=== PATIENT | male | born 1960 | race Caucasian/White ===

== ENCOUNTER 2017-04-15 12:32 | Emergency (ER) | payer OTHER, SELFPAY ==
[2017-04-15 12:33] VITALS: BP 138/70; PULSE 63; RESP 16; TEMP 36.4; O2SAT 99; BMI 21.3
--- NOTE | 2017-04-15 12:47 | RAD_ITS ---
STUDY: X-RAY - LUMBAR SPINE REASON FOR EXAM: Male, 57 years old. Low back pain following a fall. TECHNIQUE: 3 view(s) of the lumbar spine were obtained. COMPARISON: None FINDINGS: Normal lumbar lordosis. There is no substantial scoliosis. There is a normal alignment of the vertebrae. There is multilevel endplate spondylosis of the lumbar vertebrae. There is multi-level degenerative disc disease with multi-level disc space narrowing. The soft tissue structures are unremarkable. RAD/Lumbar Spine 2 or 3 Views IMPRESSION: Degenerative changes of the spine, as detailed above. Electronically Signed: Mo Corea MD at 13:52 EST Tel [phone], Service support ,
--- NOTE | 2017-04-15 12:48 | ED.DCSUM_ITS ---
- ER Visit Summary Date of Service: 04/15/17 Chief Complaint: Back pain History of Present Illness: The patient is a 57 M who presents with back pain. He fell off a truck at work this morning. He landed directly on his back. No head trauma or LOC. He has pain in the lower part of his back. It is worse with movement. Better with sitting. He took no medications for this. He denies any bowel or bladder incontinence. No numbness or tingling to his legs. No history of back issues Physical Examination: Vital signs reviewed. Heart is regular. Lungs are clear. Abdomen soft. Back is diffusely tender along the lumbar spine area. His neurologic exam is intact and normal. Test Results: Lumbar spine x-ray reveals degenerative changes Emergency Department Course and Treatment: Patient was given naproxen Treatment Plan: Patient will be given naproxen for home. Worker's Compensation forms will be completed Disposition: Discharge Impression: Lumbar contusion This note was generated with [employer] dictation software. It may contain incorrect words, spelling, and punctuation that were not noted in review of the chart prior to signing ED Disposition - Plan for ED Patient: Chief Complaint: Back Referrals: Care Physician,No Primary [Primary Care Provider] -
[2017-04-15] MEDS: Naproxen 500 MG Tablet PO (12:55)
--- NOTE | 2017-04-15 14:08 | ED.DEP ---
ED Disposition - Plan for ED Patient: Disposition: Home or Assisted Living Chief Complaint: Back Instructions: ED Contusion Back Prescriptions: Naproxen [Naprosyn] 500 mg PO BID PRN #20 tab Referrals: Care Physician,No Primary [Primary Care Provider] -
[2017-04-15 14:14] VITALS: BP 121/70; PULSE 58; RESP 16; O2SAT 99
== END 2017-04-15 14:14 | disposition home or self-care (01) ==
PROVIDERS: Emergency Provider Emergency Medicine
DX: S30.0XXA Contusion of lower back and pelvis, initial encounter (principal); Z72.0 Tobacco use; W17.89XA Other fall from one level to another, initial encounter; Y93.89 Activity, other specified; Y92.89 Other specified places as the place of occurrence of the external cause; Y99.0 Civilian activity done for income or pay
CPT/HCPCS: 72100; 99283

== ENCOUNTER 2017-07-23 22:10 | Emergency (ER) | payer SELFPAY ==
[2017-07-23 22:11] VITALS: BP 141/67; PULSE 88; RESP 16; TEMP 36.8; O2SAT 98; BMI 24.4
== END 2017-07-23 22:59 | disposition left against medical advice (07) ==
LOC: ED 22:47
PROVIDERS: Emergency Provider Emergency Medicine
DX: S60.812A Abrasion of left wrist, initial encounter (principal)
CPT/HCPCS: 99282

== ENCOUNTER 2018-06-11 15:42 | Emergency (ER) | payer SELFPAY ==
[2018-06-11 15:42] VITALS: BP 114/75; PULSE 80; RESP 15; TEMP 36.4; O2SAT 97; BMI 21.3
--- NOTE | 2018-06-11 16:10 | RAD_ITS ---
STUDY: X-RAY - UNILATERAL RIBS ( RIGHT ) WITH CHEST REASON FOR EXAM: Male, 58 years old. Fall, right rib pain TECHNIQUE - RIBS: 4 view(s) of the ribs. TECHNIQUE - CHEST: PA COMPARISON: None. FINDINGS - RIBS: Normal visualized ribs without a demonstrated fracture. FINDINGS - CHEST: The lungs are clear and expanded. There is no demonstrated pleural abnormality. Normal size heart. Normal mediastinum and carrie. Normal visualized pulmonary arteries. Normal visualized aortic arch and descending thoracic aorta. Normal visualized thoracic spine. Normal visualized ribs, clavicles, and shoulders. There is no demonstrated abnormality of the visualized soft tissue structures of the upper abdomen. RAD/Ribs Uni Min 3V w/PA Chest IMPRESSION: RIBS: Normal x-ray examination of the ribs. CHEST: Normal x-ray examination of the chest. Electronically Signed: Marcello Melendrez MD at 16:55 EDT , Service support ,
--- NOTE | 2018-06-11 16:10 | CT_ITS ---
STUDY: CT ABDOMEN AND PELVIS WITHOUT CONTRAST REASON FOR EXAM: Male, 58 years old. Fall down 3 steps with pain on the right side RADIATION DOSAGE (If Supplied By Facility): CTDIvol = ( 6.90 ) mGy, DLP = ( 324.01 ) mGycm TECHNIQUE: Transaxial images were obtained from the dome of the diaphragm to the symphysis pubis without oral contrast, and without intravenous contrast. Sagittal and coronal images were reconstructed. Individualized dose optimization techniques were used for this CT. COMPARISON: None. FINDINGS: The visualized lung bases are unremarkable. The visualized portions of the heart are within normal limits. There is decreased attenuation of the liver consistent with steatosis. Normal gallbladder and extrahepatic biliary system. Normal spleen. Normal pancreas. Normal bilateral adrenal glands. Normal right kidney. Normal left kidney. Normal visualized stomach. Normal small intestine. Normal colon. The appendix is visualized and appears normal. Normal abdominal aorta. Normal inferior vena cava. Normal retroperitoneum. Normal urinary bladder. There are prostatic calcifications. Normal abdominal wall. There are diffuse degenerative changes of the visualized lumbar spine. The visualized ribs are grossly intact. No compression fracture. CT/Abdomen/Pelvis without Cont IMPRESSION: 1. No solid organ injury, pneumoperitoneum or free fluid. 2. Hepatic steatosis. 3. No obvious injury/injury of the visualized osseous structures. Electronically Signed: Marcello Melendrez MD at 17:03 EDT , Service support ,
--- NOTE | 2018-06-11 16:13 | ED.VISSUMM ---
- ER Visit Summary Date of Service: 06/11/18 Chief Complaint: Fall History of Present Illness: The patient is a 58 M who reportedly fell down 3 icy steps shortly prior to arrival. He is complaining of pain to his right lower ribs, right side back, and his right forearm. He did not strike his head. There is no loss of consciousness. He has not yet taken anything for pain. He was observed walking to the room with antalgic gait. Physical Examination: Vital signs unremarkable. Patient lying in bed no acute distress. He does smell of alcoholic beverage. Head neck examination was no obvious external sign of trauma. He has no C-spine tenderness on exam. Heart is regular rate and rhythm. Lung sounds are clear. He has reproducible tenderness over the right lateral lower ribs. There is no crepitus. Abdomen is soft and nontender. Back examination reveals slight tenderness in the right flank area with superficial abrasions. There is no midline thoracic or lumbar tenderness. Extremity examination was a small hematoma to the mid right forearm. He has full range of motion with strong distal pulses. Neuro exam is unremarkable. Test Results: Right forearm x-rays revealed no fracture. Rib series with chest x-ray is normal. CT abdomen pelvis shows no solid organ injury. No obvious injury to the osseous structures. Emergency Department Course and Treatment: Patient was given 1 tab of oxycodone for pain. Test results discussed with patient and family at bedside. He will be given a short course of naproxen and Imogene. Treatment Plan: [] Disposition: Discharge Impression: 1. Mechanical fall 2. Right flank contusion This note was generated with [employer] dictation software. It may contain incorrect words, spelling, and punctuation that were not noted in review of the chart prior to signing ED Disposition - Plan for ED Patient: Referrals: Care Physician,No Primary [Primary Care Provider] -
--- NOTE | 2018-06-11 16:29 | RAD_ITS ---
STUDY: X-RAY - RIGHT RADIUS AND ULNA REASON FOR EXAM: Male, 58 years old. Fall, right arm pain TECHNIQUE: 2 view(s) of the forearm. COMPARISON: None. FINDINGS: There is no demonstrated soft tissue swelling. Normal visualized radius. Normal visualized ulna. RAD/Forearm 2 Views IMPRESSION: Normal x-ray examination of the radius and ulna. Electronically Signed: Marcello Melendrez MD at 16:54 EDT , Service support ,
[2018-06-11] MEDS: oxyCODONE 5 MG Tablet PO (16:53)
[2018-06-11 16:55] VITALS: O2SAT 98
--- NOTE | 2018-06-11 17:10 | DCINST.ED_ITS ---
ED Disposition - Plan for ED Patient: Disposition: Home or Assisted Living Instructions: ED Mechanical Fall, ED Contusion Back Prescriptions: Hydrocodone Bitart/Apap 5-325 [[place] 5MG-325MG] 1 tablet PO Q6H PRN PRN 3 Days #10 tablet PRN Reason: Pain Naproxen [Naprosyn] 500 mg PO BID PRN PRN #20 tablet PRN Reason: Pain Referrals: Kim Gallardo DO [STAFF PHYSICIAN] - As Needed
[2018-06-11 17:16] VITALS: BP 140/83; PULSE 73; RESP 18; O2SAT 97
== END 2018-06-11 17:20 | disposition home or self-care (01) ==
PROVIDERS: Emergency Provider Emergency Medicine
DX: S30.1XXA Contusion of abdominal wall, initial encounter (principal); Z72.0 Tobacco use; W10.9XXA Fall (on) (from) unspecified stairs and steps, initial encounter; Y93.01 Activity, walking, marching and hiking; Y92.89 Other specified places as the place of occurrence of the external cause; Y99.8 Other external cause status
CPT/HCPCS: 71101; 73090; 74176; 99283

== ENCOUNTER 2018-12-18 06:43 | Emergency (ER) | payer SELFPAY ==
[2018-12-18 06:46] VITALS: BP 122/61; PULSE 98; RESP 15; TEMP 36.4; O2SAT 95; BMI 21.1
--- NOTE | 2018-12-18 07:15 | CT_ITS ---
STUDY: CT LUMBAR SPINE WITHOUT CONTRAST REASON FOR EXAM: Male, 58 years old. Low back pain after falling off a truck 2 weeks ago. RADIATION DOSAGE (If Supplied By Facility): CTDIvol = ( 13.82 ) mGy, DLP = ( 363.47 ) mGycm TECHNIQUE: The patient was scanned in a multi detector CT scanner. High resolution transaxial imaging was performed. Images were obtained from T12 to sacrum. Sagittal and coronal images were reconstructed. Individualized dose optimization techniques were used for this CT. COMPARISON: CT of the lumbar spine dated June 04, 2016. FINDINGS: Normal lumbar lordosis. There is no substantial scoliosis. The imaged thoracic and lumbar vertebral bodies have normal height and alignment. There is a transitional vertebral segment at L5-S1. L1-2: There is mild annular disk bulge and osteophyte complex. There is mild degenerative arthropathy of the facet joints. Bilateral neuroforamina are narrowed. There is no significant acquired central canal stenosis. L2-3: There is a Schmorl's node at the inferior endplate of L2. There is a small bone fragment located between the articulating facets on the right at this level. This could be the result of previous fracture and probably represents intra-articular loose body measuring up to 5.6 mm in greatest dimension. There is mild annular disk bulge and osteophyte complex. There is mild degenerative arthropathy of the facet joints. Bilateral neuroforamina are narrowed. There is no significant acquired central canal stenosis. L3-4: There is mild annular disk bulge and osteophyte complex. There is mild degenerative arthropathy of the facet joints. Bilateral neuroforamina are narrowed. There is no significant acquired central canal stenosis. L4-5: There is narrowing of this disc space with the mild retrolisthesis at this level. There is mild annular disk bulge and osteophyte complex. There is mild degenerative arthropathy of the facet joints. Bilateral neuroforamina are narrowed. There is no significant acquired central canal stenosis. L5-S1: This has appearance of a transitional vertebral segment with rudimentary disc. The neural foramina are mildly narrowed. There is no significant central acquired canal stenosis. Normal visualized paraspinous soft tissue structures. CT/Spine Lumbar without Contrast IMPRESSION: 1. No CT evidence of acute compression or displaced fracture. 2. There does appear to be a chip fracture arising from the right-sided facet joint at L2-3 with possible small intra-articular loose body. This is unchanged since the previous CT. 3. Transitional vertebral segment with apparent sacralization of L5. 4. Multilevel degenerative disc disease and degenerative arthropathy of the lumbar spine, as described. Electronically Signed: Gail Rooney MD at 8:09 EDT , Service support ,
--- NOTE | 2018-12-18 07:16 | ED.DCSUM_ITS ---
- ER Visit Summary Date of Service: 12/18/18 Chief Complaint: Back pain History of Present Illness: The patient is a 58 M who presents with low back pain. Patient states that 2 weeks ago he fell off a box landing flat on his back. That started some discomfort in the low back. 2 days ago he was unloading wood boxes and states that it progressively got worse and today when he woke he states that he could barely move due to pain in the low back. He notes tingling in his toes and foot. He notes pain radiates down the left leg. He denies any bowel or bladder dysfunction. He denies any loss of muscle strength or loss of sensation. He denies any fevers. Denies any IV drug use. He denies any prior back injuries but states that he has a history of arthritis in his back. He states he is not go to the doctor. He notes daily alcohol and smokes. Physical Examination: Afebrile vital signs are stable Gen: Well-nourished well-developed Head: Normocephalic atraumatic Eyes: Perrl EOMI ENT: TMs clear no rhinorrhea moist mucous membranes Neck: Supple no lymphadenopathy no JVD nontender CVS: Regular rate rhythm no murmurs normal S1-S2 Respiratory: No distress clear to auscultation bilaterally chest nontender Abdomen: Soft nontender nondistended normal bowel sounds no masses Back: Patient is tender to palpation over the lower lumbar paraspinal musculature. There is no erythema or physical evidence of abscess. Patient has painful range of motion. Extremity: Nontender no edema Skin: Normal color no rash Neuro: alert orientated ?3 CN II-XII intact normal strength sensation normal patellar reflex Psych: Normal affect normal mood Test Results: CT of the lumbar spine was obtained. In short no new trauma noted. Please see radiologist read for full details. Emergency Department Course and Treatment: Patient received IM doses of Toradol and morphine and p.o. Valium. Given the CT findings and his physical exam I do not see evidence of acute neurologic deficit. I think is most likely muscular. He will be discharged home with pain medication and Valium. He is to establish primary care. He understands return instructions. Impression: 1. Acute lumbar muscle strain and spasm This note was generated with [employer] software. It may contain incorrect words, spelling, and punctuation that were not noted in review of the chart prior to signing ED Disposition - Plan for ED Patient: Disposition: Home or Assisted Living Instructions: Back Sprain/Strain Prescriptions: Ibuprofen [Motrin] 800 mg PO TID PRN PRN #15 tab PRN Reason: Pain Score 1-10/10 Prescription Printed Hydrocodone Bitart/Apap 5-325 [[place] 5MG-325MG] 1 tab PO Q6H PRN PRN 3 Days #12 tab PRN Reason: Pain Prescription Printed Diazepam [Valium] 5 mg PO Q8 PRN #15 tab PRN Reason: Muscle Spasm Prescription Printed Referrals: Alexsander Garg MD [STAFF PHYSICIAN] - (CALL TO ARRANGE FOLLOW UP )
[2018-12-18] MEDS: diazePAM 5 MG Tablet PO (07:21)
[2018-12-18] MEDS: morphine 10 MG/ML Syringe IM (07:22)
[2018-12-18] MEDS: Ketorolac 60 MG/2 ML Vial IM (07:22)
== END 2018-12-18 08:44 | disposition home or self-care (01) ==
PROVIDERS: Emergency Provider Emergency Medicine
DX: M62.830 Muscle spasm of back (principal); S39.012A Strain of muscle, fascia and tendon of lower back, initial encounter; M19.90 Unspecified osteoarthritis, unspecified site; Z72.0 Tobacco use; X50.0XXA Overexertion from strenuous movement or load, initial encounter; Y93.89 Activity, other specified; Y92.89 Other specified places as the place of occurrence of the external cause; Y99.8 Other external cause status
CPT/HCPCS: 72131; 96372; 99282

== ENCOUNTER 2019-06-03 10:15 | Emergency (ER) | payer SELFPAY ==
[2019-06-03 10:15] VITALS: BP 135/75; PULSE 85; RESP 18; TEMP 36.8; O2SAT 98; BMI 25.7
--- NOTE | 2019-06-03 10:24 | RAD_ITS ---
STUDY: X-RAY CHEST REASON FOR EXAM: Male, 59 years old. COUGH, FEVER, DIARRHEA TECHNIQUE: Single AP portable view of the chest. COMPARISON: 11 June 2018 FINDINGS: The lungs are clear and expanded. There is no demonstrated pleural abnormality. Normal size heart. Normal mediastinum and carrie. Normal visualized pulmonary arteries. Normal visualized aortic arch and descending thoracic aorta. Normal visualized thoracic spine. Normal visualized ribs, clavicles, and shoulders. There is no demonstrated abnormality of the visualized soft tissue structures of the upper abdomen. RAD/Chest 1 View (Portable) IMPRESSION: No evidence of persisting focal airspace disease with overall similar appearance compared to prior. Electronically Signed: Cody Antoine DO at 11:12 EDT , Service support ,
[2019-06-03 10:25] VITALS: BP 135/75; PULSE 85; RESP 16; TEMP 36.8
--- NOTE | 2019-06-03 10:26 | EKG12_ITS ---
Test Reason : SOB Blood Pressure : / mmHG Vent. Rate : 074 BPM Atrial Rate : 074 BPM P-R Int : 118 ms QRS Dur : 088 ms QT Int : 394 ms P-R-T Axes : 076 088 061 degrees QTc Int : 437 ms Normal sinus rhythm Normal ECG Confirmed by JACKIE AGUILAR, ALEM ([id number]), web editor TIM OBANDO ([id number]) on 06/05/2019 8:33:44 AM Referred By: SHANTI Confirmed By:ALEM MEJIA MD
--- NOTE | 2019-06-03 10:28 | ED.VISSUMM ---
- ER Visit Summary Date of Service: 06/03/19 Chief Complaint: Feeling ill History of Present Illness: The patient is a 59 M presenting stating that he has felt ill since . He complains of chills, denies fever. He complains of shortness of breath and nonproductive cough. He denies chest pain. He complains of abdominal pain and diarrhea. He states the abdominal pain was worse yesterday and improved today. He denies nausea or vomiting. He has had 3 episodes of diarrhea per day. Denies blood in stool. He has myalgias. He denies headache. Denies sick contacts. Denies travel. Denies recent antibiotics. He did not receive a flu shot this year. He has tried no medications at home. 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 No other PE/DVT risk factors. Physical Examination: Vitals are stable. Patient is afebrile. Alert no acute distress. Pulse ox 98% on room air. HEENT exam is unremarkable. Neck is supple. No meningismus Lungs are clear and equal bilaterally. Heart is regular rate and rhythm. Abdomen is soft left lower quadrant tenderness with no guarding or rebound Extremities are unremarkable. Skin is warm and dry. No focal neurologic deficit. Remainder of exam is unremarkable. Emergency Department Course and Treatment: EKG is sinus rhythm rate of 74 with no acute ischemic changes. Chest x-ray shows no evidence of persisting focal airspace disease with overall similar appearance compared to prior. CBC, chemistries unremarkable other than glucose 166. ALT 72, AST 52, lipase is normal. Troponin is negative. Urinalysis unremarkable. Influenza and RSV negative. D-dimer elevated at 0.76. Due to elevated d-dimer, CTA chest was obtained and shows Right pulmonary nodules, mild central bronchial wall thickening. No CT evidence of pulmonary embolism. CT abdomen pelvis shows there is an anterior 3.5 cm hypoattenuated area within the right hepatic lobe. Correlation with ultrasound or MRI if needed. Fatty liver. Patient was advised of these CT results and advised to follow up with primary care physician. He is given Dr. Bah store consultant for no doctor for follow-up. Advised return to ED for worsening complaints. Disposition: Discharge home Impression: Viral syndrome This note was generated with [employer] dictation software. It may contain incorrect words, spelling, and punctuation that were not noted in review of the chart prior to signing ED Disposition - Plan for ED Patient: Instructions: VIRAL SYNDROME (Adult) Referrals: Florentino Bah MD [STAFF PHYSICIAN] -
[2019-06-03] MEDS: 0.9% Normal Saline 1,000 ML 1000 ML IV (10:49)
[2019-06-03 10:50] VITALS: O2SAT 96
[2019-06-03 11:02] LABS: Bacteria 0 SEEN /hpf (None Seen); Mucous, Urine 0 SEEN /hpf (<or=2+); Red Blood Cells-Urine 0 SEEN /hpf (0-5); White Blood Cells 0 SEEN /hpf (0-5)
[2019-06-03 11:05] LABS: Color, Urine Yellow (Yellow); Glucose, Dipstick Normal (Normal); Ketone-Dipstick Negative (Negative); Leukocyte Esterase-Dipstick Negative /ul (Negative); Nitrite-Dipstick Negative (Negative); Occult Blood-Urine Negative /ul (Negative); Protein-Dipstick Negative (Negative); Urine Bilirubin Dipstick Negative (Negative); Urine Clarity Clear (Clear); Urine Urobilinogen Normal (Normal)
[2019-06-03 11:05] LABS: Absolute Lymphocyte Count 2.04 X10^3/uL (0.83-4.51); Absolute Neutrophil Count 4.1 X10^3/uL (2.0-7.7); Basophil# 0.03 X10^3/uL; Basophil% 0.4 % (0-1); Eosinophil# 0.05 X10^3/uL; Eosinophils% 0.7 % (0-5); Hematocrit 43.5 % (40-54); Hemoglobin 14.8 g/dL (13.0-16.5); Lymphocyte # 2.04 X10^3/ul (4.0); Lymphocyte % 30.4 % (19-41); Mean Corpuscular Hgb 31.2 pg (27.0-32.0); Mean Corpuscular Volume 91.8 fL (80-94); Mean Platelet Vol. 10.1 fl (6.2-12.0); Monocyte# 0.51 X10^3/uL; Monocyte% 7.6 % (0-10); NRBC Flagged by Analyzer 0 % (0-5); Neutrophil # 4.05 X10^3/uL (2.7-7.7); Neutrophil % 60.5 % (47-70); Platelet Count 170 K/mm3 (150-450); RBC Distribution Width CV 12.9 % (11.6-14.6); RBC Distribution Width SD 43.3 fl (35.1-43.9); Red Blood Count 4.74 M/mm3 (4.6-6.2); White Blood Count 6.7 K/mm3 (4.4-11.0)
[2019-06-03 11:14] LABS: Squamous Epithelial Cells - UA 0-5 SEEN /hpf (0-5)
[2019-06-03 11:18] LABS: D-Dimer Quantitative (DVT/PE) 0.76 FEU/ug/m (0.27-0.49)
[2019-06-03 11:21] LABS: AST(SGOT) 52 U/L (15-37); Alanine Aminotransfer ALT/SGPT 72 U/L (16-61); Albumin, Serum 3.7 g/dL (3.2-5.0); Alkaline Phosphatase 61 U/L (45-117); Anion Gap 11 (5-15); BUN 13 mg/dL (7-18); BUN/Creat Ratio 12.7 RATIO (10-20); Calcium,Total 8.6 mg/dL (8.5-10.1); Chloride 104 mmol/L (98-107); Creatinine, Serum 1.02 mg/dL (0.70-1.30); EST Glomerular Filtration Rate 79 mL/min (>60); Est Glom Filt Rate - Afr Amer 96 mL/min (>60); Estimated Creatinine Clearance 83.05 ml/min; Globulin 3.7 g/dL (2.2-4.2); Glucose 166 mg/dL (74-106); Lipase 126 U/L (73-393); Potassium 3.9 mmol/L (3.5-5.1); Protein, Total 7.4 g/dL (6.4-8.2); Sodium Level 138 mmol/L (136-145)
--- NOTE | 2019-06-03 11:21 | CT_ITS ---
STUDY: CTA CHEST REASON FOR EXAM: Male, 59 years old. ELEVATED D-DIMER RADIATION DOSAGE (If Supplied By Facility): CTDIvol = ( 7.94 ) mGy, DLP = ( 287.87 ) mGycm TECHNIQUE: The examination was performed with the intravenous administration of 100 CC ISOVUE 370. Post-processing of the angiographic images was performed, with multiplanar reformation and 3D reconstruction. Individualized dose optimization techniques were used for this CT. COMPARISON: None. FINDINGS: Normal enhancement of the main pulmonary artery and right and left pulmonary arteries. Normal enhancement of the bilateral peripheral pulmonary arteries. There is no demonstrated pulmonary embolism. Normal thoracic aorta and visualized great vessels. There is no demonstrated aortic dissection. Normal heart and pericardium. Normal mediastinum. Normal hilar regions. Mild bronchial wall thickening in the central airway. The lungs are well expanded. Right lower lobe calcified granuloma. The peripheral blebs are noted in the upper lobes bilaterally. There is a 1.3 cm central nodule in the left lower lobe, image 123 series 2. 4 mm right upper lobe nodule medially, image 201 series 2. Normal chest wall structures. Normal osseous structures. Normal visualized upper abdomen. CT/CTA Chest W/WO Contrast IMPRESSION: Right pulmonary nodules as noted. Mild central bronchial wall thickening.. No CT evidence of pulmonary embolism. Electronically Signed: Antonio Cool DO at 12:37 EDT Tel [phone], Service support ,
--- NOTE | 2019-06-03 11:21 | CT_ITS ---
STUDY: CT ABDOMEN AND PELVIS WITHOUT CONTRAST REASON FOR EXAM: Male, 59 years old. LLQ PAIN, ELEVATED D-DIMER RADIATION DOSAGE (If Supplied By Facility): CTDIvol = ( 9.91 ) mGy, DLP = ( 466.19 ) mGycm TECHNIQUE: Transaxial images were obtained from the dome of the diaphragm to the symphysis pubis without oral contrast, and without intravenous contrast. Sagittal and coronal images were reconstructed. Individualized dose optimization techniques were used for this CT. COMPARISON: June 11, 2018 FINDINGS: The visualized lung bases are unremarkable. The visualized portions of the heart are within normal limits. There is an anterior 3.5 cm hypoattenuated area within the right hepatic lobe. Fatty liver. Normal gallbladder and extrahepatic biliary system. Normal spleen. Normal pancreas. Normal bilateral adrenal glands. Normal right kidney. Normal left kidney. Normal visualized stomach. Normal small intestine. Normal colon. The appendix is visualized and appears normal. Normal abdominal aorta. Normal inferior vena cava. Normal retroperitoneum. Normal urinary bladder. Normal abdominal wall. Mild degenerative vertebral changes. CT/Abdomen/Pelvis W IV Cont ONLY IMPRESSION: There is an anterior 3.5 cm hypoattenuated area within the right hepatic lobe. Correlation with ultrasound or MRI if needed. Fatty liver. Electronically Signed: Antonio Cool DO at 12:48 EDT Tel [phone], Service support ,
--- NOTE | 2019-06-03 12:52 | ED.DEP ---
ED Disposition - Plan for ED Patient: Instructions: VIRAL SYNDROME (Adult) Referrals: Florentino Bah MD [STAFF PHYSICIAN] -
[2019-06-03 13:35] VITALS: BP 142/77; PULSE 66; RESP 17; TEMP 36.8; O2SAT 96
== END 2019-06-03 13:46 | disposition home or self-care (01) ==
PROVIDERS: Emergency Provider Emergency Medicine
DX: B34.9 Viral infection, unspecified (principal); K76.0 Fatty (change of) liver, not elsewhere classified; R91.8 Other nonspecific abnormal finding of lung field; Z72.0 Tobacco use
CPT/HCPCS: 71045; 71275; 74177; 80053; 81001; 83690; 84484; 85025; 85379; 87804; 87807; 93005; 96360; 96361; 99283; J7030; Q9967; A4216

== ENCOUNTER 2020-03-23 19:46 | Emergency (ER) | payer SELFPAY ==
[2020-03-23 19:46] VITALS: BP 126/83; PULSE 66; RESP 18; TEMP 36.1; O2SAT 95; BMI 19.0
--- NOTE | 2020-03-23 19:58 | CT_ITS ---
STUDY: CT BRAIN WITHOUT CONTRAST REASON FOR EXAM: Male, 59 years old. Trauma. RADIATION DOSAGE (If Supplied By Facility): CTDIvol = ( 44.99 ) mGy, DLP = ( 812.98 ) mGycm TECHNIQUE: Transaxial CT imaging of the brain was performed without administration of intravenous contrast material. Individualized dose optimization techniques were used for this CT. COMPARISON: None. FINDINGS: There is no acute bleed or infarct. There are normal white matter tracts. The ventricles are normal in configuration. There is no hydrocephalus. There is mucosal hypertrophy in the maxillary sinuses. The visualized paranasal sinuses are otherwise clear. The mastoid air cells are well aerated. There is no skull fracture. CT/Brain/Head without Contrast IMPRESSION: No acute intracranial abnormality. Maxillary sinusitis. Electronically Signed: Yan Lui, at 20:57 EST Tel , Service support ,
--- NOTE | 2020-03-23 19:59 | ED.DCSUM_ITS ---
- ER Visit Summary Date of Service: 03/23/20 Chief Complaint: Fall History of Present Illness: The patient is a 59 M who presents after a fall that occurred today. Patient stood up from the couch and fell forward. Patient hit his head on the coffee table. Patient denies any loss of consciousness. Belia deluna states he lost his vision since the fall. Patient admits to a left frontal headache. Patient describes it as aching. Patient states nothing makes it worse and nothing makes it better. Patient denies any paresthesias or weakness. Patient denies any nausea or vomiting. Paramedics report the patient drank 12 beers today. Physical Examination: Vital signs are stable. Patient is afebrile. Patient is in no acute distress. Pupils are equal, round, and reactive to light. Patient does blink with threatening movements towards his eyes. Patient was also noted to follow the nurse as she left the room. I also noted the patient was looking around the room during his exam. Oral mucosa is pink and moist. Neck is supple. Trachea is midline. There is no JVD. Heart was regular rate and rhythm. Lungs are clear and equal bilaterally. Abdomen is soft. Bowel sounds are normal. There is no tenderness. Cranial nerves II through XII are grossly intact. There are no focal motor or sensory deficits. Extremities are intact. There is no calf tenderness or edema. Test Results: CBC and comprehensive metabolic profile were obtained and were ess entially within normal limits. Serum alcohol level was elevated at 344. CT scan of the brain was obtained. There is no acute intracranial abnormality. This was interpreted by the radiologist and reviewed by myself. Emergency Department Course and Treatment: Patient was observed here in the emergency department. Patient states his vision has returned. Patient wants to go home. Patient states he called his who will come pick him up and assume responsibility for him. Patient will be discharged with her when she arrives. Disposition: Discharge home Impression: 1. Alcohol intoxication 2. Closed head injury 3. Left forehead abrasion This note was generated with [employer] dictation software. It may contain incorrect words, spelling, and punctuation that were not noted in review of the chart prior to signing ED Disposition - Plan for ED Patient: Disposition: Home or Assisted Living Diagnosis: Alcohol intoxication, Closed head injury, Forehead abrasion Instructions: ED Alcohol Intoxication, ED Head Injury (Adult) Referrals: Care Physician,No Primary [Primary Care Provider] -
[2020-03-23 20:09] LABS: Absolute Neutrophil Count 2.5 X10^3/uL (2.0-7.7); Basophil# 0.04 X10^3/uL; Basophil% 0.6 % (0-1); Eosinophil# 0.14 X10^3/uL; Eosinophils% 2.2 % (0-5); Hematocrit 47.1 % (40-54); Hemoglobin 15.9 g/dL (13.0-16.5); Lymphocyte % 46.9 % (19-41); Mean Corp Hgb Conc 33.8 g/dL (32-36); Mean Corpuscular Hgb 31.4 pg (27.0-32.0); Mean Corpuscular Volume 93.1 fL (80-94); Mean Platelet Vol. 10.1 fl (6.2-12.0); Monocyte# 0.71 X10^3/uL; Monocyte% 11.1 % (0-10); NRBC Flagged by Analyzer 0 % (0-5); Neutrophil # 2.49 X10^3/uL (2.7-7.7); Neutrophil % 38.9 % (47-70); Platelet Count 132 K/mm3 (150-450); RBC Distribution Width CV 13.2 % (11.6-14.6); RBC Distribution Width SD 45.1 fl (35.1-43.9); Red Blood Count 5.06 M/mm3 (4.6-6.2); White Blood Count 6.4 K/mm3 (4.4-11.0)
[2020-03-23] MEDS: Diphth,Pertuss(Acell),Tet Vac 0.5 ML Vial IM (20:14)
[2020-03-23] MEDS: 0.9% Normal Saline 1,000 ML 1000 ML IV (20:14)
[2020-03-23 20:26] LABS: ALB/GLOB Ratio 1.1 RATIO (0.9-2.4); AST(SGOT) 114 U/L (15-37); Alanine Aminotransfer ALT/SGPT 122 U/L (16-61); Alkaline Phosphatase 55 U/L (45-117); Anion Gap 4 (5-15); BUN 8 mg/dL (7-18); BUN/Creat Ratio 11.1 RATIO (10-20); Calcium,Total 8.4 mg/dL (8.5-10.1); Chloride 112 mmol/L (98-107); Creatinine, Serum 0.72 mg/dL (0.70-1.30); EST Glomerular Filtration Rate 119 mL/min (>60); Est Glom Filt Rate - Afr Amer 144 mL/min (>60); Estimated Creatinine Clearance 96.72 ml/min; Globulin 3.8 g/dL (2.2-4.2); Glucose 82 mg/dL (74-106); Protein, Total 7.8 g/dL (6.4-8.2); Sodium Level 144 mmol/L (136-145)
[2020-03-23 20:46] VITALS: RESP 16
== END 2020-03-23 21:14 | disposition home or self-care (01) ==
PROVIDERS: Emergency Provider Emergency Medicine
DX: S00.81XA Abrasion of other part of head, initial encounter (principal); F10.129 Alcohol abuse with intoxication, unspecified; Y90.8 Blood alcohol level of 240 mg/100 ml or more; Z72.0 Tobacco use; W18.30XA Fall on same level, unspecified, initial encounter; Y93.89 Activity, other specified; Y92.009 Unspecified place in unspecified non-institutional (private) residence as the place of occurrence of the external cause; Y99.8 Other external cause status
CPT/HCPCS: 70450; 80053; 82077; 85025; 90715; 96360; 99285; J7030; A4216

== ENCOUNTER 2020-08-24 11:18 | Emergency (ER) | payer SELFPAY ==
[2020-08-24 11:19] VITALS: BP 130/82; PULSE 61; RESP 19; TEMP 36.9; O2SAT 97
--- NOTE | 2020-08-24 11:50 | CT_ITS ---
EXAM: CT HEAD WITHOUT INTRAVENOUS CONTRAST : 1960 CLINICAL INDICATION: Fall, struck head +LOC TECHNIQUE: Multiple axial images were obtained of the head without intravenous contrast. This CT exam was performed using one or more of the following dose reduction techniques: automated exposure control, adjustment of the mA and/or kV according to patient size, and/or use of iterative reconstruction technique. This report was created using Hello Agent report generation technology. COMPARISON: None. FINDINGS: BRAIN AND EXTRA-AXIAL SPACES: Unremarkable. No intra- or extra-axial hemorrhage. No evidence of acute infarct. No intracranial mass or mass effect. There is preservation of the galarza/white matter interface. Posterior fossa structures are unremarkable. Ventricles are appropriate for age. No hydrocephalus. Basal cisterns are patent. BONES/JOINTS: Unremarkable. No discrete lytic or blastic abnormalities. SINUSES: Unremarkable as visualized. Clear. MASTOID AIR CELLS: Unremarkable. Clear. ORBITS: Visualized globes, extraocular muscles, optic nerves and retrobulbar fat appear unremarkable. CT/Brain/Head without Contrast IMPRESSION: Negative head/brain CT without intravenous contrast. Individualized dose optimization techniques were used for this CT. at 1317 Reported and signed by: Asaf Christopher MD Electronically Signed: Asaf Christopher MD at 13:16 EDT Tel , Service support ,
--- NOTE | 2020-08-24 11:52 | EDS_ITS ---
HPI History of Present Illness Chief Complaint: Laceration Informant: patient and spouse/S.O. Narrative Narrative: Patient is a 60-year-old male with no known past medical history who presents to the emergency department after a fall hitting his head. He states that he walked inside and tripped over his dog. He hit his head off of a glass table. The table did not break. Patient was found by his family on the ground unconscious. He does have a forehead laceration. He is not sure when his last tetanus shot was. Patient has no complaints at time of arrival. No headache or vision problems. No neck pain or back pain. No chest pain or shortness of breath. No abdominal pain or nausea/vomiting. He denies any other injury. He is not on any blood thinning medication. [facility] Medical History (Updated 08/24/20 @ 12:[address] Bereket Combs DO) Alcohol abuse Anxiety Back pain Depression Home Medications NK 03/23/20 [History Last Taken Unknown] Allergy/AdvReac Type Severity Reaction Status Date / Time No Known Allergies Allergy Verified 03/23/20 19:49 Social History Smoking Status: Current every day smoker tobacco type: cigarettes alcohol intake: current alcohol intake frequency: a few times a week ROS ROS ED Constitutional Constitutional ED: Denies chills or fever(s) Eyes Eyes: Denies change in vision ENT ENT ED: Denies epistaxis or rhinorrhea Cardiovascular Cardiovascular: Denies chest pain or palpitations Respiratory/Chest Respiratory/Chest: Denies cough, dyspnea or dyspnea on exertion Gastrointestinal Gastrointestinal: Denies abdominal pain, nausea or vomiting Musculoskeletal Musculoskeletal: Denies back pain or neck pain Integumentary Reports laceration Neurologic Neurologic: Denies dizziness, headache(s) or weakness EXAM Physical Exam Const Vital Signs: 08/24/20 11:19 Temperature 98.5 F Temperature Source Oral Pulse Rate 61 Respiratory Rate 19 H Blood Pressure 130/82 H Blood Pressure Mean 98 Pulse Ox 97 Oxygen Delivery Method Room Air Positive well nourished and well developed General Appearance ED: well developed and NAD HEENT Reports normocephalic and moist mucous membranes Eyes PERRL and EOMs intact bilaterally Neck supple General: Negative for tenderness Chest Wall inspection of chest normal Resp normal respiratory effort and clear to auscultation bilaterally Auscultation: Negative for rales, rhonchi or wheezes Cardio regular rate, regular rhythm and no murmurs GI normal to inspection, nondistended, normoactive bowel sounds and non-tender Palpation: soft; Negative for guarding or rebound tenderness present Back/Spine no CVA tenderness Extremity normal to inspection General Extremety ED: Negative for edema or tenderness General Extremity: Negative for edema Neuro CN's II-XII intact bilaterally and no sensory deficits noted Sensorium / Orientation: alert Motor Exam: strength 5/5 throughout Psych mental status grossly normal Skin Skin Narrative: 2 Linear horizontally oriented lacerations over left forehead. No active bleeding. No foreign body appreciated. PROC Procedures Lacerations Forehead: Length: 0.98 in Depth: Skin Shape: Linear Prep: Sterile Conditions and Shure-Clens Laceration repair: Lidocaine with epi Irrigated (ml): 50 Number of Sutures/[place]: 6 Suture Information: Ethilon and Simple Comment: Well approximated. Patient tolerated procedure well. MDM MDM MDM Narrative Medical decision making narrative: Patient presents to the emergency department after a fall causing him to hit his head with no loss of consciousness. He does have a forehead laceration. Patient will be updated on his tetanus vaccination. CT scan of the head is being obtained. No other injury or pain on exam. Patient's laceration was repaired. Patient now telling me that his tetanus was approximately 1 year ago so we will hold off on giving this now. CT scan did not show any evidence of skull fracture or intracranial hemorrhage. This time he will be discharged home in stable condition. Sutures need to be removed in 5 to 7 days. He is to follow-up with his PCP. Return precautions are reviewed. He understands and is agreeable to this plan. All questions answered. Radiography Diagnostic Testing: Radiology Impression Brain CT 08/24/20 11:50 IMPRESSION: Negative head/brain CT without intravenous contrast. Individualized dose optimization techniques were used for this CT. at 1317 Reported and signed by: Asaf Christopher MD Electronically Signed: Asaf Christopher MD at 13:16 EDT Tel , Service support , Discharge Plan Triage Chief Complaint: Laceration ED Provider: Bereket Combs Dx/Rx/DC Orders Clinical Impression: Head injury, Forehead laceration Instructions: ED Head Injury (Adult), ED Laceration: All Closures Prescriptions: No Action NK RF: 0 Primary Care Provider: Care Physician,No Primary Referrals: Care Physician,No Primary [Primary Care Provider] - 7 Days for suture removal Disposition Disposition: Home, self care
[2020-08-24] MEDS: Lidocaine 1% /Epi 1:100 (20ml) 20 ML Vial 5 ML INFILT (12:39)
== END 2020-08-24 13:35 | disposition home or self-care (01) ==
LOC: ED 13:02
PROVIDERS: Emergency Provider Emergency Medicine
DX: S01.81XA Laceration without foreign body of other part of head, initial encounter (principal); F17.210 Nicotine dependence, cigarettes, uncomplicated; W01.110A Fall on same level from slipping, tripping and stumbling with subsequent striking against sharp glass, initial encounter; Y93.01 Activity, walking, marching and hiking; Y92.008 Other place in unspecified non-institutional (private) residence as the place of occurrence of the external cause; Y99.8 Other external cause status
CPT/HCPCS: 12011; 70450; 90715; 99285; A4216

== ENCOUNTER 2020-12-23 19:39 | Emergency (ER) | payer SELFPAY ==
[2020-12-23 19:41] VITALS: BP 149/97; PULSE 65; RESP 18; TEMP 36.1; O2SAT 97; BMI 19.8
[2020-12-23 19:43] VITALS: O2SAT 98
--- NOTE | 2020-12-23 19:57 | CT_ITS ---
HISTORY: Trauma, fall, head injury with posterior scalp laceration TECHNIQUE: Multiple axial images were obtained of the brain without intravenous contrast. A radiation dose optimization technique was used for this scan. IV Contrast dosage and agent: None. COMPARISON: 08/24/20 FINDINGS: # of images incl. paperwork: 242 PARANASAL SINUSES AND MASTOID AIR CELLS: Clear. INTRACRANIAL HEMORRHAGE: None. BRAIN PARENCHYMA: No CT evidence of stroke. No intracranial masses. There is preservation of the galarza/white matter interface. Posterior fossa structures are unremarkable. CSF SPACES: Appropriate for age. There is no hydrocephalus. MASS EFFECT: None. CALVARIUM: Intact. CT/Brain/Head without Contrast IMPRESSION: No acute intracranial findings. Individualized dose optimization techniques were used for this CT. at 2038 Reported and signed by: Godfrey Quiroz MD Electronically Signed: Godfrey Quiroz MD at 20:37 EDT Tel , Service support ,
--- NOTE | 2020-12-23 19:58 | EDS_ITS ---
HPI HPI - Fall History of Present Illness Chief Complaint: Fall Informant: patient and spouse/S.O. Occured/Mechanism Occurred: Today and Hours (1) Mechanism/Context: Yes same level fall Pain/Injury Location: head Worsened by: nothing Relieved by: nothing Associated Symptoms Associated Symptoms: Negative for Parasthesias, Weakness, Loss of function, Inability to ambulate, Loss of consciousness and Amnesia Narrative Narrative: brings patient in saying that he was intoxicated tonight, and fell while he was stumbling, hitting his head on one of their oak tables sust aining a laceration. Patient denies pain anywhere although his states he was complaining of pain where he hit his head earlier. Tetanus Immunization: Unknown [facility] Medical History Alcohol abuse Anxiety Back pain Depression Home Medications NK 03/23/20 [History Last Taken Unknown] Allergy/AdvReac Type Severity Reaction Status Date / Time No Known Allergies Allergy Verified 12/23/20 19:40 Social History Smoking Status: Current every day smoker tobacco type: cigarettes alcohol intake: current alcohol intake frequency: a few times a week ROS ROS ED Constitutional Constitutional ED: Denies chills or fever(s) Eyes Eyes: Denies change in vision or diplopia ENT ENT ED: Denies rhinorrhea or sore throat Cardiovascular Cardiovascular: Denies chest pain or palpitations Respiratory/Chest Respiratory/Chest: Denies cough or dyspnea Gastrointestinal Gastrointestinal: Denies abdominal pain, diarrhea, nausea or vomiting Genitourinary Genitourinary ED: Denies dysuria or hematuria Musculoskeletal Musculoskeletal: Denies back pain or neck pain Integumentary Reports as per HPI and laceration; Denies abscess or rash Neurologic Neurologic: Reports headache(s); Denies paresthesias or weakness Psychiatric Psychiatric: Denies anxiety or suicidal thoughts EXAM Physical Exam Const Vital Signs: 12/23/20 19:41 12/23/20 19:43 Temperature 97.0 F L Temperature Source Temporal Pulse Rate 65 Respiratory Rate 18 Respiratory Effort Normal Non-Labored Respiratory Depth Normal Respiratory Pattern Normal Blood Pressure 149/97 H Blood Pressure Mean 114 Pulse Ox 97 98 Oxygen Delivery Method Room Air Room Air Positive well nourished, well developed and unkempt Constitutional Narrative: Clinically intoxicated. Able to ambulate without difficulty. General Appearance ED: unkempt, well developed and NAD HEENT Reports moist mucous membranes HEENT Narrative: 2 cm full-thickness linear clean appearing laceration to the occipital scalp without crepitance or depression or pulsatile bleeding. No other head or neck injury. No facial tenderness. No hemotympanum, elizondo sign, eye injury. No CSF otorhinorrhea. normocephalic Eyes PERRL and EOMs intact bilaterally Neck full ROM and supple Resp normal respiratory effort and clear to auscultation bilaterally Cardio regular rate, regular rhythm and no murmurs GI non-tender and non-distended Auscultation: normoactive bowel sounds Palpation: soft Back/Spine no CVA tenderness General Back: other FROM Extremity normal to inspection General Extremety ED: Negative for edema, pulses abnormal or tenderness General Extremity: Negative for edema or pulses abnormal Neuro oriented x3, CN's II-XII intact bilaterally and no sensory deficits noted Sensorium / Orientation: awake and alert Motor Exam: strength 5/5 throughout Psych Appearance: unkempt Skin no rashes or lesions noted and no wounds MDM MDM MDM Narrative Medical decision making narrative: Head CT obtained, it shows no sign of intracranial injury. Topical let was placed on the laceration of the scalp, and it was stapled shut with 2 skin stephen. is comfortable taking him home. I do not think he needs any other medical test right now. Radiography Diagnostic Testing: Clinical Impression(s) from Imaging Studies Brain CT 12/23/20 19:57 IMPRESSION: No acute intracranial findings. Individualized dose optimization techniques were used for this CT. at 2038 Reported and signed by: Godfrey Quiroz MD Electronically Signed: Godfrey Quiroz MD at 20:37 EDT Tel , Service support , Procedures Lacerations occipital scalp: Length: 2 cm Depth: Sub Q Shape: Linear Prep: Sterile Conditions and Betadine Laceration repair: Local (topical LET) and Wound explored Number of Sutures/[place]: 2 Suture Information: - (skin stephen) Comment: no complications, tolerated well Discharge Plan Triage Chief Complaint: Fall ED Provider: Willis Estrada Dx/Rx/DC Orders Clinical Impression: Closed head injury without loss of consciousness, Laceration of occipital scalp, Alcohol intoxication Instructions: ED Laceration Scalp Stitches or Stephen Prescriptions: No Action NK RF: 0 Primary Care Provider: Care Physician,No Primary Referrals: Care Physician,No Primary [Primary Care Provider] - Doctor,Your [STAFF PHYSICIAN] - 5 Days for suture removal (or ER/urgent care) Activity Restrictions/Additional Instructions: You declined a tetanus shot today. Follow-up with your doctor to determine when your last one was, you should have one at least every 10 years. Disposition Disposition: Home, Self Care
[2020-12-23] MEDS: Lidocaine/Epi/Tetracaine 50 ML 1 APPLIC TOPICAL (20:12)
== END 2020-12-23 21:54 | disposition home or self-care (01) ==
PROVIDERS: Emergency Provider Emergency Medicine
DX: S01.01XA Laceration without foreign body of scalp, initial encounter (principal); F17.210 Nicotine dependence, cigarettes, uncomplicated; F10.129 Alcohol abuse with intoxication, unspecified; W01.190A Fall on same level from slipping, tripping and stumbling with subsequent striking against furniture, initial encounter; Y93.01 Activity, walking, marching and hiking; Y92.009 Unspecified place in unspecified non-institutional (private) residence as the place of occurrence of the external cause; Y99.8 Other external cause status
CPT/HCPCS: 12001; 70450; 99282

== ENCOUNTER → 2021-08-05 | Outpatient (CLI) | payer MEDICAID, SELFPAY ==
--- NOTE | 2021-08-05 06:49 | CT_ITS ---
STUDY: CT Chest W/O Contrast Injection 08/05/2021 5:43 PM REASON FOR EXAM: Male, 61 years old. CHEST PAIN Individualized dose optimization techniques were used for this CT. TECHNIQUE: Transaxial imaging was performed withoutIV contrast material. COMPARISON: 06.03.19. FINDINGS: There are degenerative changes of the shoulders. There is no pneumothorax. There is no demonstrated pleural abnormality. Emphysema changes noted. Stable nodularities in the right lung. Proximal to this area, there is a 16 mm mass in the right lower lobe bronchus. SE 2 IM: 64. There are calcifications of the coronary arteries. Normal mediastinum. Normal hilar regions. Normal pulmonary arteries. There is atherosclerotic calcification of the aortic arch with tortuosity and elongation of the aortic arch and descending thoracic aorta. There are multi-level degenerative changes of the thoracic spine. There are no acute findings of the upper abdomen. CT/Chest without Contrast IMPRESSION: Stable nodularities in the right lung. Proximal to this area, there is a 16 mm mass in the right lower lobe bronchus. This can be a mucous plug in the right lower lobe bronchus. However, neoplasm should be considered. PET scan can evaluate. Electronically Signed: Tim Perez MD at 17:47 EDT ,
--- NOTE | 2021-08-05 06:58 | EKG12_ITS ---
Test Reason : ROUTINE Blood Pressure : / mmHG Vent. Rate : 080 BPM Atrial Rate : 080 BPM P-R Int : 120 ms QRS Dur : 088 ms QT Int : 406 ms P-R-T Axes : 080 088 057 degrees QTc Int : 468 ms Normal sinus rhythm Right atrial enlargement Borderline ECG Confirmed by JACKIE AGUILAR, ALEM ([id number]), primer expeditor and drier TIM OBANDO ([id number]) on 08/05/2021 1:26:42 PM Referred By: ALAN Confirmed By:ALEM MEJIA MD
[2021-08-05 07:41] LABS: Absolute Lymphocyte Count 1.18 X10^3/uL (0.83-4.51); Absolute Neutrophil Count 2.5 X10^3/uL (2.0-7.7); Basophil# 0.03 X10^3/uL; Basophil% 0.7 % (0-1); Eosinophil# 0.04 X10^3/uL; Eosinophils% 0.9 % (0-5); Hematocrit 45.3 % (40-54); Hemoglobin 15.4 g/dL (13.0-16.5); Lymphocyte # 1.18 X10^3/ul (0.83-4.51); Lymphocyte % 27.6 % (19-41); Mean Corpuscular Hgb 32.3 pg (27.0-32.0); Mean Platelet Vol. 10.1 fl (6.2-12.0); Monocyte% 11.7 % (0-10); NRBC Flagged by Analyzer 0 % (0-5); Neutrophil % 58.6 % (47-70); Platelet Count 149 K/mm3 (150-450); RBC Distribution Width CV 13.2 % (11.6-14.6); RBC Distribution Width SD 46.7 fl (35.1-43.9); Red Blood Count 4.77 M/mm3 (4.6-6.2); White Blood Count 4.3 K/mm3 (4.4-11.0)
[2021-08-05 08:17] LABS: AST(SGOT) 146 U/L (15-37); Alanine Aminotransfer ALT/SGPT 160 U/L (16-61); Albumin, Serum 3.9 g/dL (3.2-5.0); Alkaline Phosphatase 64 U/L (45-117); Anion Gap 4 (5-15); BUN 7 mg/dL (7-18); BUN/Creat Ratio 8.4 RATIO (10-20); Calcium,Total 8.6 mg/dL (8.5-10.1); Chloride 103 mmol/L (98-107); Creatinine, Serum 0.83 mg/dL (0.70-1.30); EST Glomerular Filtration Rate 99 mL/min (>60); Est Glom Filt Rate - Afr Amer 120 mL/min (>60); Globulin 4.1 g/dL (2.2-4.2); Glucose 103 mg/dL (74-106); Potassium 3.6 mmol/L (3.5-5.1); Sodium Level 135 mmol/L (136-145); Thyroid Stim Hormone (TSH) 2.67 uIU/mL (0.358-3.74)
[2021-08-05 08:21] LABS: Hemoglobin A1c 5.6 % (3.8-5.6)
== END | disposition home or self-care (01) ==
PROVIDERS: PCP Nurse Practitioner Adult Health; Visit Provider Nurse Practitioner Adult Health
DX: R07.9 Chest pain, unspecified (principal); R19.7 Diarrhea, unspecified
CPT/HCPCS: 36415; 71250; 80053; 82140; 83036; 84443; 85025; 93005

== ENCOUNTER → 2021-08-15 | Outpatient (CLI) | payer MEDICAID, SELFPAY ==
[2021-08-15 07:28] LABS: Hematocrit 44.6 % (40-54); Hemoglobin 15.2 g/dL (13.0-16.5); Mean Corp Hgb Conc 34.1 g/dL (32-36); Mean Corpuscular Hgb 32.2 pg (27.0-32.0); Mean Corpuscular Volume 94.5 fL (80-94); Mean Platelet Vol. 9.8 fl (6.2-12.0); Platelet Count 156 K/mm3 (150-450); RBC Distribution Width CV 13.2 % (11.6-14.6); RBC Distribution Width SD 46.7 fl (35.1-43.9); Red Blood Count 4.72 M/mm3 (4.6-6.2); White Blood Count 4.2 K/mm3 (4.4-11.0)
[2021-08-15 07:51] LABS: AST(SGOT) 175 U/L (15-37); Alanine Aminotransfer ALT/SGPT 175 U/L (16-61); Albumin, Serum 3.8 g/dL (3.2-5.0); Alkaline Phosphatase 59 U/L (45-117); Anion Gap 4 (5-15); BUN 8 mg/dL (7-18); BUN/Creat Ratio 10.1 RATIO (10-20); Calcium,Total 8.8 mg/dL (8.5-10.1); Chloride 105 mmol/L (98-107); Creatinine, Serum 0.79 mg/dL (0.70-1.30); EST Glomerular Filtration Rate 106 mL/min (>60); Est Glom Filt Rate - Afr Amer 128 mL/min (>60); Globulin 3.9 g/dL (2.2-4.2); Glucose 102 mg/dL (74-106); Potassium 4.2 mmol/L (3.5-5.1); Protein, Total 7.7 g/dL (6.4-8.2); Sodium Level 135 mmol/L (136-145)
== END | disposition home or self-care (01) ==
LOC: LAB 06:59
PROVIDERS: PCP Nurse Practitioner Adult Health; Visit Provider Nurse Practitioner Adult Health
DX: R74.8 Abnormal levels of other serum enzymes (principal)
CPT/HCPCS: 36415; 80053; 85027

== ENCOUNTER → 2021-08-18 | Outpatient (CLI) | payer MEDICAID, SELFPAY ==
[2021-08-18 13:18] LABS: Partial Thromboplast Time 29.4 Seconds (24.1-36.2)
--- NOTE | 2021-08-18 14:50 | PFTCOMP ---
COMPLETE PULMONARY FUNCTION TEST INTERPRETATION Brief HPI: Patient is a 61-year-old male, currently under the care of myself, who presents to [facility] for complete pulmonary function tests secondary to diagnosis of lung mass. Respiratory therapist reports good effort and reproducible results. Interpretation: Forced expiration spirometry shows no large airways obstructive ventilatory defect with an FEV1 of 94% predicted. There is no significant bronchodilator response by strict ATS criteria. Spirograms are of good quality and plateau slowly, indicating slowly emptying areas of the lungs. The respiratory flow volume loop shows decreased expiratory flow rates at high lung volumes consistent with small airways obstruction. Lung volumes by body plethysmography show a normal total lung capacity at 7.39 L, 107% predicted. All other lung volumes are within normal limits. Diffusion capacity by carbon monoxide is normal at 103% predicted. The airway resistance is normal. No previous pulmonary function tests were available for review. Impression: These pulmonary function tests are within normal limits. Patient will tolerate up to a pneumonectomy if needed
== END | disposition home or self-care (01) ==
PROVIDERS: Referring Provider Internal Medicine Critical Care Medicine; Visit Provider Internal Medicine Critical Care Medicine
DX: R91.8 Other nonspecific abnormal finding of lung field (principal)
CPT/HCPCS: 36415; 85610; 85730; 94060; 94726; 94729

== ENCOUNTER → 2021-08-19 | Outpatient (CLI) | payer MEDICAID, SELFPAY ==
--- NOTE | 2021-08-19 17:15 | PET_ITS ---
PROCEDURE: WHOLE BODY PET/CT SCAN, MID SKULL TO MID THIGH REASON FOR EXAM: Right lower lobe pulmonary nodules COMPARISON EXAMINATION: Chest CT 08/05/2021. TECHNIQUE: Following the intravenous administration of 11.1 mCi of F-18 FDG, multiplanar imaging acquisitions of the neck, chest, abdomen/pelvis to the mid thigh, obtained at 1 hour post radiopharmaceutical administration. Interpretation is with co-registeration of similar anatomic distribution of CT. Findings: Normal and physiologic distribution of radioisotope identified in the expected intensity of the hepatic and splenic parenchyma, urinary tract and gastrointestinal structures. There is gross anatomic distribution of the intracranial contents. Diffuse lung segment mild FDG activity (SUV 3.2 throughout the esophagus with mild diffuse esophageal wall thickening. INDEX LESION SIZE SUV INTERPRETATION: 1. Peribronchial micronodules in the right lower lobe as seen on prior CT with a dominant oval-shaped noncalcified nodule (likely arising from or involving the bronchus) measuring 1.4 x 1.5 cm on image 109 of series 2. No abnormal FDG activity (SUV 1.4). CT portion of the exam: There are paraseptal emphysematous blebs of the bilateral lung apices with mild fibrotic changes. Mild bronchiectasis and multiple pulmonary lobes. There is no demonstrated pleural abnormality. Normal heart and pericardium. Normal mediastinum. Normal hilar regions. Normal unenhanced pulmonary arteries. Normal aorta arch and descending thoracic aorta. There is decreased attenuation of the liver consistent with steatosis. Normal gallbladder and extrahepatic biliary system. Normal spleen. Normal pancreas. Normal bilateral adrenal glands. Normal right kidney. Normal left kidney. Normal visualized stomach. Normal small intestine. Normal colon. The appendix is visualized and appears normal. Mild scattered atherosclerosis. Normal inferior vena cava. Urinary bladder is not well-distended but there is relative wall thickening the urinary bladder measuring up to 1.2 cm. No destructive bony process. PET/PET/CT Tumor Base -Thigh Subs IMPRESSION: 1. NEGATIVE EXAMINATION. Right lower lobe nodules do NOT meet criteria for viable neoplasm. The dominant nodule (1.5 cm) is stable since 06/03/2019. Given stability over more than 2 years and negative PET scan, no additional follow-up needed according to FLEISCHNER Society recommendations, unless clinically indicated. 2. Diffuse thoracic esophageal wall thickening with low level FDG activity, probable esophagitis. Correlate clinically. 3. Chronic changes, as detailed above. Electronically Signed: Marcello Melendrez MD ([place]) at 16:45 EDT Reading Location ID and State: [facility] / [place] , Service support ,
== END | disposition home or self-care (01) ==
PROVIDERS: Referring Provider Nurse Practitioner Adult Health; Visit Provider Nurse Practitioner Adult Health
DX: D49.1 Neoplasm of unspecified behavior of respiratory system (principal); R91.8 Other nonspecific abnormal finding of lung field; R06.02 Shortness of breath
CPT/HCPCS: 78815; A9552

== ENCOUNTER → 2021-08-20 | Outpatient (CLI) | payer MEDICAID, SELFPAY ==
[2021-08-20 08:15] VITALS: PULSE 69; PULSE 76; PULSE 80; PULSE 88; PULSE 92; PULSE 98; PULSE 99; O2SAT 96; O2SAT 98; O2SAT 99
--- NOTE | 2021-08-20 15:31 | PCM.PSN.6M ---
PSN 6 Minute Walk Test 6 Minute Walk Test 6 Minute Walk Test: 6 Minute Walk Test PSN:6-Minute Walk Test Start: 08/20/21 08:23 Freq: Status: Active Protocol: [id number] Document 08/20/21 08:15 [facility] (Rec: 08/20/21 08:27 [facility] [id number]) 6 Minute Walk Test Date Performed 08/20/21 Time Performed 08:15 Height 5 ft 11 in Weight: 63.503 kg Weight in Pounds 140.[address]: Dr Renee Assistive device used: None Pre-test Oxygen Delivery Method Room Air Pulse Rate (60-100 beats/min) 99 Dyspnea Dawit Scale (0-10) 64 Exertion Dawit Scale (6-20) 0 Number of Rests Taken 6 1st minute Oxygen Delivery Method Room Air Pulse Rate (60-100 beats/min) 99 Dyspnea Dawit Scale (0-10) 84 2nd minute Oxygen Delivery Method Room Air Pulse Ox (%) 99 Pulse Rate (60-100 beats/min) 88 3rd minute Oxygen Delivery Method Room Air Pulse Ox (%) 98 Pulse Rate (60-100 beats/min) 80 4th minute Oxygen Delivery Method Room Air Pulse Ox (%) 98 Pulse Rate (60-100 beats/min) 76 5th minute Oxygen Delivery Method Room Air Pulse Ox (%) 96 Pulse Rate (60-100 beats/min) 92 6th minute Oxygen Delivery Method Room Air Pulse Rate (60-100 beats/min) 98 Dyspnea Dawit Scale (0-10) 84 Exertion Dawit Scale (6-20) 0 Number of Rests Taken 11 Post-test Oxygen Delivery Method Room Air Pulse Ox (%) 99 Pulse Rate (60-100 beats/min) 69 Full Laps Walked 18 Partial Lap, Number of Tiles Walked 30 Total Distance Walked (ft) 1092 Interpretation Interpretation: The patient was able to ambulate 1092 feet over the course of 6 minutes on room air with no assistive devices or breaks. The patient experienced no significant tachycardia or desaturation during testing. These findings are consistent with a normal walking oximetry. Recommendations Recommendations: No supplemental oxygen is indicated at this time.
== END | disposition home or self-care (01) ==
LOC: PSN 07:59
PROVIDERS: Visit Provider Internal Medicine Critical Care Medicine
DX: R91.8 Other nonspecific abnormal finding of lung field (principal)
CPT/HCPCS: 94618

== ENCOUNTER 2021-09-18 14:25 | Emergency (ER) | payer MEDICAID, SELFPAY ==
[2021-09-18 14:25] VITALS: BP 153/78; PULSE 88; RESP 18; TEMP 36.7; O2SAT 95; BMI 19.9
[2021-09-18 15:07] VITALS: PULSE 68; RESP 18; O2SAT 98
--- NOTE | 2021-09-18 15:22 | EDS_ITS ---
HPI History of Present Illness Chief Complaint: Chest Pain Informant: patient Onset/Context/Timing Onset: Yesterday Activity at onset: gradual Timing: Intermittent and Lasts (Approximately 5 minutes) Quality: Positive for Sharp (Needle sensation) Location: Right Chest and Left Chest Worsened By: - (Sitting) Relieved By: - (Activity) Associated Symptoms: Positive for Dyspnea, Lightheadedness and Acid Reflux; Negative for Nausea, Vomiting, Diaphoresis, Cough, Fever or Palpitations Narrative Narrative: Patient presents with chest pain that began yesterday. Patient states it is intermittent. Patient states it lasts approximately 5 minutes. Patient describes it as a needle sensation across his chest. Patient states it comes on gradually. Patient states it comes on several times throughout the day. Patient states it seems to be worse with sitting. Patient states it seems to be better with activity. Patient states he felt lightheaded this morning when he got up. Patient also admits to some shortness of breath. Patient denies any heartburn or reflux. Patient denies any palpitations. Patient denies any nausea or vomiting. Patient is a smoker. Patient denies any other cardiac or PE risk factors. CVD Risk Factors: Positive for Smoking; Negative for Hypertension, Diabetes, Hypercholesterolemia or Family History 1' </=55 PE Risk Factors: Negative for Recent Travel/Surgery, Recent Immobilization, Prior DVT or PE, Cancer or OCP + Smoking + >/=35 PFSH PFSH Medical History Alcohol abuse Anxiety Back pain COPD (chronic obstructive pulmonary disease) Depression Emphysema of lung Weight loss Home Medications albuterol sulfate 90 mcg/actuation aerosol inhaler (ProAir HFA) 2 puff inhalation .Q6-8H PRN 08/13/21 [History Last Taken Unknown] budesonide 160 mcg-glycopyr 9 mcg-formot 4.8 mcg/actuation HFA inhaler (Breztri Aerosphere) 2 inh inhalation BID 09/09/21 [History Last Taken Unknown] Allergy/AdvReac Type Severity Reaction Status Date / Time No Known Allergies Allergy Verified 09/18/21 14:27 Family History (Updated 09/09/21 @ 09:33 by Zahida De Anda) Father , from cancer Lung cancer Stomach cancer Social History Smoking Status: Heavy Smoker (>10/day) Tobacco: How many years used: 56 Electronic Cigarette Use: not used second hand exposure: Yes alcohol intake: current alcohol intake frequency: a few times a week substance use type: does not use ROS ROS ED Constitutional Constitutional ED: Denies chills or fever(s) Eyes Eyes: Denies blurry vision or change in vision ENT ENT ED: Denies rhinorrhea or sore throat Cardiovascular Cardiovascular: Reports chest pain; Denies palpitations Respiratory/Chest Respiratory/Chest: Reports dyspnea; Denies cough Gastrointestinal Gastrointestinal: Denies abdominal pain, nausea or vomiting Genitourinary Genitourinary ED: Denies dysuria or hematuria Musculoskeletal Musculoskeletal: Denies back pain or neck pain Integumentary Denies abscess or rash Neurologic Neurologic: Denies headache(s) or weakness Allergic/Immunologic Allergic/Immunologic ED: Denies mouth swelling or urticaria EXAM Physical Exam Const Vital Signs: 09/18/21 14:25 09/18/21 15:07 09/18/21 15:30 Temperature 98.1 F Temperature Source Temporal Pulse Rate 88 68 Respiratory Rate 18 18 Blood Pressure 153/78 H Blood Pressure Mean 103 Pulse Ox 95 98 Oxygen Delivery Method Room Air Room Air Room Air 09/18/21 16:00 09/18/21 17:00 Temperature Temperature Source Pulse Rate 67 62 Respiratory Rate 17 17 Blood Pressure Blood Pressure Mean Pulse Ox 99 96 Oxygen Delivery Method Room Air Room Air Positive well nourished and well developed General Appearance ED: well developed and NAD HEENT normocephalic and atraumatic Eyes PERRL and EOMs intact bilaterally Neck supple and no JVD Chest Wall inspection of chest normal and palpation of chest normal Resp normal respiratory effort and clear to auscultation bilaterally Effort and Inspection: Negative for respiratory distress Cardio regular rate, regular rhythm and no murmurs GI normal to inspection, nondistended, normoactive bowel sounds, soft to palpation, non-tender and non-distended Extremity normal to inspection General Extremety ED: Negative for edema or tenderness General Extremity: Negative for edema Neuro oriented x3, CN's II-XII intact bilaterally and no sensory deficits noted Sensorium / Orientation: awake and alert Motor Exam: strength 5/5 throughout Psych mental status grossly normal Heart Score History: Slightly/Non-Suspicious ECG: Normal Age: >45 - <65 years Risk Factors: 1 or 2 Risk Factors Troponin: </= Normal Limit Score: 2 MDM MDM MDM Narrative Medical decision making narrative: Patient was given a aspirin here. The area EKG was obtained. On my interpretation, it showed a normal sinus rhythm with a rate of 87. IL interval, QRS interval, and QTc intervals were all normal. [place] was normal. There are no acute ST or T wave changes. Portable 1 view chest x-ray was obtained. On my interpretation, lung bourgeois are clear. There is normal cardiac silhouette. Bony thorax is normal. There is no acute process noted. Radiologist also interpreted the x-ray and agrees. CBC was within normal limits. Basic metabolic profile was within normal limits. High-sensitivity troponin was normal at 9. I recommended 2-hour repeat high-sensitivity troponin. Patient does not want this done. Patient wants to go home. Patient has a HEART score of 2. Patient was advised that this is low risk for acute cardiac event. Patient was instructed to follow-up with his primary care physician in 3 to 5 days for further evaluation. Patient understood and was agreeable with the plan. All questions were answered. Lab Data Attestation: I reviewed the patient's lab results. Labs: Laboratory Results - last 24 hr 09/18/21 09/18/21 15:05 15:05 WBC 5.1 RBC 4.41 L Hgb 14.3 Hct 41.4 MCV 93.9 MCH 32.4 H MCHC 34.5 RDW Std Deviation 43.3 RDW Coeff of Kp 12.4 Plt Count 94 L MPV 11.0 Immature Gran % (Auto) 0.000 Neut % (Auto) 60.1 Lymph % (Auto) 28.3 [place] % (Auto) 10.6 H Eos % (Auto) 0.6 Baso % (Auto) 0.4 Absolute Neuts (auto) 3.1 Absolute Lymphs (auto) 1.44 Nucleated RBC % 0 Platelet Estimate MOD DEC RBC Morphology N CHROM Anisocytosis RARE Macrocytosis RARE Sodium 135 L Potassium 3.9 Chloride 104 Carbon Dioxide 26.0 Anion Gap 5 BUN 10 Creatinine 0.76 Estim Creat Clear Calc 93.65 Est GFR (MDRD) Af Amer 134 Est GFR (MDRD) Non-Af 111 BUN/Creatinine Ratio 13.2 Glucose 115 H Calcium 9.1 Troponin I High Sens 9 Radiography Chest X-Ray - ED: 1 View, Read by ED Physician, Read by Radiologist and No Acute Disease Diagnostic Testing: Clinical Impression(s) from Imaging Studies Chest X-Ray 09/18/21 15:28 IMPRESSION: No acute cardiopulmonary abnormality. No interval change. Electronically Signed: Mono Tapia MD at 16:01 EDT , EKG Initial EKG: Attestation: I personally reviewed and interpreted this EKG as follows: Interpretation: Sinus Rhythm (87) and No Acute Injury Pattern Prior EKG tracings: available for review Prior: Unchanged (08/05/2021) Discharge Plan Triage Chief Complaint: Chest Pain ED Provider: Alexsander Angel Dx/Rx/DC Orders Clinical Impression: Chest pain of uncertain etiology, Tobacco abuse Instructions: ED Chest Pain, Uncertain Cause Prescriptions: No Action albuterol sulfate [ProAir HFA] 90 mcg/actuation HFA aerosol inhaler 2 puff inhalation .Q6-8H PRN Breztri Aerosphere 160-9-4.8 mcg/actuation HFA aerosol inhaler 2 inh inhalation BID Primary Care Provider: [facility] Clary Fisher Referrals: [facility] Clary Fisher [Primary Care Provider] - 3-5 Days Disposition Disposition: Home, Self Care
--- NOTE | 2021-09-18 15:28 | EKG12_ITS ---
Test Reason : CP Blood Pressure : / mmHG Vent. Rate : 087 BPM Atrial Rate : 087 BPM P-R Int : 114 ms QRS Dur : 090 ms QT Int : 384 ms P-R-T Axes : 071 079 038 degrees QTc Int : 462 ms Normal sinus rhythm Normal ECG Confirmed by JACKIE AGUILAR, ALEM ([id number]), production editor TIM OBANDO ([id number]) on 09/22/2021 8:54:10 AM Referred By: PL Confirmed By:ALEM MEJIA MD
--- NOTE | 2021-09-18 15:28 | RAD_ITS ---
EXAM: XR CHEST, 1 VIEW CLINICAL INDICATION: chest pain TECHNIQUE: Frontal view of the chest. This report was created using [employer] report generation technology. COMPARISON: XR Chest dated june 03 2019 FINDINGS: LUNGS AND PLEURAL SPACES: Unremarkable. No consolidation or edema. No pneumothorax. No effusion. HEART: Unremarkable. Normal heart size. MEDIASTINUM: Central airways and mediastinal contour are unremarkable. BONES/JOINTS: Unremarkable. SOFT TISSUES: Unremarkable. RAD/Chest 1 View (Portable) IMPRESSION: No acute cardiopulmonary abnormality. No interval change. Electronically Signed: Mono Tapia MD at 16:01 EDT ,
[2021-09-18 15:44] LABS: Absolute Lymphocyte Count 1.44 X10^3/uL (0.83-4.51); Absolute Neutrophil Count 3.1 X10^3/uL (2.0-7.7); Basophil# 0.02 X10^3/uL; Basophil% 0.4 % (0-1); Eosinophil# 0.03 X10^3/uL; Eosinophils% 0.6 % (0-5); Hematocrit 41.4 % (40-54); Hemoglobin 14.3 g/dL (13.0-16.5); Lymphocyte # 1.44 X10^3/ul (0.83-4.51); Lymphocyte % 28.3 % (19-41); Mean Corp Hgb Conc 34.5 g/dL (32-36); Mean Corpuscular Hgb 32.4 pg (27.0-32.0); Mean Corpuscular Volume 93.9 fL (80-94); Monocyte# 0.54 X10^3/uL; Monocyte% 10.6 % (0-10); NRBC Flagged by Analyzer 0 % (0-5); Neutrophil # 3.05 X10^3/uL (2.7-7.7); Neutrophil % 60.1 % (47-70); POSITIVE COUNT YES; Platelet Count 94 K/mm3 (150-450); RBC Distribution Width CV 12.4 % (11.6-14.6); RBC Distribution Width SD 43.3 fl (35.1-43.9); Red Blood Count 4.41 M/mm3 (4.6-6.2); White Blood Count 5.1 K/mm3 (4.4-11.0)
[2021-09-18 15:49] LABS: Differential Indicated SCAN CRITERIA MET
[2021-09-18 16:00] VITALS: PULSE 67; RESP 17; O2SAT 99
[2021-09-18 16:00] LABS: Anion Gap 5 (5-15); BUN 10 mg/dL (7-18); BUN/Creat Ratio 13.2 RATIO (10-20); Calcium,Total 9.1 mg/dL (8.5-10.1); Chloride 104 mmol/L (98-107); Creatinine, Serum 0.76 mg/dL (0.70-1.30); EST Glomerular Filtration Rate 111 mL/min (>60); Est Glom Filt Rate - Afr Amer 134 mL/min (>60); Estimated Creatinine Clearance 93.65 ml/min; Glucose 115 mg/dL (74-106); Potassium 3.9 mmol/L (3.5-5.1); Sodium Level 135 mmol/L (136-145); Troponin-I HS (w/2H Reflex) 9 pg/mL (3.0-78.0)
[2021-09-18] MEDS: Aspirin 81 MG TAB.CHEW 324 MG PO (16:04)
[2021-09-18 16:16] LABS: Platelet Estimate MOD DEC (ADEQ)
[2021-09-18 16:17] LABS: Anisocytosis RARE; Macrocytosis RARE; Red Cell Morphology N CHROM NORMAL (NORM C&C)
[2021-09-18 17:00] VITALS: PULSE 62; RESP 17; O2SAT 96
[2021-09-18 17:34] LABS: Reflex Troponin-HS? (from REC) Y
[2021-09-18 18:18] VITALS: PULSE 61; RESP 18
--- NOTE | 2021-09-18 18:18 | ED.RN ---
Patient refusing second troponin. Dr. Angel notified
== END 2021-09-18 18:19 | disposition home or self-care (01) ==
PROVIDERS: Emergency Provider Emergency Medicine; Visit Provider Emergency Medicine
DX: R07.9 Chest pain, unspecified (principal); F17.200 Nicotine dependence, unspecified, uncomplicated
CPT/HCPCS: 71045; 80048; 84484; 85025; 93005; 99285; A4216

== ENCOUNTER → 2021-11-02 | Outpatient (CLI) | payer MEDICAID, SELFPAY ==
--- NOTE | 2021-11-02 13:27 | ECHOCS_ITS ---
Reason For Study: DYSPNEA Procedure This was a 2D Doppler, Color Flow transthoracic echocardiogram. The exam was of adequate technical quality. Exam performed in department. Left Ventricle Normal LV size. Left ventricular systolic function is normal. The estimated ejection fraction is 65 %. No evidence for diastolic dysfunction. No regional wall motion abnormalities noted. Right Ventricle Normal RV size. Normal systolic function. Atria Normal left atrium. Normal right atrium. No doppler evidence for ASD. Mitral Valve There is no mitral annular calcification. Normal mitral valve. Trivial mitral valve insufficiency. Tricuspid Valve Normal tricuspid valve. Trivial tricuspid valve insufficiency. Unable to estimate RV systolic pressure due to insufficient tricuspid regurgitant envelope. Aortic Valve Trisinus/trileaflet aortic valve. Normal aortic valve. Pulmonic Valve The pulmonic valve is not well visualized. Great Vessels Normal sized aortic root. Pericardium/Pleural No pericardial effusion. MMode/2D Measurements & Calculations LVIDd: 4.2 cm IVSd: 1.3 cm Ao root diam: 3.1 cm LVIDs: 2.6 cm LVPWd: 0.90 cm RVDd: 2.9 cm FS: 38.2 % LAV(MOD-bp): 40.8 ml LVAd ap4: 27.8 cm2 SV(MOD-sp4): 48.0 ml LAV(MOD-bp) Indexed: 22.3 ml/m2 LVLd ap4: 8.9 cm LAV(MOD-sp2): 46.8 ml EDV(MOD-sp4): 71.2 ml LAV(MOD-sp4): 35.1 ml EDV(sp4-el): 73.8 ml LVAs ap4: 13.9 cm2 LVLs ap4: 7.1 cm ESV(MOD-sp4): 23.2 ml ESV(sp4-el): 22.8 ml EF(MOD-sp4): 67.5 % EF(sp4-el): 69.1 % SV(sp4-el): 51.0 ml LA A4 area: 15.1 cm2 LA dimension(2D): 3.4 cm RA A4 area: 18.2 cm2 Time Measurements MV dec time: 0.21 sec Doppler Measurements & Calculations MV E max ahmet: 80.7 cm/sec Lat Peak E' Ahmet: 11.7 cm/sec Med Peak E' Ahmet: 9.2 cm/sec MV A max ahmet: 66.7 cm/sec E/E' lat: 6.9 E/E' med: 8.8 MV E/A: 1.2 MV V2 max: 86.6 cm/sec Ao V2 max: 110.4 cm/sec MV max P.0 mmHg MV dec slope: 392.9 cm/sec2 Ao max P.9 mmHg MV V2 mean: 46.3 cm/sec Ao V2 mean: 68.3 cm/sec MV mean P.0 mmHg Ao mean P.2 mmHg MV V2 VTI: 30.3 cm Ao V2 VTI: 26.7 cm LV V1 max: 103.6 cm/sec LV V1 max P.3 mmHg LV V1 mean P.4 mmHg LV V1 mean: 73.0 cm/sec LV V1 VTI: 22.8 cm ECHO/Echo Complete W/ Contrast Interpretation Summary Left ventricular systolic function is normal. The estimated ejection fraction is 65 %. Trivial mitral valve insufficiency. Trivial tricuspid valve insufficiency. Unable to estimate RV systolic pressure due to insufficient tricuspid regurgita nt envelope. No evidence for diastolic dysfunction. Ordering Physician: Irene Zhang Referring Physician: Irene Zhang Performed By: Maddie Hughes RCS
== END | disposition home or self-care (01) ==
LOC: CVS 13:26
PROVIDERS: Referring Provider Nurse Practitioner Acute Care; Visit Provider Nurse Practitioner Acute Care
DX: R06.02 Shortness of breath (principal)
CPT/HCPCS: 93306; C8929

== ENCOUNTER → 2021-11-17 | Outpatient (CLI) | payer MEDICAID, SELFPAY ==
[2021-11-17 12:08] LABS: Erythrocyte Sedimentation Rate 25 mm/hr (0-20)
[2021-11-17 12:56] LABS: CRP < 2.90 mg/L (0.0-3.0); Free T3 2.8 pg/mL (2.18-3.98); Thyroid Stim Hormone (TSH) 4.11 uIU/mL (0.358-3.74)
[2021-11-17 13:10] LABS: HIV - WCH Non-Reactive (Nonreactive); Hemoglobin A1c 5.3 % (3.8-5.6); Vitamin B12 484 pg/mL (211-911)
[2021-11-18 15:08] LABS: Endomysial Antibody IgA Negative (Negative)
[2021-11-19 16:23] LABS: Vitamin D 1,25-Dihydroxy 56.1 pg/mL (24.8-81.5)
[2021-11-19 16:38] LABS: Immunoglobulin A 273 mg/dL (61-437); t-Transglutaminase IgA <2 U/mL (0-3)
[2021-11-21 17:07] LABS: Albumin 4.4 g/dL (2.9-4.4); Alpha-1-Globulins 0.3 g/dL (0.0-0.4); Gamma Globulin 1.4 g/dL (0.4-1.8); HEPATITIS B SURFACE AG Negative (Negative); Hep C Antibodies <0.1 s/co ratio (0.0-0.9); Hepatitis A IgM Antibody Negative (Negative); Hepatitis B Core AB IgM Negative (Negative); Immunoglobulin A 257 mg/dL (61-437); Immunoglobulin G 1247 mg/dL (603-1613); Immunoglobulin M 109 mg/dL (20-172); PROEL- TOTAL PROTEIN 8.1 g/dL (6.0-8.5); QNTFERON TB Mitogen Value > 10.00 IU/mL (.); QNTFERON TB Nil Value 0.03 IU/mL (.); QNTFERON TB1+ Ag Value 0.01 IU/mL (.); QNTFERON TB2+ Ag Value 0.03 IU/mL (.)
[2021-11-22 11:45] LABS: Carbohydrate AG 19-9 22 U/mL (0-35); Carcinoembryonic Antigen 4.8 ng/mL (0.0-4.7); Immunoglobulin E 351 IU/mL (6-495); Perinuclear Ab (P-ANCA) <1:20 titer (Neg:<1:20); QNTIFERON TB Positive Criteria Negative (Negative)
== END | disposition home or self-care (01) ==
PROVIDERS: Referring Provider Internal Medicine Gastroenterology; Visit Provider Internal Medicine Gastroenterology
DX: R63.4 Abnormal weight loss (principal)
CPT/HCPCS: 36415; 80074; 82378; 82607; 82652; 82784; 82785; 83036; 83516; 84165; 84439; 84443; 84481; 85652; 86140; 86255; 86256; 86301; 86334; 86480; 86703

== ENCOUNTER 2022-05-04 10:51 | Day surgery (SDC) | payer MEDICAID, SELFPAY ==
[2022-05-04] VITALS (7 sets, daily range): BP systolic 120–143; BP diastolic 71–83; PULSE 56–61; RESP 16; TEMP 36.3–36.4; O2SAT 99–100; BMI 18.9
--- NOTE | 2022-05-04 | IMM_PTH ---
PATIENT: AIDEE CHAPPELL LOC: EN U#:[id number] AGE/SX: 62/M ROOM: RE05/04/[address]: Dr. Anshul Herrera DO : 1960 BED: DIS: 05/04/2022 SPEC #: [id number] RECD: 05/06/22 11:48 STATUS: CARLOS KRISS #: [id number] SHASHA: 05/04/22 00:[address]: Anshul Herrera DEPT: IMMUNOHISTOCHEMISTRY RECD BY: Autumn Lorenzana ENTERED: 05/06/22 11:49 SP TYPE: IMMUNO OTHR DR: Clary [facility] Tissues: B - Esophagus, NOS Procedures: P53 (initial) KI-67 (add) PHYSICIAN & [place] [id number] SPECIMEN INFORMATION: Tissue Source: B ? Distal esophagus Clinical Info: Weight loss Specimen Number: [id number] CPT code: 32231, 89601 METHODOLOGY: Deparaffinized sections of prefer/formalin-fixed tissue or PAP/DQ stained slides are incubated with monoclonal/polyclonal antibodies/oligonucleotide probes. Localization is made via biotin free immunoperoxidase method. Appropriate controls are performed and reacted as expected. Results on target cell population are indicated in the following table: RESULTS: ANTIBODY / CLONE RESULT Block B P53 (DO-7) negative Ki-67 (30-9) positive, very low These tests were developed and their performance characteristics determined by [facility]. They may not have been cleared or approved by the U.S. Food and Drug Administration. The FDA has determined that such clearance or approval is not necessary. The above immunohistochemical/dualISH markers are ordered and reviewed by the Pathologist. INTERPRETATION: B. Distal esophagus, biopsy: Negative for dysplasia. LIV:lavelle 05/07/2022
[2022-05-04] MEDS: Lactated Ringers 1,000 ML 15 ML IV (11:28)
--- NOTE | 2022-05-04 12:30 | COLBX_PTH ---
PATIENT: AIDEE CHAPPELL LOC: EN U#:[id number] AGE/SX: 62/M ROOM: RE05/04/[address]: Dr. Anshul Herrera DO : 1960 BED: DIS: 05/04/2022 SPEC #: [id number] RECD: 05/04/22 14:34 STATUS: CARLOS KRISS #: [id number] SHASHA: 05/04/22 12:[address]: Anshul Herrera DEPT: SURGICAL PATHOLOGY RECD BY: Jermain Galan ENTERED: 05/05/22 07:05 SP TYPE: COLON BX OTHR DR: Clary [facility] Tissues: A - Duodenum, NOS B - Esophagus, NOS C - COLON BIOPSY D - COLON BIOPSY Procedures: Special Stain Group II Surgery Specimen Level IV Alcian Blue/PAS (control) HEADER OPERATION: Colonoscopy with biopsy, EGD with biopsy ([facility] [place] [place]) PRE-OP DIAGNOSIS: Weight loss TISSUE SUBMITTED: A ? Duodenum biopsy, B ? Distal esophagus biopsy, C ? Hepatic flexure ulcer biopsy, D ? Random colon biopsy MICROSCOPIC DIAGNOSIS A. Duodenum, biopsy: Fragments of duodenal mucosa with acute and chronic inflammation and Arin gland hyperplasia. B. Distal esophagus, biopsy: Fragments of gastroesophageal mucosa with rare cells with intestinal metaplasia (goblet cell metaplasia), suspicious for Peacock's esophagus. Moderate chronic inflammation and minimal acute inflammation. Negative for dysplasia. See comment. C. Hepatic flexure ulcer, biopsy: A fragment of colonic mucosa with focal superficial erosion and associated acute inflammation. D. Colon, random biopsy: Fragments of colonic mucosa, no pathologic diagnosis. SJ:lavelle 05/06/2022 COMMENT B. Alcian blue/PAS stain with matched control is used in the evaluation of the specimen. Immunohistochemistry ([id number]) for P53 and Ki-67 will be performed and results will be reported separately. MICROSCOPIC DESCRIPTION Slides are reviewed. GROSS DESCRIPTION A - Received in fixative is one container labeled with the patient's name and designated duodenum biopsy. The specimen consists of multiple irregular fragments of light barragan soft tissue that in aggregate measure 1.3 x 0.3 x 0.1 cm. The specimen is totally submitted in one cassette. B - Received in fixative is one container labeled with the patient's name and designated distal esophagus biopsy. The specimen consists of multiple irregular fragments of light barragan soft tissue that in aggregate measure 1.0 x 0.3 x 0.1 cm. The specimen is totally submitted in one cassette. C - Received in fixative is one container labeled with the patient's name and designated hepatic flexure ulcer biopsy. The specimen consists of one irregular fragment of light barragan soft tissue that measures 0.6 x 0.3 x 0.1 cm. The specimen is totally submitted in one cassette. D - Received in fixative is one container labeled with the patient's name and designated random colon biopsy. The specimen consists of multiple irregular fragments of light barragan soft tissue that in aggregate measure 1.5 x 0.5 x 0.1 cm. The specimen is totally submitted in one cassette. / SJ:rg 05/05/2022 TC:2 CPT: 49443 x4, 39751
--- NOTE | 2022-05-04 12:43 | HP.PCM_ITS ---
History and Physical Date of Admission: 05/04/22 61 M who presents to the office today for Initial consult. Pepe established with this clinic 11.17.21 with referral from PCP with unintentional weight loss of 40lbs in approximately a year with a long-term use of heavy tobacco (3-6 PPD) and alcohol use (6 pack beer/day). No abdominal pain, change in stools, reflux. Presented to outside facility with chest pain with CT performed and diagnosed with pneumonia. Lung cancer screening has been done with recommendation to repeat in 12m [facility] to monitor R lung mass. FH father stomach cancer. Biochemical workup AST H175/ALT H175/alk phos WNL59, platelet WNL 156 though previously L 149 CT abd/pel 06.03.19 for LLQ pain with hepatic hypoattenuated area, fatty liver. PET CT lung nodule 08.19.21 thoracic esophageal wall thickening likely esophagitis; hepatic steatosis; lung mass does not meet neoplasm criteria. CT abd/pel 10.10. low attenuation of the liver possible fatty infiltration; wall thickening in splenic flexure; thick walled stomach; small bowel and colon with liquid stool; small hiatal hernia Weights ?Height 5?11? 185lbs BMI 25.8 06.15. 141lbs BMI 19.7 .09.02 142lbs ROS Const Constitutional: No anorexia, fatigue, fever(s), weight change or sleep problems Eyes Eyes: No change in vision ENT ENT: No abnormal hearing, difficulty swallowing, mouth lesions, tongue swelling or throat swelling Resp Respiratory: No cough or shortness of breath Cardio Cardiology: No chest pain at rest, chest pain with exertion, shortness of breath or dyspnea on exertion Gastro GI: No difficulty swallowing Genitourinary Male: No difficulty urinating or burning urination Musc Musculoskeletal: No joint pain, joint swelling, muscle weakness or decreased muscle mass Skin Skin: No hair loss in leg, yellowing of the eye, itchy eyes, rash, skin ulcer or skin swelling Neuro Neurology: No abnormal hearing, abnormal movements, confusion, unsteady gait/balance or memory loss Psych Psychiatric: No anxiety, No confusion and No memory loss Endo Endocrine: No fatigue or weight change Aller/Imm Allergy/Immunologic: No itchy eyes, throat swelling or tongue swelling Chase/Lymp Hematologic/Lymphatic: No easy bleeding, easy bruising or enlarged lymph nodes Exam Const General: cooperative and comfortable Nutritional Appearance: average body habitus and well nourished [facility] Head: normal to inspection Ears: hearing grossly normal bilaterally Nose: external nose normal Face and sinus: normal facial exam Mouth: oral mucosae normal Throat: posterior oropharynx normal Eyes General: appearance normal, both eyes and all related structures Neck Neck: normal visual inspection Chest Chest palpation & inspection: normal inspection of the chest and normal palpation of entire chest wall Resp Effort & Inspection: normal respiratory effort Auscultation: Bilateral: Clear to Auscultation Cardio Palpation: normal PMI Rate: regular rate Rhythm: regular rhythm GI Inspection: normal to inspection Auscultation: normal bowel sounds Percussion: normal to percussion Palpation: no hepatosplenomegaly Skin General: no rashes or lesions noted Neuro General: patient alert Extrem General: normal to inspection Psych Affect: normal affect Quality Reporting Tobacco Screening ([facility] 138) Smoking Status: Heavy Smoker (>10/day) Assessment and Plan Assessment and Plan (1) Weight loss: ?Status:?Chronic ?Plan: Differential diagnosis for his weight loss include COPD, underlying malignancy, malabsorptive disorder.? He will undergo EGD and colonoscopy and also biochemical testing for celiac disease, or immunodeficiency, vitamin deficiency, diabetes mellitus, endocrinopathy.? He was explained alternatives, risk, benefits and infection, sepsis, perforation, need for discharge or .? He will have an ASA of 3. ? ? ? Orders: Orders CRP Today R63.4 - Abnormal weight loss ? Erythrocyte Sed Rate Today R63.4 - Abnormal weight loss ? ANCA Today R63.4 - Abnormal weight loss ? Celiac Disease Profile Today R63.4 - Abnormal weight loss ? Immunoglobulin A Today R63.4 - Abnormal weight loss ? Immunoglobulin E Today R63.4 - Abnormal weight loss ? Immunoglobulin G Today R63.4 - Abnormal weight loss ? Immunoglobulin M Today R63.4 - Abnormal weight loss ? Vitamin B12 Today R63.4 - Abnormal weight loss ? Free T3 Today R63.4 - Abnormal weight loss ? T4 Free Direct Today R63.4 - Abnormal weight loss ? Thyroid Stim Hormone (TSH) Today R63.4 - Abnormal weight loss ? Vitamin D 1,25-Dihydroxy Today R63.4 - Abnormal weight loss ? Carbohydrate AG 19-9 Today R63.4 - Abnormal weight loss ? Carcinoembryonic Antigen Today R63.4 - Abnormal weight loss ? KATARINA + Protein Elect, Serum Today R63.4 - Abnormal weight loss ? Hemoglobin A1c Today R63.4 - Abnormal weight loss ? Hepatitis Panel Acute Today R63.4 - Abnormal weight loss ? Quantiferon TB-Gold+ Today R63.4 - Abnormal weight loss ? HIV - [facility] Today R63.4 - Abnormal weight loss ? I have examined the patient and the H&P has been reviewed. There are no clinical changes since date of exam.
--- NOTE | 2022-05-04 13:29 | OP.CCLET_ITS ---
05/04/2022 Clary Hodge [facility] Re : [facility] This procedure was performed on Wednesday, May 04, 2022. 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 Biopsied. - Erythematous mucosa in the stomach. - Duodenitis. Biopsied. Recommendations : - Discharge patient to home. - Resume previous diet. - Continue present medications. - Await pathology results. My findings are described in the full procedure note, which is enclosed. If I can be of further assistance, please feel free to contact me at . Sincerely, Anshul Herrera, 05/04/2022 1:28:44 PM This report has been signed electronically.
--- NOTE | 2022-05-04 13:29 | OP.EGD_ITS ---
Patient Name: Pepe Cook Procedure Date: 05/04/2022 12:45 PM Date of : 1960 Age: 62 Procedure: Upper GI endoscopy Indications: Epigastric abdominal pain, Weight loss Providers: Anshul Herrera DO Referring MD: Anshul Herrera DO Medicines: Monitored Anesthesia Care Patient Profile: This is a 62 year old male. Refer to note in patient chart for documentation of history and physical. Patient has symptoms. Complications: No immediate complications. Procedure: Pre-Anesthesia Assessment: - Prior to the procedure, a History and Physical was performed, and patient medications and allergies were reviewed. The risks and benefits of the procedure and the sedation options and risks were discussed with the patient. All questions were answered and informed consent was obtained. Patient identification and proposed procedure were verified by the physician in the pre-procedure area. Mental Status Examination: alert and oriented. Airway Examination: normal oropharyngeal airway and neck mobility. Prophylactic Antibiotics: The patient does not require prophylactic antibiotics. Prior Anticoagulants: The patient has taken no previous anticoagulant or antiplatelet agents. After reviewing the risks and benefits, the patient was deemed in satisfactory condition to undergo the procedure. The anesthesia plan was to use monitored anesthesia care (MAC). Immediately prior to administration of medications, the patient was re-assessed for adequacy to receive sedatives. The heart rate, respiratory rate, oxygen saturations, blood pressure, adequacy of pulmonary ventilation, and response to care were monitored throughout the procedure. The physical status of the patient was re-assessed after the procedure. After obtaining informed consent, the endoscope was passed under direct vision. Throughout the procedure, the patient's blood pressure, pulse, and oxygen saturations were monitored continuously. The pediatric colonoscope was introduced through the mouth, and advanced to the second part of duodenum. The upper GI endoscopy was accomplished without difficulty. The patient tolerated the procedure well. Scope In: 12:55:39 PM Scope Out: 1:01:16 PM Total Procedure Duration Time 0 hours 5 minutes 37 seconds Findings: There were esophageal mucosal changes consistent with short-segment Peacock's esophagus present in the lower third of the esophagus. The maximum longitudinal extent of these mucosal changes was 1 cm in length. Mucosa was biopsied with a cold forceps for histology in a targeted manner at intervals of 1 cm in the lower third of the esophagus. One specimen bottle was sent to pathology. Verification of patient identification for the specimen was done. Estimated blood loss was minimal. Patchy mildly erythematous mucosa without bleeding was found in the stomach. Localized moderate inflammation characterized by congestion (edema), erosions and erythema was found in the duodenal bulb, in the first portion of the duodenum and in the second portion of the duodenum. Biopsies were taken with a cold forceps for histology. Verification of patient identification for the specimen was done. Estimated blood loss was minimal. 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 Biopsied. - Erythematous mucosa in the stomach. - Duodenitis. Biopsied. Recommendation: - Discharge patient to home. - Resume previous diet. - Continue present medications. - Await pathology results. Procedure Code(s): --- Professional --- 34774, Esophagogastroduodenoscopy, flexible, transoral; with biopsy, single or multiple CPT copyright 2017 [employer]. All rights reserved. The codes documented in this report are preliminary and upon flight test mechanic review may be revised to meet current compliance requirements. Anshul Herrera DO 05/04/2022 1:28:44 PM This report has been signed electronically. Number of Addenda: 0 Note Initiated On: 05/04/2022 12:45 PM
--- NOTE | 2022-05-04 13:33 | OP.CCLET_ITS ---
05/04/2022 Clary Hodge [facility] Re : [facility] This procedure was performed on Wednesday, May 04, 2022. My impressions and recommendations are as follows: Impressions : - A single (solitary) ulcer at the hepatic flexure. Biopsied. - Congested mucosa in the recto-sigmoid colon, in the sigmoid colon, in the descending colon, at the splenic flexure, at the hepatic flexure and in the ascending colon. Biopsied. Recommendations : - Discharge patient to home. - Resume previous diet. - Continue present medications. - Await pathology results. - Repeat colonoscopy in 5 years for surveillance. My findings are described in the full procedure note, which is enclosed. If I can be of further assistance, please feel free to contact me at . Sincerely, Anshul Herrera, 05/04/2022 1:33:11 PM This report has been signed electronically.
--- NOTE | 2022-05-04 13:33 | OP.COLON_ITS ---
Patient Name: Pepe Cook Procedure Date: 05/04/2022 1:02 PM Date of : 1960 Age: 62 Procedure: Colonoscopy Indications: Weight loss, Incidental diarrhea noted Providers: Anshul Herrera DO Referring MD: Anshul Herrera DO Medicines: Monitored Anesthesia Care Patient Profile: This is a 62 year old male. Refer to note in patient chart for documentation of history and physical. Patient has symptoms. Last Colonoscopy: date unknown. Unable to locate last colonoscopy report. Complications: No immediate complications. Procedure: Pre-Anesthesia Assessment: - Prior to the procedure, a History and Physical was performed, and patient medications and allergies were reviewed. The risks and benefits of the procedure and the sedation options and risks were discussed with the patient. All questions were answered and informed consent was obtained. Patient identification and proposed procedure were verified by the physician in the pre-procedure area. Mental Status Examination: alert and oriented. Airway Examination: normal oropharyngeal airway and neck mobility. Prophylactic Antibiotics: The patient does not require prophylactic antibiotics. Prior Anticoagulants: The patient has taken no previous anticoagulant or antiplatelet agents. After reviewing the risks and benefits, the patient was deemed in satisfactory condition to undergo the procedure. The anesthesia plan was to use monitored anesthesia care (MAC). Immediately prior to administration of medications, the patient was re-assessed for adequacy to receive sedatives. The heart rate, respiratory rate, oxygen saturations, blood pressure, adequacy of pulmonary ventilation, and response to care were monitored throughout the procedure. The physical status of the patient was re-assessed after the procedure. After I obtained informed consent, the scope was passed under direct vision. Throughout the procedure, the patient's blood pressure, pulse, and oxygen saturations were monitored continuously. The adult colonoscope was introduced through the anus and advanced to the terminal ileum. The colonoscopy was performed without difficulty. The patient tolerated the procedure well. The quality of the bowel preparation was good. Scope In: 1:03:56 PM Scope Withdrawal Time 0 hours 12 minutes 45 seconds Scope Out: 1:19:43 PM Total Procedure Duration Time 0 hours 15 minutes 47 seconds Findings: The perianal and digital rectal examinations were normal. A single (solitary) four mm ulcer was found at the hepatic flexure. No bleeding was present. No stigmata of recent bleeding were seen. Biopsies were taken with a cold forceps for histology. Verification of patient identification for the specimen was done. Estimated blood loss was minimal. An area of mildly congested mucosa was found in the recto-sigmoid colon, in the sigmoid colon, in the descending colon, at the splenic flexure, at the hepatic flexure and in the ascending colon. Biopsies were taken with a cold forceps for histology. Verification of patient identification for the specimen was done. Estimated blood loss was minimal. Impression: - A single (solitary) ulcer at the hepatic flexure. Biopsied. - Congested mucosa in the recto-sigmoid colon, in the sigmoid colon, in the descending colon, at the splenic flexure, at the hepatic flexure and in the ascending colon. Biopsied. Recommendation: - Discharge patient to home. - Resume previous diet. - Continue present medications. - Await pathology results. - Repeat colonoscopy in 5 years for surveillance. Procedure Code(s): --- Professional --- 98763, Colonoscopy, flexible; with biopsy, single or multiple CPT copyright 2017 [employer]. All rights reserved. The codes documented in this report are preliminary and upon production engine repairer review may be revised to meet current compliance requirements. Anshul Herrera DO 05/04/2022 1:33:11 PM This report has been signed electronically. Number of Addenda: 0 Note Initiated On: 05/04/2022 1:02 PM
== END 2022-05-04 13:55 | disposition home or self-care (01) ==
LOC: EN 10:55 → AC 10:57
PROVIDERS: Referring Provider Internal Medicine Gastroenterology; Visit Provider Internal Medicine Gastroenterology
PROC: 0DJD8ZZ Inspection of Lower Intestinal Tract, Via Natural or Artificial Opening Endoscopic (ICD-10-PCS; CPT 45378; principal; 2022-05-04 12:25)
DX: K29.80 Duodenitis without bleeding (principal); J43.9 Emphysema, unspecified; F17.210 Nicotine dependence, cigarettes, uncomplicated; R63.4 Abnormal weight loss; K63.3 Ulcer of intestine; K22.70 Barrett's esophagus without dysplasia
CPT/HCPCS: 45380; 43239; 88305; 88313; 88341; 88342; J7120; J2405

== ENCOUNTER 2022-06-19 14:58 | Emergency (ER) | payer MEDICAID, SELFPAY ==
[2022-06-19 14:59] VITALS: BP 145/72; PULSE 88; RESP 16; TEMP 36.2; O2SAT 98; BMI 19.1
--- NOTE | 2022-06-19 15:20 | EX.ED.VIS.PS ---
HPI <Dr. Edilberto Alvarez DO - Last Filed: 06/19/22 15:33> HPI - Psych History of Present Illness Chief Complaint: Depression Informant: patient Narrative Narrative: Patient brought in by police for evaluation. Patient appeared to have increasing depression per police. They were contacted by patient's spouse. Patient reports increasing stress the last 2 months he is suspecting infidelity from his spouse he confronted her a month ago. There has been no confirmed events. This is stressed to him over the couple months. There is argument today. He drinks alcohol daily at least 4 beers a day today had 6. He denies any recreational drug use. She reports history of Peacock's esophagus states 2 PM and handful of pantoprazole in his hands which he put in his mouth however he states he spit it out. No other medications. He states his did not see him take these. He states he had thoughts of harming himself at that time. Currently denies this. He states 5 years ago that he told police similar infidelity concerns for which have thoughts of jumping off a bridge and was on a bridge then. He did not get evaluated. Denies any psychiatric history or diagnosis. He states he suspects this more because his has not been sleeping with him as much in different rooms, also stating she has not been giving it to me. Clarification with sexual intercourse. PFSH <Dr. Edilberto Alvarez DO - Last Filed: 06/19/22 15:33> PFSH Medical History Alcohol abuse Arthritis Back pain Blindness of left eye History of echocardiogram History of edema History of pain when walking Leg cramps Shortness of breath on exertion Smoker Home Medications pantoprazole 40 mg tablet,delayed release 40 mg PO DAILY #90 tabs 05/26/22 [Rx Last Taken Unknown] Allergy/AdvReac Type Severity Reaction Status Date / Time No Known Allergies Allergy Verified 06/19/22 15:01 Family History Father , from cancer Lung cancer Stomach cancer Surgical History Hx of right cataract extraction Social History Smoking Status: Heavy Smoker (>10/day) Tobacco: How many years used: 56 Electronic Cigarette Use: not used second hand exposure: Yes alcohol intake: current alcohol intake frequency: a few times a week substance use type: does not use ROS <Dr. Edilberto Alvarez, - Last Filed: 06/19/22 15:33> ROS ED Constitutional Constitutional ED: Denies chills, fever(s) or sweats Eyes Eyes: Denies change in vision ENT ENT ED: Denies dysphagia or sore throat Cardiovascular Cardiovascular: Denies chest pain, leg edema, palpitations or racing heartbeat Respiratory/Chest Respiratory/Chest: Denies cough, dyspnea or dyspnea on exertion Gastrointestinal Gastrointestinal: Denies abdominal pain, diarrhea, nausea or vomiting Genitourinary Genitourinary ED: Denies dysuria, hematuria or urinary frequency Musculoskeletal Musculoskeletal: Denies back pain, extremity pain or neck pain Integumentary Denies rash or wounds Neurologic Neurologic: Denies headache(s), paresthesias or weakness Psychiatric Psychiatric: Reports depression and suicidal ideation EXAM <Dr. Edilberto Alvarez, - Last Filed: 06/19/22 15:33> Physical Exam Const Vital Signs: 06/19/22 14:59 06/19/22 16:00 06/19/22 17:00 Temperature 97.1 F L Temperature Source Temporal Pulse Rate 88 Respiratory Rate 16 16 18 Blood Pressure 145/72 H Blood Pressure Mean 96 Pulse Ox 98 Oxygen Delivery Method Room Air 06/19/22 18:00 Temperature Temperature Source Pulse Rate Respiratory Rate 14 Blood Pressure Blood Pressure Mean Pulse Ox Oxygen Delivery Method Positive well nourished and well developed Constitutional Narrative: Initial tearful on exam cooperative. Nontoxic. General Appearance ED: well developed and NAD HEENT Reports moist mucous membranes normocephalic and atraumatic Eyes PERRL, EOMs intact bilaterally and conjunctivae normal General Eye ED: Yes normal appearance of both eyes Neck no lymphadenopathy and supple General: Negative for tenderness Chest Wall Chest: Negative for tenderness Resp normal respiratory effort and normal air movement Effort and Inspection: symmetric chest movement; Negative for respiratory distress Cardio regular rate, regular rhythm and no murmurs Peripheral Pulses: pulses 2+ throughout GI normal to inspection, nondistended, normoactive bowel sounds and non-tender Palpation: Negative for guarding or rebound tenderness present Back/Spine no CVA tenderness and no thoracic nor lumbar tenderness Extremity normal to inspection General Extremety ED: Negative for edema or tenderness General Extremity: Negative for edema Neuro oriented x3 and no sensory deficits noted Sensorium / Orientation: awake and alert Psych Psych Narrative: Tearful, cooperative flat affect, denies any current suicidal ideations. Skin no rashes or lesions noted and no wounds <Dr. Verena Buck MD - Last Filed: 06/20/22 02:03> Physical Exam Const Vital Signs: 06/19/22 14:59 06/19/22 16:00 06/19/22 17:00 Temperature 97.1 F L Temperature Source Temporal Pulse Rate 88 Respiratory Rate 16 16 18 Blood Pressure 145/72 H Blood Pressure Mean 96 Pulse Ox 98 Oxygen Delivery Method Room Air 06/19/22 18:00 Temperature Temperature Source Pulse Rate Respiratory Rate 14 Blood Pressure Blood Pressure Mean Pulse Ox Oxygen Delivery Method MDM <Dr. Edilberto Alvarez DO - Last Filed: 06/19/22 15:33> MDM MDM Narrative Medical decision making narrative: Interventions / MDM: Differential diagnosis: Depression, suicidal ideation, intentional ingestion Diagnosis considered but do not suspect: N/A My EKG interpretation: Sinus rate of 77, no ST or T wave changes QTc 434. Imaging independently reviewed and interpreted by myself: N/A External documents reviewed: N/A Test considered but not ordered:N/A ED course: Patient currently denies suicidal thoughts. Acute stressful event with concerns for infidelity. Admitting to suicidal ideations with intentional ingestion, albeit, stated he spit the pills out. Will check EKG and medical clearance labs. We will plan to have crisis evaluation to help with disposition. Re-evaluation: Patient be signed out to oncoming physician. Disposition discussed with patient/family/significant other: Case discussed with consulting clinician: N/A Lab Data Labs: Laboratory Results - last 24 hr 06/19/22 06/19/22 06/19/22 15:30 15:30 15:30 WBC 8.4 RBC 4.68 Hgb 15.0 Hct 43.8 MCV 93.6 MCH 32.1 H MCHC 34.2 RDW Std Deviation 44.4 H RDW Coeff of Kp 13.0 Plt Count 105 L MPV 9.7 Immature Gran % (Auto) 0.200 Neut % (Auto) 67.4 Lymph % (Auto) 19.8 [place] % (Auto) 11.3 H Eos % (Auto) 0.8 Baso % (Auto) 0.5 Absolute Neuts (auto) 5.6 Absolute Lymphs (auto) 1.65 Nucleated RBC % 0 Sodium 138 Potassium 3.5 Chloride 108 H Carbon Dioxide 26.0 Anion Gap 4 L BUN 6 L Creatinine 0.57 L Estim Creat Clear Calc 118.45 Est GFR (MDRD) Af Amer 186 Est GFR (MDRD) Non-Af 154 BUN/Creatinine Ratio 10.5 Glucose 96 Calcium 8.6 Salicylates 6.3 Urine Opiates Screen Urine Methadone Screen Acetaminophen < 2.0 L Ur Barbiturates Screen Ur Phencyclidine Scrn Ur Amphetamines Screen MDMA (Ecstasy) Screen U Benzodiazepines Scrn Urine Cocaine Screen U Cannabinoids Screen Ur Drug Screen Comment Ethyl Alcohol 305.0 H* 06/19/22 06/19/22 15:30 23:40 WBC RBC Hgb Hct MCV MCH MCHC RDW Std Deviation RDW Coeff of Kp Plt Count MPV Immature Gran % (Auto) Neut % (Auto) Lymph % (Auto) [place] % (Auto) Eos % (Auto) Baso % (Auto) Absolute Neuts (auto) Absolute Lymphs (auto) Nucleated RBC % Sodium Potassium Chloride Carbon Dioxide Anion Gap BUN Creatinine Estim Creat Clear Calc Est GFR (MDRD) Af Amer Est GFR (MDRD) Non-Af BUN/Creatinine Ratio Glucose Calcium Salicylates Urine Opiates Screen NEGATIVE Urine Methadone Screen NEGATIVE Acetaminophen Ur Barbiturates Screen NEGATIVE Ur Phencyclidine Scrn NEGATIVE Ur Amphetamines Screen NEGATIVE MDMA (Ecstasy) Screen NEGATIVE U Benzodiazepines Scrn NEGATIVE Urine Cocaine Screen NEGATIVE U Cannabinoids Screen NEGATIVE Ur Drug Screen Comment Ethyl Alcohol 74.0 <Dr. Verena Buck MD - Last Filed: 06/20/22 02:03> [facility] Lab Data Labs: Laboratory Results - last 24 hr 06/19/22 06/19/22 06/19/22 15:30 15:30 15:30 WBC 8.4 RBC 4.68 Hgb 15.0 Hct 43.8 MCV 93.6 MCH 32.1 H MCHC 34.2 RDW Std Deviation 44.4 H RDW Coeff of Kp 13.0 Plt Count 105 L MPV 9.7 Immature Gran % (Auto) 0.200 Neut % (Auto) 67.4 Lymph % (Auto) 19.8 [place] % (Auto) 11.3 H Eos % (Auto) 0.8 Baso % (Auto) 0.5 Absolute Neuts (auto) 5.6 Absolute Lymphs (auto) 1.65 Nucleated RBC % 0 Sodium 138 Potassium 3.5 Chloride 108 H Carbon Dioxide 26.0 Anion Gap 4 L BUN 6 L Creatinine 0.57 L Estim Creat Clear Calc 118.45 Est GFR (MDRD) Af Amer 186 Est GFR (MDRD) Non-Af 154 BUN/Creatinine Ratio 10.5 Glucose 96 Calcium 8.6 Salicylates 6.3 Urine Opiates Screen Urine Methadone Screen Acetaminophen < 2.0 L Ur Barbiturates Screen Ur Phencyclidine Scrn Ur Amphetamines Screen MDMA (Ecstasy) Screen U Benzodiazepines Scrn Urine Cocaine Screen U Cannabinoids Screen Ur Drug Screen Comment Ethyl Alcohol 305.0 H* 06/19/22 06/19/22 15:30 23:40 WBC RBC Hgb Hct MCV MCH MCHC RDW Std Deviation RDW Coeff of Kp Plt Count MPV Immature Gran % (Auto) Neut % (Auto) Lymph % (Auto) [place] % (Auto) Eos % (Auto) Baso % (Auto) Absolute Neuts (auto) Absolute Lymphs (auto) Nucleated RBC % Sodium Potassium Chloride Carbon Dioxide Anion Gap BUN Creatinine Estim Creat Clear Calc Est GFR (MDRD) Af Amer Est GFR (MDRD) Non-Af BUN/Creatinine Ratio Glucose Calcium Salicylates Urine Opiates Screen NEGATIVE Urine Methadone Screen NEGATIVE Acetaminophen Ur Barbiturates Screen NEGATIVE Ur Phencyclidine Scrn NEGATIVE Ur Amphetamines Screen NEGATIVE MDMA (Ecstasy) Screen NEGATIVE U Benzodiazepines Scrn NEGATIVE Urine Cocaine Screen NEGATIVE U Cannabinoids Screen NEGATIVE Ur Drug Screen Comment Ethyl Alcohol 74.0 Treatment and Re-Evaluation Narrative: Patient signed out to me pending evaluation by crisis. Repeat alcohol level is under 100. location worker spoke with the patient. She initially was thinking about safety plan and the patient, however I also asked her to speak with the patient's to ensure we had all the information. After speaking with the decision is to place the patient in a psychiatric facility for further treatment. [place] slip and transfer sheet of already been filled out by Dr. Alvarez. We are awaiting placement at this time. Discharge Plan Triage Chief Complaint: Depression ED Provider: Edilberto Alvarez Dx/Rx/DC Orders Clinical Impression: Drug ingestion, Depression, Stress reaction, Suicidal ideations, Alcohol dependence Prescriptions: No Action pantoprazole 40 mg tablet,delayed release (DR/EC) 40 mg PO DAILY Qty: 90 3RF Primary Care Provider: [facility] Clary Fisher Referrals: [facility],Clary Hodge [Primary Care Provider] - Disposition Disposition: Psychiatric Hospital or Unit
[2022-06-19 16:00] VITALS: RESP 16
[2022-06-19 16:00] LABS: Absolute Lymphocyte Count 1.65 X10^3/uL (0.83-4.51); Absolute Neutrophil Count 5.6 X10^3/uL (2.0-7.7); Basophil# 0.04 X10^3/uL; Basophil% 0.5 % (0-1); Eosinophil# 0.07 X10^3/uL; Eosinophils% 0.8 % (0-5); Hematocrit 43.8 % (40-54); Lymphocyte # 1.65 X10^3/ul (0.83-4.51); Lymphocyte % 19.8 % (19-41); Mean Corp Hgb Conc 34.2 g/dL (32-36); Mean Corpuscular Hgb 32.1 pg (27.0-32.0); Mean Corpuscular Volume 93.6 fL (80-94); Mean Platelet Vol. 9.7 fl (6.2-12.0); Monocyte# 0.94 X10^3/uL; Monocyte% 11.3 % (0-10); NRBC Flagged by Analyzer 0 % (0-5); Neutrophil # 5.63 X10^3/uL (2.7-7.7); Neutrophil % 67.4 % (47-70); Platelet Count 105 K/mm3 (150-450); RBC Distribution Width SD 44.4 fl (35.1-43.9); Red Blood Count 4.68 M/mm3 (4.6-6.2); White Blood Count 8.4 K/mm3 (4.4-11.0)
[2022-06-19 16:13] LABS: Amphetamine Urine VISTA NEGATIVE (<1000 ng/mL); Barbiturate Urine VISTA NEGATIVE (< 200 ng/mL); Benzodiazepine Urine VISTA NEGATIVE (< 200 ng/mL); Cocaine Urine VISTA NEGATIVE (< 300 ng/mL); Ecstacy Urine VISTA NEGATIVE (< 500 ng/mL); Methadone Urine VISTA NEGATIVE (< 300 ng/mL); PCP Urine VISTA NEGATIVE (< 25 ng/mL); THC Urine VISTA NEGATIVE (< 50 ng/mL); Vista UDS pH Range 4
[2022-06-19 16:17] LABS: Anion Gap 4 (5-15); BUN 6 mg/dL (7-18); BUN/Creat Ratio 10.5 RATIO (10-20); Calcium,Total 8.6 mg/dL (8.5-10.1); Chloride 108 mmol/L (98-107); Creatinine, Serum 0.57 mg/dL (0.70-1.30); EST Glomerular Filtration Rate 154 mL/min (>60); Est Glom Filt Rate - Afr Amer 186 mL/min (>60); Estimated Creatinine Clearance 118.45 ml/min; Glucose 96 mg/dL (74-106); Potassium 3.5 mmol/L (3.5-5.1); Sodium Level 138 mmol/L (136-145)
[2022-06-19 16:20] LABS: Acetaminophen (Tylenol) Level < 2.0 ug/mL (10.0-30.0); Salicylate 6.3 mg/dL (2.8-20.0)
[2022-06-19 17:00] VITALS: RESP 18
[2022-06-19 18:00] VITALS: RESP 14
[2022-06-20] VITALS (7 sets, daily range): BP systolic 131–156; BP diastolic 60–87; PULSE 63–81; RESP 14–18; TEMP 36.4; O2SAT 97–98
--- NOTE | 2022-06-20 07:08 | NURSING ---
[facility] CALLED. PATIENT ACCEPTED, JUST NEED INSURANCE VERIFIED
--- NOTE | 2022-06-20 13:51 | NURSING ---
RAMONE, [facility]ISIS, CALLED BACK. SHE IS STILL WAITING ON INSURANCE VERIFICATION. CAN'T TRY ANOTHER HOSPITAL UNTIL THEN
--- NOTE | 2022-06-20 15:47 | NURSING ---
FAXED INSURANCE CONFIRMATION TO [facility]
--- NOTE | 2022-06-20 15:59 | ED.RN ---
Addendum entered by Maggie Capps 06/20/22 16:04: [facility] CALLED THIS RN AND STATES THEY NEED TO VERIFY PT'S [employer] INSURANCE AND TO HOLD OFF ON TRANSPORT AT THIS TIME. Original Note: THIS RN RECEIVES ACCEPTING INFORMATION FROM [facility]. DR. PARSON IS THE ACCEPTING PHYSICIAN. PT WILL GO TO ADULT BEHAVIORAL UNIT THEN WILL BE MOVED TO A DUEL UNIT TOMORROW. ROOM NUMBER TBD AT THIS TIME. NURSE TO NURSE REPORT GIVEN.
--- NOTE | 2022-06-20 16:22 | NURSING ---
CALLED [facility], ETA IS 1 HR
== END 2022-06-20 17:55 ==
PROVIDERS: Emergency Medicine; Emergency Provider Emergency Medicine; Visit Provider Emergency Medicine
DX: R45.851 Suicidal ideations (principal); F10.20 Alcohol dependence, uncomplicated; F32.A Depression, unspecified; F17.200 Nicotine dependence, unspecified, uncomplicated; F43.9 Reaction to severe stress, unspecified; Z20.822 Contact with and (suspected) exposure to COVID-19
CPT/HCPCS: 36415; 80048; 80307; 80329; 82077; 85025; 87811; 93005; 99281; 99283; G0480

== ENCOUNTER → 2022-08-13 | Outpatient (CLI) | payer MEDICAID, SELFPAY ==
--- NOTE | 2022-08-13 18:41 | CT_ITS ---
ACR Level 3 findings have been noted. An addendum which confirms receipt of the report will follow. INDICATION: smoker and gt; 40 pack years EXAMINATION: CT CHEST WITHOUT CONTRAST - CT Low Dose CT Chest for Lung Cancer Screening TECHNIQUE: Helically acquired images were obtained of the chest with sagittal and coronal reconstructed images. Low-dose technique was utilized. Individualized dose optimization techniques were used for this CT. COMPARISON: 08/08/2021 CT FINDINGS: LUNGS, PLEURA AND LARGE AIRWAYS: 6.0 x 3.5 x 4.9 cm spiculated mass in the right lower lobe. This is new as compared to the prior CT. No other mass or pulmonary nodule bilaterally. No pulmonary nodule. No pleural effusion. No pneumothorax. Biapical blebs. THYROID: Unremarkable. HEART AND PERICARDIUM: Coronary artery calcifications are present. No pericardial effusion. MEDIASTINUM AND MILADY: Prominent mediastinal lymph nodes with the largest in the subcarinal region measuring 1.0 cm in short axis diameter. Stable diffuse thickening of the esophagus. No hiatal hernia. VESSELS: No thoracic aortic aneurysm. UPPER ABDOMEN: The visualized upper abdomen is unremarkable. BONES: No focal osseous abnormality. CT/Low Dose CT Lung Screening IMPRESSION: 1. 6.0 cm spiculated mass in the right lower lobe highly suspicious for lung cancer. Recommend tissue sampling and/or PET/CT. 2. Prominent mediastinal lymph nodes. 3. Stable diffuse thickening of the esophagus likely representing chronic esophagitis. NSC 3 was initiated at the time of dictation. Electronically Signed: Bean Asif DO at 5:19 EDT ,
== END | disposition home or self-care (01) ==
LOC: CT 18:39
PROVIDERS: Referring Provider Nurse Practitioner Acute Care; Visit Provider Nurse Practitioner Acute Care
DX: F17.200 Nicotine dependence, unspecified, uncomplicated (principal); R06.02 Shortness of breath
CPT/HCPCS: 71271

== ENCOUNTER → 2022-08-18 | Outpatient (CLI) | payer MEDICAID, SELFPAY ==
[2022-08-18 09:59] LABS: Platelet Count 151 K/mm3 (150-450)
[2022-08-18 10:46] LABS: Partial Thromboplast Time 31.8 Seconds (24.1-36.2)
== END | disposition home or self-care (01) ==
LOC: LAB 09:16
PROVIDERS: Referring Provider Nurse Practitioner Acute Care; Visit Provider Nurse Practitioner Acute Care
DX: I48.91 Unspecified atrial fibrillation (principal); R06.02 Shortness of breath
CPT/HCPCS: 36415; 85049; 85610; 85730

== ENCOUNTER 2022-09-06 07:26 | Outpatient (CLI) | payer MEDICAID, SELFPAY ==
[2022-09-06] VITALS (11 sets, daily range): BP systolic 123–181; BP diastolic 69–96; PULSE 60–83; RESP 12–22; TEMP 36.8; O2SAT 96–99; BMI 19.9
--- NOTE | 2022-09-06 | IMM_PTH ---
PATIENT: AIDEE CHAPPELL LOC: CT U#:[id number] AGE/SX: 62/M ROOM: RE09/06/[address]: DIPAK Green : 1960 BED: DIS: 09/06/2022 SPEC #: [id number] RECD: 09/07/22 10:09 STATUS: CARLOS RETimmy #: [id number] SHASHA: 09/06/22 00:[address]: Irene Zhang NP DEPT: IMMUNOHISTOCHEMISTRY RECD BY: Autumn Lorenzana ENTERED: 09/07/22 10:11 SP TYPE: IMMUNO OTHR DR: [facility] Tissues: Right lower lobe of lung, NOS Procedures: CK8 (initial) NAPSIN A (add) CD138 (add) CD20 (add) CD3 (add) CD45 (add) CD5 (add) CD79A (add) KAPPA (add) KI-67 (add) LAMBDA (add) TTF1 (add) PHYSICIAN & [address] [address] SPECIMEN INFORMATION: Tissue Source: Right lower lobe of lung Clinical Info: Right lower lobe lung mass Specimen Number: [id number] CPT code: 59169, 65498 x11 METHODOLOGY: Deparaffinized sections of prefer/formalin-fixed tissue or PAP/DQ stained slides are incubated with monoclonal/polyclonal antibodies/oligonucleotide probes. Localization is made via biotin free immunoperoxidase method. Appropriate controls are performed and reacted as expected. Results on target cell population are indicated in the following table: RESULTS: ANTIBODY / CLONE RESULT CK8 ([id number]) negative (positive in epithelial cells) CD3 (PS1) positive CD5 (SP10) positive CD20 (L26) positive CD45 (RP2/18) positive CD79a (11E3) positive CD138 (B-A38) positive [place] (polyclonal) positive Lambda (polyclonal) positive TTF-1 (8G7G3/1) positive (positive in epithelial cells) Napsin A (Rabbit Polyclonal) positive (positive in epithelial cells) Ki-67 (30-9) positive, low These tests were developed and their performance characteristics determined by [facility]. They may not have been cleared or approved by the U.[place]. Food and Drug Administration. The FDA has determined that such clearance or approval is not necessary. The above immunohistochemical/dualISH markers are ordered and reviewed by the Pathologist. INTERPRETATION: Right lower lobe of lung, CT-guided biopsy: Compatible with reactive lymphoplasmacytic infiltrate. See comment. SJ:lavelle 09/16/2022 Comment: Immunohistochemistry performed at [facility] shows IGG4/IGG<40%. The specimen is sent to [facility] for expert opinion, reviewed by Dr. Mace and the above diagnosis is rendered. The complete report is viewable in the patient's EMR. Case has been reviewed in consultation with Dr. Cross who concurs with the above diagnosis. IDC:[id number]
--- NOTE | 2022-09-06 07:33 | CT_ITS ---
PROCEDURE: CT GUIDED CORE NEEDLE BIOPSY OF A right lower lobe LUNG LESION INDICATION: Male, 62 years old. Right lower lobe mass PHYSICIAN: Dr. Anmol Naranjo CONSENT: Written informed consent was obtained having explained the risks, benefits and alternatives in detail with the patient who accepted the risks and agreed to proceed. Laboratory review and clinical assessment was performed. CONSCIOUS SEDATION PROTOCOL: The Drugs used were: 2 mg Versed, IV., and 50 mcg Fentanyl, IV. The sedation time was: 20 minutes. Conscious sedation was started at 8:57 AM and terminated at 9:17 AM. The conscious sedation protocol was independently monitored. RADIATION DOSAGE (If Supplied By Facility): CTDIvol = ( 14.5 ) mGy, DLP = ( 245.83 ) mGycm Individualized dose optimization techniques were used for this CT. TECHNIQUE: The patient was placed in the prone position. A noncontrast CT was performed to localize the lesion in the right lower lobe . The skin surface was prepped and draped in a sterile fashion. 1% lidocaine was used for local anesthesia. Using CT guidance, a 20-gauge coaxial biopsy device was advanced to the periphery of the lesion. A total of 5 core specimens were obtained. The specimens were placed in a formalin solution. A post procedure CT demonstrated no adverse sequelae or pneumothorax. The patient tolerated the procedure well without adverse event. A negative biopsy does not exclude malignancy. Further imaging or clinical followup based on patient condition and degree of clinical suspicion for malignancy. Suggest rebiopsy, if biopsy results do not match with clinical scenario. CT/Biopsy/Inj or Needle Placement IMPRESSION: 1. CT directed core needle biopsy of the right lower lobe mass using CT image guidance with image documentation as described. Pathology results are pending. 2. Conscious Sedation protocol utilized with independent monitoring. Electronically Signed: Mo Corea MD at 9:36 EDT ,
[2022-09-06 07:43] LABS: Platelet Count 142 K/mm3 (150-450)
[2022-09-06] MEDS: 0.9% Saline Lock 10 ML Syringe IV (08:04)
[2022-09-06 08:14] LABS: Prothrombin Time (Protime)PT. 13.6 SECONDS (11.7-14.9)
[2022-09-06 08:15] LABS: Partial Thromboplast Time 28.1 Seconds (24.1-36.2)
[2022-09-06] MEDS: Midazolam 2 MG/2 ML Syringe IV (08:57)
[2022-09-06] MEDS: fentaNYL 100 MCG/2 ML Ampul IV (08:58)
--- NOTE | 2022-09-06 09:00 | ASPIGT_PTH ---
PATIENT: AIDEE CHAPPELL LOC: CT U#:[id number] AGE/SX: 62/M ROOM: RE09/06/[address]: DIPAK Green : 1960 BED: DIS: 09/06/2022 SPEC #: [id number] RECD: 09/06/22 09:25 STATUS: CARLOS KRISS #: [id number] SHASHA: 09/06/22 09:[address]: Irene Zhang NP DEPT: SURGICAL PATHOLOGY RECD BY: Alberta Olivia ENTERED: 09/06/22 09:39 SP TYPE: ASP RAD OTHR DR: Clary [facility] Tissues: Lung, NOS Procedures: FNA Specimen Adequacy Gen Path Consultation (on slides) Special Stain Group II Surgery Specimen Level IV Imprint (control) HEADER OPERATION: CT-guided lung biopsy PRE-OP DIAGNOSIS: RLL mass TISSUE SUBMITTED: RLL lung 20-gauge core biopsy x5 MICROSCOPIC DIAGNOSIS RLL lung, CT-guided core biopsy: Compatible with reactive lymphoplasmacytic infiltrate. IGG4/IGG<40%. See comment. LIV:lavelle 09/16/2022 COMMENT The specimen is evaluated at the time of biopsy by Dr. Pinto. Immediate Evaluation = Mildly atypical cells noted. The specimen is sent to [facility] for expert opinion, reviewed by Dr. Mace and the above diagnosis is rendered. Immunohistochemistry ([id number]) and additional stains performed at [facility] supports the above diagnosis. The complete report is viewable in the patient's EMR. Correlation with clinical, radiologic findings and appropriate follow-up are necessary. This case has been reviewed in consultation with Dr. Cross who concurs with the above diagnosis. MICROSCOPIC DESCRIPTION Slides are reviewed. GROSS DESCRIPTION Received in fixative is one container labeled with the patient's name and designated lung. The specimen consists of multiple elongated fragments of barragan soft tissue that in aggregate measure 1.5 x 0.2 x 0.1 cm. The specimen is totally submitted in one cassette. Two touch imprints are prepared at the time of core biopsy. / LIV:lavelle 09/07/2022 TC:3 CPT: 19413, 92360
[2022-09-06] MEDS: Lidocaine 2% (20 ml mdv) 20 ML Vial INFILT (09:07)
--- NOTE | 2022-09-06 09:30 | RAD_ITS ---
STUDY: X-RAY CHEST REASON FOR EXAM: Male, 62 years old. Post lung biopsy -- Immediately post lung biopsy TECHNIQUE: AP inspiration and expiration views. COMPARISON: Comparison is made with prior study dated September 18, 2021. FINDINGS: No evidence of pneumothorax on the immediate post right lung biopsy radiographs. RAD/Chest Insp/Exp 2 View IMPRESSION: No evidence of pneumothorax on the immediate post right lung biopsy radiographs. Electronically Signed: Mo Corea MD at 14:25 EDT ,
--- NOTE | 2022-09-06 11:21 | RAD_ITS ---
STUDY: X-RAY CHEST REASON FOR EXAM: Male, 62 years old. 2 hr post lung biopsy -- 2 hours post lung biopsy TECHNIQUE: AP inspiration and expiration views. COMPARISON: Comparison is made with prior study done earlier in the day. FINDINGS: No evidence of pneumothorax on the 2 hour post right lung biopsy radiographs. RAD/Chest Insp/Exp 2 View IMPRESSION: No evidence of pneumothorax on the 2 hour post right lung biopsy radiographs. Electronically Signed: Mo Corea MD at 11:16 EDT ,
== END 2022-09-06 23:59 | disposition home or self-care (01) ==
PROVIDERS: Radiology Diagnostic Radiology; Referring Provider Nurse Practitioner Acute Care; Visit Provider Nurse Practitioner Acute Care
DX: R91.8 Other nonspecific abnormal finding of lung field (principal)
CPT/HCPCS: 32408; 36415; 71046; 77012; 85049; 85610; 85730; 88172; 88305; 88313; 88325; 88341; 88342; 99156; J7050; A4216; C2613

== ENCOUNTER → 2022-10-05 | Outpatient (CLI) | payer MEDICAID, SELFPAY ==
--- NOTE | 2022-10-05 14:15 | CT_ITS ---
INDICATION: follow lung mass EXAMINATION: CT CHEST WITHOUT CONTRAST - CT Chest W/O Contrast Injection TECHNIQUE: Helically acquired images were obtained of the chest. Coronal and sagittal reformats obtained. A radiation dose optimization technique was used for this scan. IV Contrast dosage and agent: None. COMPARISON: CT biopsy September 06, 2022. CT August 13, 2022 and August 06, 2021. PET/CT August 19 2021. FINDINGS: LUNGS, PLEURA AND LARGE AIRWAYS: Persistent bronchiectasis in the right lower lobe with decreased peribronchial thickening and nodular opacity compared to prior biopsy and prebiopsy CT. No new or enlarging mass. Mild bilateral apical scarring and paraseptal emphysematous change. Mild underlying diffuse bilateral peribronchial thickening. No pleural effusion or thickening. No pneumothorax. THYROID: No thyroid lesions. HEART AND PERICARDIUM: Heart size is normal. No pericardial effusion. Mild multivessel coronary atherosclerosis. VESSELS: Mild aortic atherosclerosis without ectasia. No main pulmonary arterial enlargement.. MEDIASTINUM AND MILADY: Decreased size and conspicuity of mediastinal lymph nodes compared to August 13, 2022. No mediastinal adenopathy by size criteria. No bulky hilar adenopathy. Esophagus is unremarkable. No hiatal hernia. UPPER ABDOMEN: Hepatic steatosis. Unremarkable adrenals.. BONES: No suspicious lytic or blastic abnormality. CT/Chest without Contrast IMPRESSION: Right lower lobe bronchiectasis with peribronchial thickening, decreased nodularity compared to prior biopsy CT and prebiopsy CT suggestive of infectious or inflammatory process. Correlate with biopsy result. Continued CT follow-up is recommended to ensure resolution. Mild underlying diffuse peribronchial thickening as can be seen with bronchitis/bronchiolitis. No new or enlarging pulmonary nodule or airspace disease. Interval decrease in size and conspicuity of mediastinal lymph nodes. No current adenopathy by size criteria. Hepatic steatosis. Electronically Signed: Trevor Mckeon MD at 9:41 EDT ,
== END | disposition home or self-care (01) ==
LOC: CT 14:02
PROVIDERS: Referring Provider Nurse Practitioner Acute Care; Visit Provider Nurse Practitioner Acute Care
DX: R91.8 Other nonspecific abnormal finding of lung field (principal)
CPT/HCPCS: 71250

== ENCOUNTER → 2022-10-12 | Outpatient (CLI) | payer MEDICAID, SELFPAY ==
[2022-10-12] VITALS (12 sets, daily range): BP systolic 141–180; BP diastolic 52–104; PULSE 70–90; RESP 10–20; TEMP 37.1; O2SAT 98–100
--- NOTE | 2022-10-12 07:41 | CT_ITS ---
PROCEDURE: CT GUIDED CORE NEEDLE BIOPSY OF A right lower lobe LUNG LESION INDICATION: Male, 62 years old. RE BIOPSY LUNG NODULE PHYSICIAN: Dr. Anmol Naranjo CONSENT: Written informed consent was obtained having explained the risks, benefits and alternatives in detail with the patient who accepted the risks and agreed to proceed. Laboratory review and clinical assessment was performed. CONSCIOUS SEDATION PROTOCOL: The Drugs used were: 2 mg Versed, IV., and 50 mcg Fentanyl, IV. The sedation time was: 24 minutes. Conscious sedation was started at 9:06 AM and terminated at 9:30 AM The conscious sedation protocol was independently monitored. RADIATION DOSAGE (If Supplied By Facility): CTDIvol = ( 21 ) mGy, DLP = ( 315.55 ) mGycm Individualized dose optimization techniques were used for this CT. TECHNIQUE: The patient was placed in the prone position. A noncontrast CT was performed to localize the lesion in the peripheral aspect of the right lower lobe . The skin surface was prepped and draped in a sterile fashion. 1% lidocaine was used for local anesthesia. Using CT guidance, a 20-gauge coaxial biopsy device was advanced to the periphery of the lesion. A total of 7 core specimens were obtained. The specimens were placed in a formalin solution. A post procedure CT demonstrated no adverse sequelae or pneumothorax. The patient tolerated the procedure well without adverse event. A negative biopsy does not exclude malignancy. Further imaging or clinical followup based on patient condition and degree of clinical suspicion for malignancy. Suggest rebiopsy, if biopsy results do not match with clinical scenario. CT/Biopsy/Inj or Needle Placement IMPRESSION: 1. CT directed core needle biopsy of the pleural-based right lower lobe nodule using CT image guidance with image documentation as described. Pathology results are pending. 2. Conscious Sedation protocol utilized with independent monitoring. Electronically Signed: Mo Corea MD at 10:34 EDT ,
[2022-10-12 07:49] LABS: Absolute Lymphocyte Count 1.26 X10^3/uL (0.83-4.51); Absolute Neutrophil Count 1.9 X10^3/uL (2.0-7.7); Basophil# 0.04 X10^3/uL; Eosinophil# 0.04 X10^3/uL; Hematocrit 46.7 % (40-54); Hemoglobin 15.7 g/dL (13.0-16.5); Lymphocyte # 1.26 X10^3/ul (0.83-4.51); Lymphocyte % 32.8 % (19-41); Mean Corp Hgb Conc 33.6 g/dL (32-36); Mean Corpuscular Hgb 31.5 pg (27.0-32.0); Mean Corpuscular Volume 93.8 fL (80-94); Mean Platelet Vol. 9.4 fl (6.2-12.0); Monocyte# 0.57 X10^3/uL; Monocyte% 14.8 % (0-10); NRBC Flagged by Analyzer 0 % (0-5); Neutrophil # 1.92 X10^3/uL (2.7-7.7); Neutrophil % 50.1 % (47-70); Platelet Count 160 K/mm3 (150-450); RBC Distribution Width CV 13.4 % (11.6-14.6); RBC Distribution Width SD 46.5 fl (35.1-43.9); Red Blood Count 4.98 M/mm3 (4.6-6.2); White Blood Count 3.8 K/mm3 (4.4-11.0)
[2022-10-12 08:10] LABS: Partial Thromboplast Time 28.7 Seconds (24.1-36.2); Prothrombin Time (Protime)PT. 12.8 SECONDS (11.7-14.9)
[2022-10-12] MEDS: Midazolam 2 MG/2 ML Syringe IV (09:06)
[2022-10-12] MEDS: fentaNYL 100 MCG/2 ML Ampul IV (09:11)
[2022-10-12] MEDS: Lidocaine 2% (20 ml mdv) 20 ML Vial INFILT (09:24)
--- NOTE | 2022-10-12 09:25 | ASPIGT_PTH ---
PATIENT: AIDEE CHAPPELL LOC: CT U#:[id number] AGE/SX: 62/M ROOM: RE10/12/[address]: Dr. Maury Jones MD : 1960 BED: DIS: 10/12/2022 SPEC #: [id number] RECD: 10/12/22 09:54 STATUS: CARLOS KRISS #: [id number] SHASHA: 10/12/22 09:[address]: Maury Jones DEPT: SURGICAL PATHOLOGY RECD BY: Alberta Olivia ENTERED: 10/12/22 09:55 SP TYPE: ASP RAD OTHR DR: Clary [facility] Tissues: Lung, NOS Procedures: FNA Specimen Adequacy Special Stain Group II Special Stain Group I Surgery Specimen Level IV AFB Stain (control) GMS Stain (control) Imprint (control) HEADER OPERATION: CT-guided right lung biopsy PRE-OP DIAGNOSIS: Right lung mass TISSUE SUBMITTED: Right posterior lower lobe lung mass 20-gauge core x6 MICROSCOPIC DIAGNOSIS Right posterior lower lobe lung mass, CT-guided core biopsy: Fragments of lung parenchymal and bronchial mucosal tissue with extensive fibrosis and moderate to marked chronic inflammation. Negative for malignancy. See comment. SJ:lavelle 10/13/2022 COMMENT The specimen is evaluated at the time of biopsy by Dr. Cross. Immediate Evaluation = Negative for malignant cells. Reactive pneumocytes, macrophages and lymphocytes are noted. Inflammatory cell infiltrates predominantly consist of lymphocytes, a few plasma cells and foreign body giant cells. Special stains for acid fast bacilli and fungi are negative for organisms; matched controls are appropriate. Correlation with clinical, radiologic findings and appropriate follow up are necessary. Please make reference to previous specimen ([id number]), RLL lung, CT-guided core biopsy with diagnosis of compatible with reactive lymphoplasmacytic infiltrate and IGG4 / IGG<40%. Case has been reviewed in consultation with Dr. Cross who concurs with the above diagnosis. IDC:AM MICROSCOPIC DESCRIPTION Slides are reviewed. GROSS DESCRIPTION Received in fixative is one container labeled with the patient's name and designated right lung. The specimen consists of multiple irregular fragments of light barragan soft tissue that in aggregate measure 1.0 x 0.3 x 0.1 cm. The specimen is totally submitted in one cassette. Three touch imprints are prepared at the time of core biopsy. / LIV:lavelle 10/12/2022 TC:3 CPT: 29855, 77445, 09132 x2
--- NOTE | 2022-10-12 09:30 | RAD_ITS ---
STUDY: X-RAY CHEST REASON FOR EXAM: Male, 62 years old. Post biopsy -- Immediately post lung biopsy TECHNIQUE: AP inspiration and expiration views. COMPARISON: Comparison is made with prior study dated September 06, 2022. FINDINGS: There is a 5% right apical pneumothorax on the immediate post right lung biopsy radiographs. The patient is asymptomatic. RAD/Chest Insp/Exp 2 View IMPRESSION: 5% right apical pneumothorax on the immediate post right lung biopsy radiographs. The patient is asymptomatic. Electronically Signed: Mo Corea MD at 9:52 EDT ,
--- NOTE | 2022-10-12 11:30 | RAD_ITS ---
STUDY: X-RAY CHEST REASON FOR EXAM: Male, 62 years old. 2 hr post biopsy -- 2 hours post lung biopsy TECHNIQUE: AP inspiration and expiration views. COMPARISON: Comparison is made with prior study done earlier today. FINDINGS: Stable small right apical pneumothorax. The patient is asymptomatic. RAD/Chest Insp/Exp 2 View IMPRESSION: Stable examination. Electronically Signed: Mo Corea MD at 8:23 EDT ,
== END | disposition home or self-care (01) ==
PROVIDERS: Referring Provider Internal Medicine Hematology & Oncology; Visit Provider Internal Medicine Hematology & Oncology
DX: R91.8 Other nonspecific abnormal finding of lung field (principal); J93.9 Pneumothorax, unspecified; Z01.812 Encounter for preprocedural laboratory examination
CPT/HCPCS: 32408; 36415; 71046; 77012; 85025; 85610; 85730; 88172; 88305; 88312; 88313; 99156; J7050; A4216; C2613

== ENCOUNTER 2022-10-13 09:58 | Emergency (ER) | payer MEDICAID, SELFPAY ==
[2022-10-13 09:59] VITALS: BP 99/82; PULSE 105; RESP 16; TEMP 36.2; O2SAT 95
--- NOTE | 2022-10-13 10:37 | CT_ITS ---
STUDY: CTA CHEST REASON FOR EXAM: Male, 62 years old. Right-sided chest pain. Recent right lung biopsy. RADIATION DOSAGE (If Supplied By Facility): CTDIvol = ( 5.64 ) mGy, DLP = ( 195.57 ) mGycm TECHNIQUE: The examination was performed with the intravenous administration of IV 100mL Isovue-370. Post-processing of the angiographic images was performed, with multiplanar reformation and 3D reconstruction. Individualized dose optimization techniques were used for this CT. COMPARISON: None. FINDINGS: Normal enhancement of the main pulmonary artery and right and left pulmonary arteries. Normal enhancement of the bilateral peripheral pulmonary arteries. There is no demonstrated pulmonary embolism. Normal thoracic aorta and visualized great vessels. There is no demonstrated aortic dissection. Normal heart and pericardium. Normal mediastinum. Normal hilar regions. Normal visualized trachea and bronchi. Minimal right apical pneumothorax with basilar atelectasis in the posterior aspect of the right upper lobe. Bullous changes worse in the right upper lobe. Stable focal irregular area of bronchiectasis and soft tissue density in the posterior aspect of the right lower lobe. This is the area of recent biopsy. Normal pleura. Normal chest wall structures. Normal osseous structures. Fatty infiltration of the liver. CT/CTA Chest W/WO Contrast IMPRESSION: No evidence of pulmonary embolism. Minimal right apical pneumothorax. Irregular density in the proximal aspect of the right lower lobe but there is a pocket this is. This is the area that was biopsied on October 12, 2022. Fatty infiltration of the liver. Electronically Signed: Mo oCrea MD at 12:08 EDT ,
--- NOTE | 2022-10-13 10:37 | EKG12_ITS ---
Test Reason : Blood Pressure : / mmHG Vent. Rate : 069 BPM Atrial Rate : 069 BPM P-R Int : 132 ms QRS Dur : 084 ms QT Int : 412 ms P-R-T Axes : 066 073 045 degrees QTc Int : 441 ms Normal sinus rhythm Normal ECG Confirmed by SHANTE AGUILAR, SUNSHINE ([id number]), map editor TIM OBANDO ([id number]) on 10/15/2022 1:08:25 PM Referred By: ARLEEN Confirmed By:MARTINE FREY MD
[2022-10-13] MEDS: Aspirin 81 MG TAB.CHEW 324 MG PO (10:48)
[2022-10-13 10:59] LABS: Absolute Lymphocyte Count 1.18 X10^3/uL (0.83-4.51); Absolute Neutrophil Count 3.6 X10^3/uL (2.0-7.7); Basophil# 0.03 X10^3/uL; Basophil% 0.6 % (0-1); Eosinophil# 0.02 X10^3/uL; Eosinophils% 0.4 % (0-5); Hematocrit 41.1 % (40-54); Hemoglobin 14.1 g/dL (13.0-16.5); Lymphocyte # 1.18 X10^3/ul (0.83-4.51); Mean Corp Hgb Conc 34.3 g/dL (32-36); Mean Corpuscular Hgb 31.7 pg (27.0-32.0); Mean Corpuscular Volume 92.4 fL (80-94); Mean Platelet Vol. 9.5 fl (6.2-12.0); Monocyte# 0.53 X10^3/uL; Monocyte% 9.9 % (0-10); NRBC Flagged by Analyzer 0 % (0-5); Neutrophil # 3.59 X10^3/uL (2.7-7.7); Neutrophil % 66.9 % (47-70); Platelet Count 136 K/mm3 (150-450); Prothrombin Time (Protime)PT. 12.7 SECONDS (11.7-14.9); RBC Distribution Width CV 13.1 % (11.6-14.6); RBC Distribution Width SD 44.5 fl (35.1-43.9); Red Blood Count 4.45 M/mm3 (4.6-6.2); White Blood Count 5.4 K/mm3 (4.4-11.0)
[2022-10-13 11:00] LABS: Partial Thromboplast Time 29.3 Seconds (24.1-36.2)
--- NOTE | 2022-10-13 11:01 | ED.VIS.CHEST ---
HPI History of Present Illness Chief Complaint: Chest Pain Informant: patient Onset/Context/Timing Onset: Today and Hours (1.5) Activity at onset: sudden and rest Timing: Continuous Quality: Positive for Aching Location: Substernal, Right Parasternal, Left Parasternal, Right Chest and Left Chest Worsened By: Coughing Relieved By: Nothing Associated Symptoms: Positive for Cough and Lightheadedness; Negative for Nausea, Vomiting, Diaphoresis, Dyspnea, Fever, Acid Reflux or Palpitations Narrative Narrative: Patient presents with chest pain that began today. Patient states he was sitting watching TV when his pain began. Patient states the pain is diffuse across his entire chest. Patient states he had a lung biopsy performed yesterday. Patient states he had no pain after the procedure yesterday. Patient admits to a cough but denies any sputum production. Patient states his pain is worse with coughing. Patient admits to some lightheadedness. Patient denies any nausea or vomiting. Patient denies any shortness of breath or diaphoresis. PFSH PFSH Medical History Alcohol abuse Arthritis Back pain Blindness of left eye COPD (chronic obstructive pulmonary disease) Crohn disease Emphysema lung History of echocardiogram History of edema History of pain when walking Leg cramps Shortness of breath on exertion Smoker Home Medications pantoprazole 40 mg tablet,delayed release 40 mg PO DAILY #90 tabs 05/26/22 [Rx Last Taken Unknown] albuterol sulfate 90 mcg/actuation aerosol inhaler 2 puff inhalation Q4H PRN shortness of breah 08/18/22 [History Last Taken Unknown] Allergy/AdvReac Type Severity Reaction Status Date / Time No Known Allergies Allergy Verified 10/13/22 10:00 Family History (Updated 09/23/22 @ 10:53 by Ladonna Mojica) Father , from cancer Lung cancer Stomach cancer Brother Cancer unknown what type Sister Diabetes Mother Heart disease Myocardial infarction Brother Diabetes Heart disease Surgical History Hx of right cataract extraction Social History (Updated 10/13/22 @ 11:[address] Alexsander Angel, DO) Smoking Status: Current every day smoker tobacco type: cigarettes Tobacco: How many years used: 56 Electronic Cigarette Use: not used second hand exposure: Yes alcohol intake: current alcohol intake frequency: 3 or more drinks per day substance use type: does not use ROS ROS ED Constitutional Constitutional ED: Denies chills or fever(s) Eyes Eyes: Denies blurry vision or change in vision ENT ENT ED: Denies rhinorrhea or sore throat Cardiovascular Cardiovascular: Reports chest pain; Denies palpitations Respiratory/Chest Respiratory/Chest: Reports cough; Denies dyspnea Gastrointestinal Gastrointestinal: Denies nausea or vomiting Genitourinary Genitourinary ED: Denies dysuria or hematuria Musculoskeletal Musculoskeletal: Denies back pain or neck pain Integumentary Denies abscess or rash Neurologic Neurologic: Denies headache(s) or weakness Allergic/Immunologic Allergic/Immunologic ED: Denies mouth swelling or urticaria EXAM Physical Exam Const Vital Signs: 10/13/22 09:59 10/13/22 10:09 10/13/22 10:45 Temperature 97.1 F L Temperature Source Temporal Pulse Rate 105 H Respiratory Rate 16 Respiratory Pattern Tachypnea Blood Pressure 99/82 H Blood Pressure Mean 87 Pulse Ox 95 Oxygen Delivery Method Room Air Room Air 10/13/22 12:30 10/13/22 13:38 Temperature Temperature Source Pulse Rate 74 70 Respiratory Rate 11 L 16 Respiratory Pattern Blood Pressure 147/117 H 137/74 H Blood Pressure Mean 127 95 Pulse Ox 99 98 Oxygen Delivery Method Room Air Room Air Positive well nourished and well developed General Appearance ED: well developed and NAD HEENT Reports moist mucous membranes Neck supple and no JVD Resp normal respiratory effort and clear to auscultation bilaterally Cardio regular rate and regular rhythm GI normal to inspection, nondistended, normoactive bowel sounds, soft to palpation and non-tender Extremity normal to inspection General Extremety ED: Negative for edema or tenderness General Extremity: Negative for edema Neuro oriented x3, CN's II-XII intact bilaterally and no sensory deficits noted Sensorium / Orientation: alert Motor Exam: strength 5/5 throughout Psych mental status grossly normal Skin no rashes or lesions noted Heart Score History: Slightly/Non-Suspicious ECG: Normal Age: >45 - <65 years Risk Factors: 1 or 2 Risk Factors Troponin: </= Normal Limit Score: 2 MDM MDM MDM Narrative Medical decision making narrative: Differential diagnosis includes cardiac dysrhythmia, cardiac ischemia, pulmonary embolism, pneumothorax, pneumonia, lung cancer, gastroesophageal reflux disease, anxiety, musculoskeletal pain. EKG will be obtained to assess for cardiac dysrhythmia and cardiac ischemia. CTA of the chest will be obtained to assess for pulmonary embolism. CBC will be obtained to assess for leukocytosis or anemia. PT with INR and PTT will be obtained to assess for coagulopathy. Basic metabolic profile will be obtained to assess for electrolyte abnormality and renal function. Lab Data Attestation: I reviewed the patient's lab results. Lab results narrative: CBC was reviewed and was essentially within normal limits. PT with INR and PTT were reviewed and were normal. Basic metabolic profile was reviewed and was within normal limits. High-sensitivity troponin was reviewed and was normal at 5. 2-hour repeat high-sensitivity troponin was reviewed and was normal at 7. Labs: Laboratory Results - last 24 hr 10/13/22 10/13/22 10:40 12:55 WBC 5.4 RBC 4.45 L Hgb 14.1 Hct 41.1 MCV 92.4 MCH 31.7 MCHC 34.3 RDW Std Deviation 44.5 H RDW Coeff of Kp 13.1 Plt Count 136 L MPV 9.5 Immature Gran % (Auto) 0.200 Neut % (Auto) 66.9 Lymph % (Auto) 22.0 [place] % (Auto) 9.9 Eos % (Auto) 0.4 Baso % (Auto) 0.6 Absolute Neuts (auto) 3.6 Absolute Lymphs (auto) 1.18 Nucleated RBC % 0 PT 12.7 INR 1.0 APTT 29.3 Sodium 134 L Potassium 4.5 Chloride 103 Carbon Dioxide 29.0 Anion Gap 2 L BUN 8 Creatinine 0.75 Estim Creat Clear Calc 94.35 Est GFR (MDRD) Af Amer 136 Est GFR (MDRD) Non-Af 112 BUN/Creatinine Ratio 10.7 Glucose 113 H Calcium 8.9 Troponin I High Sens 5 7 Radiography Diagnostic Testing: Clinical Impression(s) from Imaging Studies Chest CTA 10/13/22 10:37 IMPRESSION: No evidence of pulmonary embolism. Minimal right apical pneumothorax. Irregular density in the proximal aspect of the right lower lobe but there is a pocket this is. This is the area that was biopsied on October 12, 2022. Fatty infiltration of the liver. Electronically Signed: Mo Corea MD at 12:08 EDT , CTA of the chest was obtained. There is no evidence of pulmonary embolism. There is a minimal right apical pneumothorax. This is likely from the biopsy yesterday. This was interpreted by the radiologist and was also independently reviewed by myself. EKG Initial EKG: Attestation: I personally reviewed and interpreted this EKG as follows: Interpretation: Sinus Rhythm (69) and No Acute Injury Pattern Comments: EKG was obtained. On my independent interpretation, it showed a normal sinus rhythm with a rate of 69. WI interval, QRS interval, and QTc intervals were all normal. Struthers was normal. There are no acute ST or T wave changes. Prior EKG tracings: available for review Prior: Unchanged (06/19/2022) Treatment and Re-Evaluation :: Patient was given aspirin. Patient was placed on oxygen. Patient is feeling better on reevaluation. Patient was advised of his findings. Patient has a HEART score of 2. Patient was advised that this is low risk for acute cardiac event. Smoking cessation was discussed. Patient was instructed to continue to monitor his breathing. Patient was instructed return if his breathing is worse in any way as this would indicate worsening of his small pneumothorax. Patient states he has an appointment to see oncology next week. Patient instructed to continue with this appointment. Patient and spouse understand and are agreeable with the plan. All questions were answered. Discharge Plan Triage Chief Complaint: Chest Pain ED Provider: Alexsander Angel Dx/Rx/DC Orders Clinical Impression: Chest pain, Right lower lobe lung mass, Smoking greater than 30 pack years, Pneumothorax Instructions: Pneumothorax (Collapsed Lung) Prescriptions: No Action pantoprazole 40 mg tablet,delayed release (DR/EC) 40 mg PO DAILY Qty: 90 3RF albuterol sulfate 90 mcg/actuation HFA aerosol inhaler 2 puff inhalation Q4H PRN (Reason: shortness of breah) Stand Alone Forms: Work / School Excuse Primary Care Provider: [facility] Clary Fisher Referrals: [facility] Clary Fisher [Primary Care Provider] - Activity Restrictions/Additional Instructions: Continue to watch for any worsening breathing. Return if there is any worsening of your breathing. Stop smoking as this may make your pneumothorax worse. Follow-up with your oncology appointment as scheduled. Disposition Disposition: Home, Self Care
[2022-10-13 11:06] LABS: Anion Gap 2 (5-15); BUN 8 mg/dL (7-18); BUN/Creat Ratio 10.7 RATIO (10-20); Calcium,Total 8.9 mg/dL (8.5-10.1); Chloride 103 mmol/L (98-107); Creatinine, Serum 0.75 mg/dL (0.70-1.30); EST Glomerular Filtration Rate 112 mL/min (>60); Est Glom Filt Rate - Afr Amer 136 mL/min (>60); Estimated Creatinine Clearance 94.35 ml/min; Glucose 113 mg/dL (74-106); Potassium 4.5 mmol/L (3.5-5.1); Sodium Level 134 mmol/L (136-145); Troponin-I HS (w/2H Reflex) 5 pg/mL (3.0-78.0)
[2022-10-13 12:30] VITALS: BP 147/117; PULSE 74; RESP 11; O2SAT 99
[2022-10-13 12:46] LABS: Reflex Troponin-HS? (from REC) Y
[2022-10-13 13:25] LABS: Troponin-I HS 7 pg/mL (3.0-78.0)
[2022-10-13 13:38] VITALS: BP 137/74; PULSE 70; RESP 16; O2SAT 98
== END 2022-10-13 14:42 | disposition home or self-care (01) ==
PROVIDERS: Emergency Provider Emergency Medicine; Visit Provider Emergency Medicine
DX: R07.9 Chest pain, unspecified (principal); J44.9 Chronic obstructive pulmonary disease, unspecified; Z80.1 Family history of malignant neoplasm of trachea, bronchus and lung; F17.210 Nicotine dependence, cigarettes, uncomplicated; R91.8 Other nonspecific abnormal finding of lung field
CPT/HCPCS: 71275; 80048; 84484; 85025; 85610; 85730; 93005; 99284; Q9967; A4216

== ENCOUNTER → 2022-11-08 | Outpatient (CLI) | payer MEDICAID, SELFPAY ==
--- NOTE | 2022-11-09 14:45 | PFTCOMP ---
COMPLETE PULMONARY FUNCTION TEST INTERPRETATION Brief HPI: Patient is a 62-year-old male, currently under the care of Irene Zhang, who presents to [facility] for complete pulmonary function tests secondary to diagnosis of tobacco use. Respiratory therapist reports good effort and reproducible results. Interpretation: Forced expiration spirometry shows no large airways obstructive ventilatory defect with an FEV1 of 102% predicted. There is no significant bronchodilator response by strict ATS criteria. Spirograms are of poor quality and and show only 2 to 3 seconds of exhalation, likely underestimating FVC. The respiratory flow volume loop shows decreased expiratory flow rates at high lung volumes consistent with small airways obstruction. Lung volumes by body plethysmography show a normal total lung capacity at 6.74 L, 92% predicted. All other lung volumes are within normal limits. Diffusion capacity by carbon monoxide is normal at 84% predicted. The airway resistance is normal. No previous pulmonary function tests were available for review. Impression: These pulmonary function tests are grossly within normal limits with some subtle stigmata of small airways disease
== END | disposition home or self-care (01) ==
LOC: PSN 08:59
PROVIDERS: Referring Provider Nurse Practitioner Acute Care; Visit Provider Nurse Practitioner Acute Care
DX: Z72.0 Tobacco use (principal)
CPT/HCPCS: 94060; 94726; 94729

== ENCOUNTER 2022-11-12 09:39 | Emergency (ER) | payer MEDICAID, SELFPAY ==
[2022-11-12 09:40] VITALS: BP 159/94; PULSE 95; RESP 18; TEMP 36.3; O2SAT 96; BMI 20.3
--- NOTE | 2022-11-12 10:29 | ED.VIS.CHEST ---
HPI History of Present Illness Chief Complaint: Chest Pain Informant: patient and spouse/S.O. Narrative Narrative: Here evaluation of spouse chest pain started yesterday evening. Able to sleep woke up with very minimal symptoms. This morning mild productive cough no wheezing. Mild dyspnea. This is resolved. 2 pack/day smoker. 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 No cardiac history. Reports had a lung mass with biopsy last month he had very small pneumothorax he was not hospitalized there is no intervention. He did not follow-up with this yet. Currently asymptomatic. CVD Risk Factors: Positive for Smoking; Negative for Hypertension, Diabetes or Hypercholesterolemia PFSH PFSH Medical History Alcohol abuse Arthritis Back pain Blindness of left eye COPD (chronic obstructive pulmonary disease) Crohn disease Emphysema lung History of echocardiogram History of edema History of pain when walking Leg cramps Shortness of breath on exertion Smoker Home Medications pantoprazole 40 mg tablet,delayed release 40 mg PO DAILY #90 tabs 05/26/22 [Rx Last Taken Unknown] albuterol sulfate 90 mcg/actuation aerosol inhaler 2 puff inhalation Q4H PRN shortness of breah 08/18/22 [History Last Taken Unknown] azithromycin 250 mg tablet (Zithromax Z-Jayme) See Rx Instructions PO .COMPLEX #6 tabs 11/12/22 [Rx Last Taken Unknown] Allergy/AdvReac Type Severity Reaction Status Date / Time No Known Allergies Allergy Verified 11/12/22 09:42 Family History Father , from cancer Lung cancer Stomach cancer Brother Cancer unknown what type Sister Diabetes Mother Heart disease Myocardial infarction Brother Diabetes Heart disease Surgical History Hx of right cataract extraction Social History Smoking Status: Current every day smoker tobacco type: cigarettes Tobacco: How many years used: 56 Electronic Cigarette Use: not used second hand exposure: Yes alcohol intake: current alcohol intake frequency: 3 or more drinks per day substance use type: does not use ROS ROS ED Constitutional Constitutional ED: Denies chills, fever(s) or sweats Eyes Eyes: Denies change in vision ENT ENT ED: Denies dysphagia or sore throat Cardiovascular Cardiovascular: Reports chest pain; Denies leg edema, palpitations or racing heartbeat Respiratory/Chest Respiratory/Chest: Reports cough; Denies dyspnea or dyspnea on exertion Gastrointestinal Gastrointestinal: Denies abdominal pain, diarrhea, nausea or vomiting Genitourinary Genitourinary ED: Denies dysuria, hematuria or urinary frequency Musculoskeletal Musculoskeletal: Denies back pain, extremity pain or neck pain Integumentary Denies rash or wounds Neurologic Neurologic: Denies headache(s), paresthesias or weakness EXAM Physical Exam Const Vital Signs: 11/12/22 09:40 11/12/22 10:33 11/12/22 13:23 Temperature 97.3 F L Temperature Source Temporal Pulse Rate 95 64 Respiratory Rate 18 Blood Pressure 159/94 H 135/102 H Blood Pressure Mean 115 Pulse Ox 96 95 Oxygen Delivery Method Room Air Room Air Positive well nourished and well developed General Appearance ED: well developed and NAD HEENT Reports moist mucous membranes normocephalic and atraumatic Eyes PERRL, EOMs intact bilaterally and conjunctivae normal General Eye ED: Yes normal appearance of both eyes Neck no lymphadenopathy and supple General: Negative for tenderness Chest Wall Chest: Negative for tenderness Resp normal respiratory effort and normal air movement Resp Narrative: Symmetric breath sounds Effort and Inspection: symmetric chest movement; Negative for respiratory distress Cardio regular rate, regular rhythm and no murmurs Peripheral Pulses: pulses 2+ throughout GI normal to inspection, nondistended, normoactive bowel sounds and non-tender Palpation: Negative for guarding or rebound tenderness present Back/Spine no CVA tenderness and no thoracic nor lumbar tenderness Extremity normal to inspection General Extremety ED: Negative for edema or tenderness General Extremity: Negative for edema Neuro oriented x3 and no sensory deficits noted Sensorium / Orientation: awake and alert Skin no rashes or lesions noted and no wounds MDM MDM MDM Narrative Medical decision making narrative: Interventions / MDM: Differential diagnosis: COPD exacerbation. Bronchitis. Atypical chest pain. Diagnosis considered but do not suspect: Pneumonia however negative x-ray. ACS however negative cardiac work-up. My EKG interpretation: EKG: Sinus rate of 82, no ST or T wave changes PVC noted. Imaging independently reviewed and interpreted by myself: 2 view chest x-ray: No acute process. External documents reviewed: N/A Test considered but not ordered:N/A ED course: Patient without pain in his chest during my examination and cardiac work-up initiated. History of COPD. Chest x-ray ordered. Cardiac work-up negative chest x-ray negative. No wheezing. New cough from baseline with COPD. He started on antibiotics. No wheezing there is no indication for steroids at this time. Tobacco cessation. Outpatient follow-up with return precautions. All questions were answered. Re-evaluation: stable Disposition discussed with patient/family/significant other: Patient and significant other Case discussed with consulting clinician: N/A This note was generated with [employer] dictation software. It may contain incorrect words, spelling, and punctuation that were not noted in checking the note before signing. Lab Data Attestation: I reviewed the patient's lab results. Labs: Laboratory Results - last 24 hr 11/12/22 11/12/22 10:00 12:10 WBC 6.7 RBC 4.66 Hgb 15.0 Hct 43.6 MCV 93.6 MCH 32.2 H MCHC 34.4 RDW Std Deviation 43.4 RDW Coeff of Kp 12.6 Plt Count 133 L MPV 9.8 Immature Gran % (Auto) 0.100 Neut % (Auto) 68.6 Lymph % (Auto) 20.7 [place] % (Auto) 9.6 Eos % (Auto) 0.6 Baso % (Auto) 0.4 Absolute Neuts (auto) 4.6 Absolute Lymphs (auto) 1.38 Nucleated RBC % 0 Sodium 135 L Potassium 4.3 Chloride 104 Carbon Dioxide 26.0 Anion Gap 5 BUN 7 Creatinine 0.70 Estim Creat Clear Calc 102.49 Est GFR (MDRD) Af Amer 148 Est GFR (MDRD) Non-Af 122 BUN/Creatinine Ratio 10.1 Glucose 123 H Calcium 9.1 Troponin I High Sens 6 6 Radiography Diagnostic Testing: Clinical Impression(s) from Imaging Studies Chest X-Ray 11/12/22 10:35 IMPRESSION: No acute process of the chest. Electronically Signed: Suray Yeboah MD at 10:50 EDT , Discharge Plan Triage Chief Complaint: Chest Pain ED Provider: Edilberto Alvarez Dx/Rx/DC Orders Clinical Impression: Smoking greater than 30 pack years, COPD (chronic obstructive pulmonary disease), Bronchitis, Chest pain Instructions: COPD Quit Smoking, Chest Pain [facility] Prescriptions: New azithromycin [Zithromax Z-Jayme] 250 mg tablet See Rx Instructions .ROUTE .COMPLEX Qty: 6 0RF Rx Instructions: For 250 mg dose pack: take 500 mg today (day 1), then 250 mg for 4 days (days 2-5) No Action pantoprazole 40 mg tablet,delayed release (DR/EC) 40 mg PO DAILY Qty: 90 3RF albuterol sulfate 90 mcg/actuation HFA aerosol inhaler 2 puff inhalation Q4H PRN (Reason: shortness of breah) [facility] Care [facility] - 3-5 Days Activity Restrictions/Additional Instructions: Cardiac work-up negative chest x-ray negative. Your COPD history and cough, start antibiotic as prescribed. Follow-up with your doctors for further testing for your chest pains. Return if worsening symptoms. Disposition Disposition: Home, Self Care Discharge Date/Time: 11/12/22 13:28
[2022-11-12 10:33] VITALS: O2SAT 95
--- NOTE | 2022-11-12 10:35 | RAD_ITS ---
STUDY: X-RAY CHEST REASON FOR EXAM: Male, 62 years old. chest pain TECHNIQUE: PA and lateral views of the chest. COMPARISON: October 12, 2022. CT of the chest dated October 13, 2022 FINDINGS: Redemonstration of postbiopsy scarring in the right lower lobe. Remaining visualized lung bourgeois are clear. The lungs are clear and expanded. There is no demonstrated pleural abnormality. Normal size heart. Normal mediastinum and carrie. Normal visualized pulmonary arteries. There is atherosclerotic calcification of the aortic arch with tortuosity. There are diffuse degenerative changes of the visualized thoracic spine. Normal visualized ribs, clavicles, and shoulders. There is no demonstrated abnormality of the visualized soft tissue structures of the upper abdomen. RAD/Chest PA and Lateral IMPRESSION: No acute process of the chest. Electronically Signed: Surya Yeboah MD at 10:50 EDT ,
[2022-11-12 10:36] LABS: Absolute Lymphocyte Count 1.38 X10^3/uL (0.83-4.51); Absolute Neutrophil Count 4.6 X10^3/uL (2.0-7.7); Basophil# 0.03 X10^3/uL; Basophil% 0.4 % (0-1); Eosinophil# 0.04 X10^3/uL; Eosinophils% 0.6 % (0-5); Hematocrit 43.6 % (40-54); Lymphocyte # 1.38 X10^3/ul (0.83-4.51); Lymphocyte % 20.7 % (19-41); Mean Corp Hgb Conc 34.4 g/dL (32-36); Mean Corpuscular Hgb 32.2 pg (27.0-32.0); Mean Corpuscular Volume 93.6 fL (80-94); Mean Platelet Vol. 9.8 fl (6.2-12.0); Monocyte# 0.64 X10^3/uL; Monocyte% 9.6 % (0-10); NRBC Flagged by Analyzer 0 % (0-5); Neutrophil # 4.57 X10^3/uL (2.7-7.7); Neutrophil % 68.6 % (47-70); Platelet Count 133 K/mm3 (150-450); RBC Distribution Width CV 12.6 % (11.6-14.6); RBC Distribution Width SD 43.4 fl (35.1-43.9); Red Blood Count 4.66 M/mm3 (4.6-6.2); White Blood Count 6.7 K/mm3 (4.4-11.0)
[2022-11-12 10:58] LABS: Anion Gap 5 (5-15); BUN 7 mg/dL (7-18); BUN/Creat Ratio 10.1 RATIO (10-20); Calcium,Total 9.1 mg/dL (8.5-10.1); Chloride 104 mmol/L (98-107); EST Glomerular Filtration Rate 122 mL/min (>60); Est Glom Filt Rate - Afr Amer 148 mL/min (>60); Estimated Creatinine Clearance 102.49 ml/min; Glucose 123 mg/dL (74-106); Potassium 4.3 mmol/L (3.5-5.1); Sodium Level 135 mmol/L (136-145); Troponin-I HS (w/2H Reflex) 6 pg/mL (3.0-78.0)
[2022-11-12 12:31] LABS: Reflex Troponin-HS? (from REC) Y
[2022-11-12 12:53] LABS: Troponin-I HS 6 pg/mL (3.0-78.0)
[2022-11-12 13:23] VITALS: BP 135/102; PULSE 64
== END 2022-11-12 13:28 | disposition home or self-care (01) ==
PROVIDERS: Emergency Provider Emergency Medicine; Visit Provider Emergency Medicine
DX: J40 Bronchitis, not specified as acute or chronic (principal); J43.9 Emphysema, unspecified; F17.210 Nicotine dependence, cigarettes, uncomplicated; Z79.899 Other long term (current) drug therapy
CPT/HCPCS: 71046; 80048; 84484; 85025; 93005; 99284

== ENCOUNTER → 2023-01-10 | Outpatient (CLI) | payer MEDICAID, SELFPAY ==
--- NOTE | 2023-01-10 07:54 | CT_ITS ---
STUDY: CT CHEST WITH CONTRAST REASON FOR EXAM: Male, 62 years old. F/U RLL NODULE NEGATIVE BIOPSY X 2 -- IV CONTRAST ONLY RADIATION DOSAGE (If Supplied By Facility): CTDIvol = ( 10.98 ) mGy, DLP = ( 268.07 ) mGycm TECHNIQUE: Transaxial imaging was performed following intravenous administration of IV 100mL Isovue-300. Multiplanar coronal and sagittal images were reformatted. Individualized dose optimization techniques were used for this CT. COMPARISON: Comparison is made with prior study October 13, 2022. FINDINGS: CHEST Hyperinflation. Bullous changes in the medial aspect of the right upper lobe. Persistent scarring and/or bronchiectasis in the right lower lobe. The soft tissue density component has improved. No definite ulnar nodule is seen. There are mild calcifications of the coronary arteries. There are small lymph nodes within the mediastinum, which are normal in size and morphology most compatible with reactive lymph hyperplasia. Normal hilar regions. Normal unenhanced pulmonary arteries. Normal aorta arch and descending thoracic aorta. There are degenerative changes of the thoracic spine. Fatty infiltration of the liver. CT/Chest WITH Contrast IMPRESSION: Persistent bronchiectasis and scarring at the right lower lobe. This has improved as compared to prior study. Electronically Signed: Mo Corea MD at 14:54 EDT ,
== END | disposition home or self-care (01) ==
LOC: CT 07:54
PROVIDERS: Referring Provider Internal Medicine Hematology & Oncology; Visit Provider Internal Medicine Hematology & Oncology
DX: R91.8 Other nonspecific abnormal finding of lung field (principal)
CPT/HCPCS: 71260; Q9967

== ENCOUNTER 2023-03-11 10:40 | Inpatient (IN) | payer MEDICAID, SELFPAY ==
[2023-03-11] VITALS (16 sets, daily range): BP systolic 115–128; BP diastolic 63–75; PULSE 74–98; RESP 18–32; TEMP 36.1–37.1; O2SAT 91–100; BMI 19.5; BMI 19.3
--- NOTE | 2023-03-11 11:00 | EKG12_ITS ---
Test Reason : SOB Blood Pressure : / mmHG Vent. Rate : 092 BPM Atrial Rate : 092 BPM P-R Int : 122 ms QRS Dur : 094 ms QT Int : 366 ms P-R-T Axes : 075 088 050 degrees QTc Int : 452 ms Normal sinus rhythm Right atrial enlargement Borderline ECG Confirmed by JACKIE AGUILAR, ALEM ([id number]), editor magazine REJI SUE ([id number]) on 03/15/2023 8:23:54 AM Referred By: Confirmed By:ALEM MEJIA MD
--- NOTE | 2023-03-11 11:04 | EX.ED.DYSGE1 ---
HPI History of Present Illness Chief Complaint: Shortness of Breath Informant: patient and spouse/S.O. Narrative Narrative: Patient presents with primary complaint of dyspnea. History is from patient and much of the history is through his . It takes quite a bit of questioning to get the details. It sounds like he started getting sick about 10 days ago. It sounds like he got some coughing shortness of breath muscle aches. He was seen at a clinic where they did negative COVID testing. I do not know what other testing was done. He went home. He has had some diarrhea. He has had loss of appetite but no nausea vomiting. He is not really eating and drinking but that is due to loss of interest not inability to eat or drink. He is coughing but not bringing up sputum. He has discomfort in both lower chest varma. He states it sore when he coughs or takes a deep breath. No hemoptysis. No history of DVT or PE. He does have a history of a lesion in his lungs. He states it was biopsied and negative for cancer. He is a smoker and still smoking. He also has gotten very weak. His states the last 2 or 3 days she has had to help him walk around just due to generalized weakness. Only meds he takes are albuterol and Trelegy. No other medical problems. PFSH PFSH Medical History Alcohol abuse Arthritis Peacock's esophagus Blindness of left eye COPD (chronic obstructive pulmonary disease) Crohn disease Emphysema lung History of echocardiogram History of pain when walking Right lower lobe lung mass Shortness of breath on exertion Smoker Home Medications albuterol sulfate 90 mcg/actuation aerosol inhaler 2 puff inhalation Q4H PRN shortness of breah 08/18/22 [History Last Taken Unknown] fluticasone fur. 100 mcg-umeclid 62.5 mcg-vilant 25 mcg inhalat.powder (Trelegy Ellipta) 1 inh inhalation DAILY #60 ea 11/18/22 [Rx Last Taken Unknown] Allergy/AdvReac Type Severity Reaction Status Date / Time No Known Allergies Allergy Verified 02/23/23 14:11 Family History Father , from cancer Lung cancer Stomach cancer Brother Cancer unknown what type Sister Diabetes Mother Heart disease Myocardial infarction Brother Diabetes Heart disease Surgical History Hx of right cataract extraction Social History (Updated 03/11/23 @ 13:[address] Ana Corrales MD) household members: spouse Smoking Status: Current every day smoker tobacco type: cigarettes Tobacco: How many years used: 56 Electronic Cigarette Use: not used second hand exposure: Yes alcohol intake: current alcohol intake frequency: 3 or more drinks per day substance use type: does not use ROS ROS ED ROS Narrative A complete review of systems was performed and is negative except as documented in the history of present illness. Some specific details below. Constitutional: Subjective fevers but none measured. Positive chills. EYE: No discharge or visual changes. ENT: No difficulty swallowing. No swelling. No pain. No reflux symptoms. He does have a dry mouth and would like something to drink. CV: See history of present illness. Respiratory: See history of present illness. GI: No abdominal pain. No nausea or vomiting but he has had some watery diarrhea. Denies black or blood. : No frequency dysuria or hematuria. He states his urine is normal in normal amounts. Musculoskeletal: No recent trauma. He does have some diffuse myalgias.. No swelling. Skin: No rash. Nondiaphoretic. Neuro: No weakness or numbness. Endocrine: No polyuria or polydipsia. EXAM Physical Exam Narrative Exam Narrative: CONSTITUTIONAL: The patient is quite thin. He looks tired and worn out. But he is not lethargic or sleepy. He does look ill. HEENT: No notable trauma. Mucous membranes are dry and he has diffusely poor dentition. EYES: No conjunctival injection. No notable pallor. NECK:No JVD. No stridor. CARDIOVASCULAR: Regular rate. Regular rhythm. No notable murmur. No JVD. RESPIRATORY: He is not in distress but he does have increased effort of breathing. When he talks his saturations at 89% even though he is on 3 L of oxygen. He is not on home oxygen. He has minimal expiratory wheezing. He sounds like he is moving air. But he has got crackles at both bases. No coughing while I am in the room. GASTROINTESTINAL: Not distended. Bowel sounds are normal. No tenderness. No guarding. No rebound. No palpable mass. No bruit is heard. GENITOURINARY: No tenderness over the bladder. No CVA tenderness. MUSCULOSKELETAL: Atraumatic. Extremities are very thin without edema. NEUROLOGICAL: Patient is alert and appropriate. No focal deficit noted. SKIN: No noted rashes. No diaphoresis. PSYCHIATRIC: Patient is calm. Mood is appropriate. Const Vital Signs: 03/11/23 10:44 03/11/23 10:47 03/11/23 10:47 Temperature 96.9 F L 96.9 F L 96.9 F L Temperature Source Temporal Temporal Temporal Pulse Rate 92 92 98 Respiratory Rate 32 H 28 H 32 H Respiratory Effort Respiratory Depth Respiratory Pattern Blood Pressure 116/75 116/75 116/75 Blood Pressure Mean 88 88 88 Pulse Ox 91 91 91 Oxygen Delivery Method Nasal Cannula Nasal Cannula Nasal Cannula Oxygen Flow Rate (L/min) 3 3 3 03/11/23 10:48 03/11/23 11:18 03/11/23 11:15 Temperature Temperature Source Pulse Rate 93 Respiratory Rate 28 H Respiratory Effort Short of Breath Labored Respiratory Depth Shallow Respiratory Pattern Tachypnea Blood Pressure Blood Pressure Mean Pulse Ox Oxygen Delivery Method Nasal Cannula Room Air Oxygen Flow Rate (L/min) 3 03/11/23 12:00 03/11/23 12:41 03/11/23 13:34 Temperature 97.7 F L 98.3 F Temperature Source Oral Pulse Rate 86 85 78 Respiratory Rate 31 H 29 H 20 H Respiratory Effort Respiratory Depth Respiratory Pattern Blood Pressure 119/72 119/72 126/69 H Blood Pressure Mean 87 87 88 Pulse Ox 94 93 96 Oxygen Delivery Method Nasal Cannula Nasal Cannula Oxygen Flow Rate (L/min) 2 2 03/11/23 13:36 Temperature 98.3 F Temperature Source Temporal Pulse Rate 78 Respiratory Rate 20 H Respiratory Effort Respiratory Depth Respiratory Pattern Blood Pressure 126/69 H Blood Pressure Mean 88 Pulse Ox 96 Oxygen Delivery Method Nasal Cannula Oxygen Flow Rate (L/min) 2 MDM MDM MDM Narrative Medical decision making narrative: My independent or potation of his chest x-ray shows bilateral infiltrates little worse on the left. Final reading is similar. My independent interpretation of the CTA of the chest does not show definitive PE. There are bilateral infiltrates again seen. Final reading was reviewed. Patient CBC shows high hemoglobin likely due to dehydration. White count is actually normal. Platelets are a bit low. D-dimer was high which is why we went further and did the CTA of the chest. Patient's troponin was normal. Patient's BNP was normal. Patient's magnesium was slightly high. Patient's electrolytes showed some mildly low potassium and elevated BUN and creatinine. He was given IV fluids here. Sodium was also found to be a bit low at 126. Patient's state is high, he felt a little bit warm and may have had fevers at home, he has felt rate and source of infection. He is treated as sepsis. He was given IV fluids at just over 30 cc/kg. We will give him steroids. He received antibiotics. Blood cultures are pending. He also came back as flu A. But since his symptoms started 10 days ago it is hard to treat with Tamiflu at this time. I discussed case with the hospitalist. This patient is borderline hypoxic even on oxygen when he does not normally wear oxygen and he is not appropriate for home therapy. Lab Data Attestation: I reviewed the patient's lab results. Labs: Laboratory Results - last 24 hr 03/11/23 03/11/23 11:00 11:09 WBC 9.0 RBC 5.44 Hgb 17.1 H Hct 47.2 MCV 86.8 MCH 31.4 MCHC 36.2 H RDW Std Deviation 40.9 RDW Coeff of Kp 13.0 Plt Count 104 L MPV 11.3 Immature Gran % (Auto) 1.700 H Neut % (Auto) 81.2 H Lymph % (Auto) 9.9 L [place] % (Auto) 7.1 Eos % (Auto) 0.0 Baso % (Auto) 0.1 Absolute Neuts (auto) 7.3 Absolute Lymphs (auto) 0.89 Nucleated RBC % 0 D-Dimer Quant (PE/DVT) 1.87 H* Sodium 126 L Potassium 3.1 L Chloride 89 L Carbon Dioxide 25.0 Anion Gap 12 BUN 48 H Creatinine 1.41 H Est GFR (MDRD) Af Amer 65 Est GFR (MDRD) Non-Af 54 L BUN/Creatinine Ratio 34.0 H Glucose 139 H Lactic Acid 2.5 H* Calcium 9.6 Magnesium 3.5 H Troponin I High Sens 16 B-Natriuretic Peptide 51.1 Radiography Diagnostic Testing: Clinical Impression(s) from Imaging Studies Chest X-Ray 03/11/23 11:50 IMPRESSION: Bilateral patchy opacities, may reflect multifocal pneumonia. Electronically Signed: Caitlin Garza MD at 13:00 EST , Chest CTA 03/11/23 11:58 IMPRESSION: Limited examination of the pulmonary arteries secondary to suboptimal opacification and motion with no gross pulmonary emboli identified; consider repeat examination. Left lower lobe patchy opacities associated with bilateral groundglass and tree-in-bud opacities which may be secondary to an infectious process. Right lower lobe consolidation. Emphysema. Atherosclerosis. Fatty infiltration of the liver. Electronically Signed: Caitlin Garza MD at 13:12 EST , Management Discussion w/another healthcare provider: Hospitalist Discharge Plan Triage Chief Complaint: Shortness of Breath ED Provider: Osman Vizcarra Dx/Rx/DC Orders Clinical Impression: Hypoxia, Bilateral pneumonia, Influenza, Dehydration, Acidosis, lactic Prescriptions: No Action albuterol sulfate 90 mcg/actuation HFA aerosol inhaler 2 puff inhalation Q4H PRN (Reason: shortness of breah) Trelegy Ellipta 100-62.5-25 mcg blister with device 1 inh inhalation DAILY Qty: 60 5RF Primary Care Provider: Clary Covarrubias Referrals: [facility] Clary Fisher [Primary Care Provider] - Disposition Disposition: Acute Care Hospital [facility]
[2023-03-11] MEDS: Ipratropium/Albuterol Sulfate 3 ML AMPUL.NEB INHALATION ×2 (11:17→18:46)
[2023-03-11 11:27] LABS: Absolute Lymphocyte Count 0.89 X10^3/uL (0.83-4.51); Absolute Neutrophil Count 7.3 X10^3/uL (2.0-7.7); Basophil# 0.01 X10^3/uL; Basophil% 0.1 % (0-1); Hematocrit 47.2 % (40-54); Hemoglobin 17.1 g/dL (13.0-16.5); Lymphocyte # 0.89 X10^3/ul (0.83-4.51); Lymphocyte % 9.9 % (19-41); Mean Corp Hgb Conc 36.2 g/dL (32-36); Mean Corpuscular Hgb 31.4 pg (27.0-32.0); Mean Corpuscular Volume 86.8 fL (80-94); Mean Platelet Vol. 11.3 fl (6.2-12.0); Monocyte# 0.64 X10^3/uL; Monocyte% 7.1 % (0-10); NRBC Flagged by Analyzer 0 % (0-5); Neutrophil # 7.34 X10^3/uL (2.7-7.7); Neutrophil % 81.2 % (47-70); POSITIVE MORPHOLOGY YES; Platelet Count 104 K/mm3 (150-450); RBC Distribution Width SD 40.9 fl (35.1-43.9); Red Blood Count 5.44 M/mm3 (4.6-6.2)
[2023-03-11 11:29] LABS: Differential Indicated SCAN CRITERIA MET
--- OUTSIDE RECORDS SUMMARY | 2023-03-11 11:32 | XMS RPT_ITS | CCD ---
Author Name Unknown Address [address] [place] [address] Organization [facility] Care Team Providers Care Pulmonology Technician Name Role Phone PHYSICIAN, NONE Primary Care Physician [facility], Clary Hodge Primary Care Provider Un available ALISSA VENTURA Primary Care Unavailable Medications Current Medications Medication Drug Class(es) Dates Sig (Normalized) Sig (Original) acetaminophen 325 mg / HYDROcodone bitartrate 5 mg oral tablet (1 source) Opioid Agonist Start: 10-04-2021 End: 10-07-2021 take 1 tablet by mouth every six hours as needed for pain [place] 325- 5 mg oral tablet Dose = 1 tab(s), Oral, q6h, PRN for pain, X 3 day(s), # 12 tab(s), 0 Refill(s), Acute low back pain, 65 Start Date: 10/04/21 Stop Date: 10/07/21 Status: Ordered amoxicillin 875 mg / clavulanate 125 mg oral tablet (1 source) Penicillin-class Antibacterial Start: 10-10-2021 End: 10-17-2021 take 1 tablet by mouth every twelve hours amoxicillin-clav ulanate 875 mg-125 mg oral tablet 1 tab(s), Oral, q12h, X 7 day(s), # 14 tab(s), 0 Refill(s), 10/17/21 13:25:00 EDT, Pneumonia, 65 Start Date: 10/10/21 Stop Date: 10/17/21 Status: Ordered etodolac 400 mg oral tablet (1 source) Nonsteroidal Anti-inflammatory Drug Start: 10-10-2021 End: 10-17-2021 etodolac 400 mg oral tablet Dose : 400 mg = 1 tab(s), Oral, BID, # 14 tab(s), 0 Refill(s), Pneumonia Start Date: 10/10/21 Stop Date: 10/17/21 Status: Ordered Completed/Discontinued Medications Medication Drug Class(es) Dates Sig (Normalized) Sig (Original) [id number] 200 actuat albuterol 0.09 mg/actuat metered dose inhaler (1 source) beta2-Adrenergic Agonist Start: 08-13-2021 albuterol HFA (PROVENTIL HFA, VENTOLIN HFA) 90 mcg/actuation inhaler Inhale as instructed. 0 08/13/2021 Active Problems Problem Classification Problem Date Documented Da te Episodic/Chronic Nonspecific chest pain (1 source) Chest pain; Translations: [Chest pain, unspecified] 11-12-2022 Episodic Other male genital disorders (2 sources) Pain in male genitalia 01-24-2020 Episodic Pneumonia (except that caused by tuberculosis or sexually transmitted disease) (2 sources) Pneumonia; Translations: [Pneumonia, unspecified organism] Onset: 10-10-2021 Episodic Spondylosis; intervertebral disc disorders; other back problems (2 sources) Low back pain; Translations: [Low back pain, unspecified] Onset: 10-04-2021 Episodic Results Test Name Value Interpretation Reference Range Facil ity Vital Signs Date Time Vital Sign Value Performing Clinician Facility 11-12-2022 09:24-0400 Body temperature 97.81 [degF] Bean Arevalo APRN.WRAPPER AND PRESERVER Work Phone: [facility] 11-12-2022 09:24-0400 Body weight 66.5 kg Bean Arevalo APRN.WRAPPER AND PRESERVER Work Phone: [facility] 11-12-2022 09:24-0400 Diastolic blood pressure 90 mm[Hg] Bean Arevalo APRN.WRAPPER AND PRESERVER Work Phone: [facility] 11-12-2022 09:24-0400 Heart rate 95 /min Bean Arevalo APRN.WRAPPER AND PRESERVER Work Phone: [facility] 11-12-2022 09:24-0400 Respiratory rate 22 /min Bean Arevalo APRN.WRAPPER AND PRESERVER Work Phone: [facility] 11-12-2022 09:24-0400 SaO2% (BldA) [Mass fraction] 97 % Bean Turpinkelsey LEAD MAN OVER ALL DIES IN PATTERN SHOP.WRAPPER AND PRESERVER Work Phone: [facility] 11-12-2022 09:24-0400 Systolic blood pressure 150 mm[Hg] Bean Arevalo LEAD MAN OVER ALL DIES IN PATTERN SHOP.WRAPPER AND PRESERVER Work Phone: [facility] 10-10-2021 13:42-0400 Diastolic blood pressure 75 mm[Hg] PUNEET MORALES DO [facility] 10-10-2021 13:42-0400 Heart rate 75 /min PUNEET MORALES DO [facility] 10-10-2021 13:42-0400 Respiratory rate 18 /min PUNEET MORALES DO [facility] 10-10-2021 13:42-0400 Systolic blood pressure 155 mm[Hg] PUNEET MORALES DO [facility] 10-10-2021 09:18-0400 Body temperature 98.06 [degF] PUNEET MORALES DO [facility] 10-10-2021 09:18-0400 Diastolic blood pressure 78 mm[Hg] PUNEET MORALES DO [facility] 10-10-2021 09:18-0400 Heart rate 72 /min PUNEET MORALES DO [facility] 10-10-2021 09:18-0400 Respiratory rate 18 /min PUNEET MORALES DO [facility] 10-10-2021 09:18-0400 Systolic blood pressure 130 mm[Hg] PUNEET MORALES DO [facility] 10-04-2021 11:31-0400 Body temperature 99.32 [degF] DARRIUS KAPADIAT DO [facility] 10-04-2021 11:31-0400 Diastolic blood pressure 55 mm[Hg] DARRIUS HAJI DO [facility] 10-04-2021 11:31-0400 Heart rate 66 /min DARRIUS HAJI DO [facility] 10-04-2021 11:31-0400 Respiratory rate 18 /min DARRIUS HAJI DO [facility] 10-04-2021 11:31-0400 Systolic blood pressure 116 mm[Hg] DARRIUS HAJI DO [facility] Encounters Encounter Date Encounter Type Care Provider Facility Start: 11-12-2022 End: 11-12-2022 ambulatory ALISSA LORENZO Facility:[facility] Start: 11-12-2022 End: 11-12-2022 Patient encounter procedure Bean Arevalo APRN.WRAPPER AND PRESERVER Work Phone: [facility] Procedures Date Procedure Procedure Detail Performing Clinician Esophagogastroduoden oscopy gastric outlet reduction DARRIUS HAJI DO Plan of Treatment Date Care Activity Detail Author Start: 11-12-2022 Influenza vaccination INFLUENZA (#1) [facility] Start: 03-14-2022 DEPRESSION ASSESSMENT DEPRESSION ASS ESSMENT [facility] Start: 2015 PROSTATE CANCER SCRE ENING DISCUSSION PROSTATE CANCER SCREENING DISCUSSION [facility] Start: 2010 Influenza vaccination LUNG CANCER SC REENING [facility] Start: 2010 SHINGRIX VACCINE (1 of 2) SHINGRIX V ACCINE (1 of 2) [facility] Start: 2005 COLOGUARD (FIT-DNA) COLOGUARD (FIT-D NA) [facility] Start: 2005 Colonoscopy COLONOSCOPY [facility] Start: 2005 COLORECTAL CANCER SCREENING COLORECTAL CANCER SCREENING [facility] Start: [address] COLONOGRAPHY [facility] Start: 2005 DIABETES SCREEN DIABETES SCREEN [facility] Start: 2005 FECAL OCCULT BLOOD FECAL OCCULT BLOO D [facility] Start: 2005 SIGMOIDOSCOPY SIGMOIDOSCOPY [facility] Start: 1995 LIPID SCREEN LIPID SCREEN [facility] Start: 1979 Urine microalbumin profile DTAP,TDAP ,TD (1 - Tdap) [facility] Start: 1978 HEPATITIS C SCREENING HEPATITIS C SC REENING [facility] Start: 1978 HIV SCREENING HIV SCREENING [facility] Start: 1966 PNEUMOCOCCAL (1 - PCV) PNEUMOCOCCAL (1 - PCV) [facility] Start: 1960 COVID-19 VACCINE (#1) COVID-19 VACCI NE (#1) [facility] Immunizations Immunization Date Immunization Notes Care Provider Stacie snow 07-19-2013 tetanus toxoid, redu tracy diphtheria toxoid, and acellular pertussis vaccine, adsorbed DARRIUS WENCESLAOTONI DO [facility] Payers Date Payer Category Payer [facility] [id number] 2022-Present [phone] [place] [address] Medicaid [id number] 2022 Unknown [id number] Social History Date Type Detail Facility Start: 08-19-2020 Tobacco smoking status Heavy t obacco smoker (finding) [facility] Tobacco smoking status Never [facility] Sex Assigned At Sex [facility] Start: 11-12-2022 [facility] tobacco daily [facility] History of tobacco use [facility] Start: 11-12-2022 Cigarettes smoked cu rrent (pack per day) - Reported 2 [facility] Start: 11-12-2022 Tobacco use and exposure Smoke less tobacco non-user [facility] Start: 11-12-2022 Alcohol intake Current drinke r of alcohol (finding) [facility] Start: 11-12-2022 Tobacco use panel [facility] Start: 1960 Sex Assigned At Not on file C [facility] Functional Status Date Assessment Result Facility 10-10-2021 Functional Status Independent [facility] 10-10-2021 Functional Status Standard Safet y ID band on, Call device within reach, Bed in low position, Wheels locked, Upper/Half-Length side-rails up, Phone within reach, personal items within reach, Assistive devices within reach, Toileting device within reach, Bedside Cart Locked, Visitor at bedside [facility] 10-04-2021 Functional Status ID band on, Call device within reach, Bed in low position, Wheels locked, Upper/Half-Length side-rails up, Phone within reach, personal items within reach, Assistive devices within reach, Toileting device within reach, Bedside Cart Locked, Visitor at bedside, Safety level maintained [facility] Mental Status Date Assessment Result Facility 10-10-2021 Mental Status Orientation Oriented x 4 [facility] 10-10-2021 Mental Status [facility] 10-04-2021 Mental Status Oriented x 4 [facility] Clinical Notes 10-04-2021 to 11-12-2022 Bean Arevalo APRN.WRAPPER AND PRESERVER - 11/12/2022 9:26 AM EDT Note Date & Type Note Facility 11-12-2022 Note HNO ID: [id number] Author: Bean Arevalo APRN.WRAPPER AND PRESERVER Service: ? Author Type: Nurse Practitioner Type: Progress Notes Filed: 11/12/2022 9:39 AM Note Text: Subjective HPI Nontoxic-appearing male presents urgent care chief complaint cough shortness of breath chest pain back pain. Duration of symptom 1 day. Associated symptoms listed above. States shortness of breath is getting worse. Has increased chest pain this morning. Rates pain 5 out of 10. Back pain 8 out of 10. States he may have cancer . Does have COPD. History of pneumothorax. Presents today to ensure he does not have collapsed lung or an infection. Denies any other concerns. .Patient presents with: Cough: Chest congestion x 1 day No past medical history on file. No past surgical history on file. ALLERGIES Patient has no known allergies. MEDICATIONS pantoprazole DR (PROTONIX) 40 mg tablet Take by mouth. albuterol HFA (PROVENTIL HFA, VENTOLIN HFA) 90 mcg/actuation inhaler Inhale as instructed. FAMILY HISTORY Problem Relation Age of Onset Cancer Father Coronary Artery Disease Mother Heart Mother Stroke Brother Heart Sister Cancer Paternal Grandfather Social History Tobacco Use Smoking status: Every Day Packs/day: 2.00 Years: 33.00 Additional pack years: 0.00 Total pack years: 66.00 Types: Cigarettes Smokeless tobacco: Never Substance Use Topics Alcohol use: Yes Drug use: No BP 150/90 Pulse 95 Temp 36.6 ?C (97.8 ?F) Resp 22 Wt 66.5 kg (146 lb 9.6 oz) SpO2 97% Review of Systems Constitutional: Negative for chills, fever and malaise/fatigue. HENT: Negative for congestion, ear discharge, ear pain, sinus pain and sore throat. Eyes: Negative for blurred vision, pain, discharge and redness. Respiratory: Positive for cough, shortness of breath and wheezing. Negative for hemoptysis, sputum production and stridor. Cardiovascular: Negative for chest pain. Gastrointestinal: Negative for abdominal pain, diarrhea, nausea and vomiting. Musculoskeletal: Negative for myalgias. Skin: Negative for itching and rash. Neurological: Negative for dizziness and headaches. Objective Physical Exam Constitutional: General: He is not in acute distress. Appearance: He is not toxic-appearing. HENT: Head: Normocephalic. Nose: Nose normal. Eyes: Pupils: Pupils are equal, round, and reactive to light. Cardiovascular: Rate and Rhythm: Normal rate. Pulmonary: Effort: Pulmonary effort is normal. No respiratory distress. Breath sounds: No stridor. Wheezing present. No rhonchi or rales. Musculoskeletal: Cervical back: Normal range of motion. Skin: General: Skin is warm and dry. Neurological: General: No focal deficit present. Mental Status: He is alert. ASSESSMENT/PLAN: 1. Chest pain, unspecified type - ICD9: 786.50, ICD10: R07.9 Patient nontoxic-appearing. However with patient's presenting symptoms I recommended be seen in ED for further evaluation care. Significant other will transport patient to ED. Patient verbalized understanding agrees with plan of care. Bean Arevalo APRN.[facility] 11-12-2022 History of Present illness Narrative Subjective HPI Nontoxic-appearing male presents urgent care chief complaint cough shortness of breath chest pain back pain. Duration of symptom 1 day. Associated symptoms listed above. States shortness of breath is getting worse. Has increased chest pain this morning. Rates pain 5 out of 10. Back pain 8 out of 10. States he may have cancer . Does have COPD. History of pneumothorax. Presents today to ensure he does not have collapsed lung or an infection. Denies any other concerns. .Patient presents with: Cough: Chest congestion x 1 day No past medical history on file. No past surgical history on file. ALLERGIES Patient has no known allergies. MEDICATIONS pantoprazole DR (PROTONIX) 40 mg tablet Take by mouth. albuterol HFA (PROVENTIL HFA, VENTOLIN HFA) 90 mcg/actuation inhaler Inhale as instructed. FAMILY HISTORY Problem Relation Age of Onset Cancer Father Coronary Artery Disease Mother Heart Mother Stroke Brother Heart Sister Cancer Paternal Grandfather Social History Tobacco Use Smoking status: Every Day Packs/day: 2.00 Years: 33.00 Additional pack years: 0.00 Total pack years: 66.00 Types: Cigarettes Smokeless tobacco: Never Substance Use Topics Alcohol use: Yes Drug use: No BP 150/90 Pulse 95 Temp 36.6 C (97.8 F) Resp 22 Wt 66.5 kg (146 lb 9.6 oz) SpO2 97% Review of Systems Constitutional: Negative for chills, fever and malaise/fatigue. HENT: Negative for congestion, ear discharge, ear pain, sinus pain and sore throat. Eyes: Negative for blurred vision, pain, discharge and redness. Respiratory: Positive for cough, shortness of breath and wheezing. Negative for hemoptysis, sputum production and stridor. Cardiovascular: Negative for chest pain. Gastrointestinal: Negative for abdominal pain, diarrhea, nausea and vomiting. Musculoskeletal: Negative for myalgias. Skin: Negative for itching and rash. Neurological: Negative for dizziness and headaches. Objective Physical Exam Constitutional: General: He is not in acute distress. Appearance: He is not toxic-appearing. HENT: Head: Normocephalic. Nose: Nose normal. Eyes: Pupils: Pupils are equal, round, and reactive to light. Cardiovascular: Rate and Rhythm: Normal rate. Pulmonary: Effort: Pulmonary effort is normal. No respiratory distress. Breath sounds: No stridor. Wheezing present. No rhonchi or rales. Musculoskeletal: Cervical back: Normal range of motion. Skin: General: Skin is warm and dry. Neurological: General: No focal deficit present. Mental Status: He is alert. ASSESSMENT/PLAN: 1. Chest pain, unspecified type - ICD9: 786.50, ICD10: R07.9 Patient nontoxic-appearing. However with patient's presenting symptoms I recommended be seen in ED for further evaluation care. Significant other will transport patient to ED. Patient verbalized understanding agrees with plan of care. Bean Arevalo APRN.SHARON documented in this encounter [facility] 08-19-2022 Note HNO ID: [id number] Author: Mar Lee APRN.SHARON Service: ? Author Type: Nurse Practitioner Type: Progress Notes Filed: 08/19/2022 7:24 PM Note Text: This note was created using [employer]. Subjective Aidee Cook is a 62 year old male. 62 year old male with PMH COPD, lung CA (currently undergoing workup still) presents for complaints of eye. Acute onset today Left eye +redness +drainage +discharge. Endorses he was [place] the [place] and dust in eye. 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 Denies feelings of FB or grittiness. Denies corrective lens. Denies contact. Denies nose, throat or ear complaints. The history is provided by the patient. No educational speech language clinician was used. Eye Problem This is a new problem. The current episode started today. The problem occurs constantly. The problem has been unchanged. Pertinent negatives include no abdominal pain, anorexia, arthralgias, change in bowel habit, chest pain, chills, congestion, coughing, diaphoresis, fatigue, fever, headaches, joint swelling, myalgias, nausea, neck pain, numbness, rash, sore throat, swollen glands, urinary symptoms, vertigo, visual change, vomiting or weakness. Nothing aggravates the symptoms. He has tried nothing for the symptoms. The treatment provided no relief. No past medical history on file. No past surgical history on file. ALLERGIES Patient has no known allergies. MEDICATIONS No prescriptions on file. FAMILY HISTORY Problem Relation Age of Onset Cancer Father Coronary Artery Disease Mother Heart Mother Stroke Brother Heart Sister Cancer Paternal Grandfather Social History Tobacco Use Smoking status: Every Day Packs/day: 2.00 Years: 33.00 Pack years: 66.00 Types: Cigarettes Smokeless tobacco: Never Substance Use Topics Alcohol use: Yes Drug use: No Review of Systems Constitutional: Negative for chills, diaphoresis, fatigue and fever. HENT: Negative for congestion and sore throat. Eyes: Positive for discharge, redness and itching. Negative for photophobia and pain. Respiratory: Negative for apnea, cough and chest tightness. Cardiovascular: Negative for chest pain, palpitations and leg swelling. Gastrointestinal: Negative for abdominal pain, anorexia, change in bowel habit, nausea and vomiting. Musculoskeletal: Negative for arthralgias, joint swelling, myalgias and neck pain. Skin: Negative for rash. Allergic/Immunologic: Negative for environmental allergies, food allergies and immunocompromised state. Neurological: Negative for vertigo, weakness, numbness and headaches. Psychiatric/Behavioral: Negative for agitation and behavioral problems. Objective BP 126/78 Pulse 67 Temp 37.3 ?C (99.2 ?F) (Tympanic) Resp 18 Wt 65.3 kg (144 lb) SpO2 97% Physical Exam Vitals and nursing note reviewed. Constitutional: General: He is not in acute distress. Appearance: Normal appearance. He is not ill-appearing, toxic-appearing or diaphoretic. HENT: Head: Normocephalic and atraumatic. Right Ear: External ear normal. Left Ear: External ear normal. Nose: Nose normal. No congestion or rhinorrhea. Mouth/Throat: Mouth: Mucous membranes are moist. Pharynx: Oropharynx is clear. No oropharyngeal exudate or posterior oropharyngeal erythema. Eyes: General: Right eye: No discharge. Left eye: Discharge present. Extraocular Movements: Extraocular movements intact. Conjunctiva/sclera: Conjunctivae normal. Comments: OS with no fluorescin uptake No visible FB Marginal eyelid debris Pupils (history of glaucoma) Cardiovascular: Rate and Rhythm: Normal rate and regular rhythm. Pulses: Normal pulses. Heart sounds: Normal heart sounds. No murmur heard. No friction rub. No gallop. Pulmonary: Effort: Pulmonary effort is normal. No respiratory distress. Breath sounds: Normal breath sounds. No stridor. No wheezing, rhonchi or rales. Chest: Chest wall: No tenderness. Abdominal: General: Abdomen is flat. There is no distension. Palpations: Abdomen is soft. There is no mass. Tenderness: There is no abdominal tenderness. There is no guarding or rebound. Hernia: No hernia is present. Musculoskeletal: General: No swelling, tenderness, deformity or signs of injury. Normal range of motion. Cervical back: Normal range of motion and neck supple. No rigidity or tenderness. Right lower leg: No edema. Left lower leg: No edema. Lymphadenopathy: Cervical: No cervical adenopathy. Skin: General: Skin is warm and dry. Capillary Refill: Capillary refill takes less than 2 seconds. Coloration: Skin is not jaundiced or pale. Findings: No bruising, lesion or rash. Neurological: General: No focal deficit present. Mental Status: He is alert and oriented to person, place, and time. Cranial Nerves: No cranial nerve deficit. Sensory: No sensory deficit. Motor: No weakness. Coord (more content not included)... [facility] 10-10-2021 Hospital Discharge instructions Patient Education 10/10/2021 13:26:27 Planning to Quit Smoking Planning to Quit Smoking Your healthcare provider may have told you that you need to give up tobacco. Only you can decide if and when you are ready to quit. Quitting is hard to do. But the benefits will be worth it. When you decide to quit, come up with a plan that s right for you. Discuss your plan with your healthcare provider. And talk with your provider about medicines to help you quit. Line up support To quit smoking, you ll need a plan and some help. Pick a date in the next 2 to 4 weeks to quit. Use the time between now and that date to arrange for support. Classes and counselors. Quit-smoking classes head wrestling coach people like you through the process. Get to know others in a class. And support each other beyond the class. Phone counseling also helps you keep on track. Ask your healthcare provider, local hospital, or public health department to put you in touch with a class and a phone counselor. Family and friends. Tell your family and friends about your quit date. Ask them to support your change. If they smoke, only see them in smoke-free places. Don't allow smoking in your home and car. Be careful with these products Finding something to replace cigarettes may be hard to do. Some things may be as harmful as cigarettes. These include: Smokeless (chewing) tobacco. This is just as harmful as regular tobacco. Tobacco should not be used as a substitute for cigarettes. Herbal medicines or teas. These may affect how your body handles nicotine. Talk with your healthcare provider before using these products. E-cigarettes. These have less toxins than the smoke from a regular cigarette. But the FDA says that these devices may still have substances that can cause cancer. E-cigarettes are not well regulated. They have not been studied enough to know if they are a good aid to help you stop smoking. Talk with your healthcare provider before using these products. Quit-smoking products Many products can help you quit smoking. Some are prescription medicines that help curb your cravings and withdrawal symptoms. Other products slowly lessen the level of nicotine your body absorbs. Nicotine is the highly addictive substance found in cigarettes, cigars, and chewing tobacco. Nicotine replacement products can help get your body used to slowly decreasing amounts of nicotine after you quit smoking. These products include a nicotine patch, gum, lozenge, nasal spray, and inhaler. Always follow the directions for your medicine or product carefully. Your healthcare provider may tell you to start taking the prescription medicine a week before you plan to quit. Don't smoke while you use nicotine products. Doing so can harm your health. For more information National [employer] [place] Smoking Quitline, smokefree.gov/gzrxg-gb-fu-expert, 742-77N-LUMB (796-680-5037) 5240-3176 [employer]. [address] [place] [address]. All rights reserved. This information is not intended as a substitute for professional medical care. Always follow your healthcare professional's instructions. 10/10/2021 13:26:18 Pneumonia (Adult) Pneumonia (Adult) Pneumonia is an infection deep within the lungs. It is in the small air sacs (alveoli). Pneumonia may be caused by a virus or bacteria. Pneumonia caused by bacteria is usually treated with an antibiotic. Severe cases may need to be treated in the hospital. Milder cases can be treated at home. Symptoms usually start to get better during the first 2 days of treatment. Home care Follow these guidelines when caring for yourself at home: Rest at home for the first 2 to 3 days, or until you feel stronger. Don t let yourself get overly tired when you go back to your activities. Stay away from cigarette smoke yours or other people s. You may use acetaminophen or ibuprofen to control fever or pain, unless another medicine was prescribed. If you have chronic liver or kidney disease, talk with your healthcare provider before using these medicines. Also talk with your provider if you ve had a stomach ulcer or gastrointestinal bleeding. Don t give aspirin to anyone younger than 18 years of age who is ill with a fever. It may cause severe liver damage. Your appetite may be poor, so a light diet is fine. Drink 6 to 8 glasses of fluids every day to make sure you are getting enough fluids. Beverages can include water, sport drinks, sodas without caffeine, juices, tea, or soup. Fluids will help loosen secretions in the lung. This will make it easier for you to cough up the phlegm (sputum). If you also have heart or kidney disease, check with your healthcare provider before you drink extra fluids. Take antibiotic medicine prescribed until it is all gone, even if you are feeling better after a few days. Follow-up care Follow up with your healthcare provider in the next 2 to 3 days, or as advised. This is to be sure the medicine is helping you get better. If you are 65 or older, you should get a pneumococcal vaccine and a yearly flu (influenza) shot. You should also get these vaccines if you have chronic lung disease like asthma, emphysema, or COPD. Recently, a second type of pneumonia vaccine has become available for everyone over 65 years old. This is in addition to the previous vaccine. Ask your provider about this. When to seek medical advice Call your healthcare provider right away if any of these occur: You don t get better within the first 48 hours of treatment Shortness of breath gets worse Rapid breathing (more than 25 breaths per minute) Coughing up blood Chest pain gets worse with breathing Fever of 100.4 F (38 C) or higher that doesn t get better with fever medicine Weakness, dizziness, or fainting that gets worse Thirst or dry mouth that gets worse Sinus pain, headache, or a stiff neck Chest pain not caused by coughing [id number] [employer]. [address] [place] [address], [place] [id number]. All rights reserved. This information is not intended as a substitute for professional medical care. Always follow your healthcare professional's instructions. Follow Up Care 10/10/2021 09:13:12 With:REMEDIOS ALEXANDRE Address: [address] [place] [id number] [facility] (1) When:2-4 days With:Call Physician Referral Address:Unknown When:2-4 days With:Follow up with primary care provider Address:Unknown When:2-4 days With:CHAD SMITH MD Address: [address] [facility] [address] [place], [place] [id number]- [phone] When:2-4 days [facility] 10-10-2021 Emergency department Discharge summary Discharge Instructions Thank you for allowing [facility] to assist you with your healthcare needs. The following is important discharge information regarding your hospital visit. Diagnosis from Today's Visit Pneumonia Back pain What to Do Next Instructions from Your Care Team No qualifying data available. Post Acute Orders No qualifying data available. You Need to Schedule the Following Appointments Follow Up with REMEDIOS ALEXANDRE When Within 2-4 days Where: [address] [place] [id number] [facility] (1) Follow Up with Call Physician Referral When Within 2-4 days Follow Up with Follow up with primary care provider When Within 2-4 days Follow Up with CHAD SMITH MD When Within 2-4 days Where: [address] [place] [address] [address] [place] [address]- [phone] Allergies NKA Medications Please ask your primary doctor or pharmacist before taking any other medication not listed, including over the counter drugs, herbal medications, vitamins and or supplements as they may interact with your home medications. What How Much When Why Instructions Last Dose New amoxicillin-clavulanate (amoxicillin-clavulanate 875 mg-125 mg oral tablet) 1 tab(s) by mouth Every 12 hours Pneumonia Duration: 7 Days Printed Prescription New etodolac (etodolac 400 mg oral tablet) 1 tab(s) by mouth Two (2) times a day Pneumonia Duration: 7 Days Printed Prescription Please take this list to your next doctor s visit. Bring all medications you take, including over the counter medications, herbals and other supplements with you to your doctor s visit. Patients and families are reminded to discard old lists and to update any records with all medication providers or retail pharmacies. Education Materials Planning to Quit Smoking Your healthcare provider may have told you that you need to give up tobacco. Only you can decide if and when you are ready to quit. Quitting is hard to do. But the benefits will be worth it. When you decide to quit, come up with a plan that s right for you. Discuss your plan with your healthcare provider. And talk with your provider about medicines to help you quit. Line up support To quit smoking, you ll need a plan and some help. Pick a date in the next 2 to 4 weeks to quit. Use the time between now and that date to arrange for support. Classes and counselors. Quit-smoking classes head wrestling coach people like you through the process. Get to know others in a class. And support each other beyond the class. Phone counseling also helps you keep on track. Ask your healthcare provider, local hospital, or public health department to put you in touch with a class and a phone counselor. Family and friends. Tell your family and friends about your quit date. Ask them to support your change. If they smoke, only see them in smoke-free places. Don't allow smoking in your home and car. Be careful with these products Finding something to replace cigarettes may be hard to do. Some things may be as harmful as cigarettes. These include: Smokeless (chewing) tobacco. This is just as harmful as regular tobacco. Tobacco should not be used as a substitute for cigarettes. Herbal medicines or teas. These may affect how your body handles nicotine. Talk with your healthcare provider before using these products. E-cigarettes. These have less toxins than the smoke from a regular cigarette. But the FDA says that these devices may still have substances that can cause cancer. E-cigarettes are not well regulated. They have not been studied enough to know if they are a good aid to help you stop smoking. Talk with your healthcare provider before using these products. Quit-smoking products Many products can help you quit smoking. Some are prescription medicines that help curb your cravings and withdrawal symptoms. Other products slowly lessen the level of nicotine your body absorbs. Nicotine is the highly addictive substance found in cigarettes, cigars, and chewing tobacco. Nicotine replacement products can help get your body used to slowly decreasing amounts of nicotine after you quit smoking. These products include a nicotine patch, gum, lozenge, nasal spray, and inhaler. Always follow the directions for your medicine or product carefully. Your healthcare provider may tell you to start taking the prescription medicine a week before you plan to quit. Don't smoke while you use nicotine products. Doing so can harm your health. For more information National [employer] [place] Smoking Quitline, smokefree.gov/vxuif-gm-mk-expert, 414-68S-IAWX (705-266-5212) [phone] [employer]. [address] [place] [address]. All rights reserved. This information is not intended as a substitute for professional medical care. Always follow your healthcare professional's instructions. Pneumonia (Adult) Pneumonia is an infection deep within the lungs. It is in the small air sacs (alveoli). Pneumonia may be caused by a virus or bacteria. Pneumonia caused by bacteria is usually treated with an antibiotic. Severe cases may need to be treated in the hospital. Milder cases can be treated at home. Symptoms usually start to get better during the first 2 days of treatment. Home care Follow these guidelines when caring for yourself at home: Rest at home for the first 2 to 3 days, or until you feel stronger. Don t let yourself get overly tired when you go back to your activities. Stay away from cigarette smoke yours or other people s. You may use acetaminophen or ibuprofen to control fever or pain, unless another medicine was prescribed. If you have chronic liver or kidney disease, talk with your healthcare provider before using these medicines. Also talk with your provider if you ve had a stomach ulcer or gastrointestinal bleeding. Don t give aspirin to anyone younger than 18 years of age who is ill with a fever. It may cause severe liver damage. Your appetite may be poor, so a light diet is fine. Drink 6 to 8 glasses of fluids every day to make sure you are getting enough fluids. Beverages can include water, sport drinks, sodas without caffeine, juices, tea, or soup. Fluids will help loosen secretions in the lung. This will make it easier for you to cough up the phlegm (sputum). If you also have heart or kidney disease, check with your healthcare provider before you drink extra fluids. Take antibiotic medicine prescribed until it is all gone, even if you are feeling better after a few days. Follow-up care Follow up with your healthcare provider in the next 2 to 3 days, or as advised. This is to be sure the medicine is helping you get better. If you are 65 or older, you should get a pneumococcal vaccine and a yearly flu (influenza) shot. You should also get these vaccines if you have chronic lung disease like asthma, emphysema, or COPD. Recently, a second type of pneumonia vaccine has become available for everyone over 65 years old. This is in addition to the previous vaccine. Ask your provider about this. When to seek medical advice Call your healthcare provider right away if any of these occur: You don t get better within the first 48 hours of treatment Shortness of breath gets worse Rapid breathing (more than 25 breaths per minute) Coughing up blood Chest pain gets worse with breathing Fever of 100.4 F (38 C) or higher that doesn t get better with fever medicine Weakness, dizziness, or fainting that gets worse Thirst or dry mouth that gets worse Sinus pain, headache, or a stiff neck Chest pain not caused by coughing [id number] [employer]. [address] [place] [address]. All rights reserved. This information is not intended as a substitute for professional medical care. Always follow your healthcare professional's instructions. Additional Information VACCINATE! IT SAVES LIVES! Members of the community who have not yet received the COVID-19 vaccine and would like to receive it can visit one of [facility] vaccine clinics. There are many vaccine clinic locations within the [facility]. For locations and available times, please visit [email or web address]. It is important to note that some COVID mobile vaccine clinics are held outdoors and may be canceled in rainy or stormy conditions. To learn more about pediatric vaccinations (ages 5-11), we invite you to visit the [facility] webpage. [email or web address] [email or web address] To learn more about the COVID-19 vaccine, we invite you to visit the [employer] website for a list of frequently asked questions. [email or web address] [email or web address] [facility] Patient Portal Access Instructions: Stay connected with your healthcare team and access your personal medical information anytime with the [facility] Patient Portal. If you would like a full copy of your medical records please contact the [facility] Medical Records Department Tuesday through Tuesday between 8a.m. and 4:30p.m. Please follow the directions below to access the portal: 1.Access the email account you provided upon registration to the [facility].2.Look for an invitation email from [facility].3.Open the email and access the invitation link: Accept Invitation to [facility]4.Fill in the required bourgeois to create your account. Sign into [email or web address] with your username and password that you created in the above steps to stay up to date. You can then view a summary of results, a summary of your visits, and the ability to download your summaries to your computer or send the information securely to a physician. Remember that your healthcare information is confidential, so carefully consider who you will allow to register on the [facility] Patient Portal for access to your information. You can also access the [facility] Patient Portal on the deltamethod vicki. Simply click on Health Records under Health Data and then click on the [facility] logo. HOW TO SAFELY DISPOSE OF PRESCRIPTION MEDICATIONS Please use one of the following methods to safely dispose of your unused medications. 1.Use a drug disposal kit: the drug disposal pouch allows you to safely discard your old and unused drugs. Ask your nurse to give you one when you are discharged.2.Visit a local take-back location: Many local pharmacies and police departments have programs that collect old and unwanted prescription drugs. Call your local pharmacy or go to http://bit.UserEvents/3S5Dm3z to find one close to you.3.Make use of household items: Use cat litter or old coffee grounds to dispose medications if other options are not available. Mix your drugs with these household products, seal them in an airtight container and throw it into the garbage. Call [facility]: [phone] to be sure your drugs can be disposed of in this way. Some medicines may require a different approach.4.Never flush your medications down the toilet. IF YOU HAVE BEEN PRESCRIBED AN OPIOIDS FOR PAIN If you have been prescribed an opioid (such as hydrocodone, oxycodone or morphine), it is critical to understand the possible side effects and risks of opioid pain medications. Even when taken as directed, opioids can have several side effects including: Tolerance, meaning you might need to take more of a medication for the same pain relief. Nausea, vomiting and/or constipation. Sleepiness, dizziness, dry mouth, confusion, depression or itching. Physical dependence, meaning you have withdrawal symptoms when a medication is stopped ? this can develop within a few days. KNOW YOUR RESPONSIBILITIES It is important to know exactly how much and how often to take the opioid pain medications you are prescribed. Never take opioids in higher amounts or more often than prescribed. Do not combine opioids with alcohol or other drugs that cause drowsiness, such as benzodiazepines, also known as benzos, including diazepam and alprazolam, muscle relaxants or sleep aids. Never sell or share prescription opioids. This is illegal. Store opioids in a secure place and out of reach of others (including children, family, friends and visitors). The last page(s) of this document has been signed and retained as a CHART COPY Signatures Patient Education Materials Planning to Quit Smoking Pneumonia (Adult) Medication Leaflets My discharge plan and instructions have been reviewed and explained to me and I,AIDEE COOK SR understand my current condition and have read and understand these discharge instructions. I have received a written copy of the plan/instructions. If I have questions, I am aware that I should contact my doctor. Patient/Service Mechanic Signature: Date/Time: Relationship to Patient: ____ Witness Name/Signature: Date/Time: [facility] 10-10-2021 Note ORIGINAL EXAMINATION: CT OF THE ABDOMEN AND PELVIS WITH CONTRAST 10/10/2021 12:19 pm TECHNIQUE: CT of the abdomen and pelvis was performed with the administration of intravenous contrast. Multiplanar reformatted images are provided for review. Automated exposure control, iterative reconstruction, and/or weight based adjustment of the mA/kV was utilized to reduce the radiation dose to as low as reasonably achievable. COMPARISON: CT abdomen and pelvis February 01, 2020 HISTORY: ORDERING SYSTEM PROVIDED HISTORY: Reason for Exam: pain FINDINGS: There is bronchiectasis. Consolidative changes are seen within the right lower lobe. There are additional patchy areas of ground-glass opacity within the remaining visualized lobes. There is diffusely low attenuation of the liver which may be related to fatty infiltration. The spleen is unremarkable. Appearance of the pancreatic head is relatively stable. Adrenal glands are stable in appearance. The gallbladder is present and collapsed. No intrahepatic or extrahepatic biliary ductal dilation. The kidneys are symmetric. No hydronephrosis or suspicious renal masses. The colon and small bowel are normal in caliber. There is wall thickening in the region of the splenic flexure. The appendix is unremarkable. The stomach appears thick walled. The small bowel and colon contain liquid stool. There appears to be a short segment enhancing loop of small bowel within the right lower quadrant. There is a tiny hiatal hernia. No gross free air or pathologically enlarged lymph nodes. There is trace free pelvic fluid. The aorta is atherosclerotic without aneurysmal dilation. The prostate is prominent and contains coarse calcifications. There is diffuse bladder wall thickening. There is a tiny fat containing umbilical hernia. No acute osseous abnormality. Degenerative changes are seen within the spine. IMPRESSION: 1. Increased enhancement of a loop of small bowel within the right lower quadrant, as well as a thickened segment colon at the splenic flexure in liquid stool throughout the small bowel and colon, may be reflective of an enterocolitis. 2. Wall thickening of the stomach may be related to under distension. 3. Trace free pelvic fluid. 4. Circumferential bladder wall thickening which may be related to under distension versus cystitis. Correlate with urinalysis. 5. Consolidative changes within the right lower lobe with additional scattered areas of ground-glass opacity within the remaining lobes of the lungs bilaterally, likely reflective of pneumonia. Continued follow-up is recommended. Interpreted by: Lucy Maciel MD Preliminary Report By: Lucy Maciel MD Electronically signed By Lucy Maciel MD Dictated Date: 10/10/2021 12:43:02 PM Prelim Date: 10/10/2021 12:55:13 PM Sign Date: 10/10/2021 12:55:13 PM Ordering Provider: [facility] 10-10-2021 Note ORIGINAL EXAMINATION: TWO XRAY VIEWS OF THE CHEST 10/10/2021 12:18 pm COMPARISON: Chest radiograph August 19, 2020 HISTORY: ORDERING SYSTEM PROVIDED HISTORY: Reason for Exam: Altered mental status FINDINGS: The cardiomediastinal silhouette is relatively stable. Dense consolidative changes are seen within the right lower lung. No overt central vascular congestion, large pleural effusion or significant appreciable pneumothorax. Patchy airspace opacities are also suspect within the left lung. No acute osseous abnormality. Degenerative changes are seen within the spine. IMPRESSION: Dense consolidative changes within the right over lobe and suspected additional patchy airspace opacities within the left lung, likely consistent with pneumonia. Continued follow-up to document improvement/resolution is recommended. Interpreted by: Lucy Maciel MD Preliminary Report By: Lucy Maciel MD Electronically signed By Lucy Maciel MD Dictated Date: 10/10/2021 12:30:15 PM Prelim Date: 10/10/2021 12:33:06 PM Sign Date: 10/10/2021 12:33:06 PM Ordering Provider: [facility] 10-10-2021 Note ORIGINAL EXAMINATION: CT OF THE HEAD WITHOUT CONTRAST 10/10/2021 12:19 pm TECHNIQUE: CT of the head was performed without the administration of intravenous contrast. Automated exposure control, iterative reconstruction, and/or weight based adjustment of the mA/kV was utilized to reduce the radiation dose to as low as reasonably achievable. COMPARISON: None. HISTORY: ORDERING SYSTEM PROVIDED HISTORY: Reason for Exam: Altered mental status FINDINGS: BRAIN/VENTRICLES: There is no acute intracranial hemorrhage, mass effect or midline shift. No abnormal extra-axial fluid collection. The galarza-white differentiation is maintained without evidence of an acute infarct. There is no evidence of hydrocephalus. ORBITS: The visualized portion of the orbits demonstrate no acute abnormality. SINUSES: The visualized paranasal sinuses and mastoid air cells demonstrate no acute abnormality. SOFT TISSUES/SKULL: No acute abnormality of the visualized skull or soft tissues. IMPRESSION: No acute intracranial abnormality. Interpreted by: Eduardo Salgado MD Preliminary Report By: Eduardo Salgado MD Electronically signed By Eduardo Salgado MD Dictated Date: 10/10/2021 12:21:57 PM Prelim Date: 10/10/2021 12:23:15 PM Sign Date: 10/10/2021 12:23:15 PM [facility] Note ORIGINAL EXAMINATION: CT OF THE ABDOMEN AND PELVIS WITH CONTRAST 10/10/2021 12:19 pm TECHNIQUE: CT of the abdomen and pelvis was performed with the administration of intravenous contrast. Multiplanar reformatted images are provided for review. Automated exposure control, iterative reconstruction, and/or weight based adjustment of the mA/kV was utilized to reduce the radiation dose to as low as reasonably achievable. COMPARISON: CT abdomen and pelvis February 01, 2020 HISTORY: ORDERING SYSTEM PROVIDED HISTORY: Reason for Exam: pain FINDINGS: There is bronchiectasis. Consolidative changes are seen within the right lower lobe. There are additional patchy areas of ground-glass opacity within the remaining visualized lobes. There is diffusely low attenuation of the liver which may be related to fatty infiltration. The spleen is unremarkable. Appearance of the pancreatic head is relatively stable. Adrenal glands are stable in appearance. The gallbladder is present and collapsed. No intrahepatic or extrahepatic biliary ductal dilation. The kidneys are symmetric. No hydronephrosis or suspicious renal masses. The colon and small bowel are normal in caliber. There is wall thickening in the region of the splenic flexure. The appendix is unremarkable. The stomach appears thick walled. The small bowel and colon contain liquid stool. There appears to be a short segment enhancing loop of small bowel within the right lower quadrant. There is a tiny hiatal hernia. No gross free air or pathologically enlarged lymph nodes. There is trace free pelvic fluid. The aorta is atherosclerotic without aneurysmal dilation. The prostate is prominent and contains coarse calcifications. There is diffuse bladder wall thickening. There is a tiny fat containing umbilical hernia. No acute osseous abnormality. Degenerative changes are seen within the spine. IMPRESSION: 1. Increased enhancement of a loop of small bowel within the right lower quadrant, as well as a thickened segment colon at the splenic flexure in liquid stool throughout the small bowel and colon, may be reflective of an enterocolitis. 2. Wall thickening of the stomach may be related to under distension. 3. Trace free pelvic fluid. 4. Circumferential bladder wall thickening which may be related to under distension versus cystitis. Correlate with urinalysis. 5. Consolidative changes within the right lower lobe with additional scattered areas of ground-glass opacity within the remaining lobes of the lungs bilaterally, likely reflective of pneumonia. Continued follow-up is recommended. Interpreted by: Lucy Maciel MD Preliminary Report By: Lucy Maciel MD Electronically signed By Lucy Maciel MD Dictated Date: 10/10/2021 12:43:02 PM Prelim Date: 10/10/2021 12:55:13 PM Sign Date: 10/10/2021 12:55:13 PM Ordering Provider: [facility] 10-10-2021 Note ORIGINAL EXAMINATION: CT OF THE HEAD WITHOUT CONTRAST 10/10/2021 12:19 pm TECHNIQUE: CT of the head was performed without the administration of intravenous contrast. Automated exposure control, iterative reconstruction, and/or weight based adjustment of the mA/kV was utilized to reduce the radiation dose to as low as reasonably achievable. COMPARISON: None. HISTORY: ORDERING SYSTEM PROVIDED HISTORY: Reason for Exam: Altered mental status FINDINGS: BRAIN/VENTRICLES: There is no acute intracranial hemorrhage, mass effect or midline shift. No abnormal extra-axial fluid collection. The galarza-white differentiation is maintained without evidence of an acute infarct. There is no evidence of hydrocephalus. ORBITS: The visualized portion of the orbits demonstrate no acute abnormality. SINUSES: The visualized paranasal sinuses and mastoid air cells demonstrate no acute abnormality. SOFT TISSUES/SKULL: No acute abnormality of the visualized skull or soft tissues. IMPRESSION: No acute intracranial abnormality. Interpreted by: Eduardo Salgado MD Preliminary Report By: Eduardo Salgado MD Electronically signed By Eduardo Salgado MD Dictated Date: 10/10/2021 12:21:57 PM Prelim Date: 10/10/2021 12:23:15 PM Sign Date: 10/10/2021 12:23:15 PM Ordering Provider: [facility] 10-10-2021 Note ORIGINAL EXAMINATION: TWO XRAY VIEWS OF THE CHEST 10/10/2021 12:18 pm COMPARISON: Chest radiograph August 19, 2020 HISTORY: ORDERING SYSTEM PROVIDED HISTORY: Reason for Exam: Altered mental status FINDINGS: The cardiomediastinal silhouette is relatively stable. Dense consolidative changes are seen within the right lower lung. No overt central vascular congestion, large pleural effusion or significant appreciable pneumothorax. Patchy airspace opacities are also suspect within the left lung. No acute osseous abnormality. Degenerative changes are seen within the spine. IMPRESSION: Dense consolidative changes within the right over lobe and suspected additional patchy airspace opacities within the left lung, likely consistent with pneumonia. Continued follow-up to document improvement/resolution is recommended. Interpreted by: Lucy Maciel MD Preliminary Report By: Lucy Maciel MD Electronically signed By Lucy Maciel MD Dictated Date: 10/10/2021 12:30:15 PM Prelim Date: 10/10/2021 12:33:06 PM Sign Date: 10/10/2021 12:33:06 PM Ordering Provider: [facility] 10-04-2021 Hospital Discharge instructions Patient Education 10/04/2021 11:51:17 Back Care Tips Back Care Tips Caring for your back These are things you can do to prevent a recurrence of acute back pain and to reduce symptoms from chronic back pain: Maintain a healthy weight. If you are overweight, losing weight will help most types of back pain. Exercise is an important part of recovery from most types of back pain. The muscles behind and in front of the spine support the back. This means strengthening both the back muscles and the abdominal muscles will provide better support for your spine. Swimming and brisk walking are good overall exercises to improve your fitness level. Practice safe lifting methods (below). Practice good posture when sitting, standing and walking. Avoid prolonged sitting. This puts more stress on the lower back than standing or walking. Wear quality shoes with sufficient arch support. Foot and ankle alignment can affect back symptoms. Women should avoid wearing high heels. Therapeutic massage can help relax the back muscles without stretching them. During the first 24 to 72 hours after an acute injury or flare-up of chronic back pain, apply an ice pack to the painful area for 20 minutes and then remove it for 20 minutes, over a period of 60 to 90 minutes, or several times a day. As a safety precaution, do not use a heating pad at bedtime. Sleeping on a heating pad can lead to skin avilez or tissue damage. You can alternate ice and heat therapies. Medicines Talk to your healthcare provider before using medicines, especially if you have other medical problems or are taking other medicines. You may use acetaminophen or ibuprofen to control pain, unless your healthcare provider prescribed other pain medicine. If you have chronic conditions like diabetes, liver or kidney disease, stomach ulcers, or gastrointestinal bleeding, or are taking blood thinners, talk with your healthcare provider before taking any medicines. Be careful if you are given prescription pain medicines, narcotics, or medicine for muscle spasm. They can cause drowsiness, affect your coordination, reflexes, and judgment. Do not drive or operate heavy machinery while taking these types of medicines. Take prescription pain medicine only as prescribed by your healthcare provider. Lumbar stretch Here is a simple stretching exercise that will help relax muscle spasm and keep your back more limber. If exercise makes your back pain worse, don t do it. Lie on your back with your knees bent and both feet on the ground. Slowly raise your left knee to your chest as you flatten your lower back against the floor. Hold for 5 seconds. Relax and repeat the exercise with your right knee. Do 10 of these exercises for each leg. Safe lifting method Don t bend over at the waist to lift an object off the floor. Instead, bend your knees and hips in a squat. Keep your back and head upright Hold the object close to your body, directly in front of you. Straighten your legs to lift the object. Lower the object to the floor in the reverse fashion. If you must slide something across the floor, push it. Posture tips Sitting Sit in chairs with straight backs or low-back support. Keep your knees lower than your hips, with your feet flat on the floor. When driving, sit up straight. Adjust the seat forward so you are not leaning toward the steering wheel. A small pillow or rolled towel behind your lower back may help if you are driving long distances. Standing When standing for long periods, shift most of your weight to one leg at a time. Alternate legs every few minutes. Sleeping The best way to sleep is on your side with your knees bent. Put a low pillow under your head to support your neck in a neutral spine position. Avoid thick pillows that bend your neck to one side. Put a pillow between your legs to further relax your lower back. If you sleep on your back, put pillows under your knees to support your legs in a slightly flexed position. Use a firm mattress. If your mattress sags, replace it, or use a 1/2-inch plywood board under the mattress to add support. Follow-up care Follow up with your healthcare provider, or as advised. If X-rays, a CT scan or an MRI scan were taken, they will be reviewed by a radiologist. You will be notified of any new findings that may affect your care. Call 911 Call 911 if any of the following occur: Trouble breathing Confusion Very drowsy Fainting or loss of consciousness Rapid or very slow heart rate Loss of bowel or bladder control When to seek medical advice Call your healthcare provider right away if any of the following occur: Pain becomes worse or spreads to your arms or legs Weakness or numbness in one or both arms or legs Numbness in the groin area [id number] [employer]. [address] [place] [address], [place] [address]. All rights reserved. This information is not intended as a substitute for professional medical care. Always follow your healthcare professional's instructions. Follow Up Care 10/04/2021 11:26:41 With:Call Physician Referral Address:Unknown When:2-4 days With:Go to emergency room if symptoms worsen Address:Unknown When:2-4 days [facility] 10-04-2021 Note Discharge Instructions Thank you for allowing [facility] to assist you with your healthcare needs. The following is important discharge information regarding your hospital visit. Diagnosis from Today's Visit Low back pain, Acute low back pain Coccyx injury What to Do Next Instructions from Your Care Team No qualifying data available. Post Acute Orders No qualifying data available. You Need to Schedule the Following Appointments Follow Up with Call Physician Referral When Within 2-4 days Follow Up with Go to emergency room if symptoms worsen When Within 2-4 days Allergies NKA Medications Please ask your primary doctor or pharmacist before taking any other medication not listed, including over the counter drugs, herbal medications, vitamins and or supplements as they may interact with your home medications. What How Much When Why Instructions Last Dose New acetaminophen-hydrocodone ([place] 325- 5 mg oral tablet) 1 tab(s) by mouth Every 6 hours as needed for for pain Acute low back pain Duration: 3 Days Printed Prescription Please take this list to your next doctor s visit. Bring all medications you take, including over the counter medications, herbals and other supplements with you to your doctor s visit. Patients and families are reminded to discard old lists and to update any records with all medication providers or retail pharmacies. Education Materials Back Care Tips Caring for your back These are things you can do to prevent a recurrence of acute back pain and to reduce symptoms from chronic back pain: Maintain a healthy weight. If you are overweight, losing weight will help most types of back pain. Exercise is an important part of recovery from most types of back pain. The muscles behind and in front of the spine support the back. This means strengthening both the back muscles and the abdominal muscles will provide better support for your spine. Swimming and brisk walking are good overall exercises to improve your fitness level. Practice safe lifting methods (below). Practice good posture when sitting, standing and walking. Avoid prolonged sitting. This puts more stress on the lower back than standing or walking. Wear quality shoes with sufficient arch support. Foot and ankle alignment can affect back symptoms. Women should avoid wearing high heels. Therapeutic massage can help relax the back muscles without stretching them. During the first 24 to 72 hours after an acute injury or flare-up of chronic back pain, apply an ice pack to the painful area for 20 minutes and then remove it for 20 minutes, over a period of 60 to 90 minutes, or several times a day. As a safety precaution, do not use a heating pad at bedtime. Sleeping on a heating pad can lead to skin avilez or tissue damage. You can alternate ice and heat therapies. Medicines Talk to your healthcare provider before using medicines, especially if you have other medical problems or are taking other medicines. You may use acetaminophen or ibuprofen to control pain, unless your healthcare provider prescribed other pain medicine. If you have chronic conditions like diabetes, liver or kidney disease, stomach ulcers, or gastrointestinal bleeding, or are taking blood thinners, talk with your healthcare provider before taking any medicines. Be careful if you are given prescription pain medicines, narcotics, or medicine for muscle spasm. They can cause drowsiness, affect your coordination, reflexes, and judgment. Do not drive or operate heavy machinery while taking these types of medicines. Take prescription pain medicine only as prescribed by your healthcare provider. Lumbar stretch Here is a simple stretching exercise that will help relax muscle spasm and keep your back more limber. If exercise makes your back pain worse, don t do it. Lie on your back with your knees bent and both feet on the ground. Slowly raise your left knee to your chest as you flatten your lower back against the floor. Hold for 5 seconds. Relax and repeat the exercise with your right knee. Do 10 of these exercises for each leg. Safe lifting method Don t bend over at the waist to lift an object off the floor. Instead, bend your knees and hips in a squat. Keep your back and head upright Hold the object close to your body, directly in front of you. Straighten your legs to lift the object. Lower the object to the floor in the reverse fashion. If you must slide something across the floor, push it. Posture tips Sitting Sit in chairs with straight backs or low-back support. Keep your knees lower than your hips, with your feet flat on the floor. When driving, sit up straight. Adjust the seat forward so you are not leaning toward the steering wheel. A small pillow or rolled towel behind your lower back may help if you are driving long distances. Standing When standing for long periods, shift most of your weight to one leg at a time. Alternate legs every few minutes. Sleeping The best way to sleep is on your side with your knees bent. Put a low pillow under your head to support your neck in a neutral spine position. Avoid thick pillows that bend your neck to one side. Put a pillow between your legs to further relax your lower back. If you sleep on your back, put pillows under your knees to support your legs in a slightly flexed position. Use a firm mattress. If your mattress sags, replace it, or use a 1/2-inch plywood board under the mattress to add support. Follow-up care Follow up with your healthcare provider, or as advised. If X-rays, a CT scan or an MRI scan were taken, they will be reviewed by a radiologist. You will be notified of any new findings that may affect your care. Call 911 Call 911 if any of the following occur: Trouble breathing Confusion Very drowsy Fainting or loss of consciousness Rapid or very slow heart rate Loss of bowel or bladder control When to seek medical advice Call your healthcare provider right away if any of the following occur: Pain becomes worse or spreads to your arms or legs Weakness or numbness in one or both arms or legs Numbness in the groin area [id number] [employer]. [address] [place] [address]. All rights reserved. This information is not intended as a substitute for professional medical care. Always follow your healthcare professional's instructions. Additional Information VACCINATE! IT SAVES LIVES! Members of the community who have not yet received the COVID-19 vaccine and would like to receive it can visit one of [facility] vaccine clinics. There are many vaccine clinic locations within the [facility]. For locations and available times, please visit [email or web address]. It is important to note that some COVID mobile vaccine clinics are held outdoors and may be canceled in rainy or stormy conditions. To learn more about pediatric vaccinations (ages 5-11), we invite you to visit the [facility] webpage. [email or web address] To learn more about the COVID-19 vaccine, we invite you to visit the [facility] website for a list of frequently asked questions. [email or web address] [facility] Patient Portal Access Instructions: Stay connected with your healthcare team and access your personal medical information anytime with the [facility] Patient Portal. If you would like a full copy of your medical records please contact the [facility] Medical Records Department Tuesday through Tuesday between 8a.m. and 4:30p.m. Please follow the directions below to access the portal: 1.Access the email account you provided upon registration to the hospital.2.Look for an invitation email from [facility].3.Open the email and access the invitation link: Accept Invitation to [facility]4.Fill in the required bourgeois to create your account. Sign into [email or web address] with your username and password that you created in the above steps to stay up to date. You can then view a summary of results, a summary of your visits, and the ability to download your summaries to your computer or send the information securely to a physician. Remember that your healthcare information is confidential, so carefully consider who you will allow to register on the [facility] Patient Portal for access to your information. You can also access the [facility] Patient Portal on the deltamethod vicki. Simply click on Health Records under Health Data and then click on the [employer] logo. HOW TO SAFELY DISPOSE OF PRESCRIPTION MEDICATIONS Please use one of the following methods to safely dispose of your unused medications. 1.Use a drug disposal kit: the drug disposal pouch allows you to safely discard your old and unused drugs. Ask your nurse to give you one when you are discharged.2.Visit a local take-back location: Many local pharmacies and police departments have programs that collect old and unwanted prescription drugs. Call your local pharmacy or go to http://Red Swoosh.UserEvents/5N4Hh0s to find one close to you.3.Make use of household items: Use cat litter or old coffee grounds to dispose medications if other options are not available. Mix your drugs with these household products, seal them in an airtight container and throw it into the garbage. Call [facility]: [phone] to be sure your drugs can be disposed of in this way. Some medicines may require a different approach.4.Never flush your medications down the toilet. IF YOU HAVE BEEN PRESCRIBED AN OPIOIDS FOR PAIN If you have been prescribed an opioid (such as hydrocodone, oxycodone or morphine), it is critical to understand the possible side effects and risks of opioid pain medications. Even when taken as directed, opioids can have several side effects including: Tolerance, meaning you might need to take more of a medication for the same pain relief. Nausea, vomiting and/or constipation. Sleepiness, dizziness, dry mouth, confusion, depression or itching. Physical dependence, meaning you have withdrawal symptoms when a medication is stopped ? this can develop within a few days. KNOW YOUR RESPONSIBILITIES It is important to know exactly how much and how often to take the opioid pain medications you are prescribed. Never take opioids in higher amounts or more often than prescribed. Do not combine opioids with alcohol or other drugs that cause drowsiness, such as benzodiazepines, also known as benzos, including diazepam and alprazolam, muscle relaxants or sleep aids. Never sell or share prescription opioids. This is illegal. Store opioids in a secure place and out of reach of others (including children, family, friends and visitors). The last page(s) of this document has been signed and retained as a CHART COPY Signatures Patient Education Materials Back Care Tips Medication Leaflets My discharge plan and instructions have been reviewed and explained to me and I,MISTI BURR, AIDEE Truong understand my current condition and have read and understand these discharge instructions. I have received a written copy of the plan/instructions. If I have questions, I am aware that I should contact my doctor. Patient/Service Mechanic Signature: Date/Time: Relationship to Patient: ____ Witness Name/Signature: Date/Time: [facility] Evaluation + Plan note No data available for this section [facility] documented in this encounter [facility] MOR[facility] DO: SIGN, VERIFY Event Display: EKG [ED AOH] - CV Authored Date: [facility] Summary Purpose Family History No Family History Records FoundNo Family History Records Found Advance Directives No Advanced Directives Records FoundNo Advanced Directives Records Found Additional Source Comments Care Team (unrecognized sect ion and content) Care Team Personnel Name: PHYSICIAN, NONE Position: Physician Member Role: Primary Care Physician Care Team Related Persons Name: RITESH COOK Care Team Personnel Name: PHYSICIAN, NONE Position: Physician Member Role: Primary Care Physician Care Team Related Persons Name: RITESH COOK (unrecognized sect ion and content) No Status Records FoundNo Status Records Found INFORMATION SOURCE (unrecogn ized section and content) DATE CREATED AUTHOR AUTHOR'S ORGANIZ ATION 11/13/2022 [facility] Source Comments (unrecognize d section and content) In the event this informatio n is protected by the Federal Confidentiality of Alcohol and Drug Abuse Patient Records regulations: The Federal rules restrict any use of the information to criminally investigate or prosecute any alcohol or drug abuse patient.[facility] Reason for Visit (unrecogniz ed section and content) Care Teams (unrecognized sec tion and content) FOR RECORDS PERTAINING TO PATIENTS WHO ARE OR HAVE BEEN ENROLLED IN A CHEMICAL DEPENDENCY/SUBSTANCEABUSE PROGRAM, SOME INFORMATION MAY BE OMITTED. This clinical summary was aggregated from multiple sources. Caution should be exercised in using it in the provision of clinical care. This summary normalizes information from multiple sources, and as a consequence, information in this document may materially change the coding, format and clinical context of patient data. In addition, data may be omitted in some cases. CLINICAL DECISIONS SHOULD BE BASED ON THE PRIMARY CLINICAL RECORDS. [facility] [employer] [facility]. provides no warranty or guarantee of the accuracy or completeness of information in this document.
[2023-03-11 11:35] LABS: D-Dimer Quantitative (DVT/PE) 1.87 FEU/ug/m (0.27-0.49)
[2023-03-11 11:48] LABS: Anion Gap 12 (5-15); BUN 48 mg/dL (7-18); Calcium,Total 9.6 mg/dL (8.5-10.1); Chloride 89 mmol/L (98-107); Creatinine, Serum 1.41 mg/dL (0.70-1.30); EST Glomerular Filtration Rate 54 mL/min (>60); Est Glom Filt Rate - Afr Amer 65 mL/min (>60); Glucose 139 mg/dL (74-106); Magnesium 3.5 mg/dL (1.6-2.6); Potassium 3.1 mmol/L (3.5-5.1); Sodium Level 126 mmol/L (136-145); Troponin-I HS 16 pg/mL (3.0-78.0)
--- NOTE | 2023-03-11 11:50 | RAD_ITS ---
INDICATION: cough EXAMINATION/TECHNIQUE: X-RAY - XR Chest 1 View COMPARISON: November 12, 2022 FINDINGS: LINES/DEVICES: None. LUNGS: There are patchy opacities throughout the left mid and bilateral lower lungs. No pneumothorax. MEDIASTINUM AND CARDIOVASCULAR STRUCTURES: Cardiac silhouette not enlarged. Central airways and mediastinal contour are unremarkable. BONES AND SOFT TISSUES: Unremarkable. RAD/Chest 1 View (Portable) IMPRESSION: Bilateral patchy opacities, may reflect multifocal pneumonia. Electronically Signed: Caitlin Garza MD at 13:00 EST ,
[2023-03-11 11:51] LABS: BNP,B-Type NATRIURETIC PEPTIDE 51.1 pg/mL (0-100)
[2023-03-11 11:58] LABS: Lactic Acid 2.5 mmol/L (0.4-1.9)
--- NOTE | 2023-03-11 11:58 | CT_ITS ---
STUDY: CTA CHEST REASON FOR EXAM: Male, 62 years old. SOB RADIATION DOSAGE (If Supplied By Facility): CTDIvol = ( 7.06 ) mGy, DLP = ( 200.39 ) mGycm TECHNIQUE: The examination was performed with the intravenous administration of IV 75mL Isovue-370. Post-processing of the angiographic images was performed, with multiplanar reformation and 3D reconstruction. Individualized dose optimization techniques were used for this CT. COMPARISON: January 10, 2023 FINDINGS: Motion artifact degrades anatomic detail. There are bilateral tree-in-bud opacities associated with bilateral groundglass opacities. In addition there are left lower lobe patchy opacities. There is focal consolidation within the right lower lobe which may be partially secondary to atelectasis and/or scarring. There are bilateral emphysematous changes. Normal enhancement of the main pulmonary artery and right and left pulmonary arteries. There is suboptimal enhancement of the bilateral peripheral pulmonary arteries. There is no demonstrated gross pulmonary embolism. Normal thoracic aorta and visualized great vessels. There is no demonstrated aortic dissection. There are calcifications of the coronary arteries. There are prominent mediastinal lymph nodes, likely reactive. Normal hilar regions. Normal visualized trachea and bronchi. Normal chest wall structures. Normal osseous structures. The limited images of the upper abdomen demonstrate a diffusely low in attenuation liver consistent with fatty infiltration. CT/CTA Chest W/WO Contrast IMPRESSION: Limited examination of the pulmonary arteries secondary to suboptimal opacification and motion with no gross pulmonary emboli identified; consider repeat examination. Left lower lobe patchy opacities associated with bilateral groundglass and tree-in-bud opacities which may be secondary to an infectious process. Right lower lobe consolidation. Emphysema. Atherosclerosis. Fatty infiltration of the liver. Electronically Signed: Caitlin Garza MD at 13:12 EST ,
[2023-03-11] MEDS: 0.9% Normal Saline (1000mL) 1,000 ML 999 ML IV ×2 (12:17→13:34)
[2023-03-11] MEDS: Piperacil/Tazobactam 4.5 GM in 0.9% Normal Saline (100mL MB+) 100 ML IV (12:17)
--- NOTE | 2023-03-11 13:37 | NURSING ---
DR CACERES FOR DR NOEL
--- NOTE | 2023-03-11 13:46 | PCM.HP.STD ---
HPI - General General Date of Admission: 03/11/23 Date of Service: 03/11/23 Chief Complaint: Dyspnea, cough, fatigue, malaise, decreased oral intake, loose stools. HPI Narrative The patient is a 62 y/o M w/ PMHx: EtOH abuse, COPD/emphysema/bronchiectasis with no sputum cultures noted in [employer] system, Crohn's disease, Tobacco use, GERD w/ Peacock's esophagus who presents to the [facility] ED on 03/11/23 with history of upper respiratory infection starting approximately 10 days prior with coughing, dyspnea, muscle aches as well as fatigue and malaise with evaluation early on with negative COVID testing with then onset of mild loose stools but no nausea or emesis but significant decreased appetite with poor oral intake including liquids as well as solids with no markedly productive sputum but worsening debility and worsening dyspnea prompting eventual ED evaluation. Workup in the ED included T96.9, heart rate 92, BP 116/75, respiratory rate 32, initially noted to be 91% on 3 L currently respiratory rate 29, 93% on 2 L, CBC with WBC 9.0, hemoglobin 17.1, platelet 104 with increased immature granulocytes, D-dimer 1.87, BMP with sodium 126, potassium 3.1, chloride 89, BUN/creatinine 48/1.41, glucose 139, lactic acid 2.5, magnesium 3.5, troponin 16, BNP 51.1, chest x-ray with bilateral patchy opacities possibly multifocal pneumonia, CTPA with limited examination of the pulmonary artery secondary to suboptimal opacification and motion with no gross pulmonary emboli identified, left lower lobe patchy opacities associate with bilateral groundglass and tree-in-bud opacities possibly secondary to infectious process, right lower lobe consolidation, emphysema, atherosclerosis, fatty infiltration of the liver, blood culture x 2 pending per ED, rapid SARS COVID/influenza/RSV with noted influenza A positive status. In the ED patient administered 2 L normal saline as well as DuoNeb therapy and IV Zosyn. [facility] Medical History Alcohol abuse Arthritis Peacock's esophagus Blindness of left eye COPD (chronic obstructive pulmonary disease) Crohn disease Emphysema lung History of echocardiogram History of pain when walking Right lower lobe lung mass Shortness of breath on exertion Smoker Home Medications albuterol sulfate 90 mcg/actuation aerosol inhaler 2 puff inhalation Q4H PRN shortness of breah 08/18/22 [History Last Taken Unknown] fluticasone fur. 100 mcg-umeclid 62.5 mcg-vilant 25 mcg inhalat.powder (Trelegy Ellipta) 1 inh inhalation DAILY #60 ea 11/18/22 [Rx Last Taken Unknown] Allergy/AdvReac Type Severity Reaction Status Date / Time No Known Allergies Allergy Verified 02/23/23 14:11 Family History Father , from cancer Lung cancer Stomach cancer Brother Cancer unknown what type Sister Diabetes Mother Heart disease Myocardial infarction Brother Diabetes Heart disease Surgical History Hx of right cataract extraction Social History (Updated 03/11/23 @ 14:[address] Ana Corrales MD) household members: spouse Smoking Status: Current every day smoker tobacco type: cigarettes Smoking packs per day: 2 Smoking cigarettes per day: 40.0 Tobacco: How many years used: 56 Electronic Cigarette Use: not used second hand exposure: Yes alcohol intake: current alcohol intake frequency: 3 or more drinks per day details: 3-6, 24 ounce beers daily. substance use type: does not use ROS ROS Narrative Admission Review of Systems: CONSTITUTIONAL: No weight loss, + fever, chills, weakness or fatigue. HEENT: + Mild congestion/rhinorrhea, improved, occasional sore throat. Eyes: No visual loss, blurred vision, double vision or yellow sclerae. + Chronic decreased vision L eye. Ears, Nose, Throat: No hearing loss. SKIN: No rash or itching, lesions, wounds. CARDIOVASCULAR: No chest pain, chest pressure or chest discomfort, palpitations, edema, orthopnea, syncopal events. RESPIRATORY: + Shortness of breath, cough without marked sputum, occasional wheezing. No hemoptysis. GASTROINTESTINAL: + anorexia, loose stools. No nausea, vomiting, abdominal pain, melena, BRBPR. GENITOURINARY: + Decreased UOP. No dysuria, frequency, urgency or retention. NEUROLOGICAL: No headache, dizziness, syncope, paralysis, ataxia, numbness or tingling in the extremities, focal weakness, change in bowel or bladder control, seizure. MUSCULOSKELETAL: + muscle, back pain, joint pain or stiffness. HEMATOLOGIC: No anemia. + Easy bleeding/bruising. LYMPHATICS: No enlarged nodes. No history of splenectomy. PSYCHIATRIC: No history of depression or anxiety. ENDOCRINOLOGIC: No reports of sweating, cold or heat intolerance. No polyuria or polydipsia. ALLERGIES: No history of asthma, hives, eczema or rhinitis. Vital Signs Vital Signs Vital Signs: 03/11/23 10:44 03/11/23 10:47 03/11/23 10:47 Temperature 96.9 F L 96.9 F L 96.9 F L Temperature Source Temporal Temporal Temporal Pulse Rate 92 92 98 Respiratory Rate 32 H 28 H 32 H Respiratory Effort Respiratory Depth Respiratory Pattern Blood Pressure 116/75 116/75 116/75 Blood Pressure Mean 88 88 88 Pulse Ox 91 91 91 Oxygen Delivery Method Nasal Cannula Nasal Cannula Nasal Cannula Oxygen Flow Rate (L/min) 3 3 3 03/11/23 10:48 03/11/23 11:18 03/11/23 11:15 Temperature Temperature Source Pulse Rate 93 Respiratory Rate 28 H Respiratory Effort Short of Breath Labored Respiratory Depth Shallow Respiratory Pattern Tachypnea Blood Pressure Blood Pressure Mean Pulse Ox Oxygen Delivery Method Nasal Cannula Room Air Oxygen Flow Rate (L/min) 3 03/11/23 12:00 03/11/23 12:41 03/11/23 13:34 Temperature 97.7 F L 98.3 F Temperature Source Oral Pulse Rate 86 85 78 Respiratory Rate 31 H 29 H 20 H Respiratory Effort Respiratory Depth Respiratory Pattern Blood Pressure 119/72 119/72 126/69 H Blood Pressure Mean 87 87 88 Pulse Ox 94 93 96 Oxygen Delivery Method Nasal Cannula Nasal Cannula Oxygen Flow Rate (L/min) 2 2 03/11/23 13:36 Temperature 98.3 F Temperature Source Temporal Pulse Rate 78 Respiratory Rate 20 H Respiratory Effort Respiratory Depth Respiratory Pattern Blood Pressure 126/69 H Blood Pressure Mean 88 Pulse Ox 96 Oxygen Delivery Method Nasal Cannula Oxygen Flow Rate (L/min) 2 Weight Weight: 140 lb Body Mass Index (BMI) 19.5 Physical Exam Narrative Physical Examination: General: Awake, alert, oriented x 3 and cooperative, seated upright in the ED bed in no apparent distress, fatigued and ill-appearing. Skin: Normal color, normal turgor, no icterus, no cyanosis except for very staged ecchymoses, abrasions. HEENT: AT/NC, EOMI, L pupil ~ 4 mm, mildly increased from R, decreased chronic vision status L eye, dry MM, extremely poor dentition, no carotid bruits or JVD noted. Lungs: Diffusely diminished, greater right base, mildly coarse, occasional distant expiratory wheeze, mildly increased respiratory rate but no distress, no marked rales. Heart: Regular rate and rhythm; no gallop, rub audible. Abdomen: Soft, thin habitus, NTTP, ND, hyperactive BS, appreciated HM. Extremities: No cyanosis, clubbing, or edema, evidence of muscle loss. Neurological: Patient awake, alert, oriented as noted, cognitive function intact; pupils equally reactive to light and accommodation, cranial nerves grossly normal aside from R eye vision changes, moving all 4 extremities, no focal deficits, strength moderately to severely globally decreased secondary to acute presentation. Psychiatric: Affect appears flat, fatigued, ill-appearing, no acute evidence of depressive or anxiety feelings. Results Lab / Micro Data 03/11/23 11:00 03/11/23 11:00 Labs: Laboratory Results - last 24 hr 03/11/23 11:00: WBC 9.0, RBC 5.44, Hgb 17.1 H, Hct 47.2, MCV 86.8, MCH 31.4, MCHC 36.2 H, RDW Std Deviation 40.9, RDW Coeff of Kp 13.0, Plt Count 104 L, MPV 11.3, Immature Gran % (Auto) 1.700 H, Neut % (Auto) 81.2 H, Lymph % (Auto) 9.9 L, Coke % (Auto) 7.1, Eos % (Auto) 0.0, Baso % (Auto) 0.1, Absolute Neuts (auto) 7.3, Absolute Lymphs (auto) 0.89, Nucleated RBC % 0, D-Dimer Quant (PE/DVT) 1.87 H*, Sodium 126 L, Potassium 3.1 L, Chloride 89 L, Carbon Dioxide 25.0, Anion Gap 12, BUN 48 H, Creatinine 1.41 H, Est GFR (MDRD) Af Amer 65, Est GFR (MDRD) Non-Af 54 L, BUN/Creatinine Ratio 34.0 H, Glucose 139 H, Calcium 9.6, Magnesium 3.5 H, Troponin I High Sens 16, B-Natriuretic Peptide 51.1 03/11/23 11:09: Lactic Acid 2.5 H* Micro: Microbiology 12/29/23 11:00 Mucosa - Nose SARS-CoV-2, Influenza & RSV (PCR) - Final Influenzae A Imagaing Radiology Impression Chest X-Ray 03/11/23 11:50 IMPRESSION: Bilateral patchy opacities, may reflect multifocal pneumonia. Electronically Signed: Caitlin Garza MD at 13:00 EST , Chest CTA 03/11/23 11:58 IMPRESSION: Limited examination of the pulmonary arteries secondary to suboptimal opacification and motion with no gross pulmonary emboli identified; consider repeat examination. Left lower lobe patchy opacities associated with bilateral groundglass and tree-in-bud opacities which may be secondary to an infectious process. Right lower lobe consolidation. Emphysema. Atherosclerosis. Fatty infiltration of the liver. Electronically Signed: Caitlin Garza MD at 13:12 EST , Assessment & Plan Assessment/Plan (1) Bilateral pneumonia: PLAN: Plan The patient is a 62 y/o M w/ PMHx: EtOH abuse, COPD/emphysema/bronchiectasis with no sputum cultures noted in [employer] system, Crohn's disease, Tobacco use, GERD w/ Peacock's esophagus who presents to the [facility] ED on 03/11/23 with history of upper respiratory infection starting approximately 10 days prior with coughing, dyspnea, muscle aches as well as fatigue and malaise with evaluation early on with negative COVID testing with then onset of mild loose stools but no nausea or emesis but significant decreased appetite with poor oral intake including liquids as well as solids with no markedly productive sputum but worsening debility and worsening dyspnea prompting eventual ED evaluation. #1. Acute Hypoxia secondary to Acute on Chronic COPD/emphysema/bronchiectasis exacerbation secondary to Acute Influenza A Viral Syndrome with BL Pneumonia, Possibly concurrent superimposed Bacterial Pneumonia with known chart history of RLL Lung Mass of unclear significance as noted #6 with associated #2-#4: Will admit to [facility], maintain on oxygen with wean as tolerated, continue ATC duonebs, PRN albuterol, VEST, maintain on IV solumedrol, maintain on IV zosyn given bronchiectasis history and concern for superimposed bacterial infection/pneumonia, MRSA screen pending, will obtain full respiratory viral panel to be cautious to assure no additional viral illnesses, procalcitonin requested, HOB, IS parameters w/ pending sputum cultures and urine antigens. Bld cx x 2 obtained in the ED. PT/OT/CM consultation for discharge planning. #2. Acute kidney injury: Secondary to acute illness as noted with GI losses. Admission BUN/Cr 48/1.41, prior baseline creatinine noted to be 0.7 primarily. Will hydrate, hold nephrotoxic medications and repeat chemistry in AM. If no improvement would plan FeNa assessment. #3. Acute hyponatremia, hypochloremia, hypokalemia: Secondary to acute illness as noted above, admission sodium 126, chloride 89, continue judicious hydration, repeat CMP in AM. #4. Hypokalemia: Admission K+ 3.1, magnesium level already obtained per ED as noted 3.5, supplementation given, repeat level in AM. #5. Severe protein calorie malnutrition: History of significant weight loss although this does appear to level out but patient has evident muscle and fat loss, nutrition consulted for input on supplements and further recommendations. #6. Known right lower lobe lung mass: Patient following with oncology Dr. Jones and Pulmonary medicine, most recent evaluations 01/17/2023 and 02/23/2023 with negative biopsies as well as negative PET scan previously with patient electing watchful expectancy rather than thoracic surgery evaluation with repeat imaging 12/2022 with no progressive change and some improvement suggestive of possibly inflammatory changes with plan continued watchful serial CT scans. He notes his next CT scan is in April. #7. EtOH Abuse: Patient notes routine consumption of at least 3 drinks per day. Will maintain on CIWA protocol, MVI, thiamine and folic acid. Magnesium noted 3.5 however will also obtain phosphorus level. If necessary may certainly consider addition of tapering protocol. Case management consulted for substance abuse. #8. Tobacco Abuse: Encouraged cessation, inpatient consultation per RT, NR if desired. #9. DVT prophylaxis: Heparin. #10. CODE status: Patient HCPOA and living will are not in place but he notes his would be his decision maker. Discussed CODE status at length including difference between FULL code, DNR-CCA and DNR-CC status. Following discussions about the differences in these status, requested DNR-CCA, no intubation. He notes he does not use PAP therapy baseline. Advanced Care Planning Face to Face Time: 16 minutes. Charges/Coding Visit Charges Inpatient E&M: 19765 Init Hosp L3 Procedures Hospitalists Procedures: 63079 Advncd Care Plan 30 Min
--- NOTE | 2023-03-11 13:47 | NURSING ---
MED SURG WHITE PNEUMONIA, INFLUENZA, HYPOXIA, COPD, BRONCHIECTASIS
[2023-03-11] MEDS: MethylPREDNISolone 125 MG/2 ML Vial IV (13:52)
--- OUTSIDE RECORDS SUMMARY | 2023-03-11 14:18 | XMS RPT_ITS | CCD ---
Author Name Unknown Address [address] [place] [address] Organization [facility] Care Team Providers Care Bacteriology Research Assistant Name Role Phone PHYSICIAN, NONE Primary Care Physician [facility], Clary Hodge Primary Care Provider Un available ALISSA VENTURA Primary Care Unavailable Medications Current Medications Medication Drug Class(es) Dates Sig (Normalized) Sig (Original) acetaminophen 325 mg / HYDROcodone bitartrate 5 mg oral tablet (1 source) Opioid Agonist Start: 10-04-2021 End: 10-07-2021 take 1 tablet by mouth every six hours as needed for pain Bronaugh 325- 5 mg oral tablet Dose = [...] Drug Class(es) Dates Sig (Normalized) Sig (Original) [id number] 200 actuat albuterol 0.09 mg/actuat metered dose [...] 09:24-0400 Body temperature 97.81 [degF] Bean Arevalo APRN.MODULAR HOME [employer] MEMBER Work Phone: [facility] 11-12-2022 09:24-0400 Body weight 66.5 kg Bean Arevalo APRN.MODULAR HOME [employer] MEMBER Work Phone: [facility] 11-12-2022 09:24-0400 Diastolic blood pressure 90 mm[Hg] Bean Arevalo APRN.MODULAR HOME CRE[employer] MEMBER Work Phone: [facility] 11-12-2022 09:24-0400 Heart rate 95 /min Bean Arevalo APRN.MODULAR HOME CREW MEMBER Work Phone: [facility] 11-12-2022 09:24-0400 Respiratory rate 22 /min Bean Arevalo APRN.MODULAR HOME [employer]W MEMBER Work Phone: [facility] 11-12-2022 09:24-0400 SaO2% (BldA) [Mass fraction] 97 % Bean Turpinkelsey PSYCHOLOGICAL ASSISTANT.MODULAR HOME CREW MEMBER Work Phone: [facility] 11-12-2022 09:24-0400 Systolic blood pressure 150 mm[Hg] Bean Arevalo PSYCHOLOGICAL ASSISTANT.MODULAR HOME CREW MEMBER Work Phone: [facility] 10-10-2021 13:42-0400 Diastolic blood pressure 75 mm[Hg] PUNEET MORALES DO [facility] 10-10-2021 13:42-0400 Heart rate 75 /min PUNEET MORALES DO [facility] 10-10-2021 13:42-0400 Respiratory rate 18 /min PUNEET MORALES DO [facility] 10-10-2021 13:42-0400 Systolic blood pressure 155 mm[Hg] PUNEET MORALES DO [facility] 10-10-2021 09:18-0400 Body temperature 98.06 [degF] PUNEET MORALES DO [facility] 10-10-2021 09:18-0400 Diastolic blood pressure 78 mm[Hg] PUNEET MORALES DO [facility] 10-10-2021 09:18-0400 Heart rate 72 /min PUNEET MORALES DO [facility] 10-10-2021 09:18-0400 Respiratory rate 18 /min PUNEET MORALES DO [facility] 10-10-2021 09:18-0400 Systolic blood pressure 130 mm[Hg] PUNEET MORALES DO [facility] 10-04-2021 11:31-0400 Body temperature 99.32 [degF] DARRIUS KAPADIAT DO [facility] 10-04-2021 11:31-0400 Diastolic blood pressure 55 mm[Hg] DARRIUS HAJI DO [facility] 10-04-2021 11:31-0400 Heart rate 66 /min DARRIUS HAJI DO [facility] 10-04-2021 11:31-0400 Respiratory rate 18 /min DARRIUS HAJI DO [facility] 10-04-2021 11:31-0400 Systolic blood pressure 116 mm[Hg] DARRIUS HAJI DO [facility] Encounters Encounter Date Encounter Type Care Provider Facility Start: 11-12-2022 End: 11-12-2022 ambulatory ALISSA LORENZO Facility:[facility] Start: 11-12-2022 End: 11-12-2022 Patient encounter procedure Bean Arevalo APRN.MODULAR HOME [employer] MEMBER Work Phone: [facility] Procedures Date Procedure Procedure Detail Performing Clinician Esophagogastroduoden oscopy gastric outlet reduction DARRIUS HAJI DO Plan of Treatment Date Care Activity Detail Author Start: 11-12-2022 Influenza vaccination INFLUENZA (#1) [facility] Start: 03-14-2022 DEPRESSION ASSESSMENT DEPRESSION ASS ESSMENT [facility] Start: 2015 PROSTATE CANCER SCRE ENING DISCUSSION PROSTATE CANCER SCREENING DISCUSSION [facility] Start: 2010 Influenza vaccination LUNG CANCER SC REENING [facility] Start: 2010 SHINGRIX VACCINE (1 of 2) SHINGRIX V ACCINE (1 of 2) [facility] Start: 2005 COLOGUARD (FIT-DNA) COLOGUARD (FIT-D NA) [facility] Start: 2005 Colonoscopy COLONOSCOPY [facility] Start: 2005 COLORECTAL CANCER SCREENING COLORECTAL CANCER SCREENING [facility] Start: [address] COLONOGRAPHY [facility] Start: 2005 DIABETES SCREEN DIABETES SCREEN [facility] Start: 2005 FECAL OCCULT BLOOD FECAL OCCULT BLOO D [facility] Start: 2005 SIGMOIDOSCOPY SIGMOIDOSCOPY [facility] Start: 1995 LIPID SCREEN LIPID SCREEN [facility] Start: 1979 Urine microalbumin profile DTAP,TDAP ,TD (1 - Tdap) [facility] Start: 1978 HEPATITIS C SCREENING HEPATITIS C SC REENING [facility] Start: 1978 HIV SCREENING HIV SCREENING [facility] Start: 1966 PNEUMOCOCCAL (1 - PCV) PNEUMOCOCCAL (1 - PCV) [facility] Start: 1960 COVID-19 VACCINE (#1) COVID-19 VACCI NE (#1) [facility] Immunizations Immunization Date Immunization Notes Care Provider Stacie snow 07-19-2013 tetanus toxoid, redu tracy diphtheria toxoid, and acellular pertussis vaccine, adsorbed DARRIUS WENCESLAOTONI DO [facility] Payers Date Payer Category Payer Medicaid [facility] [id number] 2022-Present [phone] [place] [address] Medicaid [id number] 2022 Unknown [id number] Social History Date Type Detail Facility Start: 08-19-2020 Tobacco smoking status Heavy t obacco smoker (finding) [facility] Tobacco smoking status Never [facility] Sex Assigned At Sex [facility] Start: 11-12-2022 [facility] History of tobacco use [facility] Start: 11-12-2022 Cigarettes smoked cu rrent (pack per day) - Reported 2 [facility] Start: 11-12-2022 Tobacco use and exposure Smoke less tobacco non-user [facility] Start: 11-12-2022 Alcohol intake Current drinke r of alcohol (finding) [facility] Start: 11-12-[address] [facility] Start: 1960 Sex Assigned At Not on file [facility] Functional Status Date Assessment Result Facility 10-10-2021 Functional Status Independent [facility] 10-10-2021 Functional Status Standard Safet y ID band on, Call device within reach, Bed in low position, Wheels locked, Upper/Half-Length side-rails up, Phone within reach, personal items within reach, Assistive devices within reach, Toileting device within reach, Bedside Cart Locked, Visitor at bedside [facility] 10-04-2021 Functional Status ID band on, Call device within reach, Bed in low position, Wheels locked, Upper/Half-Length side-rails up, Phone within reach, personal items within reach, Assistive devices within reach, Toileting device within reach, Bedside Cart Locked, Visitor at bedside, Safety level maintained [facility] Mental Status Date Assessment Result Facility 10-10-2021 Mental Status Orientation Oriented x 4 [facility] 10-10-2021 Mental Status [facility] 10-04-2021 Mental Status Oriented x 4 [facility] Clinical Notes 10-04-2021 to 11-12-2022 Bean Arevalo APRN.MODULAR HOME CREW MEMBER - 11/12/2022 9:26 AM EDT Note Date & Type Note Facility 11-12-2022 Note HNO ID: [id number] Author: Bean Arevalo APRN.MODULAR HOME CREW MEMBER Service: ? Author Type: Nurse Practitioner Type: [...] agrees with plan of care. Bean Arevalo APRN.[facility] 11-12-2022 History of Present illness Narrative [...] Bean Arevalo APRN.SHARON documented in this encounter [facility] 08-19-2022 Note HNO ID: [id number] Author: Mar Lee APRN.SHARON Service: ? Author Type: Nurse Practitioner Type: Progress Notes Filed: 08/19/2022 7:24 PM Note Text: This note was created using [employer]. Subjective Aidee Cook is a 62 year [...] history is provided by the patient. No golf club weigher was used. Eye Problem This is a [...] No weakness. Coord (more content not included)... [facility] 10-10-2021 Hospital Discharge instructions Patient Education 10/10/2021 [...] for support. Classes and counselors. Quit-smoking classes softball coach people like you through the process. [...] your health. For more information National Cancer [place] Smoking Quitline, smokefree.gov/oqmvg-fa-hy-expert, 643-93K-QHNH (435-290-5673) 7026-3168 [employer]. [address] [place] [address]. All rights reserved. This information is not [...] neck Chest pain not caused by coughing 7544-1835 [employer]. [address] [place] [address], [place] [id number]. All rights reserved. This information is not intended as a substitute for professional medical care. Always follow your healthcare professional's instructions. Follow Up Care 10/10/2021 09:13:12 With:REMEDIOS ALEXANDRE Address: [address] [place] [address] [facility] (1) When:2-4 days With:Call Physician Referral Address:Unknown When:2-4 days With:Follow up with primary care provider Address:Unknown When:2-4 days With:CHAD SMITH MD Address: [address] [facility] [address] [place], [place] [phone] [phone] When:2-4 days [facility] 10-10-2021 Emergency department Discharge summary Discharge Instructions Thank you for allowing [facility] to assist you with your healthcare needs. The following is important discharge information regarding your hospital visit. Diagnosis from Today's Visit Pneumonia Back pain What to Do Next Instructions from Your Care Team No qualifying data available. Post Acute Orders No qualifying data available. You Need to Schedule the Following Appointments Follow Up with REMEDIOS ALEXANDRE When Within 2-4 days Where: [address] [place] [address] [facility] (1) Follow Up with Call Physician Referral When Within 2-4 days Follow Up with Follow up with primary care provider When Within 2-4 days Follow Up with CHAD SMITH MD When Within 2-4 days Where: [address] [place] [address] [address] [place] [address]- [phone] Allergies NKA Medications Please ask your primary [...] for support. Classes and counselors. Quit-smoking classes softball coach people like you through the process. [...] your health. For more information National Cancer [place] Smoking Quitline, smokefree.gov/yqdcs-co-xk-expert, 359-10W-FBKN (446-742-5154) 3494-[address] [employer] [place] [address]. All rights reserved. This information is not [...] neck Chest pain not caused by coughing 2430-1496 [employer]. [address] [place] [address]. All rights reserved. This information is not intended as a substitute for professional medical care. Always follow your healthcare professional's instructions. Additional Information VACCINATE! IT SAVES LIVES! Members of the community who have not yet received the COVID-19 vaccine and would like to receive it can visit one of [facility] vaccine clinics. There are many vaccine clinic locations within the [facility]. For locations and available times, please visit [email or web address] rg. It is important to note that some COVID mobile vaccine clinics are held outdoors and may be canceled in rainy or stormy conditions. To learn more about pediatric vaccinations (ages 5-11), we invite you to visit the [facility] webpage. https://www.[email or web address]/pa reva/6386-Qjlyb-Lhadopoplwb-Freque vrqq-Fxbzo-Kibeidzpx.html To learn more about the COVID-19 vaccine, we invite you to visit the [facility] website for a list of frequently asked questions. [email or web address]/assets/[email or web address] [email or web address]/[email or web address]-[email or web address]-Sun quently_Asked-Questions.pdf [facility] Patient Portal Access Instructions: Stay connected with your healthcare team and access your personal medical information anytime with the [facility] Patient Portal. If you would like a full copy of your medical records please contact the [facility] Medical Records Department Tuesday through Tuesday between 8a.m. and 4:30p.m. Please follow the directions below to access the portal: 1.Access the email account you provided upon registration to the [facility].2.Look for an invitation email from [facility].3.Open the email and access the invitation link: Accept Invitation to [facility].Fill in the required bourgeois to create your account. Sign into www.[email or web address] with your username and password that you [...] you will allow to register on the [facility] Patient Portal for access to your information. You can also access the [facility] Patient Portal on the Sincerely vicki. Simply click on Health Records under [...] Call your local pharmacy or go to http://bit.Isis [employer]opolymer/1O1Yi5c to find one close to you.3.Make use of household items: Use cat litter or old coffee grounds to dispose medications if other options are not available. Mix your drugs with these household products, seal them in an airtight container and throw it into the garbage. Call [facility]: [phone] to be sure your drugs can be [...] aware that I should contact my doctor. Patient/Case Loader Operator Signature: Date/Time: Relationship to Patient: ____ Witness Name/Signature: Date/Time: [facility] 10-10-2021 Note ORIGINAL EXAMINATION: CT OF THE [...] Sign Date: 10/10/2021 12:55:13 PM Ordering Provider: [facility] 10-10-2021 Note ORIGINAL EXAMINATION: TWO XRAY VIEWS [...] Sign Date: 10/10/2021 12:33:06 PM Ordering Provider: [facility] 10-10-2021 Note ORIGINAL EXAMINATION: CT OF THE [...] 10/10/2021 12:23:15 PM [facility] Note ORIGINAL EXAMINATION: CT OF THE [...] Sign Date: 10/10/2021 12:55:13 PM Ordering Provider: [facility] 10-10-2021 Note ORIGINAL EXAMINATION: CT OF THE [...] Sign Date: 10/10/2021 12:23:15 PM Ordering Provider: [facility] 10-10-2021 Note ORIGINAL EXAMINATION: TWO XRAY VIEWS [...] 10/10/2021 12:33:06 PM Ordering Provider: PUNEET [facility] 10-04-2021 Hospital Discharge instructions Patient [...] or legs Numbness in the groin area [phone] [employer]. [address] [place] [address], [place] [address]. All rights reserved. This information is not intended as a substitute for professional medical care. Always follow your healthcare professional's instructions. Follow Up Care 10/04/2021 11:26:41 With:Call Physician Referral Address:Unknown When:2-4 days With:Go to emergency room if symptoms worsen Address:Unknown When:2-4 days [facility] 10-04-2021 Note Discharge Instructions Thank you for allowing [facility] to assist you with your healthcare needs. [...] When Why Instructions Last Dose New acetaminophen-hydrocodone (Bronaugh 325- 5 mg oral tablet) 1 tab(s) [...] or legs Numbness in the groin area [phone] [employer]. [address] [place] [address]. All rights reserved. This information is not intended as a substitute for professional medical care. Always follow your healthcare professional's instructions. Additional Information VACCINATE! IT SAVES LIVES! Members of the community who have not yet received the COVID-19 vaccine and would like to receive it can visit one of [facility] vaccine clinics. There are many vaccine clinic locations within the [facility]. For locations and available times, please visit [email or web address] rg. It is important to note that some COVID mobile vaccine clinics are held outdoors and may be canceled in rainy or stormy conditions. To learn more about pediatric vaccinations (ages 5-11), we invite you to visit the [facility] webpage. https://[email or web address]/pa ges/1727-Pvaep-Soqenbgejeg-Freque juqk-Puuyo-Rhsplxndw.html To learn more about the COVID-19 vaccine, we invite you to visit the [facility] website for a list of frequently asked questions. [email or web address]://[email or web address]/assets/[email or web address] kb-[email or web address]/[email or web address]-[email or web address]-Fvh quently_Asked-Questions.pdf [facility] Patient Portal Access Instructions: Stay connected with your healthcare team and access your personal medical information anytime with the [facility] Patient Portal. If you would like a full copy of your medical records please contact the [facility] Medical Records Department Tuesday through Tuesday between 8a.m. and 4:30p.m. Please follow the directions below to access the portal: 1.Access the email account you provided upon registration to the hospital.2.Look for an invitation email from [facility].3.Open the email and access the invitation link: Accept Invitation to [facility]4.Fill in the required bourgeois to create your account. Sign into www.[employer] with your username and password that you [...] you will allow to register on the [facility] Patient Portal for access to your information. You can also access the [facility] Patient Portal on the Sincerely vicki. Simply click on Health Records under Health Data and then click on the [facility] logo. HOW TO SAFELY DISPOSE OF PRESCRIPTION [...] Call your local pharmacy or go to http://[employer].Isis [employer]opolymer/4U1Os8i to find one close to you.3.Make use of household items: Use cat litter or old coffee grounds to dispose medications if other options are not available. Mix your drugs with these household products, seal them in an airtight container and throw it into the garbage. Call [facility]: [phone] to be sure your drugs can be [...] aware that I should contact my doctor. Patient/Case Loader Operator Signature: Date/Time: Relationship to Patient: ____ Witness Name/Signature: Date/Time: [facility] Evaluation + Plan note No data available for this section [facility] documented [facility] encounter [facility] P[facility]EET MORALES DO: SIGN, VERIFY Event Display: EKG [ED AOH] - CV Authored Date: [facility] Summary Purpose Family History No Family History [...] DATE CREATED AUTHOR AUTHOR'S ORGANIZ ATION 11/13/2022 [facility] Source Comments (unrecognize d section and content) In the event this informatio n is protected by the Federal Confidentiality of Alcohol and Drug Abuse Patient Records regulations: The Federal rules restrict any use of the information to criminally investigate or prosecute any alcohol or drug abuse patient.[facility] Reason for Visit (unrecogniz ed section and [...] BE BASED ON THE PRIMARY CLINICAL RECORDS. [facility]. provides no warranty or guarantee of the accuracy or completeness of information in this document.
[2023-03-11] MEDS: 0.9% Normal Saline (1000mL) 1,000 ML 100 ML IV (15:14)
[2023-03-11] MEDS: Potassium Chloride Oral Tablet 20 MEQ 40 MEQ PO (15:17)
[2023-03-11 15:19] LABS: Reflex Lactate? Y
[2023-03-11 16:49] LABS: Lactic Acid 1.8 mmol/L (0.4-1.9)
[2023-03-11] MEDS: Ensure Plus High Protein 120 ML LIQUID PO (17:55)
[2023-03-11 18:08] LABS: Procalcitonin 3.43 ng/mL (0.00-0.09)
[2023-03-11] MEDS: guaiFENesin 1,200 MG Tablet 1200 MG PO (21:56)
[2023-03-11] MEDS: Heparin Injection (Vial) 5,000 UNIT/ML VIAL 5000 UNIT SC (21:56)
[2023-03-11] MEDS: Piperacil/Tazobactam 3.375 GM in 0.9% Normal Saline (50mL MB+) 50 ML IV (22:05)
[2023-03-11] MEDS: Acetaminophen 325 MG Tablet 650 MG PO (22:13)
--- NOTE | 2023-03-11 22:13 | NURSING ---
pt called in and and pt does not want any information to be given to son lida contreras. helga dodd
--- NOTE | 2023-03-11 22:16 | NURSING ---
registration notified and a note was added to chart
[2023-03-12] VITALS (7 sets, daily range): BP systolic 105–130; BP diastolic 55–71; PULSE 71–97; RESP 16–22; TEMP 36.3–37.2; O2SAT 85–97; BMI 19.3
[2023-03-12] MEDS: 0.9% Normal Saline (1000mL) 1,000 ML 100 ML IV (01:31)
[2023-03-12] MEDS: Piperacil/Tazobactam 3.375 GM in 0.9% Normal Saline (50mL MB+) 50 ML IV ×3 (04:46→20:42)
[2023-03-12 06:32] LABS: M R Staph aureus DNA By PCR Negative (Negative)
[2023-03-12 06:33] LABS: Probe Check PASS; Specimen Processing Control PASS
[2023-03-12 06:55] LABS: Absolute Neutrophil Count 6.4 X10^3/uL (2.0-7.7); Basophil# 0.01 X10^3/uL; Basophil% 0.1 % (0-1); Hematocrit 39.1 % (40-54); Hemoglobin 13.8 g/dL (13.0-16.5); Lymphocyte % 8.1 % (19-41); Mean Corp Hgb Conc 35.3 g/dL (32-36); Mean Corpuscular Volume 87.9 fL (80-94); Mean Platelet Vol. 11.3 fl (6.2-12.0); Monocyte# 0.38 X10^3/uL; Monocyte% 5.1 % (0-10); NRBC Flagged by Analyzer 0 % (0-5); Neutrophil # 6.41 X10^3/uL (2.7-7.7); POSITIVE DIFFERENTIAL YES; POSITIVE MORPHOLOGY YES; Platelet Count 106 K/mm3 (150-450); RBC Distribution Width CV 13.2 % (11.6-14.6); RBC Distribution Width SD 42.5 fl (35.1-43.9); Red Blood Count 4.45 M/mm3 (4.6-6.2); White Blood Count 7.5 K/mm3 (4.4-11.0)
[2023-03-12 07:21] LABS: ALB/GLOB Ratio 0.5 RATIO (0.9-2.4); AST(SGOT) 65 U/L (15-37); Alanine Aminotransfer ALT/SGPT 70 U/L (16-61); Albumin, Serum 2.3 g/dL (3.2-5.0); Alkaline Phosphatase 44 U/L (45-117); Anion Gap 5 (5-15); BUN 23 mg/dL (7-18); BUN/Creat Ratio 29.8 RATIO (10-20); Calcium,Total 8.3 mg/dL (8.5-10.1); Chloride 105 mmol/L (98-107); Creatinine, Serum 0.77 mg/dL (0.70-1.30); EST Glomerular Filtration Rate 108 mL/min (>60); Est Glom Filt Rate - Afr Amer 131 mL/min (>60); Globulin 4.3 g/dL (2.2-4.2); Glucose 172 mg/dL (74-106); Potassium 2.9 mmol/L (3.5-5.1); Protein, Total 6.6 g/dL (6.4-8.2); Sodium Level 134 mmol/L (136-145)
[2023-03-12] MEDS: Thiamine Hydrochloride 100 MG Tablet PO (07:57)
[2023-03-12] MEDS: Multivitamins,Ther W-Minerals Tablet 1 TABLET PO (07:57)
[2023-03-12] MEDS: guaiFENesin 1,200 MG Tablet 1200 MG PO ×2 (07:57→20:38)
[2023-03-12] MEDS: Folic Acid 1 MG Tablet PO (07:58)
[2023-03-12] MEDS: Heparin Injection (Vial) 5,000 UNIT/ML VIAL 5000 UNIT SC ×2 (07:58→20:36)
[2023-03-12 08:02] LABS: Differential Indicated SCAN CRITERIA MET
[2023-03-12 09:15] LABS: Differential Comment SCANNED; Reactive Lymphocyte 1+
[2023-03-12] MEDS: Ensure Plus High Protein 120 ML LIQUID PO (09:23)
--- NOTE | 2023-03-12 12:55 | CASEMGMT ---
RN CM Face to Face with patient for initial transition planning/care coordination assessment. RN CM introduced self and role at [facility]. Patient lying in bed, alert and oriented. Patient willing to participate in assessment and is able to answer all questions appropriately. Care providers, pharmacy, and demographics verified. Patient wishes to discharge home, denies need for home health at this time. Patient states he has no further needs or concerns at this time. CM to follow for discharge planning needs that may arise. PCP: Clary Hodge Specialists: Tahmina bottling line attendant Preferred Pharmacy: [facility] Insurance: [employer] Prescription Benefit: yes Living Will/HPOA: yes, Valeria Cook LNOK: Living Arrangements: Patient lives with in a 2 story home. Patient is independent and able to ambulate stairs. Transportation: self, DME/HHC: Patient has shower chair, raised toilet, walker at home. Will monitor for home oxygen, prefers [employer]. No previous HHC or SNF Disposition Plan: Patient to discharge home with family support and follow-up plans in place. Samantha PHILIP, RN, CM
--- NOTE | 2023-03-12 14:01 | PN_ITS ---
Subjective Subjective Patient seen and examined. He was comfortably sitting in a chair. He had no active complaints. He denied any cough, chest pain, palpitations, dizziness, nausea vomiting or any other symptoms. Review of systems otherwise negative. Objective Data Objective Data Vital Signs: Vital Signs Temp Pulse Resp BP Pulse Ox O2 Del Method O2 Flow Rate 99 F 80 18 105/55 L 97 Room Air 2 03/12/23 11:25 03/12/23 11:25 03/12/23 11:25 03/12/23 11:25 03/12/23 11:25 03/12/23 13:07 03/12/23 07:40 Oxygen Flow Rate (L/min) 2 Oxygen Delivery Method Room Air Weight: 138 lb 10.732 oz Body Mass Index (BMI) 19.3 Intake & Output: Intake and Output for Last 24 Hours 03/10/23 03/11/23 03/12/23 23:59 23:59 23:59 Intake Total 2900 / 2900 Balance 2900 / 2900 Medical Nutrition Assessment Dietitian: Malnutrition Criteria Met Start: 03/11/23 15:49 Freq: Status: Active Protocol: Document 03/11/23 15:49 SLA (Rec: 03/11/23 15:49 SLA Desktop) Nutrition Malnutrition Evidence of Malnutrition Exists Yes Malnutrition (severe): Acute Illness/Injury Evidenced By Suboptimal Energy Intake ( Severe),Weight Loss (Severe), Physical Changes (Moderate) Clinical Problem Acute Disease or Injury Related Malnutrition Etiology related to acute illness and inadequate oral intake Signs/Symptoms as evidenced by <75% of est nutritional needs and ~ 6% wt loss of median UBW in past 10 days; BMI 19.3 and fat/muscle loss throughout body. Status Active Problem Recommendation Dietitian Recommendations/Changes Continue liberal regular diet d/t signs and symptoms of malnutrition Provide magic cup w/ lunch and dinner and give fortified foods w/ meals tid as able Rec consider appetite stimulant if poor po intake continues. Lab / Micro Data 03/12/23 06:27 03/12/23 06:27 Labs: Laboratory Results - last 24 hr 03/11/23 11:00: Phosphorus 3.0 03/11/23 15:45: Lactic Acid 1.8, Procalcitonin 3.43 H 03/12/23 05:00: MRSA (PCR) Negative 03/12/23 06:27: WBC 7.5, RBC 4.45 L, Hgb 13.8, Hct 39.1 L, MCV 87.9, MCH 31.0, MCHC 35.3, RDW Std Deviation 42.5, RDW Coeff of Kp 13.2, Plt Count 106 L, MPV 11.3, Immature Gran % (Auto) 0.700, Neut % (Auto) 86.0 H, Lymph % (Auto) 8.1 L, [place] % (Auto) 5.1, Eos % (Auto) 0.0, Baso % (Auto) 0.1, Absolute Neuts (auto) 6.4, Absolute Lymphs (auto) 0.60 L, Nucleated RBC % 0, Differential Comment SCANNED, Reactive Lymphocytes 1+, Sodium 134 L, Potassium 2.9 L, Chloride 105, Carbon Dioxide 24.0, Anion Gap 5, BUN 23 H, Creatinine 0.77, Estim Creat Clear Calc 88.50, Est GFR (MDRD) Af Amer 131, Est GFR (MDRD) Non-Af 108, BUN/Creatinine Ratio 29.8 H, Glucose 172 H, Calcium 8.3 L, Total Bilirubin 0.60, AST 65 H, ALT 70 H, Alkaline Phosphatase 44 L, Total Protein 6.6, Albumin 2.3 L, Globulin 4.3 H, Albumin/Globulin Ratio 0.5 L Micro: Microbiology 03/11/23 15:24 Mucosa - Nasopharyngeal Respiratory Panel (PCR) - Final Influenza A (Subtype H1) 03/11/23 15:54 Urine, Clean Catch Legionella Antigen - Final 03/11/23 15:54 Urine, Clean Catch Streptococcus pneumoniae Antigen (M - Final 03/11/23 11:00 Mucosa - Nose SARS-CoV-2, Influenza & RSV (PCR) - Final Influenzae A Physical Exam Const alert, oriented x3 and no apparent distress Constitutional Narrative: frail General Appearance: cooperative HEENT normocephalic, head/scalp atraumatic, moist oral mucous membranes and oropharynx normal Eyes PERRL and EOMs intact bilaterally Neck no lymphadenopathy and supple Lymph Lymphatic: no lymphadenopathy noted and no lymphedema noted Resp Resp Narrative: mildly diminished breath sounds bibasally, no wheezes or crackles. On room air. Cardio regular rate, regular rhythm, S1 normal heart sound, S2 normal heart sound and no murmurs GI normal to inspection, nondistended, normoactive bowel sounds, soft to palpation and non-tender Extremity normal capillary refill, no clubbing, cyanosis or edema and no calf tenderness General Extremity: no tenderness to palpation of joints or extremities Skin General Skin Exam: no breakdown Neuro CN's II-XII intact bilaterally and no focal motor deficits Motor Exam: strength 5/5 throughout and general weakness Psych thought process normal, cooperative and affect normal Appearance: appropriate Assessment & Plan Assessment/Plan (1) Influenza: (2) Dehydration: (3) Bilateral pneumonia: PLAN: Plan #Hypoxia due to COPD exacerbation and influenza A infection with superimposed pneumonia * Now on room air. Feels better. On IV Solu-Medrol as well as IV Zosyn. * Breathing treatments bronchodilators. Titrate oxygen to maintain saturation above 90%. * sputum cultures and blood cultures pending. Urine for strep and legionella pending * #DA: resolved. Cr trending down with IVF # Electrolyte abnormalities: Has hyponatremia hypochloremia and hypokalemia. These have now resolved. #Severe protein calorie malnutrition: Nutrition consulted. BMI is 19.3. #Right lower lobe lung mass: * Has a known mass and follows with oncology and pulmonology. * Has had negative biopsies and negative PET scans. * Currently having watchful waiting. To follow up with oncology and pulmonology on outpatient basis * #Nicotine dependence: counseled to quit. Nicotine patch 21mg daily DVT prophylaxis: heparin Code status: DNRCCA no intubation Charges/Coding Visit Charges Inpatient E&M: 82081 Subs Hosp L2
--- NOTE | 2023-03-12 16:00 | NURSING ---
son lida in to see pt. requesting information. explained that nursing us unable to give any information to him. that is he wants to ask pt, pt can tell him any information the pt wants to tell him.
[2023-03-12] MEDS: BENZOCAINE/MENTHOL 1 LOZENGE MUCOUS MEM (17:53)
--- NOTE | 2023-03-12 19:05 | CPS ---
Pt refusing vest therapy and aerosol txs.
[2023-03-12] MEDS: Ondansetron 4 MG/2 ML Vial IV (20:33)
[2023-03-12] MEDS: Potassium Chloride Oral Tablet 20 MEQ 40 MEQ PO (20:38)
[2023-03-13 03:26] VITALS: BP 124/54; PULSE 51; RESP 20; TEMP 36.7; O2SAT 95
[2023-03-13 05:44] VITALS: BMI 19.8
[2023-03-13 06:24] LABS: Absolute Lymphocyte Count 1.22 X10^3/uL (0.83-4.51); Absolute Neutrophil Count 7.1 X10^3/uL (2.0-7.7); Basophil# 0.01 X10^3/uL; Basophil% 0.1 % (0-1); Hematocrit 35.9 % (40-54); Hemoglobin 12.7 g/dL (13.0-16.5); Lymphocyte # 1.22 X10^3/ul (0.83-4.51); Lymphocyte % 13.6 % (19-41); Mean Corp Hgb Conc 35.4 g/dL (32-36); Mean Corpuscular Hgb 31.3 pg (27.0-32.0); Mean Corpuscular Volume 88.4 fL (80-94); Mean Platelet Vol. 11.5 fl (6.2-12.0); Monocyte# 0.61 X10^3/uL; Monocyte% 6.8 % (0-10); NRBC Flagged by Analyzer 0 % (0-5); Neutrophil # 7.07 X10^3/uL (2.7-7.7); Neutrophil % 78.8 % (47-70); POSITIVE MORPHOLOGY YES; Platelet Count 141 K/mm3 (150-450); RBC Distribution Width CV 13.5 % (11.6-14.6); RBC Distribution Width SD 44.1 fl (35.1-43.9); Red Blood Count 4.06 M/mm3 (4.6-6.2)
[2023-03-13 06:31] LABS: Differential Indicated SCAN CRITERIA MET
[2023-03-13] MEDS: Piperacil/Tazobactam 3.375 GM in 0.9% Normal Saline (50mL MB+) 50 ML IV (06:35)
[2023-03-13] MEDS: 0.9% Saline Lock 10 ML Syringe IV (06:35)
[2023-03-13 06:49] LABS: Anion Gap 6 (5-15); BUN 23 mg/dL (7-18); BUN/Creat Ratio 31.6 RATIO (10-20); Calcium,Total 8.6 mg/dL (8.5-10.1); Chloride 105 mmol/L (98-107); Creatinine, Serum 0.73 mg/dL (0.70-1.30); EST Glomerular Filtration Rate 116 mL/min (>60); Est Glom Filt Rate - Afr Amer 140 mL/min (>60); Estimated Creatinine Clearance 95.42 ml/min; Glucose 170 mg/dL (74-106); Potassium 3.4 mmol/L (3.5-5.1); Sodium Level 134 mmol/L (136-145)
[2023-03-13] MEDS: guaiFENesin 1,200 MG Tablet 1200 MG PO (07:33)
[2023-03-13] MEDS: Heparin Injection (Vial) 5,000 UNIT/ML VIAL 5000 UNIT SC (07:33)
[2023-03-13] MEDS: Multivitamins,Ther W-Minerals Tablet 1 TABLET PO (07:33)
[2023-03-13] MEDS: Folic Acid 1 MG Tablet PO (07:34)
[2023-03-13] MEDS: Thiamine Hydrochloride 100 MG Tablet PO (07:34)
[2023-03-13] MEDS: Acetaminophen 325 MG Tablet 650 MG PO (07:38)
[2023-03-13 08:00] VITALS: O2SAT 96
[2023-03-13 08:30] VITALS: BP 146/67; PULSE 53; RESP 18; TEMP 36.9; O2SAT 95
[2023-03-13 08:51] LABS: Differential Comment SCANNED; Reactive Lymphocyte 1+
[2023-03-13 11:12] VITALS: BP 134/71; PULSE 50; RESP 18; TEMP 36.6; O2SAT 95
--- NOTE | 2023-03-13 12:38 | DCINST_ITS ---
Discharge Instructions Diet Discharge Diet: Low fat / Low cholesterol Activity Discharge Activity: Return to Normal Activity Weight Bearing Status: Weight bearing as tolerated Dressing / Incision Call your doctor if you observe: Fever of 101 or Higher, Shortness of breath, Dizziness, Swelling in the ankles and Chest pain Follow Up Care Test Results: Test results from this visit will be discussed in further detail at your follow- up appointment, if applicable. Discharge Plan Admission Admit Date/Time: 03/11/23 13:49 Primary Reason for Your Visit: influenza Attending Provider: Ban Bermudez Primary Care Provider: [facility] Clary Fisher Consulting Providers: Ana Corrales Instructions Patient Instructions: Adult Self-Care for Colds, ED Influenza (Adult) Discharge Orders/Prescriptions Prescriptions: New prednisone 20 mg tablet 40 mg PO DAILY Qty: 10 0RF levofloxacin 750 mg tablet 750 mg PO DAILY Qty: 7 0RF Continued albuterol sulfate 90 mcg/actuation HFA aerosol inhaler 2 puff inhalation Q4H PRN (Reason: shortness of breah) Trelegy Ellipta 100-62.5-25 mcg blister with device 1 inh inhalation DAILY Qty: 60 5RF [facility] - Disposition Disposition (needs filled in before D/C Order can be placed): Home, Self Care
--- NOTE | 2023-03-13 12:40 | PCM.DC.SUM ---
Providers Date of Admission: 03/11/23 Date of Discharge: 03/13/23 Primary Care Physician: Clary [facility] Reason For Visit: HYPOXIA / INFLUENZA / PNA / DA Diagnosis Discharge Diagnosis (1) Influenza: Status: Acute Code(s): J11.1 - Influenza due to unidentified influenza virus with other respiratory manifestations (2) Dehydration: Status: Acute Code(s): E86.0 - Dehydration (3) Bilateral pneumonia: Status: Acute Code(s): J18.9 - Pneumonia, unspecified organism Plan #Hypoxia due to COPD exacerbation and influenza A infection with superimposed pneumonia Now on room air. Feels better. On IV Solu-Medrol as well as IV Zosyn. Breathing treatments bronchodilators. Titrate oxygen to maintain saturation above 90%. sputum cultures and blood cultures pending. Urine for strep and legionella pending #DA: resolved. Cr trending down with IVF # Electrolyte abnormalities: Has hyponatremia hypochloremia and hypokalemia. These have now resolved. #Severe protein calorie malnutrition: Nutrition consulted. BMI is 19.3. #Right lower lobe lung mass: Has a known mass and follows with oncology and pulmonology. Has had negative biopsies and negative PET scans. Currently having watchful waiting. To follow up with oncology and pulmonology on outpatient basis #Nicotine dependence: counseled to quit. Nicotine patch 21mg daily DVT prophylaxis: heparin Code status: DNRCCA no intubation Medications at Discharge Home Medications albuterol sulfate 90 mcg/actuation aerosol inhaler 2 puff inhalation Q4H PRN shortness of breah 08/18/22 fluticasone fur. 100 mcg-umeclid 62.5 mcg-vilant 25 mcg inhalat.powder (Trelegy Ellipta) 1 inh inhalation DAILY #60 ea 11/18/22 levofloxacin 750 mg tablet 750 mg PO DAILY #7 tabs 03/13/23 prednisone 20 mg tablet 40 mg (2 x 20 mg) PO DAILY #10 tabs 03/13/23 Hospital Course Operations None Procedures None Summary of Care Provided Minutes Spent on Discharge: 47 Hospital Course: Patient is a 62-year-old male with an extensive past medical history as outlined who was admitted through the ED on 03/11/2023 with a complaint of generalized malaise with fatigue and shortness of breath as well as cough and muscle aches which have been going on for about 10 days prior to admission. His symptoms worsened so he came into the ED. He also had decreased appetite with poor oral intake. On admission he was tachypneic and was saturating at 91% on 3 L of oxygen. WBC was 9 and D-dimer was 1.87. CT of the chest done was negative for any evidence of PE. Troponins were also not elevated. CT of the chest was negative for PE but showed a left lower lobe patchy opacity with bilateral groundglass and tree-in-bud opacities due to probable pneumonia and a right lower lobe consolidation as well. COVID test was negative but influenza test was positive. He was admitted and managed for hypoxia due to influenza A infection and superimposed bacterial pneumonia. Patient was not started on Tamiflu as his symptoms are started 10 days prior to admission. He was started on broad-spectrum antibiotics. His shortness of breath improved and he felt better. He was weaned off of oxygen. Patient had an uncomplicated hospital stay and was discharged home on 03/13/2023 on p.o. Levaquin for 5-day course. He is follow-up with his primary care doctor within 1 to 2 weeks. It was also recommended that patient have home PT OT 5 times a week to help with his weakness. Patient seen and examined prior to discharge. He felt much better and had no active complaints. He had an uneventful night. Review of systems otherwise negative. Labs and vitals reviewed. Home medication reviewed and reconciled. Physical Exam Const alert, oriented x3 and no apparent distress Constitutional Narrative: frail General Appearance: cooperative and comfortable Exam Limitations: no limitations HEENT normocephalic, head/scalp atraumatic, hearing grossly normal bilaterally, moist oral mucous membranes and oropharynx normal Mouth: oral and palatal mucosa normal Eyes PERRL and EOMs intact bilaterally Neck no lymphadenopathy and supple Lymph Lymphatic: no lymphadenopathy noted and no lymphedema noted Resp Resp Narrative: mildly diminished breath sounds bibasally, no wheezes or crackles. On room air. Cardio regular rate, regular rhythm, S1 normal heart sound, S2 normal heart sound and no murmurs GI normal to inspection, nondistended, normoactive bowel sounds, soft to palpation and non-tender Extremity normal to inspection, full ROM, normal capillary refill, no clubbing, cyanosis or edema and no calf tenderness General Extremity: no tenderness to palpation of joints or extremities Skin General Skin Exam: no breakdown Neuro oriented x3, CN's II-XII intact bilaterally, moves all extremities and no focal motor deficits Sensorium / Orientation: awake and alert Motor Exam: strength 5/5 throughout and general weakness Psych thought process normal, cooperative and affect normal Appearance: appropriate Medical Records Data Medical Nutrition Assessment Dietitian: Malnutrition Criteria Met Start: 03/11/23 15:49 Freq: Status: Active Protocol: Document 03/11/23 15:49 SLA (Rec: 03/11/23 15:49 SLA Desktop) Nutrition Malnutrition Evidence of Malnutrition Exists Yes Malnutrition (severe): Acute Illness/Injury Evidenced By Suboptimal Energy Intake ( Severe),Weight Loss (Severe), Physical Changes (Moderate) Clinical Problem Acute Disease or Injury Related Malnutrition Etiology related to acute illness and inadequate oral intake Signs/Symptoms as evidenced by <75% of est nutritional needs and ~ 6% wt loss of median UBW in past 10 days; BMI 19.3 and fat/muscle loss throughout body. Status Active Problem Recommendation Dietitian Recommendations/Changes Continue liberal regular diet d/t signs and symptoms of malnutrition Provide magic cup w/ lunch and dinner and give fortified foods w/ meals tid as able Rec consider appetite stimulant if poor po intake continues. Weight / BMI Weight Weight: 141 lb 12.116 oz Body Mass Index (BMI) 19.8 ABG / Lab / Microbiology Data 03/13/23 05:57 03/13/23 05:57 Laboratory: Laboratory Results - last 24 hr 03/13/23 05:57: WBC 9.0, RBC 4.06 L, Hgb 12.7 L, Hct 35.9 L, MCV 88.4, MCH 31.3, MCHC 35.4, RDW Std Deviation 44.1 H, RDW Coeff of Kp 13.5, Plt Count 141 L, MPV 11.5, Immature Gran % (Auto) 0.700, Neut % (Auto) 78.8 H, Lymph % (Auto) 13.6 L, [place] % (Auto) 6.8, Eos % (Auto) 0.0, Baso % (Auto) 0.1, Absolute Neuts (auto) 7.1, Absolute Lymphs (auto) 1.22, Nucleated RBC % 0, Differential Comment SCANNED, Reactive Lymphocytes 1+, Sodium 134 L, Potassium 3.4 L, Chloride 105, Carbon Dioxide 23.0, Anion Gap 6, BUN 23 H, Creatinine 0.73, Estim Creat Clear Calc 95.42, Est GFR (MDRD) Af Amer 140, Est GFR (MDRD) Non-Af 116, BUN/Creatinine Ratio 31.6 H, Glucose 170 H, Calcium 8.6 Microbiology: Microbiology 03/11/23 15:24 Mucosa - Nasopharyngeal Respiratory Panel (PCR) - Final Influenza A (Subtype H1) 03/11/23 15:54 Urine, Clean Catch Legionella Antigen - Final 03/11/23 15:54 Urine, Clean Catch Streptococcus pneumoniae Antigen (M - Final 03/11/23 11:00 Mucosa - Nose SARS-CoV-2, Influenza & RSV (PCR) - Final Influenzae A D/C Instructions Discharge Diet: Low fat / Low cholesterol Discharge Activity: Return to Normal Activity Weight Bearing Status: Weight bearing as tolerated Call your doctor if you observe: Fever of 101 or Higher, Shortness of breath, Dizziness, Swelling in the ankles and Chest pain Meaningful Use Info Meaningful Use Diagnoses (Choose all that apply): None applicable Discharge Plan Admission Admit Date/Time: 03/11/23 13:49 Primary Reason for Your Visit: influenza Attending Provider: Ban Bermudez Primary Care Provider: [facility] Clary Fisher Consulting Providers: Ana Corrales Instructions Patient Instructions: Adult Self-Care for Colds, ED Influenza (Adult) Discharge Orders/Prescriptions Prescriptions: New prednisone 20 mg tablet 40 mg PO DAILY Qty: 10 0RF levofloxacin 750 mg tablet 750 mg PO DAILY Qty: 7 0RF Continued albuterol sulfate 90 mcg/actuation HFA aerosol inhaler 2 puff inhalation Q4H PRN (Reason: shortness of breah) Trelegy Ellipta 100-62.5-25 mcg blister with device 1 inh inhalation DAILY Qty: 60 5RF [facility] - Disposition Disposition (needs filled in before D/C Order can be placed): Home, Self Care Charges/Coding Visit Charges Inpatient E&M: 01098 Disch Hosp >30min
== END 2023-03-13 12:51 | disposition home or self-care (01) | DRG 139 ==
LOC: ED 13:54 → MS3 13:59
PROVIDERS: Admitting Provider Family Medicine; Emergency Provider Emergency Medicine; Visit Provider Student in an Organized Health Care Education/Training Program
DX: J10.08 Influenza due to other identified influenza virus with other specified pneumonia (principal); E43 Unspecified severe protein-calorie malnutrition; E87.20 Acidosis, unspecified; E87.1 Hypo-osmolality and hyponatremia; N17.9 Acute kidney failure, unspecified; J47.0 Bronchiectasis with acute lower respiratory infection; J47.1 Bronchiectasis with (acute) exacerbation; J43.9 Emphysema, unspecified; F10.10 Alcohol abuse, uncomplicated; J15.9 Unspecified bacterial pneumonia; E87.8 Other disorders of electrolyte and fluid balance, not elsewhere classified; E87.6 Hypokalemia; E86.0 Dehydration; F17.210 Nicotine dependence, cigarettes, uncomplicated; Z68.1 Body mass index [BMI] 19.9 or less, adult; R09.02 Hypoxemia; R53.81 Other malaise; Z11.52 Encounter for screening for COVID-19; Z79.51 Long term (current) use of inhaled steroids; Z66 Do not resuscitate; Z79.899 Other long term (current) drug therapy
CPT/HCPCS: 36415; 71045; 71275; 80048; 80053; 83605; 83735; 83880; 84100; 84145; 84484; 85025; 85379; 87040; 87070; 87205; 87449; 87631; 87633; 87641; 93005; 94640; 94667; 94668; 94762; 97116; 97162; 97166; 97530; 97802; 99252; 99285; 99406; J7030; Q9967; A4216; G0463; J2405

== ENCOUNTER → 2023-04-14 | Outpatient (CLI) | payer MEDICAID, SELFPAY ==
--- NOTE | 2023-04-14 14:45 | CT_ITS ---
INDICATION: F/U RLL NODULE /MASS -- IV CONTRAST ONLY EXAMINATION: CT CHEST WITH CONTRAST - CT Chest W/ Contrast Injection TECHNIQUE: Helically acquired images were obtained of the chest following IV contrast. A radiation dose optimization technique was used for this scan. IV Contrast dosage and agent: 100 mL [id number] Radiation Dose (provided by facility) CTDIvol (9.94 ) mGy, DLP ( 251.96) mGy-cm COMPARISON: CTA of 03/11/2023. CT of 01/10/2023. FINDINGS: LUNGS, PLEURA AND LARGE AIRWAYS: 1. There is an area of pleural and parenchymal scar at the RIGHT lung base, which is residua within the area of ovoid density on prior exam. There is a small noncalcified nodule in the periphery of the area of scar measuring approximately 7 x 7 mm (series 4: Image 76.) 2. Areas of groundglass infiltrate in the LEFT lung base and in the periphery LEFT upper lobe. No lobar consolidation. Scattered areas of irregular pleural thickening noted bilaterally without change. THYROID: No thyroid lesions. HEART AND PERICARDIUM: Heart size is normal. No pericardial effusion. Scattered coronary vascular calcifications are present. VESSELS: Thoracic aorta is not dilated. No aortic dissection. No obvious central pulmonary embolism although this study was not performed with the pulmonary embolism protocol. MEDIASTINUM AND MILADY: Scattered lymph nodes are present in the mediastinum and hilar regions, largest is a subcarinal node measuring approximately 1.7 x 1.3 cm. Esophagus is unremarkable. No hiatal hernia. UPPER ABDOMEN: No acute pathology. BONES: No suspicious lytic or blastic abnormality. CT/Chest WITH Contrast IMPRESSION: 1. Residual area of pleural-parenchymal scar at the RIGHT lung base with a small peripheral nodule measuring approximately 7 x 7 mm. This likely represents an area of residual opacified bronchiectasis. 2. Diffuse interstitial and groundglass infiltrate in the periphery of the LEFT upper lobe and LEFT lower lobe. No airspace consolidation. 3. No pleural effusion. 4. Coronary vascular calcifications are present. No pericardial effusion. Electronically Signed: Norberto Anthony MD at 22:22 EST ,
[2023-04-14 15:26] LABS: CREATININE FINGERSTICK 1.1 mg/dL (0.70-1.30); EGFR FINGERSTICK > 60.0000 mL/min (>60)
--- OUTSIDE RECORDS SUMMARY | 2023-04-14 18:43 | XMS RPT_ITS | CCD ---
Author Name Unknown Address [address] [place] [address] Organization [facility] Care Team Providers Care Engraver Lettering Name Role Phone PHYSICIAN, NONE Primary Care Physician [facility], Clary Hodge Primary Care Provider Un available ALISSA VENTURA Primary Care Unavailable Medications Current Medications Medication Drug Class(es) Dates Sig (Normalized) Sig (Original) acetaminophen 325 mg / HYDROcodone bitartrate 5 mg oral tablet (1 source) Opioid Agonist Start: 10-04-2021 End: 10-07-2021 take 1 tablet by mouth every six hours as needed for pain Hurt 325- 5 mg oral tablet Dose = [...] Drug Class(es) Dates Sig (Normalized) Sig (Original) [id number] 200 actuat albuterol 0.09 mg/actuat metered dose [...] 09:24-0400 Body temperature 97.81 [degF] Bean Arevalo APRN.WALL CRANE OPERATOR Work Phone: [facility] 11-12-2022 09:24-0400 Body weight 66.5 kg Bean Arevalo APRN.WALL CRANE OPERATOR Work Phone: [facility] 11-12-2022 09:24-0400 Diastolic blood pressure 90 mm[Hg] Bean Arevalo APRN.WALL CRANE OPERATOR Work Phone: [facility] 11-12-2022 09:24-0400 Heart rate 95 /min Bean Arevalo APRN.WALL CRANE OPERATOR Work Phone: [facility] 11-12-2022 09:24-0400 Respiratory rate 22 /min Bean Arevalo APRN.WALL CRANE OPERATOR Work Phone: [facility] 11-12-2022 09:24-0400 SaO2% (BldA) [Mass fraction] 97 % Bean Turpinkelsey CLERK GENERAL.WALL CRANE OPERATOR Work Phone: [facility] 11-12-2022 09:24-0400 Systolic blood pressure 150 mm[Hg] Bean Arevalo CLERK GENERAL.WALL CRANE OPERATOR Work Phone: [facility] 10-10-2021 13:42-0400 Diastolic blood pressure 75 mm[Hg] PUNEET MORALES DO [facility] 10-10-2021 13:42-0400 Heart rate 75 /min PUNEET MORALES DO [facility] 10-10-2021 13:42-0400 Respiratory rate 18 /min PUNEET MORALES DO [facility] 10-10-2021 13:42-0400 Systolic blood pressure 155 mm[Hg] PUNEET MORALES DO [facility] 10-10-2021 09:18-0400 Body temperature 98.06 [degF] PUNEET MORALES DO [facility] 10-10-2021 09:18-0400 Diastolic blood pressure 78 mm[Hg] PUNEET MORALES DO [facility] 10-10-2021 09:18-0400 Heart rate 72 /min PUNEET MORALES DO [facility] 10-10-2021 09:18-0400 Respiratory rate 18 /min PUNEET MORALES DO [facility] 10-10-2021 09:18-0400 Systolic blood pressure 130 mm[Hg] PUNEET MORALES DO [facility] 10-04-2021 11:31-0400 Body temperature 99.32 [degF] DARRIUS KAPADIAT DO [facility] 10-04-2021 11:31-0400 Diastolic blood pressure 55 mm[Hg] DARRIUS HAJI DO [facility] 10-04-2021 11:31-0400 Heart rate 66 /min DARRIUS HAJI DO [facility] 10-04-2021 11:31-0400 Respiratory rate 18 /min DARRIUS HAJI DO [facility] 10-04-2021 11:31-0400 Systolic blood pressure 116 mm[Hg] DARRIUS HAJI DO [facility] Encounters Encounter Date Encounter Type Care Provider Facility Start: 11-12-2022 End: 11-12-2022 ambulatory ALISSA LORENZO Facility:[facility] Start: 11-12-2022 End: 11-12-2022 Patient encounter procedure Bean Arevalo APRN.WALL CRANE OPERATOR Work Phone: [facility] Procedures Date Procedure Procedure Detail Performing Clinician Esophagogastroduoden oscopy gastric outlet reduction DARRIUS HAJI DO Plan of Treatment Date Care Activity Detail Author Start: 11-12-2022 Influenza vaccination INFLUENZA (#1) [facility] Start: 03-14-2022 DEPRESSION ASSESSMENT DEPRESSION ASS ESSMENT [facility] Start: 2015 PROSTATE CANCER SCRE ENING DISCUSSION PROSTATE CANCER SCREENING DISCUSSION [facility] Start: 2010 Influenza vaccination LUNG CANCER SC REENING [facility] Start: 2010 SHINGRIX VACCINE (1 of 2) SHINGRIX V ACCINE (1 of 2) [facility] Start: 2005 COLOGUARD (FIT-DNA) COLOGUARD (FIT-D NA) [facility] Start: 2005 Colonoscopy COLONOSCOPY [facility] Start: 2005 COLORECTAL CANCER SCREENING COLORECTAL CANCER SCREENING [facility] Start: [address] COLONOGRAPHY [facility] Start: 2005 DIABETES SCREEN DIABETES SCREEN [facility] Start: 2005 FECAL OCCULT BLOOD FECAL OCCULT BLOO D [facility] Start: 2005 SIGMOIDOSCOPY SIGMOIDOSCOPY [facility] Start: 1995 LIPID SCREEN LIPID SCREEN [facility] Start: 1979 Urine microalbumin profile DTAP,TDAP ,TD (1 - Tdap) [facility] Start: 1978 HEPATITIS C SCREENING HEPATITIS C SC REENING [facility] Start: 1978 HIV SCREENING HIV SCREENING [facility] Start: 1966 PNEUMOCOCCAL (1 - PCV) PNEUMOCOCCAL (1 - PCV) [facility] Start: 1960 COVID-19 VACCINE (#1) COVID-19 VACCI NE (#1) [facility] Immunizations Immunization Date Immunization Notes Care Provider Stacie snow 07-19-2013 tetanus toxoid, redu tracy diphtheria toxoid, and acellular pertussis vaccine, adsorbed DARRIUS WENCESLAOTONI DO [facility] Payers Date Payer Category Payer Medicaid [facility] [id number] 2022-Present [phone] [place] [address] Medicaid [id number] 2022 Unknown [id number] Social History Date Type Detail Facility Start: 08-19-2020 Tobacco smoking status Heavy t obacco smoker (finding) [facility] Tobacco smoking status Never [facility] Sex Assigned At Sex [facility] Start: 11-12-2022 [facility] History of tobacco use Cigarette [facility] Start: 11-12-2022 Cigarettes smoked cu rrent (pack per day) - Reported 2 [facility] Start: 11-12-2022 Tobacco use and exposure Smoke less tobacco non-user [facility] Start: 11-12-2022 Alcohol intake Current drinke r of alcohol (finding) [facility] Start: 11-12-2022 Tobacco use panel [facility] Start: 1960 Sex Assigned At Not on file [facility] Functional Status Date Assessment Result Facility 10-10-2021 Functional Status Independent [facility] 10-10-2021 Functional Status Standard Safet y ID band on, Call device within reach, Bed in low position, Wheels locked, Upper/Half-Length side-rails up, Phone within reach, personal items within reach, Assistive devices within reach, Toileting device within reach, Bedside Cart Locked, Visitor at bedside [facility] 10-04-2021 Functional Status ID band on, Call device within reach, Bed in low position, Wheels locked, Upper/Half-Length side-rails up, Phone within reach, personal items within reach, Assistive devices within reach, Toileting device within reach, Bedside Cart Locked, Visitor at bedside, Safety level maintained [facility] Mental Status Date Assessment Result Facility 10-10-2021 Mental Status Orientation Oriented x 4 [facility] 10-10-2021 Mental Status [facility] 10-04-2021 Mental Status Oriented x 4 [facility] Clinical Notes 10-04-2021 to 11-12-2022 Bean Arevalo APRN.WALL CRANE OPERATOR - 11/12/2022 9:26 AM EDT Note Date & Type Note Facility 11-12-2022 Note HNO ID: [id number] Author: Bean Arevalo APRN.WALL CRANE OPERATOR Service: ? Author Type: Nurse Practitioner Type: [...] agrees with plan of care. Bean Arevalo APRN.[facility] 11-12-2022 History of Present illness Narrative [...] Bean Arevalo APRN.SHARON documented in this encounter [facility] 08-19-2022 Note HNO ID: [id number] Author: Mar Lee APRN.SHARON Service: ? Author Type: Nurse Practitioner Type: Progress Notes Filed: 08/19/2022 7:24 PM Note Text: This note was created using Helical IT Solutionsriter. Subjective Aidee Cook is a 62 year [...] history is provided by the patient. No salesforce business analyst was used. Eye Problem This is a [...] No weakness. Coord (more content not included)... [facility] 10-10-2021 Hospital Discharge instructions Patient Education 10/10/2021 [...] for support. Classes and counselors. Quit-smoking classes agile scrum coach people like you through the process. [...] your health. For more information National Cancer [place] Smoking Quitline, smokefree.gov/xiufz-fm-lv-expert, 298-68Z-QOGL (407-346-4496) 7816-8784 [employer]. [address] [place] [address]. All rights reserved. This information is not [...] neck Chest pain not caused by coughing [id number] [employer]. [address] [place] [address], [place] [id number]. All rights reserved. This information is not intended as a substitute for professional medical care. Always follow your healthcare professional's instructions. Follow Up Care 10/10/2021 09:13:12 With:REMEDIOS ALEXANDRE Address: [address] [place] [id number] [facility] (1) When:2-4 days With:Call Physician Referral Address:Unknown When:2-4 days With:Follow up with primary care provider Address:Unknown When:2-4 days With:CHAD SMITH MD Address: [address] [facility] [address] [place], [place] [id number]- [phone] When:2-4 days [facility] 10-10-2021 Emergency department Discharge summary Discharge Instructions Thank you for allowing [facility] to assist you with your healthcare needs. The following is important discharge information regarding your hospital visit. Diagnosis from Today's Visit Pneumonia Back pain What to Do Next Instructions from Your Care Team No qualifying data available. Post Acute Orders No qualifying data available. You Need to Schedule the Following Appointments Follow Up with REMEDIOS ALEXANDRE When Within 2-4 days Where: [address] [place] [address] [facility] (1) Follow Up with Call Physician Referral When Within 2-4 days Follow Up with Follow up with primary care provider When Within 2-4 days Follow Up with CHAD SMITH MD When Within 2-4 days Where: [address] [place] [address] [address] [place] [phone] Allergies NKA Medications Please ask your primary [...] for support. Classes and counselors. Quit-smoking classes agile scrum coach people like you through the process. [...] your health. For more information National Cancer [employer] [place] Smoking Quitline, smokefree.gov/nuyzb-lw-yn-expert, 032-87U-MUDJ (494-842-9524) 1783-[address] [employer] [place] [address]. All rights reserved. This information is not [...] neck Chest pain not caused by coughing [phone] [employer]. [address] [place] [address]. All rights reserved. This information is not intended as a substitute for professional medical care. Always follow your healthcare professional's instructions. Additional Information VACCINATE! IT SAVES LIVES! Members of the community who have not yet received the COVID-19 vaccine and would like to receive it can visit one of [facility] vaccine clinics. There are many vaccine clinic locations within the [facility]. For locations and available times, please visit [email or web address] rg. It is important to note that some COVID mobile vaccine clinics are held outdoors and may be canceled in rainy or stormy conditions. To learn more about pediatric vaccinations (ages 5-11), we invite you to visit the [facility] webpage. https://www.[facility].org/pa reva/5644-Rlnev-Nwsnxmdyhkd-Freque cdmg-Btsyy-Fxljmvfbf.html To learn more about the COVID-19 vaccine, we invite you to visit the [employer] website for a list of frequently asked questions. https://[employer]/assets/Belia uf-zos-Lvijeusw/bbdgu-Lfxeytt-Zyg quently_Asked-Questions.pdf [facility] Patient Portal Access Instructions: Stay connected with your healthcare team and access your personal medical information anytime with the [facility] Patient Portal. If you would like a full copy of your medical records please contact the [facility] Medical Records Department Tuesday through Tuesday between 8a.m. and 4:30p.m. Please follow the directions below to access the portal: 1.Access the email account you provided upon registration to the [facility].2.Look for an invitation email from [facility].3.Open the email and access the invitation link: Accept Invitation to [facility]4.Fill in the required bourgeois to create your account. Sign into [email or web address] with your username and password that you [...] you will allow to register on the [facility] Patient Portal for access to your information. You can also access the [facility] Patient Portal on the [employer] vicki. Simply click on Health Records under [...] Call your local pharmacy or go to http://bit.[employer]/9D4Yy3i to find one close to you.3.Make use of household items: Use cat litter or old coffee grounds to dispose medications if other options are not available. Mix your drugs with these household products, seal them in an airtight container and throw it into the garbage. Call [facility]: [phone] to be sure your drugs can be [...] aware that I should contact my doctor. Patient/It Technician Signature: Date/Time: Relationship to Patient: ____ Witness Name/Signature: Date/Time: [facility] 10-10-2021 Note ORIGINAL EXAMINATION: CT OF THE [...] Sign Date: 10/10/2021 12:55:13 PM [place]ing Provider[place] [facility] [place] Note ORIGINAL EXAMINATION: [...] Sign Date: 10/10/2021 12:33:06 PM Ordering Provider[place] [facility] [place]10-2021 Note ORIGINAL EXAMINATION: [...] 10/10/2021 12:23:15 PM [facility]ing [facility] Note ORIGINAL EXAMINATION: CT OF THE [...] Sign Date: 10/10/2021 12:55:13 PM [place]ing Provider[place] [facility] [place]-2021 Note ORIGINAL EXAMINATION: [...] Sign Date: 10/10/2021 12:23:15 PM Ordering Provider[place] [facility] [place]10-2021 Note ORIGINAL EXAMINATION: [...] Date: 10/10/2021 12:33:06 PM Ordering Provider: PUNEET [facility] 10-04-2021 Hospital Discharge instructions Patient [...] or legs Numbness in the groin area [phone] [employer]. [address] [place] [address], [place] [address]. All rights reserved. This information is not intended as a substitute for professional medical care. Always follow your healthcare professional's instructions. Follow Up Care 10/04/2021 11:26:41 With:Call Physician Referral Address:Unknown When:2-4 days With:Go to emergency room if symptoms worsen Address:Unknown When:2-4 days [facility] 10-04-2021 Note Discharge Instructions Thank you for allowing [facility] to assist you with your healthcare needs. [...] When Why Instructions Last Dose New acetaminophen-hydrocodone (Hurt 325- 5 mg oral tablet) 1 tab(s) [...] or legs Numbness in the groin area [phone] [employer]. [address] [place] [address]. All rights reserved. This information is not intended as a substitute for professional medical care. Always follow your healthcare professional's instructions. Additional Information VACCINATE! IT SAVES LIVES! Members of the community who have not yet received the COVID-19 vaccine and would like to receive it can visit one of [facility] vaccine clinics. There are many vaccine clinic locations within the [facility]. For locations and available times, please visit www.[email or web address] rg. It is important to note that some COVID mobile vaccine clinics are held outdoors and may be canceled in rainy or stormy conditions. To learn more about pediatric vaccinations (ages 5-11), we invite you to visit the [facility] webpage. https://www.Fieldw[employer].org/pa ges/5219-Oncho-Bwmeeusyxvm-Freque vsmv-Eorsl-Dhseqgigh.html To learn more about the COVID-19 vaccine, we invite you to visit the [facility] website for a list of frequently asked questions. https://[employer]/assets/Belia fv-yyw-Tqlqfxzb/qfrqj-Kyfjunh-Ipp quently_Asked-Questions.pdf [employer] Patient Portal Access Instructions: Stay connected with your healthcare team and access your personal medical information anytime with the [employer] Patient Portal. If you would like a full copy of your medical records please contact the [facility] Medical Records Department Tuesday through Tuesday between 8a.m. and 4:30p.m. Please follow the directions below to access the portal: 1.Access the email account you provided upon registration to the hospital.2.Look for an invitation email from [facility].3.Open the email and access the invitation link: Accept Invitation to [facility]4.Fill in the required bourgeois to create your account. Sign into www.[employer] with your username and password that you [...] you will allow to register on the [facility] Patient Portal for access to your information. You can also access the [facility] Patient Portal on the [employer] vicki. Simply click on Health Records under Health Data and then click on the [employer] logo. HOW TO SAFELY DISPOSE OF PRESCRIPTION [...] Call your local pharmacy or go to http://Graitec.[employer]/0Q2Mz1p to find one close to you.3.Make use of household items: Use cat litter or old coffee grounds to dispose medications if other options are not available. Mix your drugs with these household products, seal them in an airtight container and throw it into the garbage. Call [facility]: [phone] to be sure your drugs can be [...] aware that I should contact my doctor. Patient/It Technician Signature: Date/Time: Relationship to Patient: ____ Witness Name/Signature: Date/Time: [facility] Evaluation + Plan note No data available for this section [facility] documented in this encounter [facility] PUNEET MORALES DO: SIGN, VERIFY Event Display: EKG [ED AOH] - CV Authored Date: [facility] Summary Purpose Family History No Family History [...] content) DATE CREATED AUTHOR AUTHOR'S ORGANIZ ATION 04/01/2023 [facility] Source Comments (unrecognize d section and content) In the event this informatio n is protected by the Federal Confidentiality of Alcohol and Drug Abuse Patient Records regulations: The Federal rules restrict any use of the information to criminally investigate or prosecute any alcohol or drug abuse patient.[facility] Reason for Visit (unrecogniz ed [...] BE BASED ON THE PRIMARY CLINICAL RECORDS. [facility]. provides no warranty or guarantee of the accuracy or completeness of information in this document.
== END | disposition home or self-care (01) ==
LOC: CT 14:43
PROVIDERS: Referring Provider Internal Medicine Hematology & Oncology; Visit Provider Internal Medicine Hematology & Oncology
DX: R91.8 Other nonspecific abnormal finding of lung field (principal)
CPT/HCPCS: 71260; Q9967; A4216

== ENCOUNTER 2023-05-20 12:57 | Emergency (ER) | payer MEDICAID, SELFPAY ==
[2023-05-20 12:58] VITALS: BP 169/85; PULSE 105; RESP 18; TEMP 36.6; O2SAT 97
--- NOTE | 2023-05-20 13:02 | EKG12_ITS ---
Test Reason : Blood Pressure : / mmHG Vent. Rate : 103 BPM Atrial Rate : 103 BPM P-R Int : 128 ms QRS Dur : 082 ms QT Int : 374 ms P-R-T Axes : 078 082 066 degrees QTc Int : 489 ms Sinus tachycardia Otherwise normal ECG Confirmed by Eduardo Beckwith ([id number]), field map editor REJI SUE ([id number]) on 05/24/2023 7:04:22 AM Referred By: Confirmed By:Eduardo Beckwith
--- NOTE | 2023-05-20 13:02 | RAD_ITS ---
INDICATION: chest pain EXAMINATION/TECHNIQUE: X-RAY - XR Chest 1 View COMPARISON: CT scan of the chest of 04/14/2023. FINDINGS: LINES/DEVICES: None. LUNGS: The right lobe opacity corresponding to right lower lung parenchymal stranding seen on the previous CT scan. No new infiltrate is seen. No evidence of pleural effusions. MEDIASTINUM AND CARDIOVASCULAR STRUCTURES: Cardiac silhouette not enlarged. Central airways and mediastinal contour are unremarkable. BONES AND SOFT TISSUES: Unremarkable. RAD/Chest 1 View (Portable) IMPRESSION: Residual right lower lung opacity corresponding to CT findings. Otherwise no active pulmonary disease. Electronically Signed: Angel Luis Barajas MD at 14:27 EST ,
[2023-05-20 14:15] VITALS: BP 159/91; PULSE 84; RESP 14; O2SAT 97
[2023-05-20 14:32] LABS: Hematocrit 43.2 % (40-54); Hemoglobin 14.7 g/dL (13.0-16.5); Mean Corpuscular Hgb 31.2 pg (27.0-32.0); Mean Corpuscular Volume 91.7 fL (80-94); Mean Platelet Vol. 9.7 fl (6.2-12.0); POSITIVE COUNT YES; POSITIVE MORPHOLOGY YES; Platelet Count 92 K/mm3 (150-450); RBC Distribution Width SD 47.8 fl (35.1-43.9); Red Blood Count 4.71 M/mm3 (4.6-6.2); White Blood Count 7.4 K/mm3 (4.4-11.0)
[2023-05-20 14:35] LABS: Prothrombin Time (Protime)PT. 12.9 SECONDS (11.7-14.9)
--- NOTE | 2023-05-20 14:36 | ED.VIS.CHEST ---
HPI <GIRISH Robertson - Last Filed: 05/20/23 18:53> History of Present Illness Chief Complaint: Chest Pain Narrative Narrative: Patient presenting due to left-sided chest pain that started around 10:30 AM this morning. He reports that the pain is intermittent. He did have nausea and vomiting this morning and the chest pain seem to start afterwards. He reports that he did have generalized abdominal pain this morning which seems to have gone away. He reports that he always has a level of shortness of breath due to his history of COPD, he does not feel more short of breath than usual. He denies any cardiac history. He reports that he does have a brother who has had an [place] in the past. PMH includes COPD and Crohn's disease. PE Risk Factors: Negative for Recent Travel/Surgery, Recent Immobilization or Prior DVT or PE PFSH <GIRISH Robertson - Last Filed: 05/20/23 18:53> PFSH Medical History Alcohol abuse Arthritis Peacock's esophagus Blindness of left eye COPD (chronic obstructive pulmonary disease) Crohn disease Emphysema lung History of echocardiogram History of pain when walking Hypoxia Influenza Irregular heart beat Right lower lobe lung mass Shortness of breath on exertion Smoker Home Medications albuterol sulfate 90 mcg/actuation aerosol inhaler 2 puff inhalation Q4H PRN shortness of breah 08/18/22 [History Last Taken Unknown] fluticasone fur. 100 mcg-umeclid 62.5 mcg-vilant 25 mcg inhalat.powder (Trelegy Ellipta) 1 inh inhalation DAILY #60 ea 11/18/22 [Rx Last Taken Unknown] Allergy/AdvReac Type Severity Reaction Status Date / Time No Known Allergies Allergy Verified 05/20/23 12:59 Family History Father , from cancer Lung cancer Stomach cancer Brother Cancer unknown what type Sister Diabetes Mother Heart disease Myocardial infarction Brother Diabetes Heart disease Surgical History Hx of right cataract extraction Social History household members: spouse Smoking Status: Current every day smoker tobacco type: cigarettes Tobacco: How many years used: 56 Electronic Cigarette Use: not used second hand exposure: Yes alcohol intake: current alcohol intake frequency: 3 or more drinks per day details: 3-6, 24 ounce beers daily. substance use type: does not use ROS <GIRISH Robertson - Last Filed: 05/20/23 18:53> ROS ED Constitutional Constitutional ED: Denies chills or fever(s) Cardiovascular Cardiovascular: Reports chest pain; Denies palpitations Respiratory/Chest Respiratory/Chest: Denies cough or dyspnea Gastrointestinal Gastrointestinal: Reports abdominal pain, nausea and vomiting; Denies constipation or diarrhea Genitourinary Genitourinary ED: Denies dysuria, hematuria or urinary frequency Musculoskeletal Musculoskeletal: Denies arthralgias or myalgias Integumentary Denies rash Neurologic Neurologic: Denies weakness EXAM <GIRISH Robertson - Last Filed: 05/20/23 18:53> Physical Exam Const Vital Signs: 05/20/23 12:58 05/20/23 14:43 05/20/23 14:15 Temperature 98 F Temperature Source Temporal Pulse Rate 105 H 82 84 Respiratory Rate 18 14 Respiratory Effort Blood Pressure 169/85 H 160/90 H 159/91 H Blood Pressure Mean 113 113 Pulse Ox 97 97 Oxygen Delivery Method Room Air Room Air 05/20/23 14:15 05/20/23 14:15 05/20/23 15:00 Temperature Temperature Source Pulse Rate 69 Respiratory Rate 14 Respiratory Effort Normal Non-Labored Blood Pressure 148/91 H Blood Pressure Mean 110 Pulse Ox 97 100 Oxygen Delivery Method Room Air Room Air 05/20/23 16:00 05/20/23 16:45 Temperature 97.9 F Temperature Source Pulse Rate 66 66 Respiratory Rate 17 14 Respiratory Effort Blood Pressure 139/77 H 145/79 H Blood Pressure Mean 97 101 Pulse Ox 99 100 Oxygen Delivery Method Room Air Positive well nourished, well developed and no apparent distress General Appearance ED: well developed HEENT Reports normocephalic and head/scalp atraumatic Mouth ED: Yes moist mucous membranes normal Eyes PERRL and EOMs intact bilaterally Neck full ROM and supple Chest Wall inspection of chest normal Resp normal respiratory effort and clear to auscultation bilaterally Cardio regular rate and regular rhythm GI soft to palpation, non-tender, non-distended and no masses Back/Spine normal ROM and normal to inspection Extremity normal to inspection and full ROM Neuro oriented x3, CN's II-XII intact bilaterally, moves all extremities, no focal motor deficits and no sensory deficits noted Sensorium / Orientation: awake and alert Psych mental status grossly normal and thought process normal Skin no rashes or lesions noted and no wounds <Dr. Edilberto Alvarez DO - Last Filed: 05/20/23 21:58> Physical Exam Const Vital Signs: 05/20/23 12:58 05/20/23 14:43 05/20/23 14:15 Temperature 98 F Temperature Source Temporal Pulse Rate 105 H 82 84 Respiratory Rate 18 14 Respiratory Effort Blood Pressure 169/85 H 160/90 H 159/91 H Blood Pressure Mean 113 113 Pulse Ox 97 97 Oxygen Delivery Method Room Air Room Air 05/20/23 14:15 05/20/23 14:15 05/20/23 15:00 Temperature Temperature Source Pulse Rate 69 Respiratory Rate 14 Respiratory Effort Normal Non-Labored Blood Pressure 148/91 H Blood Pressure Mean 110 Pulse Ox 97 100 Oxygen Delivery Method Room Air Room Air 05/20/23 16:00 05/20/23 16:45 Temperature 97.9 F Temperature Source Pulse Rate 66 66 Respiratory Rate 17 14 Respiratory Effort Blood Pressure 139/77 H 145/79 H Blood Pressure Mean 97 101 Pulse Ox 99 100 Oxygen Delivery Method Room Air <GIRISH Robertson - Last Filed: 05/20/23 18:53> Heart Score History: Moderately Suspicious ECG: Normal Age: >45 - <65 years Risk Factors: 1 or 2 Risk Factors Troponin: </= Normal Limit Score: 3 <Dr. Edilberto Alvarez DO - Last Filed: 05/20/23 21:58> Heart Score Score: 3 MDM <GIRISH Robertson - Last Filed: 05/20/23 18:53> [facility] MDM Narrative Medical decision making narrative: Patient presenting due to chest pain that started this morning. He is well-appearing and in no acute distress. He does not have a cardiac history. Labs will be obtained to rule out ACS. He has a low Wells score, low suspicion for PE. He will be given aspirin and nitroglycerin. Chest x-ray will be obtained to rule out cardiopulmonary abnormality. He did have abdominal pain this morning, he reports this did seem to go away, abdomen is soft and nontender on exam. Nonsignificant delta troponin, labs overall are unremarkable. Chest x-ray negative for any acute findings. On reexamination he reports improvement of his symptoms. Patient has a heart score of 3, I did recommend cardiac testing and he would like to have this performed as an outpatient. He has not had a cardiac stress test performed, I did recommend that he call his PCP Tuesday to have this scheduled. I have given strict return instructions and he will be discharged home in stable condition. He is comfortable with plan. Lab Data Attestation: I reviewed the patient's lab results. Lab results narrative: Initial troponin 13, repeat troponin 11 Labs: Laboratory Results - last 24 hr 05/20/23 05/20/23 05/20/23 14:00 14:00 14:20 WBC Cancelled 7.4 Corrected WBC Cancelled RBC Cancelled 4.71 Hgb Cancelled 14.7 Hct Cancelled 43.2 MCV Cancelled 91.7 MCH Cancelled 31.2 MCHC Cancelled 34.0 RDW Std Deviation Cancelled 47.8 H RDW Coeff of Kp Cancelled 14.0 Plt Count Cancelled 92 L MPV Cancelled 9.7 Immature Gran % (Auto) Cancelled Neut % (Auto) Cancelled Not Reportable Lymph % (Auto) Cancelled Tucker % (Auto) Cancelled Eos % (Auto) Cancelled Baso % (Auto) Cancelled Absolute Neuts (auto) Cancelled 5.7 Absolute Lymphs (auto) Cancelled 1.48 Total Counted Cancelled 100 Neutrophils % (Manual) Cancelled 77 H Band Neutrophils % Cancelled Lymphocytes % (Manual) Cancelled 20 Monocytes % (Manual) Cancelled 3 Eosinophils % (Manual) Cancelled Basophils % (Manual) Cancelled Metamyelocytes % Cancelled Myelocytes % Cancelled Promyelocytes % Cancelled Blast Cells % Cancelled Plasma Cell % (Manual) Cancelled Other Cells % Cancelled Nucleated RBC % Cancelled Nucleated RBCs/100 WBC Cancelled Differential Comment Cancelled Diff Path Review Cancelled Hypersegmented Neuts Cancelled Atypical Lymphocytes Cancelled Reactive Lymphocytes Cancelled Smudge Cells Cancelled Toxic Granulation Cancelled Toxic Vacuolation Cancelled Dohle Bodies Cancelled Ruth Rods Cancelled Platelet Estimate Cancelled SLT DEC Plt Morphology Comment Cancelled RBC Morphology Cancelled Cancelled NORM C+C Polychromasia Cancelled Hypochromasia Cancelled Basophilic Stippling Cancelled Anisocytosis Cancelled Microcytosis Cancelled Macrocytosis Cancelled Spherocytes Cancelled Sickle Cells Cancelled Target Cells Cancelled Tear Drop Cells Cancelled Ovalocytes Cancelled Stomatocytes Cancelled [place] Bodies Cancelled [place] Cells Cancelled Bite Cells Cancelled Crenated Cell Cancelled Acanthocytes (Spur) Cancelled Rouleaux Cancelled Schistocytes Cancelled PT Cancelled 12.9 INR Cancelled 1.0 Sodium Cancelled 137 Potassium Cancelled 3.6 Chloride Cancelled 102 Carbon Dioxide Cancelled 27.0 Anion Gap Cancelled 8 BUN Cancelled 6 L Creatinine Cancelled 0.66 L Estim Creat Clear Calc Cancelled Est GFR (MDRD) Af Amer Cancelled 157 Est GFR (MDRD) Non-Af Cancelled 130 BUN/Creatinine Ratio Cancelled 9.1 L Glucose Cancelled 133 H Calcium Cancelled 9.5 Troponin I High Sens Cancelled 13 05/20/23 16:20 WBC Corrected WBC RBC Hgb Hct MCV MCH MCHC RDW Std Deviation RDW Coeff of Kp Plt Count MPV Immature Gran % (Auto) Neut % (Auto) Lymph % (Auto) Tucker % (Auto) Eos % (Auto) Baso % (Auto) Absolute Neuts (auto) Absolute Lymphs (auto) Total Counted Neutrophils % (Manual) Band Neutrophils % Lymphocytes % (Manual) Monocytes % (Manual) Eosinophils % (Manual) Basophils % (Manual) Metamyelocytes % Myelocytes % Promyelocytes % Blast Cells % Plasma Cell % (Manual) Other Cells % Nucleated RBC % Nucleated RBCs/100 WBC Differential Comment Diff Path Review Hypersegmented Neuts Atypical Lymphocytes Reactive Lymphocytes Smudge Cells Toxic Granulation Toxic Vacuolation Dohle Bodies Ruth Rods Platelet Estimate Plt Morphology Comment RBC Morphology Polychromasia Hypochromasia Basophilic Stippling Anisocytosis Microcytosis Macrocytosis Spherocytes Sickle Cells Target Cells Tear Drop Cells Ovalocytes Stomatocytes [place] Bodies [place] Cells Bite Cells Crenated Cell Acanthocytes (Spur) Rouleaux Schistocytes PT INR Sodium Potassium Chloride Carbon Dioxide Anion Gap BUN Creatinine Estim Creat Clear Calc Est GFR (MDRD) Af Amer Est GFR (MDRD) Non-Af BUN/Creatinine Ratio Glucose Calcium Troponin I High Sens 11 Radiography X-Ray: Read by ED Physician and Read by Radiologist Diagnostic Testing: Clinical Impression(s) from Imaging Studies Chest X-Ray 05/20/23 13:02 IMPRESSION: Residual right lower lung opacity corresponding to CT findings. Otherwise no active pulmonary disease. Electronically Signed: Angel Luis Barajas MD at 14:27 EST , EKG Initial EKG: Comments: 103 bpm, sinus tachycardia, no ST elevation, reviewed and interpreted by attending ED physician <Dr. Edilberto Alvarez, DO - Last Filed: 05/20/23 21:58> [facility] Narrative Medical decision making narrative: Patient presenting due to chest pain that started this morning. He is well-appearing and in no acute distress. He does not have a cardiac history. Labs will be obtained to rule out ACS. He has a low Wells score, low suspicion for PE. He will be given aspirin and nitroglycerin. Chest x-ray will be obtained to rule out cardiopulmonary abnormality. He did have abdominal pain this morning, he reports this did seem to go away, abdomen is soft and nontender on exam. Nonsignificant delta troponin, labs overall are unremarkable. Chest x-ray negative for any acute findings. On reexamination he reports improvement of his symptoms. Patient has a heart score of 3, I did recommend cardiac testing and he would like to have this performed as an outpatient. He has not had a cardiac stress test performed, I did recommend that he call his PCP Tuesday to have this scheduled. I have given strict return instructions and he will be discharged home in stable condition. He is comfortable with plan. Attending note: Patient seen and evaluated with domestic technician. I perform my own [id number] evaluation. I agree with the plan of work-up. Chest pains with pressure a few hours prior to arrival. No radicular symptoms. States tobacco history. Mother with [place] in the 60s. No hypertension diabetes hyperlipidemia. COPD and Crohn's history. Denies recent travel or surgeries. No history of PE or DVT. EKG sinus rhythm with no acute changes. Patient given aspirin and nitro. Symptoms improved with this. Cardiac workup troponin negative x 2. Patient heart score 3. Discussed considered admission with the patient, shared decision was made. Like to follow-up as an outpatient for testing. Will call his PCP for follow-up. Return precaution discussed. Lab Data Labs: Laboratory Results - last 24 hr 05/20/23 05/20/23 05/20/23 14:00 14:00 14:20 WBC Cancelled 7.4 Corrected WBC Cancelled RBC Cancelled 4.71 Hgb Cancelled 14.7 Hct Cancelled 43.2 MCV Cancelled 91.7 MCH Cancelled 31.2 MCHC Cancelled 34.0 RDW Std Deviation Cancelled 47.8 H RDW Coeff of Kp Cancelled 14.0 Plt Count Cancelled 92 L MPV Cancelled 9.7 Immature Gran % (Auto) Cancelled Neut % (Auto) Cancelled Not Reportable Lymph % (Auto) Cancelled Tucker % (Auto) Cancelled Eos % (Auto) Cancelled Baso % (Auto) Cancelled Absolute Neuts (auto) Cancelled 5.7 Absolute Lymphs (auto) Cancelled 1.48 Total Counted Cancelled 100 Neutrophils % (Manual) Cancelled 77 H Band Neutrophils % Cancelled Lymphocytes % (Manual) Cancelled 20 Monocytes % (Manual) Cancelled 3 Eosinophils % (Manual) Cancelled Basophils % (Manual) Cancelled Metamyelocytes % Cancelled Myelocytes % Cancelled Promyelocytes % Cancelled Blast Cells % Cancelled Plasma Cell % (Manual) Cancelled Other Cells % Cancelled Nucleated RBC % Cancelled Nucleated RBCs/100 WBC Cancelled Differential Comment Cancelled Diff Path Review Cancelled Hypersegmented Neuts Cancelled Atypical Lymphocytes Cancelled Reactive Lymphocytes Cancelled Smudge Cells Cancelled Toxic Granulation Cancelled Toxic Vacuolation Cancelled Dohle Bodies Cancelled Ruth Rods Cancelled Platelet Estimate Cancelled SLT DEC Plt Morphology Comment Cancelled RBC Morphology Cancelled Cancelled NORM C+C Polychromasia Cancelled Hypochromasia Cancelled Basophilic Stippling Cancelled Anisocytosis Cancelled Microcytosis Cancelled Macrocytosis Cancelled Spherocytes Cancelled Sickle Cells Cancelled Target Cells Cancelled Tear Drop Cells Cancelled Ovalocytes Cancelled Stomatocytes Cancelled [place] Bodies Cancelled Lety Cells Cancelled Bite Cells Cancelled Crenated Cell Cancelled Acanthocytes (Spur) Cancelled Rouleaux Cancelled Schistocytes Cancelled PT Cancelled 12.9 INR Cancelled 1.0 Sodium Cancelled 137 Potassium Cancelled 3.6 Chloride Cancelled 102 Carbon Dioxide Cancelled 27.0 Anion Gap Cancelled 8 BUN Cancelled 6 L Creatinine Cancelled 0.66 L Estim Creat Clear Calc Cancelled Est GFR (MDRD) Af Amer Cancelled 157 Est GFR (MDRD) Non-Af Cancelled 130 BUN/Creatinine Ratio Cancelled 9.1 L Glucose Cancelled 133 H Calcium Cancelled 9.5 Troponin I High Sens Cancelled 13 05/20/23 16:20 WBC Corrected WBC RBC Hgb Hct MCV MCH MCHC RDW Std Deviation RDW Coeff of Kp Plt Count MPV Immature Gran % (Auto) Neut % (Auto) Lymph % (Auto) Tucker % (Auto) Eos % (Auto) Baso % (Auto) Absolute Neuts (auto) Absolute Lymphs (auto) Total Counted Neutrophils % (Manual) Band Neutrophils % Lymphocytes % (Manual) Monocytes % (Manual) Eosinophils % (Manual) Basophils % (Manual) Metamyelocytes % Myelocytes % Promyelocytes % Blast Cells % Plasma Cell % (Manual) Other Cells % Nucleated RBC % Nucleated RBCs/100 WBC Differential Comment Diff Path Review Hypersegmented Neuts Atypical Lymphocytes Reactive Lymphocytes Smudge Cells Toxic Granulation Toxic Vacuolation Dohle Bodies Ruth Rods Platelet Estimate Plt Morphology Comment RBC Morphology Polychromasia Hypochromasia Basophilic Stippling Anisocytosis Microcytosis Macrocytosis Spherocytes Sickle Cells Target Cells Tear Drop Cells Ovalocytes Stomatocytes [place] Bodies [place] Cells Bite Cells Crenated Cell Acanthocytes (Spur) Rouleaux Schistocytes PT INR Sodium Potassium Chloride Carbon Dioxide Anion Gap BUN Creatinine Estim Creat Clear Calc Est GFR (MDRD) Af Amer Est GFR (MDRD) Non-Af BUN/Creatinine Ratio Glucose Calcium Troponin I High Sens 11 Radiography Diagnostic Testing: Clinical Impression(s) from Imaging Studies Chest X-Ray 05/20/23 13:02 IMPRESSION: Residual right lower lung opacity corresponding to CT findings. Otherwise no active pulmonary disease. Electronically Signed: Angel Luis Barajas MD at 14:27 EST , Discharge Plan Triage Chief Complaint: Chest Pain ED Midlevel Provider: Joceline Shah ED Provider: Edilberto Alvarez Dx/Rx/DC Orders Clinical Impression: History of COPD, Chest pain Instructions: ED Chest Pain, Uncertain Cause Prescriptions: No Action albuterol sulfate 90 mcg/actuation HFA aerosol inhaler 2 puff inhalation Q4H PRN (Reason: shortness of breah) Trelegy Ellipta 100-62.5-25 mcg blister with device 1 inh inhalation DAILY Qty: 60 5RF Primary Care Provider: Clary Covarrubias Referrals: [facility] Clary Fisher [Primary Care Provider] - 3-5 Days Activity Restrictions/Additional Instructions: Please follow-up with PCP, you should schedule a cardiac stress test. Return for any worsening of your symptoms. Disposition Disposition: Home, Self Care Discharge Date/Time: 05/20/23 17:00
[2023-05-20 14:43] VITALS: BP 160/90; PULSE 82
[2023-05-20] MEDS: Nitroglycerin SL (ED/IMG/CATH) 0.4 MG TABLET 0.400000000000000022 MG SL (14:43)
[2023-05-20] MEDS: Aspirin 81 MG TAB.CHEW 324 MG PO (14:43)
[2023-05-20 14:46] LABS: Anion Gap 8 (5-15); BUN 6 mg/dL (7-18); BUN/Creat Ratio 9.1 RATIO (10-20); Calcium,Total 9.5 mg/dL (8.5-10.1); Chloride 102 mmol/L (98-107); Creatinine, Serum 0.66 mg/dL (0.70-1.30); EST Glomerular Filtration Rate 130 mL/min (>60); Est Glom Filt Rate - Afr Amer 157 mL/min (>60); Glucose 133 mg/dL (74-106); Potassium 3.6 mmol/L (3.5-5.1); Sodium Level 137 mmol/L (136-145); Troponin-I HS (w/2H Reflex) 13 pg/mL (3.0-78.0)
[2023-05-20 14:54] LABS: Differential Indicated MANUAL DIFF
[2023-05-20 14:57] LABS: Lymphocyte 20 % (19-41); Monocyte 3 % (0-10); Neutrophil-Segmented 77 % (47-70); Total Cells Counted 100 (MANUAL DIFF)
[2023-05-20 14:58] LABS: Platelet Estimate SLT DEC (ADEQ); Red Cell Morphology NORM C+C NORMAL (NORM C&C)
[2023-05-20 15:00] VITALS: BP 148/91; PULSE 69; RESP 14; O2SAT 100
[2023-05-20 15:00] LABS: Absolute Lymphocyte Count 1.48 X10^3/uL (0.83-4.51); Absolute Neutrophil Count 5.7 X10^3/uL (2.0-7.7)
--- OUTSIDE RECORDS SUMMARY | 2023-05-20 15:37 | XMS RPT_ITS | CCD ---
Author Name Unknown Address [address] [place] [address] Organization [facility] Care Team Providers [facility] Controls Engineer Name Role Phone PHYSICIAN, NONE Primary Care Physician [facility], Clary Hodge Primary Care Provider Un available ALISSA VENTURA Primary Care Unavailable Medications Current Medications Medication Drug Class(es) Dates Sig (Normalized) Sig (Original) acetaminophen 325 mg / HYDROcodone bitartrate 5 mg oral tablet (1 source) Opioid Agonist Start: 10-04-2021 End: 10-07-2021 take 1 tablet by mouth every six hours as needed for pain [place] 325- 5 mg oral tablet Dose = [...] Drug Class(es) Dates Sig (Normalized) Sig (Original) [id number] 200 actuat albuterol 0.09 mg/actuat metered dose [...] 09:24-0400 Body temperature 97.81 [degF] Bean Arevalo APRN.[employer]ST [employer] Work Phone: [facility] 11-12-2022 09:24-0400 Body weight 66.5 kg Bean Arevalo APRN.CHEMIST PHYSICAL Work Phone: [facility] 11-12-2022 09:24-0400 Diastolic blood pressure 90 mm[Hg] Bean Arevalo APRN.CHEMIST PHYSICAL Work Phone: [facility] 11-12-2022 09:24-0400 Heart rate 95 /min Bean Arevalo APRN.CHEMIST PHYSICAL Work Phone: [facility] 11-12-2022 09:24-0400 Respiratory rate 22 /min Bean Arevalo APRN.CHEMIST PHYSICAL Work Phone: [facility] 11-12-2022 09:24-0400 SaO2% (BldA) [Mass fraction] 97 % Bean Turpinkelsey MATHEMATICAL ENGINEER.CHEMIST PHYSICAL Work Phone: [facility] 11-12-2022 09:24-0400 Systolic blood pressure 150 mm[Hg] Bean Arevalo MATHEMATICAL ENGINEER.CHEMIST PHYSICAL Work Phone: [facility] 10-10-2021 13:42-0400 Diastolic blood pressure 75 mm[Hg] PUNEET MORALES DO [facility] 10-10-2021 13:42-0400 Heart rate 75 /min PUNEET MORALES DO [facility] 10-10-2021 13:42-0400 Respiratory rate 18 /min PUNEET MORALES DO [facility] 10-10-2021 13:42-0400 Systolic blood pressure 155 mm[Hg] PUNEET MORALES DO [facility] 10-10-2021 09:18-0400 Body temperature 98.06 [degF] PUNEET MORALES DO [facility] 10-10-2021 09:18-0400 Diastolic blood pressure 78 mm[Hg] PUNEET MORALES DO [facility] 10-10-2021 09:18-0400 Heart rate 72 /min PUNEET MORALES DO [facility] 10-10-2021 09:18-0400 Respiratory rate 18 /min PUNEET MORALES DO [facility] 10-10-2021 09:18-0400 Systolic blood pressure 130 mm[Hg] PUNEET MORALES DO [facility] 10-04-2021 11:31-0400 Body temperature 99.32 [degF] DARRIUS KAPADIAT DO [facility] 10-04-2021 11:31-0400 Diastolic blood pressure 55 mm[Hg] DARRIUS HAJI DO [facility] 10-04-2021 11:31-0400 Heart rate 66 /min DARRIUS HAJI DO [facility] 10-04-2021 11:31-0400 Respiratory rate 18 /min DARRIUS HAJI DO [facility] 10-04-2021 11:31-0400 Systolic blood pressure 116 mm[Hg] DARRIUS HAJI DO [facility] Encounters Encounter Date Encounter Type Care Provider Facility Start: 11-12-2022 End: 11-12-2022 ambulatory ALISSA LORENZO Facility:[facility] Start: 11-12-2022 End: 11-12-2022 Patient encounter procedure Bean Arevalo APRN.CHEMIST PHYSICAL Work Phone: [facility] Procedures Date Procedure Procedure Detail Performing Clinician Esophagogastroduoden oscopy gastric outlet reduction DARRIUS HAJI DO Plan of Treatment Date Care Activity Detail Author Start: 11-12-2022 Influenza vaccination INFLUENZA (#1) [facility] Start: 03-14-2022 DEPRESSION ASSESSMENT DEPRESSION ASS ESSMENT [facility] Start: 2015 PROSTATE CANCER SCRE ENING DISCUSSION PROSTATE CANCER SCREENING DISCUSSION [facility] Start: 2010 Influenza vaccination LUNG CANCER SC REENING [facility] Start: 2010 SHINGRIX VACCINE (1 of 2) SHINGRIX V ACCINE (1 of 2) [facility] Start: 2005 COLOGUARD (FIT-DNA) COLOGUARD (FIT-D NA) [facility] Start: 2005 Colonoscopy COLONOSCOPY [facility] Start: 2005 COLORECTAL CANCER SCREENING COLORECTAL CANCER SCREENING [facility] Start: [address] COLONOGRAPHY [facility] Start: 2005 DIABETES SCREEN DIABETES SCREEN [facility] Start: 2005 FECAL OCCULT BLOOD FECAL OCCULT BLOO D [facility] Start: 2005 SIGMOIDOSCOPY SIGMOIDOSCOPY [facility] Start: 1995 LIPID SCREEN LIPID SCREEN [facility] Start: 1979 Urine microalbumin profile DTAP,TDAP ,TD (1 - Tdap) [facility] Start: 1978 HEPATITIS C SCREENING HEPATITIS C SC REENING [facility] Start: 1978 HIV SCREENING HIV SCREENING [facility] Start: 1966 PNEUMOCOCCAL (1 - PCV) PNEUMOCOCCAL (1 - PCV) [facility] Start: 1960 COVID-19 VACCINE (#1) COVID-19 VACCI NE (#1) [facility] Immunizations Immunization Date Immunization Notes Care Provider Stacie snow 07-19-2013 tetanus toxoid, redu tracy diphtheria toxoid, and acellular pertussis vaccine, adsorbed DARRIUS WENCESLAOTONI DO [facility] Payers Date Payer Category Payer Medicaid [facility] [id number] 2022-Present [phone] [place] [address] Medicaid [id number] 2022 Unknown [id number] Social History Date Type Detail Facility Start: 08-19-2020 Tobacco smoking status Heavy t obacco smoker (finding) [facility] Tobacco smoking status Never [facility] Sex Assigned At [facility] Start: 11-12-2022 [facility] History of tobacco use [facility] Start: 11-12-2022 Cigarettes smoked cu rrent (pack per day) - Reported 2 [facility] Start: 11-12-2022 Tobacco use and exposure Smoke less tobacco non-user [facility] Start: 11-12-2022 Alcohol intake Current drinke r of alcohol (finding) [facility] Start: 11-12-2022 Tobacco use panel [facility] Start: 1960 Sex Assigned At Not on file C [facility] Functional Status Date Assessment Result Facility 10-10-2021 Functional Status Independent [facility] 10-10-2021 Functional Status Standard Safet y ID band on, Call device within reach, Bed in low position, Wheels locked, Upper/Half-Length side-rails up, Phone within reach, personal items within reach, Assistive devices within reach, Toileting device within reach, Bedside Cart Locked, Visitor at bedside [facility] 10-04-2021 Functional Status ID band on, Call device within reach, Bed in low position, Wheels locked, Upper/Half-Length side-rails up, Phone within reach, personal items within reach, Assistive devices within reach, Toileting device within reach, Bedside Cart Locked, Visitor at bedside, Safety level maintained [facility] Mental Status Date Assessment Result Facility 10-10-2021 Mental Status Orientation Oriented x 4 [facility] 10-10-2021 Mental Status [facility] 10-04-2021 Mental Status Oriented x 4 [facility] Clinical Notes 10-04-2021 to 11-12-2022 Bean Arevalo APRN.CHEMIST PHYSICAL - 11/12/2022 9:26 AM EDT Note Date & Type Note Facility 11-12-2022 Note HNO ID: [id number] Author: Bean Arevalo APRN.CHEMIST PHYSICAL Service: ? Author Type: Nurse Practitioner Type: [...] agrees with plan of care. Bean Arevalo APRN.[facility] 11-12-2022 History of Present illness Narrative Subjective [...] Bean Arevalo APRN.SHARON documented in this encounter [facility] 08-19-2022 Note HNO ID: [id number] Author: Mar Lee APRN.SHARON Service: ? Author Type: Nurse Practitioner Type: Progress Notes Filed: 08/19/2022 7:24 PM Note Text: This note was created using [employer]. Subjective Aidee Cook is a 62 year [...] history is provided by the patient. No marketing ambassador was used. Eye Problem This is a [...] No weakness. Coord (more content not included)... [facility] 10-10-2021 Hospital Discharge instructions Patient Education [...] for support. Classes and counselors. Quit-smoking classes field hockey and lacrosse coach people like you through the process. [...] your health. For more information National Cancer [employer] Smoking Quitline, smokefree.gov/gjeyv-zs-nx-expert, 394-21A-LICT (225-328-1372) 9328-0557 [employer]. [address] [place] [address]. All rights reserved. This information is not [...] neck Chest pain not caused by coughing [id number] [employer]. [address] [place] [address], [place] [id number]. All rights reserved. This information is not intended as a substitute for professional medical care. Always follow your healthcare professional's instructions. Follow Up Care 10/10/2021 09:13:12 With:REMEDIOS ALEXANDRE Address: [address] [place] [id number] [facility] (1) When:2-4 days With:Call Physician Referral Address:Unknown When:2-4 days With:Follow up with primary care provider Address:Unknown When:2-4 days With:CHAD SMITH MD Address: [address] [facility] [address] [place], [place] [phone] [phone] When:2-4 days [facility] 10-10-2021 Emergency department Discharge summary Discharge Instructions Thank you for allowing [facility] to assist you with your healthcare needs. The following is important discharge information regarding your hospital visit. Diagnosis from Today's Visit Pneumonia Back pain What to Do Next Instructions from Your Care Team No qualifying data available. Post Acute Orders No qualifying data available. You Need to Schedule the Following Appointments Follow Up with REMEDIOS ALEXANDRE When Within 2-4 days Where: [address] [place] [address] [facility] (1) Follow Up with Call Physician Referral When Within 2-4 days Follow Up with Follow up with primary care provider When Within 2-4 days Follow Up with CHAD SMITH MD When Within 2-4 days Where: [address] [place] [address] [address] [place] [address]- [phone] Allergies NKA Medications Please ask your primary [...] for support. Classes and counselors. Quit-smoking classes field hockey and lacrosse coach people like you through the process. [...] your health. For more information National Cancer [employer] Smoking Quitline, smokefree.gov/slqgr-lq-mf-expert, 891-50N-DWUQ (656-104-8496) 7969-[address] [employer] [place] [address]. All rights reserved. This information is not [...] neck Chest pain not caused by coughing [phone] [employer]. [address] [place] [address]. All rights reserved. This information is not intended as a substitute for professional medical care. Always follow your healthcare professional's instructions. Additional Information VACCINATE! IT SAVES LIVES! Members of the community who have not yet received the COVID-19 vaccine and would like to receive it can visit one of [facility] vaccine clinics. There are many vaccine clinic locations within the [facility]. For locations and available times, please visit [email or web address] rg. It is important to note that some COVID mobile vaccine clinics are held outdoors and may be canceled in rainy or stormy conditions. To learn more about pediatric vaccinations (ages 5-11), we invite you to visit the [facility] webpage. https://www.[facility].org/pa reva/7586-Sgfel-Ooxtfxzkufo-Freque wayr-Kipbk-Gflckcpqr.html To learn more about the COVID-19 vaccine, we invite you to visit the [employer] website for a list of frequently asked questions. https://[employer] - Onvelop/assets/Belia ml-eew-Etebelll/kwkev-Tnauzte-Mzj quently_Asked-Questions.pdf [facility] Patient Portal Access Instructions: Stay connected with your healthcare team and access your personal medical information anytime with the [facility] Patient Portal. If you would like a full copy of your medical records please contact the [facility] Medical Records Department Tuesday through Tuesday between 8a.m. and 4:30p.m. Please follow the directions below to access the portal: 1.Access the email account you provided upon registration to the [facility].2.Look for an invitation email from [facility].3.Open the email and access the invitation link: Accept Invitation to [facility]4.Fill in the required bourgeois to create your account. Sign into www.[email or web address] [employer] with your username and password that you [...] you will allow to register on the [facility] Patient Portal for access to your information. You can also access the [facility] Patient Portal on the [employer] vicki. Simply click on Health Records under [...] Call your local pharmacy or go to http://[email or web address]/[email or web address] to find one close to you.3.Make use of household items: Use cat litter or old coffee grounds to dispose medications if other options are not available. Mix your drugs with these household products, seal them in an airtight container and throw it into the garbage. Call [facility]: [phone] to be sure your drugs can be [...] aware that I should contact my doctor. Patient/Records Assistant Signature: Date/Time: Relationship to Patient: ____ Witness Name/Signature: Date/Time: [facility] 10-10-2021 Note ORIGINAL EXAMINATION: CT OF THE [...] Sign Date: 10/10/2021 12:55:13 PM Ordering Provider: [facility] 10-10-2021 Note ORIGINAL EXAMINATION: TWO XRAY VIEWS [...] Sign Date: 10/10/2021 12:33:06 PM Ordering Provider: [facility] 10-10-2021 Note ORIGINAL EXAMINATION: CT OF THE [...] 10/10/2021 12:23:15 PM Ordering Provider: [facility]ES [facility]21 Note ORIGINAL EXAMINATION: CT OF THE [...] Sign Date: 10/10/2021 12:55:13 PM Ordering Provider: [facility] 10-10-2021 Note ORIGINAL EXAMINATION: CT OF THE [...] Sign Date: 10/10/2021 12:23:15 PM Ordering Provider: [facility] 10-10-2021 Note ORIGINAL EXAMINATION: TWO XRAY VIEWS [...] Date: 10/10/2021 12:33:06 PM Ordering Provider: PUNEET [facility] 10-04-2021 Hospital Discharge instructions Patient [...] or legs Numbness in the groin area [phone] [employer]. [address] [place] [address], [place] [address]. All rights reserved. This information is not intended as a substitute for professional medical care. Always follow your healthcare professional's instructions. Follow Up Care 10/04/2021 11:26:41 With:Call Physician Referral Address:Unknown When:2-4 days With:Go to emergency room if symptoms worsen Address:Unknown When:2-4 days [facility] 10-04-2021 Note Discharge Instructions Thank you for allowing [facility] to assist you with your healthcare needs. [...] When Why Instructions Last Dose New acetaminophen-hydrocodone ([place] 325- 5 mg oral tablet) 1 tab(s) [...] or legs Numbness in the groin area [phone] [employer]. [address] [place] [address]. All rights reserved. This information is not intended as a substitute for professional medical care. Always follow your healthcare professional's instructions. Additional Information VACCINATE! IT SAVES LIVES! Members of the community who have not yet received the COVID-19 vaccine and would like to receive it can visit one of [facility] vaccine clinics. There are many vaccine clinic locations within the [facility]. For locations and available times, please visit www.[email or web address] rg. It is important to note that some COVID mobile vaccine clinics are held outdoors and may be canceled in rainy or stormy conditions. To learn more about pediatric vaccinations (ages 5-11), we invite you to visit the [employer] webpage. https://www.[employer].org/pa ges/5578-Odypj-Lofdgnooqjv-Freque paaa-Tthkm-Epthwfgyw.html To learn more about the COVID-19 vaccine, we invite you to visit the [facility] website for a list of frequently asked questions. https://[employer] - Onvelop/assets/Belia ig-uzp-Bdeyeelr/uoynr-Brylgtj-Can quently_Asked-Questions.pdf [facility] Patient Portal Access Instructions: Stay connected with your healthcare team and access your personal medical information anytime with the [facility] Patient Portal. If you would like a full copy of your medical records please contact the [facility] Medical Records Department Tuesday through Tuesday between 8a.m. and 4:30p.m. Please follow the directions below to access the portal: 1.Access the email account you provided upon registration to the hospital.2.Look for an invitation email from [facility].3.Open the email and access the invitation link: Accept Invitation to [facility]4.Fill in the required bourgeois to create your account. Sign into www.[employer] - Onvelop with your username and password that you [...] you will allow to register on the [facility] Patient Portal for access to your information. You can also access the [employer] [facility] Patient Portal on the [employer] vicki. Simply click on Health Records under Health Data and then click on the [employer] logo. HOW TO SAFELY DISPOSE OF PRESCRIPTION [...] Call your local pharmacy or go to [email or web address] to find one close to you.3.Make use of household items: Use cat litter or old coffee grounds to dispose medications if other options are not available. Mix your drugs with these household products, seal them in an airtight container and throw it into the garbage. Call [facility]: [phone] to be sure your drugs can be [...] aware that I should contact my doctor. Patient/Records Assistant Signature: Date/Time: Relationship to Patient: ____ Witness Name/Signature: Date/Time: [facility] Evaluation + Plan note No data available for this section [facility] documented in this encounter [facility] PUNEET MORALES DO: SIGN, VERIFY Event Display: EKG [ED AOH] - CV Authored Date: [facility] Summary Purpose Family History No Family History [...] DATE CREATED AUTHOR AUTHOR'S ORGANIZ ATION 04/01/2023 [facility] Source Comments (unrecognize d section and content) In the event this informatio n is protected by the Federal Confidentiality of Alcohol and Drug Abuse Patient Records regulations: The Federal rules restrict any use of the information to criminally investigate or prosecute any alcohol or drug abuse patient.[facility] Reason for Visit (unrecogniz ed section and [...] BE BASED ON THE PRIMARY CLINICAL RECORDS. [facility] [employer] [facility]. provides no warranty or guarantee of the accuracy or completeness of information in this document.
[2023-05-20 16:00] VITALS: BP 139/77; PULSE 66; RESP 17; O2SAT 99
[2023-05-20 16:42] LABS: Troponin-I HS 11 pg/mL (3.0-78.0)
[2023-05-20 16:45] VITALS: BP 145/79; PULSE 66; RESP 14; TEMP 36.6; O2SAT 100
== END 2023-05-20 17:00 | disposition home or self-care (01) ==
PROVIDERS: Physician Assistant; Emergency Provider Emergency Medicine; Visit Provider Emergency Medicine
DX: R07.89 Other chest pain (principal); J43.9 Emphysema, unspecified; F17.210 Nicotine dependence, cigarettes, uncomplicated
CPT/HCPCS: 71045; 80048; 84484; 85025; 85610; 93005; 99284; A4216

== ENCOUNTER 2023-06-21 06:04 | Emergency (ER) | payer MEDICAID, SELFPAY ==
[2023-06-21] VITALS (19 sets, daily range): BP systolic 102–182; BP diastolic 63–115; PULSE 64–94; RESP 12–27; TEMP 36.2–36.7; O2SAT 95–98; BMI 23.2
--- NOTE | 2023-06-21 06:09 | EKG12_ITS ---
Test Reason : CP Blood Pressure : / mmHG Vent. Rate : 094 BPM Atrial Rate : 094 BPM P-R Int : 128 ms QRS Dur : 086 ms QT Int : 358 ms P-R-T Axes : 083 088 025 degrees QTc Int : 447 ms Normal sinus rhythm Nonspecific ST and T wave abnormality Abnormal ECG Confirmed by Eduardo Beckwith ([id number]), web content editor TIM OBANDO ([id number]) on 06/22/2023 10:34:06 AM Referred By: Confirmed By:Eduardo Beckwith
--- NOTE | 2023-06-21 06:09 | RAD_ITS ---
INDICATION: CHEST PAIN EXAMINATION/TECHNIQUE: X-RAY - XR Chest 1 View COMPARISON: Chest x-ray from 05/20/[address] from 04/14/2023 FINDINGS: LINES/DEVICES: None. LUNGS: Hyperexpanded lungs with stable pulmonary opacity infrahilar region right lower lung. No sizable pleural effusion. No pneumothorax detected. MEDIASTINUM AND CARDIOVASCULAR STRUCTURES: Heart size within normal limits. Mediastinal contours unremarkable. BONES AND SOFT TISSUES: No acute findings. RAD/Chest 1 View (Portable) IMPRESSION: COPD with stable opacity right lower lung corresponding with pleural-parenchymal scarring and bronchiectasis demonstrated on prior CT. Otherwise, no acute findings. Electronically Signed: Florentino Hernandez MD at 7:09 EDT ,
[2023-06-21 06:28] LABS: Absolute Lymphocyte Count 0.94 X10^3/uL (0.83-4.51); Absolute Neutrophil Count 4.1 X10^3/uL (2.0-7.7); Basophil# 0.02 X10^3/uL; Basophil% 0.3 % (0-1); Eosinophil# 0.01 X10^3/uL; Eosinophils% 0.2 % (0-5); Hematocrit 47.1 % (40-54); Lymphocyte # 0.94 X10^3/ul (0.83-4.51); Lymphocyte % 16.1 % (19-41); Mean Corpuscular Hgb 31.2 pg (27.0-32.0); Mean Corpuscular Volume 91.8 fL (80-94); Mean Platelet Vol. 10.2 fl (6.2-12.0); Monocyte# 0.73 X10^3/uL; Monocyte% 12.5 % (0-10); NRBC Flagged by Analyzer 0 % (0-5); Neutrophil # 4.12 X10^3/uL (2.7-7.7); Neutrophil % 70.6 % (47-70); POSITIVE COUNT YES; Platelet Count 62 K/mm3 (150-450); RBC Distribution Width CV 13.1 % (11.6-14.6); RBC Distribution Width SD 44.2 fl (35.1-43.9); Red Blood Count 5.13 M/mm3 (4.6-6.2); White Blood Count 5.8 K/mm3 (4.4-11.0)
--- NOTE | 2023-06-21 07:13 | ED.VIS.CHEST ---
HPI History of Present Illness Chief Complaint: Chest Pain Informant: patient Onset/Context/Timing Onset: Yesterday Activity at onset: gradual Timing: Intermittent Quality: Positive for Aching Location: Substernal (Upper) Worsened By: Nothing Relieved By: Nothing Associated Symptoms: Positive for Nausea and Vomiting; Negative for Diaphoresis, Dyspnea, Cough, Fever, Lightheadedness, Acid Reflux or Palpitations Narrative Narrative: Patient presents with chest pain that has been intermittent since yesterday. Patient describes it as aching. Patient states it is over the upper substernal area. Patient states nothing makes it better nothing makes it worse. Patient states he did have an episode of nausea and vomiting. Patient states that there was some blood in his emesis. Patient denies any shortness of breath or cough. Patient denies any lightheadedness or dizziness. CVD Risk Factors: Positive for Family History 1' </=55 and Smoking; Negative for Hypertension, Diabetes or Hypercholesterolemia PE Risk Factors: Negative for Recent Travel/Surgery, Recent Immobilization, Prior DVT or PE, Cancer or OCP + Smoking + >/=35 PFSH PFSH Medical History Alcohol abuse Arthritis Peacock's esophagus Blindness of left eye COPD (chronic obstructive pulmonary disease) Crohn disease Emphysema lung History of echocardiogram History of pain when walking Hypoxia Influenza Irregular heart beat Right lower lobe lung mass Shortness of breath on exertion Smoker Home Medications albuterol sulfate 90 mcg/actuation aerosol inhaler 2 puff inhalation Q4H PRN shortness of breah 08/18/22 [History Last Taken Unknown] fluticasone fur. 100 mcg-umeclid 62.5 mcg-vilant 25 mcg inhalat.powder (Trelegy Ellipta) 1 inh inhalation DAILY #60 ea 06/02/23 [Rx Last Taken Unknown] Allergy/AdvReac Type Severity Reaction Status Date / Time No Known Allergies Allergy Verified 05/20/23 12:59 Family History Father , from cancer Lung cancer Stomach cancer Brother Cancer unknown what type Sister Diabetes Mother Heart disease Myocardial infarction Brother Diabetes Heart disease Surgical History Hx of right cataract extraction Social History household members: spouse Smoking Status: Current every day smoker tobacco type: cigarettes Tobacco: How many years used: 56 Electronic Cigarette Use: not used second hand exposure: Yes alcohol intake: current alcohol intake frequency: 3 or more drinks per day details: 3-6, 24 ounce beers daily. substance use type: does not use ROS ROS ED Constitutional Constitutional ED: Denies chills or fever(s) Eyes Eyes: Denies blurry vision or change in vision ENT ENT ED: Denies rhinorrhea or sore throat Cardiovascular Cardiovascular: Reports chest pain; Denies palpitations Respiratory/Chest Respiratory/Chest: Denies cough or dyspnea Gastrointestinal Gastrointestinal: Reports nausea and vomiting Genitourinary Genitourinary ED: Denies dysuria or hematuria Musculoskeletal Musculoskeletal: Denies back pain or neck pain Integumentary Denies abscess or rash Neurologic Neurologic: Denies headache(s) or weakness Allergic/Immunologic Allergic/Immunologic ED: Denies mouth swelling or urticaria EXAM Physical Exam Const Vital Signs: 06/21/23 06:05 06/21/23 06:10 06/21/23 06:15 Temperature 97.6 F L Temperature Source Temporal Pulse Rate 94 90 86 Respiratory Rate 16 18 16 Respiratory Effort Blood Pressure 182/106 H 182/106 H 171/115 H Blood Pressure Mean 131 126 125 Pulse Ox 98 Oxygen Delivery Method Room Air 06/21/23 06:30 06/21/23 06:45 06/21/23 07:00 Temperature Temperature Source Pulse Rate 82 79 77 Respiratory Rate 15 18 15 Respiratory Effort Blood Pressure 178/87 H 168/102 H 177/97 H Blood Pressure Mean 115 122 119 Pulse Ox 96 97 Oxygen Delivery Method 06/21/23 07:15 06/21/23 08:22 06/21/23 08:27 Temperature 98.1 F Temperature Source Oral Pulse Rate 82 75 Respiratory Rate 12 18 Respiratory Effort Normal Non-Labored Blood Pressure 174/99 H 164/94 H Blood Pressure Mean 121 117 Pulse Ox 97 98 Oxygen Delivery Method Room Air 06/21/23 09:18 06/21/23 10:00 06/21/23 11:23 Temperature 98.1 F 97.6 F L 97.2 F L Temperature Source Temporal Temporal Temporal Pulse Rate 67 68 64 Respiratory Rate 19 H 16 19 H Respiratory Effort Blood Pressure 159/91 H 159/91 H 149/73 H Blood Pressure Mean 113 113 98 Pulse Ox 97 97 97 Oxygen Delivery Method Room Air Room Air 06/21/23 12:00 06/21/23 07:45 06/21/23 08:00 Temperature Temperature Source Pulse Rate 68 78 73 Respiratory Rate 19 H 13 15 Respiratory Effort Blood Pressure 141/76 H 165/97 H 160/91 H Blood Pressure Mean 97 115 109 Pulse Ox 97 96 95 Oxygen Delivery Method Room Air 06/21/23 09:00 06/21/23 10:00 06/21/23 12:05 Temperature Temperature Source Pulse Rate 84 67 85 Respiratory Rate 23 H 14 27 H Respiratory Effort Blood Pressure 180/95 H 174/92 H 143/106 H Blood Pressure Mean 115 115 116 Pulse Ox 97 95 97 Oxygen Delivery Method 06/21/23 13:08 06/21/23 14:00 06/21/23 14:07 Temperature 97.2 F L 98.1 F Temperature Source Oral Pulse Rate 74 77 90 Respiratory Rate 17 13 12 Respiratory Effort Blood Pressure 148/96 H 102/63 102/63 Blood Pressure Mean 113 76 76 Pulse Ox 98 96 98 Oxygen Delivery Method Room Air Room Air Positive well nourished and well developed General Appearance ED: well developed and NAD HEENT Reports moist mucous membranes Neck supple and no JVD Resp normal respiratory effort and clear to auscultation bilaterally Cardio regular rate and regular rhythm GI soft to palpation, non-tender and non-distended Extremity normal to inspection General Extremety ED: Negative for edema or tenderness General Extremity: Negative for edema Neuro oriented x3, CN's II-XII intact bilaterally and no sensory deficits noted Sensorium / Orientation: awake and alert Motor Exam: strength 5/5 throughout Psych mental status grossly normal Skin no rashes or lesions noted Heart Score History: Slightly/Non-Suspicious ECG: Nonspecific Repolarization Age: >45 - <65 years Risk Factors: 1 or 2 Risk Factors Troponin: </= Normal Limit Score: 3 MDM MDM MDM Narrative Medical decision making narrative: Differential diagnosis includes cardiac dysrhythmia, cardiac ischemia, electrolyte abnormality, pneumonia, pneumothorax, pancreatitis, and gastroesophageal reflux disease. EKG will be obtained to assess for cardiac dysrhythmia and cardiac ischemia. Chest x-ray will be obtained to assess for pneumonia and pneumothorax. CBC will be obtained to assess for leukocytosis and anemia. Basic metabolic profile will be obtained to assess for electrolyte abnormality and renal function. Liver profile will be obtained to assess for hepatic function. Lipase will be obtained to assess for pancreatitis. High-sensitivity troponin will be obtained to assess for cardiac ischemia. 2-hour repeat high-sensitivity troponin will be obtained to assess for ongoing cardiac ischemia. Lab Data Attestation: I reviewed the patient's lab results. Lab results narrative: CBC was reviewed and was within normal limits. Comprehensive metabolic profile was reviewed. AST was slightly elevated at 93 and ALT was slightly elevated at 94. Total bilirubin and direct bilirubin were within normal limits. Alkaline phosphatase was within normal limits. Lipase was reviewed and was normal. High-sensitivity troponin was reviewed and was normal at 8. 2-hour repeat high-sensitivity troponin was reviewed and was normal at 9. Labs: Laboratory Results - last 24 hr 06/21/23 06/21/23 06:15 08:25 WBC 5.8 RBC 5.13 Hgb 16.0 Hct 47.1 MCV 91.8 MCH 31.2 MCHC 34.0 RDW Std Deviation 44.2 H RDW Coeff of Kp 13.1 Plt Count 62 L MPV 10.2 Immature Gran % (Auto) 0.300 Neut % (Auto) 70.6 H Lymph % (Auto) 16.1 L [place] % (Auto) 12.5 H Eos % (Auto) 0.2 Baso % (Auto) 0.3 Absolute Neuts (auto) 4.1 Absolute Lymphs (auto) 0.94 Nucleated RBC % 0 Sodium 137 Potassium 3.4 L Chloride 103 Carbon Dioxide 19.0 L Anion Gap 15 BUN 7 Creatinine 0.88 Estim Creat Clear Calc 80.33 Est GFR (MDRD) Af Amer 112 Est GFR (MDRD) Non-Af 93 BUN/Creatinine Ratio 7.9 L Glucose 147 H Calcium 10.1 Total Bilirubin 1.00 Direct Bilirubin 0.28 AST 93 H ALT 94 H Alkaline Phosphatase 98 Troponin I High Sens 8 9 Total Protein 9.2 H Albumin 4.2 Globulin 5.0 H Lipase 38 Radiography Diagnostic Testing: Clinical Impression(s) from Imaging Studies Chest X-Ray 06/21/23 06:09 IMPRESSION: COPD with stable opacity right lower lung corresponding with pleural-parenchymal scarring and bronchiectasis demonstrated on prior CT. Otherwise, no acute findings. Electronically Signed: Florentino Hernandez MD at 7:09 EDT , Portable 1 view chest x-ray was obtained. On my independent interpretation, lung bourgeois show COPD with chronic pleural/parenchymal scarring and bronchiectasis. There is normal cardiac silhouette. Bony thorax is normal. There is no acute process noted. Radiologist also interpreted the x-ray and agrees. EKG Initial EKG: Attestation: I personally reviewed and interpreted this EKG as follows: Interpretation: Sinus Rhythm (94) and Non-Specific ST Changes Comments: EKG was obtained. On my independent interpretation, it showed a normal sinus rhythm with a rate of 94. [place] interval, QRS interval, and QTc intervals were all normal. [place] was normal. There are nonspecific ST-T wave changes. Prior EKG tracings: available for review Prior: Unchanged (05/20/2023) Treatment and Re-Evaluation :: Patient was given aspirin here. There was a significant delay in laboratory results due to the chemistry machine being down for several hours. Patient was advised of his findings. Patient has a HEART score of 3. Patient was advised that this is low risk for acute cardiac event. Patient was instructed to follow-up with his primary care physician in 5 to 7 days. Patient understood and was agreeable with the plan. All questions were answered. Discharge Plan Triage Chief Complaint: Chest Pain ED Provider: Alexsander Angel Dx/Rx/DC Orders Clinical Impression: Tobacco abuse, Chest pain Instructions: ED Chest Pain, Uncertain Cause Prescriptions: No Action albuterol sulfate 90 mcg/actuation HFA aerosol inhaler 2 puff inhalation Q4H PRN (Reason: shortness of breah) Trelegy Ellipta 100-62.5-25 mcg blister with device 1 inh inhalation DAILY Qty: 60 5RF Primary Care [facility] - [facility] Days Disposition Disposition: Home, Self Care Discharge Date/Time: 06/21/23 14:10
[2023-06-21] MEDS: Aspirin 81 MG TAB.CHEW 324 MG PO (08:58)
[2023-06-21 12:16] LABS: AST(SGOT) 93 U/L (15-37); Alanine Aminotransfer ALT/SGPT 94 U/L (16-61); Albumin, Serum 4.2 g/dL (3.2-5.0); Alkaline Phosphatase 98 U/L (45-117); Bilirubin, Direct 0.28 mg/dL (0.00-0.30); Protein, Total 9.2 g/dL (6.4-8.2)
[2023-06-21 13:10] LABS: Anion Gap 15 (5-15); BUN 7 mg/dL (7-18); BUN/Creat Ratio 7.9 RATIO (10-20); Calcium,Total 10.1 mg/dL (8.5-10.1); Chloride 103 mmol/L (98-107); Creatinine, Serum 0.88 mg/dL (0.70-1.30); EST Glomerular Filtration Rate 93 mL/min (>60); Est Glom Filt Rate - Afr Amer 112 mL/min (>60); Estimated Creatinine Clearance 80.33 ml/min; Glucose 147 mg/dL (74-106); Lipase 38 U/L (13-75); Potassium 3.4 mmol/L (3.5-5.1); Sodium Level 137 mmol/L (136-145); Troponin-I HS (w/2H Reflex) 8 pg/mL (3.0-78.0)
[2023-06-21 13:11] LABS: Reflex Troponin-HS? (from REC) Y
[2023-06-21 13:33] LABS: Troponin-I HS 9 pg/mL (3.0-78.0)
== END 2023-06-21 14:10 | disposition home or self-care (01) ==
PROVIDERS: Emergency Medicine; Emergency Provider Emergency Medicine; Visit Provider Emergency Medicine
DX: R07.9 Chest pain, unspecified (principal); J43.9 Emphysema, unspecified; F17.210 Nicotine dependence, cigarettes, uncomplicated; R11.2 Nausea with vomiting, unspecified
CPT/HCPCS: 71045; 80048; 80076; 83690; 84484; 85025; 93005; 99283; A4216

== ENCOUNTER → 2023-08-04 | Outpatient (CLI) | payer MEDICAID, SELFPAY ==
--- NOTE | 2023-08-08 11:22 | STRESSREP ---
Stress Test Report Date: 08/04/2023 Procedure: Exercise tolerance test Indications: Chest pain Consent: Per the patient Procedure: The patient exercised on a Anton protocol for 3 minutes achieving a peak heart rate of 126 bpm (80% predicted maximal heart rate) with a peak blood pressure 158/58 mmHg and a peak MET capacity of approximately 4.6 MET's. The baseline ECG demonstrated normal sinus rhythm. The peak exercise ECG demonstrated no significant ischemic changes. [There were no cardiac dysrhythmias pretest, during exercise, or recovery]. The functional capacity was considered decreased for age. The patient had no complaint of chest discomfort during exercise or recovery. The examination was discontinued secondary to leg discomfort, dyspnea. Impression: 1. Inability to achieve 85% of maximal age-predicted heart rate decreases the sensitivity of this test 2. Stress test is negative for exercise-induced chest pain. 3. Stress test test is negative for exercise-induced EKG changes of ischemia. 4. Functional capacity is decreased for age This note was generated with [employer] software. It may contain incorrect words, spelling, and punctuation that were not noted in checking the note before signing.
== END | disposition home or self-care (01) ==
PROVIDERS: Referring Provider Nurse Practitioner Family; Visit Provider Nurse Practitioner Family
DX: R07.9 Chest pain, unspecified (principal)
CPT/HCPCS: 93017

== ENCOUNTER → 2023-10-10 | Outpatient (CLI) | payer MEDICARE, MEDICAID, SELFPAY ==
--- NOTE | 2023-10-10 07:36 | CT_ITS ---
STUDY: CT CHEST WITH CONTRAST REASON FOR EXAM: Male, 63 years old. F/U RLL NODULE -- IV CONTRAST ONLY RADIATION DOSAGE (If Supplied By Facility): CTDIvol = ( 13.32 ) mGy, DLP = ( 272.89 ) mGycm TECHNIQUE: Transaxial imaging was performed following intravenous administration of IV 100mL Isovue-370. Multiplanar coronal and sagittal images were reformatted. Individualized dose optimization techniques were used for this CT. COMPARISON: Comparison is made with prior study of April 14, 2023. FINDINGS: CHEST Stable spiculated density in the apical medial aspect of the left upper lobe suggestive of scarring. Hyperinflation. Emphysematous changes with bullous formation. Scarring and bronchiectasis in the peripheral lateral aspect of the right lower lobe. The previously seen focal area of groundglass appearance in the left lower lobe has cleared. Previously seen 7 mm x 7 mm nodule in the periphery of the area of scar in the right lower lobe has become more cystic at this time. Stable pleural thickening bilaterally. There are calcifications of the coronary arteries. There are small lymph nodes within the mediastinum, which are normal in size and morphology most compatible with reactive lymph hyperplasia. Stable subcarinal lymph node. Normal hilar regions. Normal unenhanced pulmonary arteries. Normal aorta arch and descending thoracic aorta. There are multi-level degenerative changes of the thoracic spine. There is no demonstrated abnormality of the visualized upper abdomen. CT/Chest WITH Contrast IMPRESSION: Essentially stable examination. Electronically Signed: Mo Corea MD at 12:54 EDT ,
[2023-10-10 08:04] LABS: CREATININE FINGERSTICK < 1.0 mg/dL (0.70-1.30); EGFR FINGERSTICK > 60.0000 mL/min (>60)
== END | disposition home or self-care (01) ==
PROVIDERS: Referring Provider Internal Medicine Hematology & Oncology; Visit Provider Internal Medicine Hematology & Oncology
DX: R91.8 Other nonspecific abnormal finding of lung field (principal)
CPT/HCPCS: 71260; Q9967

== ENCOUNTER → 2024-04-05 | Outpatient (CLI) | payer MEDICARE, SELFPAY ==
--- NOTE | 2024-04-05 10:36 | STE_ITS ---
Reason For Study: Chest Pain Stress Results Protocol: Dobutamine Stress Echo Maximum Predicted HR: 157 bpm Target HR: 133 bpm % Maximum Predicted HR: 87 % DurationHeart Rate Stage (mm:ss) (bpm) BP Comment Baseline 60 128/75No Chest Pain DSE 10 MCG 4:18 85 122/67No Chest Pain DSE 20 MCG 3:00 117 137/54No Chest Pain DSE 30 MCG 4:18 136 124/52No Chest Pain Recovery 90 117/64No Chest Pain Stress Duration: 11:36 mm:ss Maximum Stress HR: 136 bpm METS: 1 Baseline Echocardiogram Findings Stress Echo Wall motion Data Resting WM Intermediate WM Stress WM ECHO/Stress Test Echo w/o Contrast Interpretation Summary Dobutamine stress echocardiogram. 63-year-old man with a history of chest pain. Rest EKG demonstrates sinus rhythm with a rate of 62 bpm normal intervals are n oted resting blood pressure is 128/75 mmHg. Dobutamine was infused starting at 10 mcg/kg/min incre asing in 3-minute intervals to a peak of 30 mg/kg/min. Continuous EKG monitoring as well as heart rate response was obtained. The patient maintained sinus rhythm throughout the recording. At rest there were no ST or T wave changes noted suggest ischemia and at peak infusion nonspecific ST [place] were noted with no meet the criteria for ischemia. The peak blood pressure was 239/76 mmHg and the peak heart rate was 137 bpm which was 87% of max impacted heart rate. No clinical angina was noted no arrhythmias were noted. Stress echocardiogram. The resting echocardiogram demonstrated preserved ejection fraction of 60% with no wall motion abnormalities noted. There was an increase in left ventricular ejection fractio n and a decrease in cavity size peaking at 75% with no wall motion abnormalities present. Conclusion: Dobutamine stress echo with no evidence of ischemia at appropriate heart rate. Normal resting echocardiogram noted. Ordering Physician: Mar Plummer Referring Physician: Mar Plummer Performed By: Jennifer Cardenas RDCS
== END | disposition home or self-care (01) ==
LOC: CVS 10:34
PROVIDERS: Referring Provider Nurse Practitioner Family; Visit Provider Nurse Practitioner Family
DX: R07.9 Chest pain, unspecified (principal)
CPT/HCPCS: 93017; 93350; A4216

== ENCOUNTER 2024-05-18 12:16 | Emergency (ER) | payer MEDICARE, MEDICAID, SELFPAY ==
[2024-05-18 12:17] VITALS: BP 137/70; PULSE 94; RESP 28; TEMP 36.2; O2SAT 99
--- NOTE | 2024-05-18 12:20 | RAD_ITS ---
PROCEDURE: CHEST 1 VIEW (PORTABLE) REASON FOR EXAM: Chest pain. TECHNIQUE: Two-view AP portable upright chest. COMPARISON: Chest x-ray 06/21/2023 RAD/Chest 1 View (Portable) IMPRESSION: Significant underlying chronic lung changes are seen. Interval partial improvement of the previously noted density lateral to the rig ht inferior hilum, without new/worsened pneumonic abnormality noted. No evidence of pulmonary edema. No pleural effusion or pneumothorax is seen. The cardiomediastinal silhouette is stable, without evidence of cardiomegaly. Reading Location: [id number]
[2024-05-18 13:19] LABS: Absolute Lymphocyte Count 1.93 X10^3/uL (0.83-4.51); Absolute Neutrophil Count 6.2 X10^3/uL (2.0-7.7); Basophil# 0.04 X10^3/uL; Basophil% 0.4 % (0-1); Eosinophil# 0.07 X10^3/uL; Eosinophils% 0.8 % (0-5); Hematocrit 43.3 % (40-54); Hemoglobin 15.1 g/dL (13.0-16.5); Lymphocyte # 1.93 X10^3/ul (0.83-4.51); Lymphocyte % 21.6 % (19-41); Mean Corp Hgb Conc 34.9 g/dL (32-36); Mean Corpuscular Hgb 32.1 pg (27.0-32.0); Mean Corpuscular Volume 91.9 fL (80-94); Mean Platelet Vol. 9.1 fl (6.2-12.0); Monocyte# 0.68 X10^3/uL; Monocyte% 7.6 % (0-10); NRBC Flagged by Analyzer 0 % (0-5); Neutrophil # 6.18 X10^3/uL (2.7-7.7); Neutrophil % 69.4 % (47-70); Platelet Count 183 K/mm3 (150-450); RBC Distribution Width CV 13.1 % (11.6-14.6); RBC Distribution Width SD 44.3 fl (35.1-43.9); Red Blood Count 4.71 M/mm3 (4.6-6.2); White Blood Count 8.9 K/mm3 (4.4-11.0)
[2024-05-18 13:25] VITALS: BP 138/74; PULSE 76; RESP 12; O2SAT 100; O2SAT 98
[2024-05-18 13:47] LABS: Anion Gap 21 (5-15); BUN 8 mg/dL (4-19); BUN/Creat Ratio 10.7 RATIO (10-20); Calcium,Total 9.3 mg/dL (7.6-11.0); Carbon Dioxide 18.1 mmol/L (21.0-32.0); Chloride 96 mmol/L (98-108); Creatinine, Serum 0.78 mg/dL (0.70-1.20); EST Glomerular Filtration Rate 100 (>60); Glucose 110 mg/dL (70-99); Potassium 4.6 mmol/L (3.3-5.1); Sodium Level 135 mmol/L (133-145); Troponin T High Sensitivity 7 ng/L (<=22)
[2024-05-18 14:00] VITALS: BP 118/72; PULSE 70; RESP 12; O2SAT 99
--- NOTE | 2024-05-18 14:06 | EX.ED.DYSGE1 ---
HPI History of Present Illness Chief Complaint: Dizziness Informant: patient and spouse/S.O. Narrative Narrative: Presents by private vehicle lightheaded symptoms while sitting 11:30 PM. States felt he is in a pass out. No chest pains no palpitations. He states his hands went numb however he was breathing fast at that time. Started having a dry cough today. No fever chills or sweats. No urinary symptoms. No recent vomiting or diarrhea. His COPD and tobacco. History of Crohn disease. Denies sick contacts. Denies dyspnea or wheeze. Denies any cardiac history. PFSH PFSH Medical History Irregular heart beat Influenza Hypoxia Crohn disease Emphysema lung COPD (chronic obstructive pulmonary disease) Peacock's esophagus Arthritis Smoker Shortness of breath on exertion History of pain when walking History of echocardiogram Blindness of left eye Right lower lobe lung mass Alcohol abuse Home Medications ?Medication ?Instructions ?Recorded ?Last Taken ?Type albuterol sulfate 90 mcg/actuation 2 puff inhalation Q4H PRN 08/18/22 Unknown History aerosol inhaler shortness of breah fluticasone fur. 100 mcg-umeclid 1 inh inhalation DAILY #60 ea 06/02/23 Unknown Rx 62.5 mcg-vilant 25 mcg inhalat.powder (Trelegy Ellipta) Allergy/AdvReac Type Severity Reaction Status Date / Time No Known Allergies Allergy Verified 05/18/24 12:20 Family History Father , from cancer Lung cancer Stomach cancer Brother Cancer unknown what type Sister Diabetes Mother Heart disease Myocardial infarction Brother Diabetes Heart disease Surgical History Hx of right cataract extraction Social History household members: spouse housing: house Smoking Status: Current every day smoker tobacco type: cigarettes Tobacco: How many years used: 56 Electronic Cigarette Use: not used second hand exposure: Yes alcohol intake: current alcohol intake frequency: 3 or more drinks per day details: 3-6, 24 ounce beers daily. substance use type: does not use ROS ROS ED Constitutional Constitutional ED: Denies chills, fever(s) or sweats ENT ENT ED: Denies sore throat Cardiovascular Cardiovascular: Reports other Details: Lightheaded ; Denies chest pain, leg edema, palpitations or racing heartbeat Respiratory/Chest Respiratory/Chest: Denies cough, dyspnea or dyspnea on exertion Gastrointestinal Gastrointestinal: Denies abdominal pain, diarrhea, nausea or vomiting Genitourinary Genitourinary ED: Denies dysuria, hematuria or urinary frequency Musculoskeletal Musculoskeletal: Denies back pain, extremity pain or neck pain Integumentary Denies rash or wounds Neurologic Neurologic: Reports paresthesias; Denies headache(s) or weakness EXAM Physical Exam Const Vital Signs: 05/18/24 12:17 05/18/24 13:25 05/18/24 13:25 Temperature 97.2 F L Temperature Source Temporal Pulse Rate 94 76 Respiratory Rate 28 H 12 Blood Pressure 137/70 H 138/74 H Blood Pressure Mean 92 95 Pulse Ox 99 98 100 Oxygen Delivery Method Room Air Room Air 05/18/24 14:00 05/18/24 15:00 Temperature Temperature Source Pulse Rate 70 100 Respiratory Rate 12 16 Blood Pressure 118/72 116/96 H Blood Pressure Mean 87 102 Pulse Ox 99 98 Oxygen Delivery Method Positive well nourished and well developed General Appearance ED: well developed and NAD HEENT Reports moist mucous membranes normocephalic and atraumatic Eyes General Eye ED: Yes normal appearance of both eyes Neck full ROM Chest Wall Chest: Negative for tenderness Resp normal respiratory effort and normal air movement Effort and Inspection: symmetric chest movement; Negative for respiratory distress Cardio regular rate, regular rhythm and no murmurs Peripheral Pulses: pulses 2+ throughout GI normal to inspection, nondistended, normoactive bowel sounds and non-tender Palpation: Negative for guarding or rebound tenderness present Extremity normal to inspection General Extremety ED: Negative for edema or tenderness General Extremity: Negative for edema Neuro oriented x3, CN's II-XII intact bilaterally and no sensory deficits noted Neuro Narrative: No focal deficits Sensorium / Orientation: awake and alert Skin no rashes or lesions noted and no wounds MDM MDM MDM Narrative Medical decision making narrative: Interventions / MDM: Differential diagnosis: Near syncope, hyperventilation syndrome Diagnosis considered but do not suspect: ACS however EKG cardiac workup labs normal. My EKG interpretation: Sinus rate of 90, no ST or T wave changes QTc 474. Imaging independently reviewed and interpreted by myself: N/A External documents reviewed: CT chest from September 2023, scarring noted no masses. Test considered but not ordered:N/A ED course: Patient vital stable, slight dry mucosal membranes. Lightheaded symptoms. Nursing protocol initiated labs. Hemoglobin 15.1 creatinine 0.7 BUN 8. Initial troponin negative. Will give IV fluids. Chest x-ray negative for infiltrates reported by radiology improving density lateral right infrahilar compared to previous. 1600: Labs all returned I discussed return precaution with the patient. Outpatient follow-up. All questions were answered. Normal repeat troponin negative. Clinically back to normal is able to ambulate with no return of symptoms. Re-evaluation: stable Disposition discussed with patient/family/significant other: Patient and significant other Case discussed with consulting clinician: N/A This note was generated with [employer] dictation software. It may contain incorrect words, spelling, and punctuation that were not noted in checking the note before signing. Lab Data Attestation: I reviewed the patient's lab results. Labs: Laboratory Results - last 24 hr 05/18/24 05/18/24 13:08 15:14 WBC 8.9 RBC 4.71 Hgb 15.1 Hct 43.3 MCV 91.9 MCH 32.1 H MCHC 34.9 RDW Std Deviation 44.3 H RDW Coeff of Kp 13.1 Plt Count 183 MPV 9.1 Immature Gran % (Auto) 0.200 Neut % (Auto) 69.4 Lymph % (Auto) 21.6 [place] % (Auto) 7.6 Eos % (Auto) 0.8 Baso % (Auto) 0.4 Absolute Neuts (auto) 6.2 Absolute Lymphs (auto) 1.93 Nucleated RBC % 0 Sodium 135 Potassium 4.6 Chloride 96 L Carbon Dioxide 18.1 L Anion Gap 21 H BUN 8 Creatinine 0.78 Est GFR (MDRD) Non-Af 100 BUN/Creatinine Ratio 10.7 Glucose 110 H Calcium 9.3 Troponin T High Sens 7 Troponin T Hi Sens 2 Hr 8 Radiography Diagnostic Testing: Clinical Impression(s) from Imaging Studies Chest X-Ray 05/18/24 12:20 IMPRESSION: Significant underlying chronic lung changes are seen. Interval partial improvement of the previously noted density lateral to the right inferior hilum, without new/worsened pneumonic abnormality noted. No evidence of pulmonary edema. No pleural effusion or pneumothorax is seen. The cardiomediastinal silhouette is stable, without evidence of cardiomegaly. Reading Location: [address] Discharge Plan Triage Chief Complaint: Dizziness ED Provider: Edilberto Alvarez Dx/Rx/DC Orders Clinical Impression: Near syncope, Hyperventilation syndrome Instructions: ED Hyperventilation Syndrome, ED Near-Fainting, Uncertain Cause Prescriptions: No Action albuterol sulfate 90 mcg/actuation HFA aerosol inhaler 2 puff inhalation Q4H PRN (Reason: shortness of breah) Trelegy Ellipta 100-62.5-25 mcg blister with device 1 inh inhalation DAILY Qty: 60 5RF Primary Care Provider: [facility] Fisher Referrals: [facility] Clary Fisher [Primary Care Provider] - 1 Week Activity Restrictions/Additional Instructions: EKG normal. Cardiac workup negative. Chest x-ray negative. Continue oral fluids for hydration. Follow-up your doctor. Print Language: Ukrainian Disposition Disposition: Home, Self Care
[2024-05-18] MEDS: 0.9% Normal Saline (500mL Bag) 500 ML 999 ML IV (14:29)
[2024-05-18 15:00] VITALS: BP 116/96; PULSE 100; RESP 16; O2SAT 98
[2024-05-18 15:52] LABS: Troponin T High Sens 2 HR 8 ng/L (<=22)
[2024-05-18 16:04] VITALS: BP 120/70; PULSE 68; RESP 16; TEMP 36.6; O2SAT 97
== END 2024-05-18 16:09 | disposition home or self-care (01) ==
PROVIDERS: Emergency Provider Emergency Medicine; Visit Provider Emergency Medicine
DX: R55 Syncope and collapse (principal); K50.90 Crohn's disease, unspecified, without complications; J43.9 Emphysema, unspecified; R06.4 Hyperventilation; R42 Dizziness and giddiness; F17.210 Nicotine dependence, cigarettes, uncomplicated; R20.2 Paresthesia of skin
CPT/HCPCS: 71045; 80048; 84484; 85025; 93005; 96360; 99284; A4216

== ENCOUNTER → 2024-06-26 | Outpatient (CLI) | payer MEDICARE, MEDICAID, SELFPAY ==
[2024-06-26 17:06] LABS: Absolute Lymphocyte Count 2.62 X10^3/uL (0.83-4.51); Basophil# 0.07 X10^3/uL; Basophil% 0.6 % (0-1); Eosinophil# 0.13 X10^3/uL; Eosinophils% 1.2 % (0-5); Hematocrit 43.4 % (40-54); Hemoglobin 15.5 g/dL (13.0-16.5); Lymphocyte # 2.62 X10^3/ul (0.83-4.51); Lymphocyte % 24.3 % (19-41); Mean Corp Hgb Conc 35.7 g/dL (32-36); Mean Corpuscular Hgb 32.6 pg (27.0-32.0); Mean Corpuscular Volume 91.4 fL (80-94); Mean Platelet Vol. 10.1 fl (6.2-12.0); Monocyte# 0.98 X10^3/uL; Monocyte% 9.1 % (0-10); NRBC Flagged by Analyzer 0 % (0-5); Neutrophil # 6.95 X10^3/uL (2.7-7.7); Neutrophil % 64.6 % (47-70); Platelet Count 135 K/mm3 (150-450); RBC Distribution Width CV 12.7 % (11.6-14.6); RBC Distribution Width SD 42.1 fl (35.1-43.9); Red Blood Count 4.75 M/mm3 (4.6-6.2); White Blood Count 10.8 K/mm3 (4.4-11.0)
[2024-06-26 17:28] LABS: Hemoglobin A1c 5.6 % (<=5.6)
[2024-06-26 17:36] LABS: ALB/GLOB Ratio 1.3 RATIO (0.9-2.4); AST(SGOT) 67 U/L (<=37); Alanine Aminotransfer ALT/SGPT 60 U/L (<=46); Albumin, Serum 4.5 g/dL (3.4-4.8); Alkaline Phosphatase 72 U/L (40-129); Anion Gap 13 (5-15); BUN 15 mg/dL (4-19); BUN/Creat Ratio 21.4 RATIO (10-20); Calcium,Total 9.9 mg/dL (7.6-11.0); Chloride 102 mmol/L (98-108); Cholesterol 135 mg/dL (<=200); EST Glomerular Filtration Rate 103 (>60); Globulin 3.6 g/dL (2.2-4.2); Glucose 107 mg/dL (70-99); High Density Lipoprotein 53 mg/dL; Low Density Lipoprotein Calc. 70 mg/dL; Potassium 4.1 mmol/L (3.3-5.1); Protein, Total 8.1 g/dL (5.9-8.4); Sodium Level 135 mmol/L (133-145); Total Bilirubin 0.57 mg/dL (0.00-1.30); Triglycerides 64 mg/dL; Very Low Density Lipoprotein 13 mg/dL (5-40); cholesterol:hdl ratio screen 2.57
[2024-06-26 17:38] LABS: PSA,Total - Annual Screen 1.77 ng/mL (0.02-4.00)
== END | disposition home or self-care (01) ==
LOC: VSLAB 13:50
PROVIDERS: PCP Nurse Practitioner Family; Visit Provider Nurse Practitioner Family
DX: I10 Essential (primary) hypertension (principal); R74.8 Abnormal levels of other serum enzymes; R73.9 Hyperglycemia, unspecified; Z12.5 Encounter for screening for malignant neoplasm of prostate
CPT/HCPCS: 36415; 80053; 80061; 83036; 84153; 84443; 85025; G0103

== ENCOUNTER → 2024-09-25 | Outpatient (CLI) | payer MEDICARE, MEDICAID, SELFPAY ==
[2024-09-25 16:39] LABS: Hematocrit 39.8 % (40-54); Hemoglobin 14.3 g/dL (13.0-16.5); Immature Granulocytes Count 0.030 X10^3/uL (0.0-0.0); Mean Corp Hgb Conc 35.9 g/dL (32-36); Mean Corpuscular Volume 89.2 fL (80-94); Mean Platelet Vol. 10.3 fl (6.2-12.0); NRBC Flagged by Analyzer 0 % (0-5); Platelet Count 115 K/mm3 (150-450); RBC Distribution Width CV 13.2 % (11.6-14.6); RBC Distribution Width SD 42.8 fl (35.1-43.9); Red Blood Count 4.46 M/mm3 (4.6-6.2); White Blood Count 7.9 K/mm3 (4.4-11.0)
[2024-09-25 17:55] LABS: AST(SGOT) 89 U/L (<=37); Alanine Aminotransfer ALT/SGPT 85 U/L (<=46); Albumin, Serum 4.0 g/dL (3.4-4.8); Alkaline Phosphatase 69 U/L (40-129); Anion Gap 12 (5-15); BUN 13 mg/dL (4-19); BUN/Creat Ratio 19.0 RATIO (10-20); Calcium,Total 9.4 mg/dL (7.6-11.0); Carbon Dioxide 20.5 mmol/L (21.0-32.0); Chloride 104 mmol/L (98-108); Globulin 3.0 g/dL (2.2-4.2); Glucose 113 mg/dL (70-99); Potassium 3.4 mmol/L (3.3-5.1)
== END | disposition home or self-care (01) ==
LOC: VSLAB 14:55
PROVIDERS: PCP Nurse Practitioner Family; Visit Provider Nurse Practitioner Family
DX: I10 Essential (primary) hypertension (principal); R74.8 Abnormal levels of other serum enzymes
CPT/HCPCS: 36415; 80053; 83036; 84443; 85025

== ENCOUNTER → 2024-12-13 | Outpatient (CLI) | payer MEDICARE, MEDICAID, SELFPAY ==
--- NOTE | 2024-12-13 07:23 | US_ITS ---
PROCEDURE: ABD COMPLETE W/ ELASTOGRAPHY 12/13/2024 REASON FOR EXAM: ABNORMAL LEVELS OF OTHER SERUM ENZYMES TECHNIQUE: Procedure Code: [id number] Modality: US Procedure: ABD COMPLETE W/ ELASTOGRAPHY Sonographic interrogation of the abdomen is performed using grayscale. Color and Doppler interrogation of the portal veins are performed. Liver stiffness measurements were obtained on a Miranda EPIQ Elite diagnostic ultrasound system using a C5-1 probe following Society of radiologist in ultrasound (SRU) guidelines. 10 measurements were obtained using 2D-SWE method. COMPARISON: Available priors FINDINGS: Liver: The liver is normal in size. There is increased echogenicity throughout the liver parenchyma seen with diffuse hepatic steatosis. No focal liver mass seen. Gallbladder: Normal. No stone. No wall thickening or pericholecystic fluid. Common bile duct: No intra or extrahepatic biliary ductal dilatation. The CBD measured 4 mm. Pancreas: The head and body of the pancreas appear normal. The tail is not visualized due to overlying bowel gas. Kidneys: The right kidney measures 11.4 cm. The left kidney measures 9.5 cm. Renal parenchymal thicknesses and echotextures are preserved. No hydronephrosis. Spleen: Normal in size and echotexture measuring 9 cm in length. Aorta: Visualized abdominal aorta is of normal size. IVC: Visualized inferior vena cava is unremarkable. Peritoneal Findings: No ascites The mean liver stiffness is 10.5 kPa. The median liver stiffness is 10.5 kPa. Median velocity is 1.87 m/sec. The inter quartile range is 1.2 kPa. The inter quartile range to median ratio (IQR/M) is 11.2 suggesting a quality data set (<30 %) US/ABD Complete w/ Elastography IMPRESSION: Increased echogenicity of the liver parenchyma as commonly seen with diffuse he patic steatosis. No focal liver mass. Normal gallbladder and biliary tree. Metavir score: F2-F3. Reading Location: [id number]
== END | disposition home or self-care (01) ==
LOC: US 07:19
PROVIDERS: PCP Nurse Practitioner Family; Referring Provider Nurse Practitioner Family; Visit Provider Nurse Practitioner Family
DX: R74.8 Abnormal levels of other serum enzymes (principal); R94.5 Abnormal results of liver function studies
CPT/HCPCS: 76700; 76981

== ENCOUNTER → 2025-01-08 | Outpatient (CLI) | payer MEDICARE, MEDICAID, SELFPAY ==
[2025-01-08 10:07] LABS: Hematocrit 45.0 % (40-54); Hemoglobin 15.8 g/dL (13.0-16.5); Immature Granulocytes Count 0.030 X10^3/uL (0.0-0.0); Mean Corp Hgb Conc 35.1 g/dL (32-36); Mean Corpuscular Volume 93.0 fL (80-94); Mean Platelet Vol. 10.3 fl (6.2-12.0); NRBC Flagged by Analyzer 0 % (0-5); Platelet Count 270 K/mm3 (150-450); RBC Distribution Width CV 12.8 % (11.6-14.6); RBC Distribution Width SD 43.9 fl (35.1-43.9); Red Blood Count 4.84 M/mm3 (4.6-6.2); White Blood Count 7.9 K/mm3 (4.4-11.0)
[2025-01-08 10:15] LABS: Prothrombin Time (Protime)PT. 14.3 SECONDS (11.7-14.9)
[2025-01-08 11:02] LABS: AST(SGOT) 34 U/L (<=37); Alanine Aminotransfer ALT/SGPT 37 U/L (<=46); Albumin, Serum 4.4 g/dL (3.4-4.8); Alkaline Phosphatase 83 U/L (40-129); Anion Gap 13 (5-15); BUN 13 mg/dL (4-19); BUN/Creat Ratio 17.6 RATIO (10-20); Bilirubin, Direct 0.23 mg/dL (0.00-0.30); Calcium,Total 9.8 mg/dL (7.6-11.0); Carbon Dioxide 23.9 mmol/L (21.0-32.0); Chloride 102 mmol/L (98-108); Globulin 3.6 g/dL (2.2-4.2); Glucose 96 mg/dL (70-99); Hepatitis B Surface Antigen Nonreactive (Nonreactive); Hepatitis C Antibody Nonreactive (Nonreactive); Potassium 4.0 mmol/L (3.3-5.1)
== END | disposition home or self-care (01) ==
LOC: LAB 09:07
PROVIDERS: PCP Nurse Practitioner Family; Referring Provider Nurse Practitioner Acute Care; Visit Provider Nurse Practitioner Acute Care
DX: K74.60 Unspecified cirrhosis of liver (principal); K22.70 Barrett's esophagus without dysplasia; F17.210 Nicotine dependence, cigarettes, uncomplicated
CPT/HCPCS: 36415; 80048; 80076; 82105; 85025; 85610; 86704; 86706; 86708; 86803; 87340

== ENCOUNTER 2025-02-01 07:54 | Day surgery (SDC) | payer MEDICARE, MEDICAID, SELFPAY ==
--- NOTE | 2025-01-30 15:02 | PAT.ANE_ITS ---
Pre-Assessment Diagnosis/Proposed Procedure Planned Operative Procedure(s): EGD Anesthesia History Anesthesia History - underwriter mortgage loan: Anesthesia History - underwriter mortgage loan Hx Hospitalization No 01/30/25 14:06 Any Problems With Anesthesia No 01/30/25 14:06 Cholinesterase deficiency No 01/30/25 14:06 You/Your Family Experience No 01/30/25 14:06 fever (hyperthermia) with Relationship Recent Exposure to Contagious No 05/04/22 11:25 Disease Does patient have nerve No 01/30/25 14:06 stimulator Patient instructed to have device shut off --Does patient have Pacemaker or ICD? When Was Last Pacemaker Check QUESTION #4 FULL TEXT: You/Your Family Experience fever (hyperthermia) with Anesthesia Last Oral Intake Last Oral intake: Last Oral Intake NPO since Meds taken in AM with sips of water? Meds patient instructed to take am of surgery PONV PONV - underwriter mortgage loan: PONV - underwriter mortgage loan Female No 01/30/25 14:06 HX of Motion Sickness No 01/30/25 14:06 HX of N/V After Surgery No 01/30/25 14:06 Non-Smoker No 01/30/25 14:06 Duration of Surgery greater No 01/30/25 14:06 than 60 minutes Number of Risk Factors PONV Score Height & Weight Height & Weight: Anesthesia: Height & Weight Height 5 ft 11 in 01/08/25 08:29 Respiratory Assessment Respiratory Assessment - underwriter mortgage loan: Respiratory Tract Infection Hx - underwriter mortgage loan Hx Respiratory Tract Infection No 01/30/25 14:06 STOP Sleep Apnea STOP Sleep Apnea - underwriter mortgage loan: STOP Sleep Apnea - underwriter mortgage loan Hx Hypertension No: PER PT, CONTROLLED ON 01/30/25 14:06 MEDS Hx Sleep Apnea No 01/30/25 14:06 CPAP No 01/30/25 14:06 BIPAP No 01/30/25 14:06 Do you snore loudly (louder No 01/30/25 14:06 than talking or can be heard Do you often feel tired/ No 01/30/25 14:06 fatigued/ sleepy during daytime? Has anyone observed you stop No 01/30/25 14:06 breathing during sleep? STOP Results Negative 01/30/25 14:06 QUESTION #5 FULL TEXT : Do you snore loudly (louder than talking or can be heard through closed doors)? Tobacco Use History Tobacco Use History - underwriter mortgage loan: Tobacco Use History - underwriter mortgage loan Tobacco Use Smoking Status Current every day smoker 01/30/25 14:06 Hx Tobacco Use Yes 01/30/25 14:06 Years Smoking Packs Smoked per Day Smoking Cessation Date was within the last 15 years Hx Smoking Cessation Date Hx Smoking Cessation No 01/30/25 14:06 Counseling Hematologic Medial History Hematologic Hx - underwriter mortgage loan: Hematologic Medical Hx - hospital mortician Hx of Blood Transfusion No 01/30/25 14:06 Hx of Transfusion in last 3 No 01/30/25 14:06 Months Date of Last Transfusion (if within last 3 months) Ever experience any problems No 01/30/25 14:06 with transfusion(s)? Specify any problems Hx of Preganancy in last 3 N/A 01/30/25 14:06 Months Nurse Filling Out Transfusion MGRIFFITH 01/30/25 14:06 & Questions: Date: 01/30/25 01/30/25 14:06 Time: 14:08 01/30/25 14:06 Patient unable to answer at this time (ie. confused, unrespo /Reproduction History /Reproductive History - underwriter mortgage loan: /Reproductive Hx- underwriter mortgage loan Hx Now Gestational Age (in weeks): EDC: Hx Hx Para Hx Section SAB No 01/30/25 14:06 Does the father of the baby or his family experience fever w Father of the baby Malignant Hypertension history comment PFSH Medical History Gastric reflux Excessive bleeding Irregular heart beat Influenza Hypoxia Crohn disease Emphysema lung COPD (chronic obstructive pulmonary disease) Peacock's esophagus Arthritis Smoker Shortness of breath on exertion History of pain when walking History of echocardiogram Blindness of left eye Right lower lobe lung mass Alcohol abuse Home Medications ?Medication ?Instructions ?Recorded ?Last Taken ?Type fluticasone fur. 100 mcg-umeclid 1 inh inhalation SAGAR Y #60 ea 06/02/23 Unknown Rx 62.5 mcg-vilant 25 mcg inhalat.powder (Trelegy Ellipta) albuterol sulfate 90 mcg/actuation 2 puff inhalation Q 6H PRN 12/26/24 Unknown History aerosol inhaler shortness of breath or wheez ing lisinopril 10 mg tablet 10 mg PO QDAY 12/26/24 Unkno wn History rabeprazole 20 mg tablet,delayed 20 mg PO QDAY #90 tab s 01/08/25 Unknown Rx release Allergy/AdvReac Type Severity Reaction Status Date / Time No Known Allergies Allergy Verified 01/30/25 14:03 Family History Father , from cancer Lung cancer Stomach cancer Brother Cancer unknown what type Sister Diabetes Mother Heart disease Myocardial infarction Brother Diabetes Heart disease Surgical History (Updated 01/30/25 @ 14:05 by Santa Villalobos) History of colonoscopy History of esophagogastroduodenoscopy (EGD) Hx of right cataract extraction Social History household members: spouse housing: house Smoking Status: Current every day smoker tobacco type: cigarettes Tobacco: How many years used: 56 Electronic Cigarette Use: not used second hand exposure: Yes alcohol intake: current alcohol intake frequency: 3 or more drinks per day details: 3-6, 24 ounce beers daily. substance use type: does not use Audit: Pertinent Findings Pertinent Findings EKG Perinent findings: May 18, 2024. Normal sinus rhythm. Nonspecific ST changes. Stress test pertinent findings: 08/04/2023. Stress test is negative for exercise-induced EKG changes of ischemia. Patient achieved a capacity of 4.6 METS. Echo (EF%) pertinent findings: 11/02/2021. EF of 65%. No aortic stenosis noted. Recommendation Anesthesia Recommendation Anesthesia recommendation: OPTIMIZED for anesthesia
[2025-02-01] VITALS (7 sets, daily range): BP systolic 105–134; BP diastolic 65–93; PULSE 64–77; RESP 16; TEMP 36.1–36.8; O2SAT 92–100; BMI 22.1
--- NOTE | 2025-02-01 08:02 | PRE.ANES_ITS ---
ASA Classification* ASA Classification ASA Classification: 3 Assessment & Plan Anesthesia* Anesthesia Assessment Anesthesia Assessment: Discussed sedation and/or anesthesia options, risks, benefits, and alternatives with patient/parents/legal guardian/POA. Questions invited. The patient/parents/legal guardian/POA seems to understand and agrees to proceed with anesthesia plan. Reviewed the physical assessment, medical history, allergy history and patient home medications list prior to surgery/procedure/anesthetic and documented any changes. Performed airway and anesthesia risk assessments. Anesthesia Type Anesthesia Type: MAC Anesthesia Focused Assessment* Airway Assessment Mouth opens: >3 cm Mallampati Score: II Labs Anesthesia Preop lab: CBC WBC, (4.4-11.0) 7.9 K/mm3 01/08/25, 09:35 RBC, (4.6-6.2) 4.84 M/mm3 01/08/25, 09:35 Hgb, (13.0-16.5) 15.8 g/dL 01/08/25, 09:35 Hct, (40-54) 45.0 % 01/08/25, 09:35 Plt Count, (150-450) 270 K/mm3 01/08/25, 09:35 CHEMISTRY Potassium, (3.3-5.1) 4.0 mmol/L 01/08/25, 09:35 Sodium, (133-145) 139 mmol/L 01/08/25, 09:35 Magnesium, (1.6-2.6) 3.5 mg/dL H 03/11/23, 11:00 Phosphorus, (2.5-4.9) 3.0 mg/dL 03/11/23, 11:00 BUN, (4-19) 13 mg/dL 01/08/25, 09:35 Creatinine, (0.70-1.20) 0.75 mg/dL 01/08/25, 09:35 Glucose, (70-99) 96 mg/dL 01/08/25, 09:35 TSH, (0.300-4.200) 2.190 uIU/mL 09/25/24, 14:55 COAG PT, (11.7-14.9) 14.3 SECONDS 01/08/25, 09:35 Pre-Assessment Diagnosis/Proposed Procedure Planned Operative Procedure(s): EGD Anesthesia History Anesthesia History - integration manager: Anesthesia History - integration manager Hx Hospitalization No 01/30/25 14:06 Any Problems With Anesthesia No 01/30/25 14:06 Cholinesterase deficiency No 01/30/25 14:06 You/Your Family Experience No 01/30/25 14:06 fever (hyperthermia) with Relationship Recent Exposure to Contagious No 05/04/22 11:25 Disease Does patient have nerve No 01/30/25 14:06 stimulator Patient instructed to have device shut off --Does patient have Pacemaker or ICD? When Was Last Pacemaker Check QUESTION #4 FULL TEXT: You/Your Family Experience fever (hyperthermia) with Anesthesia Last Oral Intake Last Oral intake: Last Oral Intake NPO since Meds taken in AM with sips of water? Meds patient instructed to take am of surgery PONV PONV - integration manager: PONV - integration manager Female No 01/30/25 14:06 HX of Motion Sickness No 01/30/25 14:06 HX of N/V After Surgery No 01/30/25 14:06 Non-Smoker No 01/30/25 14:06 Duration of Surgery greater No 01/30/25 14:06 than 60 minutes Number of Risk Factors PONV Score Height & Weight Height & Weight: Anesthesia: Height & Weight Height 5 ft 11 in 01/08/25 08:29 Respiratory Assessment Respiratory Assessment - integration manager: Respiratory Tract Infection Hx - integration manager Hx Respiratory Tract Infection No 01/30/25 14:06 STOP Sleep Apnea STOP Sleep Apnea - integration manager: STOP Sleep Apnea - integration manager Hx Hypertension No: PER PT, CONTROLLED ON 01/30/25 14:06 MEDS Hx Sleep Apnea No 01/30/25 14:06 CPAP No 01/30/25 14:06 BIPAP No 01/30/25 14:06 Do you snore loudly (louder No 01/30/25 14:06 than talking or can be heard Do you often feel tired/ No 01/30/25 14:06 fatigued/ sleepy during daytime? Has anyone observed you stop No 01/30/25 14:06 breathing during sleep? STOP Results Negative 01/30/25 14:06 QUESTION #5 FULL TEXT : Do you snore loudly (louder than talking or can be heard through closed doors)? Tobacco Use History Tobacco Use History - integration manager: Tobacco Use History - integration manager Tobacco Use Smoking Status Current every day smoker 01/30/25 14:06 Hx Tobacco Use Yes 01/30/25 14:06 Years Smoking Packs Smoked per Day Smoking Cessation Date was within the last 15 years Hx Smoking Cessation Date Hx Smoking Cessation No 01/30/25 14:06 Counseling Hematologic Medial History Hematologic Hx - integration manager: Hematologic Medical Hx - documentation spec Hx of Blood Transfusion No 01/30/25 14:06 Hx of Transfusion in last 3 No 01/30/25 14:06 Months Date of Last Transfusion (if within last 3 months) Ever experience any problems No 01/30/25 14:06 with transfusion(s)? Specify any problems Hx of Preganancy in last 3 N/A 01/30/25 14:06 Months Nurse Filling Out Transfusion MGRIFFITH 01/30/25 14:06 & Questions: Date: 01/30/25 01/30/25 14:06 Time: 14:08 01/30/25 14:06 Patient unable to answer at this time (ie. confused, unrespo /Reproduction History /Reproductive History - integration manager: /Reproductive Hx- integration manager Hx Now Gestational Age (in weeks): EDC: Hx Hx Para Hx Section SAB No 01/30/25 14:06 Does the father of the baby or his family experience fever w Father of the baby Malignant Hypertension history comment PFSH Medical History Gastric reflux Excessive bleeding Irregular heart beat Influenza Hypoxia Crohn disease Emphysema lung COPD (chronic obstructive pulmonary disease) Peacock's esophagus Arthritis Smoker Shortness of breath on exertion History of pain when walking History of echocardiogram Blindness of left eye Right lower lobe lung mass Alcohol abuse Home Medications ?Medication ?Instructions ?Recorded ?Last Taken ?Type fluticasone fur. 100 mcg-umeclid 1 inh inhalation SAGAR Y #60 ea 06/02/23 Unknown Rx 62.5 mcg-vilant 25 mcg inhalat.powder (Trelegy Ellipta) albuterol sulfate 90 mcg/actuation 2 puff inhalation Q 6H PRN 12/26/24 Unknown History aerosol inhaler shortness of breath or wheez ing lisinopril 10 mg tablet 10 mg PO QDAY 12/26/24 Unkno wn History rabeprazole 20 mg tablet,delayed 20 mg PO QDAY #90 tab s 01/08/25 Unknown Rx release Allergy/AdvReac Type Severity Reaction Status Date / Time No Known Allergies Allergy Verified 01/30/25 14:03 Family History Father , from cancer Lung cancer Stomach cancer Brother Cancer unknown what type Sister Diabetes Mother Heart disease Myocardial infarction Brother Diabetes Heart disease Surgical History History of colonoscopy History of esophagogastroduodenoscopy (EGD) Hx of right cataract extraction Social History household members: spouse housing: house Smoking Status: Current every day smoker tobacco type: cigarettes Tobacco: How many years used: 56 Electronic Cigarette Use: not used second hand exposure: Yes alcohol intake: current alcohol intake frequency: 3 or more drinks per day details: 3-6, 24 ounce beers daily. substance use type: does not use Review of Systems (Anesthesia) ROS Narrative System reviewed and no additional complaints, except as documented.
--- NOTE | 2025-02-01 08:11 | HP.PCM_ITS ---
HPI - General General Date of Admission: 02/01/25 Date of Service: 02/01/25 Chief Complaint: Peacock's esophagus and hematemesis HPI Narrative AIDEE CHAPPELL, is a 64 M who presents [Chief Complaint: elevated liver enzymes Details: COLON 05/04/2022 - A single (solitary) ulcer at the hepatic flexure. Biopsied. - focal superficial erosion and associated acute inflammation - Congested mucosa in the recto-sigmoid colon, in the sigmoid colon, in the descending colon, at the splenic flexure, at the hepatic flexure and in the ascending colon. Biopsied. Fragments of colonic mucosa, no pathologic diagnosis - Repeat colonoscopy in 5 years for surveillance. HEMATEMESIS: - vomiting blood once every 3 months or so and it is bright red - reports one episode was after drinking red fruit punch - last episode was 6 months ago, woke up feeling bad and emesis of food he had eaten the night before, later in day had one epsiode of emesis of BRB - denies any pain MELENA: denies HB: denies, reports Omeprazole in the past caused nausea - denies any dysphagia Autoimmune: denies ?Meds: none liver toxic ?ALCOHOL: used to drink a lot, 10 tall beers (24 ounces cans) a day; reports not alcohol in the past week - more recently he was drinking up to 4 tall boys a day, but cannot afford it any longer NSAIDS: denies Jaundice: denies Ascites: yes Tattoo: yes IVDU: denies Blood Transfusion: denies Any h/o DVT: denies FAMILY h/o liver disease: denies LABS: 09/25/2024 HGB 14.3, PLT 115, AST 89, ALT 85, TSH WNL 06/26/2024 AST 67, ALT 60 PT/INR: not on record AFP: not on record FIB4 = 5.37 APRI: 1.68 MELD: no INR on record ASTERIXIS: none noted ENCEPHALOPATHY: No previously reported episodes. Patient does not require Lactulose/Xifaxan at this time. Denies any change in mental status. DIET: Patient has been counseled to follow a strict low sodium diet. WEIGHT: stable the past couple of years PULSE: Not on a beta vanessa. Elastography: 12/13/2024 10.5 kPa Metavir score: F2-F3. LIVER BX: denies ABD US: 12/13/2024 Increased echogenicity of the liver parenchyma as commonly seen with diffuse hepatic steatosis. No focal liver mass. Normal gallbladder and biliary tree. PARA: not previously performed DOPPLER: not previously performed EGD: 05/04/2022 - Peacock's w/o dysplasia - Esophageal mucosal changes consistent with short-segment Peacock's esophagus. Biopsied. - Erythematous mucosa in the stomach. - Duodenitis. Biopsied. We have discussed the seriousness of his/her condition and need to abstain from all alcohol consumption. PFSH Medical History Gastric reflux Excessive bleeding Irregular heart beat Influenza Hypoxia Crohn disease Emphysema lung COPD (chronic obstructive pulmonary disease) Peacock's esophagus Arthritis Smoker Shortness of breath on exertion History of pain when walking History of echocardiogram Blindness of left eye Right lower lobe lung mass Alcohol abuse Home Medications ?Medication ?Instructions ?Recorded ?Last Taken ?Type fluticasone fur. 100 mcg-umeclid 1 inh inhalation SAGAR Y #60 ea 06/02/23 Unknown Rx 62.5 mcg-vilant 25 mcg inhalat.powder (Trelegy Ellipta) albuterol sulfate 90 mcg/actuation 2 puff inhalation Q 6H PRN 12/26/24 Unknown History aerosol inhaler shortness of breath or wheez ing lisinopril 10 mg tablet 10 mg PO QDAY 12/26/24 Unkno wn History rabeprazole 20 mg tablet,delayed 20 mg PO QDAY #90 tab s 01/08/25 Unknown Rx release Allergy/AdvReac Type Severity Reaction Status Date / Time No Known Allergies Allergy Verified 01/30/25 14:03 Family History Father , from cancer Lung cancer Stomach cancer Brother Cancer unknown what type Sister Diabetes Mother Heart disease Myocardial infarction Brother Diabetes Heart disease Surgical History History of colonoscopy History of esophagogastroduodenoscopy (EGD) Hx of right cataract extraction Social History household members: spouse housing: house Smoking Status: Current every day smoker tobacco type: cigarettes Tobacco: How many years used: 56 Electronic Cigarette Use: not used second hand exposure: Yes alcohol intake: current alcohol intake frequency: 3 or more drinks per day details: 3-6, 24 ounce beers daily. substance use type: does not use ROS Constitutional Constitutional: Denies fatigue, fever(s), poor appetite, weight gain or weight loss Gastrointestinal Gastrointestinal: Denies belching, bloating, change in bowel habits, change in stool character, chewing difficulty, coffee ground emesis, constipation, cramping, diarrhea, dyspepsia, dysphagia, early satiety, excessive flatus, fecal incontinence, heartburn, hematemesis, hematochezia, hemorrhoids, loose stools, melena, nausea, odynophagia, rectal bleeding, tenesmus, vomiting or weight changes Physical Exam Const alert, oriented x3, no apparent distress and healthy appearing General Appearance: cooperative GI normal to inspection, nondistended, normoactive bowel sounds, soft to palpation, non-tender and non-distended Percussion: normal to percussion Rectal Exam: deferred Assessment & Plan Assessment/Plan (1) Alcohol-associated liver disease: (2) Cirrhosis: (3) Peacock's esophagus: PLAN: Assessment and Plan Assessment and Plan (1) Alcohol-associated liver disease: Status: Acute (2) Peacock's esophagus: Status: Acute (3) Smoking greater than 30 pack years: Status: Acute Orders: Orders CBC W/Diff, Automated Today F17.210 - Nicotine dependence, cigarettes, uncomplicated, K22.70 - Peacock's esophagus without dysplasia, K74.60 - Unspecified cirrhosis of liver Basic Metabolic Profile (BMP) Today F17.210 - Nicotine dependence, cigarettes, uncomplicated, K22.70 - Peacock's esophagus without dysplasia, K74.60 - Unspecified cirrhosis of liver Liver Profile Today F17.210 - Nicotine dependence, cigarettes, uncomplicated, K22.70 - Peacock's esophagus without dysplasia, K74.60 - Unspecified cirrhosis of liver Prothrombin Time w/INR Today F17.210 - Nicotine dependence, cigarettes, uncomplicated, K22.70 - Peacock's esophagus without dysplasia, K74.60 - Unspecified cirrhosis of liver AFP, Tumor Marker Today F17.210 - Nicotine dependence, cigarettes, uncomplicated, K22.70 - Peacock's esophagus without dysplasia, K74.60 - Unspecified cirrhosis of liver Hepatitis A AB, Total Today F17.210 - Nicotine dependence, cigarettes, uncomplicated, K22.70 - Peacock's esophagus without dysplasia, K74.60 - Unspecified cirrhosis of liver Hepatitis B Core Ab Total Today F17.210 - Nicotine dependence, cigarettes, uncomplicated, K22.70 - Peacock's esophagus without dysplasia, K74.60 - Unspecified cirrhosis of liver Hepatitis B Surface Antibody Today F17.210 - Nicotine dependence, cigarettes, uncomplicated, K22.70 - Peacock's esophagus without dysplasia, K74.60 - Unspecified cirrhosis of liver Hepatitis B Surface Antigen Today F17.210 - Nicotine dependence, cigarettes, uncomplicated, K22.70 - Peacock's esophagus without dysplasia, K74.60 - Unspecified cirrhosis of liver Hepatitis C Antibody Today F17.210 - Nicotine dependence, cigarettes, uncomplicated, K22.70 - Peacock's esophagus without dysplasia, K74.60 - Unspecified cirrhosis of liver [facility] Misc. Today F17.210 - Nicotine dependence, cigarettes, uncomplicated, K22.70 - Paecock's esophagus without dysplasia, K74.60 - Unspecified cirrhosis of liver Medications: New rabeprazole take every morning 30 minutes before first meal 20 mg PO QDAY 90 tabs 3RF Plan 64-year-old male with a history of alcohol use disorder and Peacock's Esophagus presenting with past episodes of hematemesis. The patient has recently ceased alcohol consumption, which is a positive step considering the observed increased liver echogenicity suggestive of possible alcoholic or non-alcoholic fatty liver disease. His liver enzymes are elevated, and platelet counts are low, which raises concerns about possible progression toward cirrhosis. The re currence of hematemesis might suggest potential esophageal varices secondary to liver changes, warranting further investigation. The history of Paecock's Esophagus without dysplasia indicates a need for ongoing monitoring to prevent progression to esophageal adenocarcinoma. Patient Instructions: Complete labs today Start PPI daily for Peacock's Abstain from all alcohol intake Smoking cessation recommended EGD Follow-up in office post procedure ]
[2025-02-01] MEDS: Lactated Ringers 1,000 ML 15 ML IV (08:19)
--- NOTE | 2025-02-01 09:00 | EGD_PTH ---
PATIENT: AIDEE CHAPPELL LOC: EN U#:[id number] AGE/SX: 64/M ROOM: RE02/01/[address]: Dr. Anshul Herrera DO : 1960 BED: DIS: 02/01/2025 SPEC #: [id number] RECD: 02/01/25 10:35 STATUS: CARLOS KRISS #: [id number] SHASHA: 02/01/25 09:[address]: Anshul Herrera DEPT: SURGICAL PATHOLOGY RECD BY: Logan Lam ENTERED: 02/01/25 13:48 SP TYPE: EGD BIOPSY ELODIA DR: Mar Plummer, [facility], CHEMICAL ENGINEERING TECHNICIAN-C Tissues: A - Esophagus, NOS Procedures: Surgery Specimen Level IV HEADER OPERATION: EGD with biopsies PRE-OP DIAGNOSIS: Peacock's esophagus and hematemesis TISSUE SUBMITTED: A- Distal esophagus biopsy MICROSCOPIC DIAGNOSIS A. Esophagus, distal, biopsy: * Peacock's esophagus, negative for dysplasia MICROSCOPIC DESCRIPTION Slides are reviewed. GROSS DESCRIPTION A. Received in fixative is one container labeled with the patient's name and designated Distal esophagus biopsy. The specimen consists of multiple irregular fragments of barragan tissue that in aggregate measure 0.9 x 0.7 x 0.2 cm. The specimen is totally submitted in one cassette. [place] 02/01/2025 CPT:00525
--- NOTE | 2025-02-01 09:49 | OP.EGD_ITS ---
Patient Name: Pepe Cook Procedure Date: 02/01/2025 9:32 AM Date of : 1960 Age: 64 Procedure: Upper GI endoscopy Indications: Iron deficiency anemia, Follow-up of Peacock's esophagus Providers: Anshul Herrera DO Referring MD: Mar Plummer [facility], Android Platform Developer-c Medicines: Monitored Anesthesia Care Patient Profile: This is a 64 year old male. Refer to note in patient chart for documentation of history and physical. Patient has symptoms of acute epigastric abdominal pain, chronic heartburn, chronic nausea and acute vomiting. His most recent EGD for Peacock's biopsy. Complications: No immediate complications. Procedure: Pre-Anesthesia Assessment: - Prior to the procedure, a History and Physical was performed, and patient medications and allergies were reviewed. The patient is competent. The risks and benefits of the procedure and the sedation options and risks were discussed with the patient. All questions were answered and informed consent was obtained. Patient identification and proposed procedure were verified by the physician in the pre-procedure area. Mental Status Examination: alert and oriented. Airway Examination: normal oropharyngeal airway and neck mobility. Respiratory Examination: clear to auscultation. CV Examination: normal. Prophylactic Antibiotics: The patient does not require prophylactic antibiotics. Prior Anticoagulants: The patient has taken no anticoagulant or antiplatelet agents. ASA Grade Assessment: II - A patient with mild systemic disease. After reviewing the risks and benefits, the patient was deemed in satisfactory condition to undergo the procedure. The anesthesia plan was to use monitored anesthesia care (MAC). Immediately prior to administration of medications, the patient was re-assessed for adequacy to receive sedatives. The heart rate, respiratory rate, oxygen saturations, blood pressure, adequacy of pulmonary ventilation, and response to care were monitored throughout the procedure. The physical status of the patient was re-assessed after the procedure. After obtaining informed consent, the endoscope was passed under direct vision. Throughout the procedure, the patient's blood pressure, pulse, and oxygen saturations were monitored continuously. The Endoscope was introduced through the mouth, and advanced to the third part of the duodenum. Small bowel enteroscopy was deemed necessary. The upper GI endoscopy was accomplished without difficulty. The patient tolerated the procedure well. Scope In: 9:41:06 AM Scope Out: 9:44:49 AM Total Procedure Duration Time 0 hours 3 minutes 43 seconds Findings: There were esophageal mucosal changes secondary to established Peacock's disease present in the lower third of the esophagus. The maximum longitudinal extent of these mucosal changes was 3 cm in length. Mucosa was biopsied with a cold forceps for histology in a targeted manner at intervals of 1 cm in the lower third of the esophagus. One specimen bottle was sent to pathology. Verification of patient identification for the specimen was done. Estimated blood loss was minimal. A hiatal hernia was present. No gross lesions were noted in the entire examined duodenum. Impression: - Esophageal mucosal changes secondary to established Peacock's disease. Biopsied. - Hiatal hernia. - No gross lesions in the entire examined duodenum. Recommendation: - Discharge patient to home. - Resume previous diet. - Continue present medications. - Await pathology results. - Repeat upper endoscopy in 1 year for surveillance. Procedure Code(s): --- Professional --- 16008, Small intestinal endoscopy, enteroscopy beyond second portion of duodenum, not including ileum; with biopsy, single or multiple CPT copyright 2021 [employer]. All rights reserved. The codes documented in this report are preliminary and upon medical biller coder review may be revised to meet current compliance requirements. Anshul Herrera DO 02/01/2025 9:48:57 AM This report has been signed electronically. Number of Addenda: 0 Note Initiated On: 02/01/2025 9:32 AM
--- NOTE | 2025-02-01 09:49 | OP.PROVAT_ITS ---
02/01/2025 Mar Plummer [facility], Freelance Programmer/App Developer-c Re : Upper GI endoscopy procedure for Pepe Cook Rashmir Elian This procedure was performed on Saturday, February 01, 2025. My impressions and recommendations are as follows: Impressions : - Esophageal mucosal changes secondary to established Peacock's disease. Biopsied. - Hiatal hernia. - No gross lesions in the entire examined duodenum. Recommendations : - Discharge patient to home. - Resume previous diet. - Continue present medications. - Await pathology results. - Repeat upper endoscopy in 1 year for surveillance. My findings are described in the full procedure note, which is enclosed. If I can be of further assistance, please feel free to contact me at . Sincerely, Anshul Herrera, 02/01/2025 9:48:57 AM This report has been signed electronically.
--- NOTE | 2025-02-01 09:58 | PCM.POST.ANE ---
Anesthesia: Postop Eval I Current Vital Signs Temperature: 97.2 F Pulse Rate: 77 Blood Pressure: 114/77 Respiratory Rate: 16 Pulse Ox: 96 Oxygen Delivery Method: Room Air Assessment Airway patent: Yes Spontaneous unlabored respirations: Yes Mental status: Awake nausea: No Vomiting: No Anesthesia Complication: No Fluid Hydration Crystalloid volume administer (ml): 400 Total IV fluid infused: 400 Progress Note Anesthesia document: Postop Eval 1 completed: Yes
--- NOTE | 2025-02-01 12:18 | PCM.POSTANE2 ---
Anesthesia Postop Eval I Sum Postop Eval Completion status Anesthesia document: Postop Eval 1 completed: Yes Anesthesia Postop Eval I Summary Anesthesia Postop Eval I Summary: Anesthesia Postop Eval I: Assessment Summary Airway patent Yes 02/01/25 09:59 [email or web address] Spontaneous unlabored Yes 02/01/25 09:59 [email or web address] respirations Mental status Awake 02/01/25 09:59 [email or web address] nausea No 02/01/25 09:59 [email or web address] Vomiting No 02/01/25 09:59 [email or web address] Anesthesia Postop Eval I: Fluid Summary Crystalloid volume administer 400 02/01/25 09:59 [email or web address] (ml) Colloids volume administered ( ml) Blood Product volume administered (ml) Total IV fluid infused 400 02/01/25 09:59 [email or web address] Anesthesia Postop Eval I: Summary Notes Anesthesia Complication No 02/01/25 09:59 [email or web address] Anesthesia Complication Comment: Post-operative progress note Anesthesia: Postop Eval II Evaluation Mental status: Awake Pain Level: 0 nausea: No Vomiting: No
== END 2025-02-01 10:31 | disposition home or self-care (01) ==
LOC: EN 07:54 → AC 07:55
PROVIDERS: PCP Nurse Practitioner Family; Referring Provider Nurse Practitioner Family; Visit Provider Internal Medicine Gastroenterology
PROC: 0DJ08ZZ Inspection of Upper Intestinal Tract, Via Natural or Artificial Opening Endoscopic (ICD-10-PCS; CPT 43235; principal; 2025-02-01 08:55)
DX: K22.70 Barrett's esophagus without dysplasia (principal); K74.60 Unspecified cirrhosis of liver; J44.9 Chronic obstructive pulmonary disease, unspecified; K44.9 Diaphragmatic hernia without obstruction or gangrene; D50.9 Iron deficiency anemia, unspecified; F17.210 Nicotine dependence, cigarettes, uncomplicated; K70.9 Alcoholic liver disease, unspecified; Z79.51 Long term (current) use of inhaled steroids; K92.0 Hematemesis; Z79.899 Other long term (current) drug therapy; K21.9 Gastro-esophageal reflux disease without esophagitis; Z98.41 Cataract extraction status, right eye
CPT/HCPCS: 44361; 88305; J2405